=== PATIENT | female | born 1960 | race Caucasian/White ===

== ENCOUNTER 2024-04-01 12:45 | Inpatient (IN) | payer MEDICARE, SELFPAY ==
[2024-04-01] VITALS (13 sets, daily range): BP systolic 91–149; BP diastolic 42–76; PULSE 87–120; RESP 15–23; TEMP 36.6–37.1; O2SAT 92–98; BMI 36.6
--- NOTE | ~2024-04-01 | XR_ITS ---
EXAMINATION: XR chest 1V portable DATE: 04/01/2024 17:14 INDICATION: Pneumonia TECHNIQUE: frontal view of the chest was obtained. COMPARISON: CT dated 04/01/2024 FINDINGS: Oblique band of discoid atelectasis at the left lower lung zone. Additional mild streaky atelectasis at the bilateral lung bases. No pleural effusion or pneumothorax. The cardiomediastinal silhouette is normal. Adjustable gastric banding procedure the epigastric region. IMPRESSION: 1. Atelectasis in bilateral lower lung zones, left greater than right. Reviewed, dictated and finalized at location A. SURGEON
--- NOTE | ~2024-04-01 | CT_ITS ---
EXAMINATION: CT abdomen pelvis w con DATE: 04/01/2024 14:52 INDICATION: Localized abdominal pain TECHNIQUE: Computed tomography (CT) of the abdomen and pelvis was performed with 100 mL Omnipaque-350 intravenous contrast. Automated exposure control and iterative reconstruction technique were employe d. The dose-length product was 1577.54 mGy-cm. COMPARISON: None FINDINGS: Dependent atelectasis in the lingula and bilateral lower lobes most prominent in the left lower lobe where there is asymmetric volume loss compared to the right lower lobe. Heart size is normal. No kyle cardial or pleural effusion. Small sliding-type hiatal hernia. Adjustable gastric banding procedure w hich is in expected position. Calcified gallstone within the normal-appearing gallbladder. The common bile duct is mildly dilated to 8 mm. No intrahepatic biliary ductal dilation or evident distal obstr ucting stone or mass. Liver, spleen, pancreas, bilateral adrenal glands and right kidney are normal. Nonobstructing left nephrolithiasis with 4 stones, the 3 largest staghorn calculi measuring 8-11 mm i n maximal diameter. No stones in the right kidney or bilateral ureters. There are however several lar ge bladder stones along with a Esparza catheter within the decompressed bladder. Large amount of coloni c stool consistent with constipation. Small bowel and appendix are normal. Small fat-containing umbil ical hernia. Uterus and bilateral adnexa are unremarkable. No free intraperitoneal gas or fluid. No p athologically enlarged abdominal or pelvic lymphadenopathy. 2.3 cm diameter rim calcified lesion with central fat attenuation in the deep pelvis consistent with chronic fat necrosis. Mild lumbar dextros coliosis with moderate spondylosis. Chronic L2 compression fracture with mild central vertebral body height loss. 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 IMPRESSION: 1. Nonobstructing left nephrolithiasis and multiple bladder stones. 2. Cholelithiasis with mild dilation the common bile duct without evident obstructing stone or mass. Correlate with liver function tests and if clinically concerned consider MRCP for further evaluation. 3. Large amount of colonic stool which can be seen with constipation. 4. Small sliding-type hiatal hernia with adjustable gastric band of adjustable gastric banding proced ure in expected position. 4. Small fat-containing umbilical hernia. 5. 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 Reviewed, dictated and finalized at location A. ER CALENDER HELPER IMPRESSION: 1. Nonobstructing left nephrolithiasis and multiple bladder stones. 2. Cholelithiasis with mild dilation the common bile duct without evident obstr ucting stone or mass. Correlate with liver function tests and if clinically con cerned consider MRCP for further evaluation. 3. Large amount of colonic stool which can be seen with constipation. 4. Small sliding-type hiatal hernia with adjustable gastric band of adjustable gastric banding procedure in expected position. 4. Small fat-containing umbilical hernia. 5. 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
--- NOTE | ~2024-04-01 | US_ITS ---
EXAMINATION: US abdomen limited DATE: 04/01/2024 17:14 INDICATION: Cholelithiasis TECHNIQUE: Multiple grayscale and Doppler ultrasound images of the abdomen were obtained. COMPARISON: None FINDINGS: There is suboptimal visualization of the organs secondary to patient body habitus. The region of the pancreas is obscured. Liver has normal echogenicity and contour, with a smooth surface. No liver lesi on identified. No intrahepatic biliary duct dilation suspected. Portal venous flow was seen in the he patopetal, normal direction and has normal Doppler waveform. Shadowing gallstones in the otherwise no rmal gallbladder. Common bile duct measures 5 mm diameter which is normal. Sonographic Arthur sign wa s reported as negative by the certified master locksmith. Visualized portion of the right kidney demonstrate normal contour and echogenicity with no hydronephrosis. Inferior vena cava is not clearly visualized. IMPRESSION: 1. Cholelithiasis without evident biliary ductal dilation or findings of acute cholecystitis. 2. Limited study due to patient body habitus. Reviewed, dictated and finalized at location A. IARD TABLE REPAIRER
--- NOTE | ~2024-04-01 | MR_ITS ---
EXAMINATION: MR MRCP wo/w con/w 3D wo ind DATE: 04/02/2024 13:04 INDICATION: Generalized abdominal pain. TECHNIQUE: Magnetic resonance imaging (MRI) of the abdomen was performed without and with 20 mL Multi Stef intravenous contrast. Sequences included coronal T2-weighted FS FSE, coronal T2-weighted FSE, a xial T1-weighted LAVA, coronal FS FIESTA, axial dual-echo T1-weighted SPGR, coronal lava-FLEX, sagitt al T2-weighted FSE, axial T2-weighted FSE, and axial DWI. Thick-slab T2-weighted FSE images were obta ined for magnetic resonance cholangiopancreatography (MRCP). Maximum intensity projection 3-D reconst ructions of the volumetric data were created by the technologist. Postcontrast sequences included cor onal LAVA-flex and time course of axial T1-weighted LAVA. COMPARISON: CT abdomen and pelvis 04/01/2024, abdomen ultrasound 04/01/2024 FINDINGS: ABDOMEN MRI: There is diffuse hepatic steatosis. There are gallstones in the gallbladder and cystic d uct. The gallbladder is distended. The spleen, pancreas, adrenal glands, and right kidney are normal. There is cortical thinning of left kidney. There are no dilated loops of bowel. A lap band is noted in expected position. ABDOMEN MRCP: The common duct is dilated to 10 mm. No choledocholithiasis. IMPRESSION: 1. Gallstones in the gallbladder and cystic duct with gallbladder distention, but no gallbladder wall thickening to suggest acute cholecystitis. Consider hepatobiliary scintigraphy. 2. Mildly dilated common duct. No choledocholithiasis. 3. Diffuse hepatic steatosis. Reviewed, dictated and finalized at location A. BOLIC SPECIALIST IMPRESSION: 1. Gallstones in the gallbladder and cystic duct with gallbladder distention, b ut no gallbladder wall thickening to suggest acute cholecystitis. Consider hepa tobiliary scintigraphy. 2. Mildly dilated common duct. No choledocholithiasis. 3. Diffuse hepatic steatosis.
--- NOTE | ~2024-04-01 | CT_ITS ---
EXAMINATION: CT brain wo con DATE: 04/01/2024 19:39 INDICATION: Seizure like episode TECHNIQUE: Computed tomography (CT) of the head was performed without intravenous contrast. Sagittal and coronal reconstructions were performed. The mA was adjusted according to patient size. Iterative reconstruction technique was employed. The dose-length product was 681.00 mGy-cm. COMPARISON: None FINDINGS: No acute intracranial hemorrhage, acute infarction or abnormal extra axial fluid collection. Small ol d lacunar infarct in the periventricular white matter of the left frontal lobe centrum semiovale. The re is mild scattered white matter hypoattenuation consistent with chronic small vessel ischemic disea se. Ventricles are normal and symmetric with normal anatomic variant cavum septum vergae. No mass/ma ss effect. The orbits, paranasal sinuses and mastoid air cells are normal. IMPRESSION: 1. 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 No acute intracranial proces s. 2. Mild scattered white matter hypoattenuation consistent with chronic small vessel ischemic disease. Reviewed, dictated and finalized at location A. ERTY CUSTODIAN IMPRESSION: 1. 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 No acu te intracranial process. 2. Mild scattered white matter hypoattenuation consistent with chronic small ve ssel ischemic disease.
--- OUTSIDE RECORDS SUMMARY | 2024-04-01 13:28 | XMS_ITS | Clinical Summary ---
Author Organization [facility] B Address [address] [place] [address] Care Team Providers Care Buyers' Agent Name Role Phone Tharebeca Nitamarco Marco Primary Care Provider [phone] Allergies No known active allergies Medications levothyroxine (SYNTHROID) 150 mcg tabletIndicatio ns:hypothyroidi sm Take 1 tablet (150 mcg total) by mouth daily before breakfast 7 Active buPROPion XL (WELLBUTRIN XL) 150 mg 24 hr tabletIndicatio ns:Anxiety with Depression Take 1 tablet (150 mg total) by mouth local city driver before breakfast 3 Active dalfampridine 10 mg tablet extended release 12 hrIndications:w alking impairment due to multiple sclerosis Take 1 tablet (10 mg total) by mouth every 12 (twelve) hours Active baclofen (LIORESAL) 10 mg tabletIndicatio ns:Muscle Spasticity of Spinal Origin Take 3 tablets (30 mg total) by mouth 3 (three) times a day 9 Active gabapentin (NEURONTIN) 100 mg capsuleIndicati ons:Neuropathic Pain Take 2 capsules (200 mg total) by mouth 3 (three) times a day 2 Active ascorbic acid (ascorbic acid with batsheva hips) 500 mg tablet,chewable Indications:Vit burton C Deficiency Take 1 tablet/chew tab (500 mg total) by mouth 2 (two) times a day 3 Active cholecalciferol , vitamin D3, (VITAMIN D3 ORAL) Take by mouth Active modafiniL (PROVIGIL) 200 mg tabletIndicatio ns:Sleepiness Due To Obstructive Sleep Apnea Take 1 tablet (200 mg total) by mouth local city driver before breakfast 90 tablet 3 4 Active atorvastatin (LIPITOR) 20 mg tabletIndicatio ns:hyperlipidem ia Take 1 tablet by mouth daily 5 Active clotrimazole 1 % cream Apply topically 2 (two) times a day 4 Active Hizentra 10 gram/50 mL (20 %) syringeIndicati ons:primary immune deficiency disorder 40 mg every 7 days 4 03/20/19 25 Discontinu ed(Therapy completed) mupirocin (BACTROBAN) 2 % ointmentIndicat ions:Minor Bacterial Skin Infections Apply topically as needed 3 03/20/19 25 Discontinu ed(Therapy completed) immune globulin (Gammagard Liquid) infusionIndicat ions:primary immune deficiency disorder 0 03/20/19 Discontinu ed(Therapy completed) Active Problems Problem Noted Date Diagnosed Date Multiple sclerosis 12/15/2023 Assessment & Plan (03/20/2024 3:07 PM FRONT END DRUPAL DEVELOPER): The patient is presenting for follow up of her multiple sclerosis. Since our last visit she has been doing well. She was noticed some intermittent tingling in her left upper extremity. She also reports a lesion in her left foot concerning for a possible pressure ulcer. She initially had a skin fungal infection which has improved with nystatin and fungal powder. She continues to get symptomatic benefit from baclofen, gabapentin, Ampyra, and modafinil. Her most recent brain MRI showed multiple T2 hyperintense lesions without evidence of ongoing inflammation. I will reach out to the [facility] to request a copy of her prior brain MRI for comparison. She will follow up with Urology for further management of her suprapubic catheter. We will continue her on home health for ongoing treatment of her pressure ulcers and for further treatment and evaluation of her suprapubic catheter. I will see her back in follow up in six months instructed her to reach out if any questions or concerns arise in the meantime. We will check routine labs, immunoglobulins, and immune cells ensure that she continues to have a strong immune system. Assessment & Plan (12/28/2023 11:07 AM FRONT END DRUPAL DEVELOPER): Patient is presenting to establish care for her multiple sclerosis. She first experienced symptom onset in the . Over time her symptoms have primarily consisted of progressive weakness in her bilateral lower extremities. She began using a walker in 2008 and after a prolonged hospitalization in 2011 due to pneumonia she has been using a wheelchair. She has a suprapubic catheter in place in his ongoing issues with sacral decubitus ulcers. She has been receiving subacute cutaneous IVIG weekly since 2019. She was previously on Ocrevus but this was discontinued she she developed urosepsis. We discussed ongoing treatment for her multiple sclerosis. Weekly IVIG is less effective for the treatment of multiple sclerosis particularly with ongoing progressive symptoms. It may be preventing infections if she has an underlying immunoglobulin deficiency. I recommend we check immunoglobulins at today's visit in one month trial her off the IVIG to see how she does. If she begins to experience recurrent infections or worsening of her underlying multiple sclerosis we can put her back on the medication. We will continue her symptomatic therapy for her multiple sclerosis including Ampyra 10 mg b.i.d., gabapentin 200 mg q.a.m., 200 mg q.p.m., and 300 mg at night, baclofen 30 mg q.a.m., 30 mg q.p.m., and 40 mg at night. We will also continue the patient on Wellbutrin 150 mg daily. Also recommended she continue the vitamin-D supplement. We will also continue her on modafinil 200 mg daily for ongoing treatment of her fatigue. We will obtain an updated brain MRI. We will look into home health agency to provide home PT, OT, and wound care. There may be some complication with the patient's insurance while she is still on the IVIG. We will find out more information. We will see the patient back in follow up in three months. The patient is wheelchair has significant wear and tear. We will work on getting the patient a new power wheelchair. Recurrent major depressive d isorder, in full remission (CMS/[facility]) 12/15/2023 Assessment & Plan (12/15/2023 2:22 PM CDT): The patient is currently treated for depression with Wellbutrin 150 mg daily. She reports good benefit from the medication. We will continue it for ongoing treatment Encounters Date Type Department Care Team Description 03/30/2024 1:00 PM FRONT END DRUPAL DEVELOPER Home Care Visit [address] [place] [address] Opal Vincent COTA OT HOME VISIT 03/29/2024 10:00 AM FRONT END DRUPAL DEVELOPER Home Care Visit [address] [place] [address] Jennifer Aquino, SLUG PRESS OPERATOR AIDE HOME VISIT 03/29/2024 9:00 AM FRONT END DRUPAL DEVELOPER Home Care Visit [address] [place] [address] Elizabeth Gotti, ALXEI SN HOME VISIT 03/28/2024 2:45 PM FRONT END DRUPAL DEVELOPER Home Care Visit [address] [place] [address] Opal Vincent COTA OT HOME VISIT 03/26/2024 10:00 AM FRONT END DRUPAL DEVELOPER Home Care Visit [address] [place] [address] Jennifer Aquino, SLUG PRESS OPERATOR AIDE HOME VISIT 03/22/2024 1:30 PM FRONT END DRUPAL DEVELOPER Home Care Visit [address] [place] [address] Opal Vincent COTA OT HOME VISIT 03/22/2024 10:00 AM FRONT END DRUPAL DEVELOPER Home Care Visit [address] [place] [address] Jennifer Aquino, SLUG PRESS OPERATOR AIDE HOME VISIT 03/22/2024 9:00 AM FRONT END DRUPAL DEVELOPER Home Care Visit [address] [place] [address] Elizabeth Gotti, ALEXI SN HOME VISIT 03/21/2024 12:30 PM FRONT END DRUPAL DEVELOPER Home Care Visit [address] [place] [address] Opal Vincent COTA OT HOME VISIT 03/21/2024 Telephone [facility] [address] [place] [address] Holly Sprague RN 03/20/2024 3:15 PM FRONT END DRUPAL DEVELOPER Lab [facility] [address] [place] [address] Multiple sclerosis (HCC) 03/20/2024 2:00 PM FRONT END DRUPAL DEVELOPER Office Visit [facility] [address] [place] [address] Rhys Stevens MD Multiple sclerosis (HCC) (Primary Dx) 03/19/2024 9:30 AM FRONT END DRUPAL DEVELOPER Home Care Visit [address] [place] [address] Jennifer Aquino SLUG PRESS OPERATOR AIDE HOME VISIT 03/16/2024 11:30 AM FRONT END DRUPAL DEVELOPER Home Care Visit [address] [place] [address] Keil Larios, OT OT REASSESSMENT 03/16/2024 Home Care Visit [address] [place] [address] Keli Larios, OT CASE COMMUNICATION 03/15/2024 8:00 AM FRONT END DRUPAL DEVELOPER Home Care Visit [address] [place] [address] Jennifer Aquino SLUG PRESS OPERATOR AIDE HOME VISIT 03/15/2024 Home Care Visit [address] [place] [address] Alexandra Durand, ALEXI SN TRIAGE ENCOUNTER 03/14/2024 9:00 AM FRONT END DRUPAL DEVELOPER Home Care Visit [address] [place] [address] Aundrea Scanlon SN HOME VISIT 03/12/2024 9:00 AM FRONT END DRUPAL DEVELOPER Home Care Visit [address] [place] [address] Jennifer Aquino, SLUG PRESS OPERATOR AIDE HOME VISIT 03/11/2024 2:28 PM FRONT END DRUPAL DEVELOPER - 03/11/2024 11:59 PM FRONT END DRUPAL DEVELOPER Hospital Encounter [facility] [address] [place] [address] Multiple sclerosis (HCC) Discharge Disposition: Discharge to home or self care 03/10/2024 4:05 PM FRONT END DRUPAL DEVELOPER Home Care Visit [address] [place] [address] Cecile Allen SN HOME VISIT 03/10/2024 Home Care Visit [address] [place] [address] Nay Reyna RN SN TRIAGE ENCOUNTER 03/09/2024 3:00 PM FRONT END DRUPAL DEVELOPER Home Care Visit [address] [place] [address] Opal Vincent COTA OT HOME VISIT 03/09/2024 12:00 PM FRONT END DRUPAL DEVELOPER Home Care Visit [address] [place] [address] Jennifer Aquino, SLUG PRESS OPERATOR AIDE HOME VISIT 03/08/2024 11:30 AM FRONT END DRUPAL DEVELOPER Home Care Visit [address] [place] [address] Aundrea Scanlon SN HOME VISIT 03/06/2024 2:00 PM FRONT END DRUPAL DEVELOPER Home Care Visit [address] [place] [address] Jennifer Aquino, SLUG PRESS OPERATOR AIDE HOME VISIT 03/05/2024 Home Care Visit [address] [place] [address] Nannette Cazares RN SN TRIAGE ENCOUNTER 03/03/2024 4:00 PM FRONT END DRUPAL DEVELOPER Home Care Visit [address] [place] [address] Arabella Martin, ALEXI SN HOME VISIT 03/03/2024 Home Care Visit [address] [place] [address] Arabella Martin, RN CASE COMMUNICATION 03/03/2024 Home Care Visit [address] [place] [address] Nannette Cazares RN SN TRIAGE ENCOUNTER 03/03/2024 Home Care Visit [address] [place] [address] Patrizia Loaiza RN SN TRIAGE ENCOUNTER 03/02/2024 Home Care Visit [address] [place] [address] Mauricio Owens RN SN TRIAGE ENCOUNTER 02/24/2024 1:45 PM FRONT END DRUPAL DEVELOPER Home Care Visit [address] [place] [address] Opal Vincent COTA OT HOME VISIT 02/21/2024 11:00 AM FRONT END DRUPAL DEVELOPER Home Care Visit [address] [place] [address] Aundrea Scanlon SN HOME VISIT 02/21/2024 Home Care Visit [address] [place] [address] Renetta Marmolejo RN SN TRIAGE ENCOUNTER 02/20/2024 Home Care Visit [address] [place] [address] Jenny Oseguera, RN SN TRIAGE ENCOUNTER 02/18/2024 Plan of Care Documentation [address] [place] [address] 02/17/2024 11:00 AM FRONT END DRUPAL DEVELOPER Home Care Visit [address] [place] [address] Aundrea Scanlon SN OASIS RECERTIFICATION 02/13/2024 3:00 PM FRONT END DRUPAL DEVELOPER Home Care Visit [address] [place] [address] Matilda Baeza, RN SN HOME VISIT 02/13/2024 11:30 AM FRONT END DRUPAL DEVELOPER Home Care Visit [address] [place] [address] Mellisa Castellon, PT PT INITIAL EVALUATION 02/13/2024 Home Care Visit [address] [place] [address] Jenny Oseguera RN SN TRIAGE ENCOUNTER 02/12/2024 Home Care Visit [address] [place] [address] Alexandra Durand RN SN TRIAGE ENCOUNTER 02/10/2024 11:00 AM FRONT END DRUPAL DEVELOPER Home Care Visit [address] [place] [address] Aundrea Scanlon SN HOME VISIT 02/07/2024 11:30 AM FRONT END DRUPAL DEVELOPER Home Care Visit [address] [place] [address] Keli Larios, OT OT REASSESSMENT 02/07/2024 Home Care Visit [address] [place] [address] Keli Larios, OT CASE COMMUNICATION 02/06/2024 Home Care Visit [address] [place] [address] Mellisa Castellon, PT TELEPHONE ENCOUNTER 02/03/2024 11:00 AM FRONT END DRUPAL DEVELOPER Home Care Visit [address] [place] [address] Aundrea Scanlon SN HOME VISIT 02/03/2024 Home Care Visit [address] [place] [address] Mellisa Castellon, PT TELEPHONE ENCOUNTER 02/02/2024 Home Care Visit [address] [place] [address] Mellisa Castellon, PT TELEPHONE ENCOUNTER 02/02/2024 Documentation [facility] [address] [place] [address] Rhys Stevens MD 01/31/2024 2:45 PM FRONT END DRUPAL DEVELOPER Home Care Visit [address] [place] [address] Opal Vincent COTA OT HOME VISIT 01/31/2024 Home Care Visit [address] [place] [address] Mellisa Castellon, PT TELEPHONE ENCOUNTER 01/27/2024 11:00 AM FRONT END DRUPAL DEVELOPER Home Care Visit [address] [place] [address] Aundrea Scanlon SN HOME VISIT 01/25/2024 Home Care Visit [address] [place] [address] Patrizia Loaiza, ALEXI SN TRIAGE ENCOUNTER 01/25/2024 Telephone [facility] Scheduling [address] [place] [address] Resource, Homecare Scheduling 01/24/2024 2:30 PM FRONT END DRUPAL DEVELOPER Home Care Visit [address] [place] [address] Keli Larios, OT OT HOME VISIT 01/24/2024 Home Care Visit [address] [place] [address] Keli Larios, OT CASE COMMUNICATION 01/19/2024 2:00 PM FRONT END DRUPAL DEVELOPER Home Care Visit [address] [place] [address] Opal Vincent COTA OT HOME VISIT 01/19/2024 12:00 PM FRONT END DRUPAL DEVELOPER Home Care Visit [address] [place] [address] Aundrea Scanlon SN HOME VISIT 01/19/2024 Home Care Visit [address] [place] [address] Patrizia Loaiza RN SN TRIAGE ENCOUNTER 01/17/2024 1:30 PM FRONT END DRUPAL DEVELOPER Home Care Visit [address] [place] [address] Opal Vincent COTA OT HOME VISIT 01/17/2024 11:00 AM FRONT END DRUPAL DEVELOPER Home Care Visit [address] [place] [address] Last [employer] REGION[employer] ACCOUNT EXECUTIVE CLE[employer]ER [employer] UPHOLSTERY INITIAL EVAL 01/17/2024 Home Care Visit [address] [place] [address] Last [employer] LCSW CLEANER [employer]PET AND UPHOLSTERY DISCIPLINE DISCHARGE 01/16/2024 Home Care Visit [address] [place] [address] Last [employer] LCSW CASE COMMUNICATION 01/11/2024 11:30 AM FRONT END DRUPAL DEVELOPER Home Care Visit [address] [place] [address] Cecile Allen SN HOME VISIT 01/11/2024 Home Care Visit [address] [place] [address] Patrizia Loaiza RN SN TRIAGE ENCOUNTER 01/10/2024 12:30 PM FRONT END DRUPAL DEVELOPER Home Care Visit [address] [place] [address] Keli Larios, OT OT INITIAL EVALUATION 01/10/2024 11:00 AM FRONT END DRUPAL DEVELOPER Home Care Visit [address] [place] [address] Aundrea Scanlon SN HOME VISIT 01/10/2024 Home Care Visit [address] [place] [address] Keli Larios, OT CASE COMMUNICATION 01/06/2024 12:30 PM FRONT END DRUPAL DEVELOPER Home Care Visit [address] [place] [address] Aundrea Scanlon SN HOME VISIT 01/05/2024 1:00 PM FRONT END DRUPAL DEVELOPER Home Care Visit [address] [place] [address] Efe Buckner, PT PT DISCIPLINE DISCHARGE 01/02/2024 Documentation [facility] [address] [place] [address] Rhys Stevens MD from Last 3 Months Immunizations Immunization Administration Dates Next Due Influenza LAIV (Nasal) 03/02/2013 Influenza, Quadrivalent, Spl it, Preservative Free, Intramuscular 02/21/2014,04/27/2011 Influenza, Unspecified 03/03/2012 Tdap 04/23/2016 Medical History Medical History Date Comments Recurrent major depressive d isorder, in full remission (CMS/HCC) (HCC) 12/15/2023 Multiple sclerosis ([facility]) 12/15/2023 Social History Tobacco Use Types Packs/Day Years Used Date Smoking Tobacco: Former Cigarettes Tobacco Cessation:Counseling Given: Not Answered OASIS D0700: Social Isolation Answer Da te Recorded Frequency of experiencing loneliness or isolatio n Never 02/17/2024 OASIS A1250: Transportation Answer Date Recorded Lack of Transportation (Medical) No 12/21/2023 Lack of Transportation (Non-Medical) No 12/21/2023 Patient Unable or Declines to Respond No 12/21/2023 OASIS B1300: Health Literacy Answer Enmanuel e Recorded Frequency of needing help to read materials from doctor or pharmacy Never 12/21/2023 AUDIT-C Answer Date Recorded Q1: How often do you have a drink containing alc ohol? Monthly or less 03/20/2024 Q2: How many drinks containi ng alcohol do you have on a typical day when you are drinking? 1 or 2 03/20/2024 Q3: How often do you have si x or more drinks on one occasion? Less than monthly 03/20/2024 Comments No Sex and Gender Information Value Date Recorded Sex Assigned at Not on file Legal Sex Female 1:01 PM CDT Gender Identity Not on file Sexual Orientation Not on file Obstetrics History Last Filed Vital Signs Vital Sign Reading Time Taken Comments Blood Pressure 112/68 03/29/2024 2:32 PM FRONT END DRUPAL DEVELOPER Pulse 68 03/29/2024 2:32 PM FRONT END DRUPAL DEVELOPER Temperature 36.7 C (98.1 F) 03/29/2024 2:32 PM FRONT END DRUPAL DEVELOPER Respiratory Rate 18 03/29/2024 2:32 PM FRONT END DRUPAL DEVELOPER Oxygen Saturation 92% 03/29/2024 2:32 PM FRONT END DRUPAL DEVELOPER Inhaled Oxygen Concentration - - Weight 108.9 kg (240 lb) 03/20/2024 2:04 PM FRONT END DRUPAL DEVELOPER Height 172.7 cm (5' 8 ) 03/20/2024 2:04 PM FRONT END DRUPAL DEVELOPER Body Mass Index 36.49 03/20/2024 2:04 PM FRONT END DRUPAL DEVELOPER Plan of Treatment Health Maintenance Due Date Last Done Comments Breast Cancer Screening-Mammogram 1961 Cervical Cancer Screening 1961 Colon Cancer Screening-Colonoscopy 1961 Depression Screening 1961 Hepatitis C Screening 1961 Hepatitis B Screening 1979 Regular Well Visit/Exam 18-64 1979 Zoster Vaccine (1 of 2) 2011 Covid-19 Vaccine ( season) 2023 06/09/2020, 05/12/2020 Influenza Vaccine (#1) 2023 5, 03/02/2013, 03/03/2012, Additional history exists DTaP/Tdap/Td Vaccine (2 - Td or Tdap) 04/23/2026 04/23/2016 Pneumococcal vaccine <65 Aged Out No longer eligible based on patient's age to complete this topic Procedures Procedure Name Priority Date/Time Associated Diagnosis Comments IMMUNE COMPETENCE Routine 03/20/2024 7:5 6 PM FRONT END DRUPAL DEVELOPER Multiple sclerosis (HCC) EGFR Routine 03/20/2024 6:53 PM FRONT END DRUPAL DEVELOPER Multiple sclerosis (HCC) DIFFERENTIAL AUTO Routine 03/20/2024 6:5 3 PM FRONT END DRUPAL DEVELOPER Multiple sclerosis (HCC) CBC WITH AUTO DIFFERENTIAL Routine 03/20/2024 6:53 PM FRONT END DRUPAL DEVELOPER Multiple sclerosis (HCC) COMPREHENSIVE METABOLIC PANEL Routine 03/20/2024 6:53 PM FRONT END DRUPAL DEVELOPER Multiple sclerosis (HCC) IMMUNOGLOBULIN PROFILE Routine 6:53 PM FRONT END DRUPAL DEVELOPER Multiple sclerosis (HCC) MRI BRAIN W WO CONTRAST Routine 03/11/19 3:53 PM FRONT END DRUPAL DEVELOPER Multiple sclerosis (HCC) from Last 3 Months Results * Immune competence (03/20/2024 7:56 PM FRONT END DRUPAL DEVELOPER) CD3 pct 71 60 - 88 % Comment:Testing performed by : [facility], [address] [place] [address]., [address] CD3 Absolute 1,036 661 - 1,963 cells/mcL [facility] Comment:Testing performed by : [facility], [address] [place]., [address] CD4 pct 52 31 - 64 % [facility] Comment:Testing performed by : [facility], [address] [place]., [address] CD4 Absolute 788 365 - 1,294 cells/mcL [facility] Comment:Testing performed by : [facility], [address] [facility], [address] CD8 pct 17 12 - 40 % [facility] Comment:Testing performed by : [facility], [address] [place]., [address] CD8 Absolute 257 187 - 781 cells/mcL [facility] Comment:Testing performed by : [facility], [address] [place]., [address] CD19 pct 23 6 - 25 % [facility] Comment:Testing performed by : [facility], [address] [place]., [address] CD19 Absolute 323 86 - 488 cells/mcL [facility] Comment:Testing performed by : [facility], [address] [place]., [address] [id number] pct 6 5 - 25 % [facility] Comment:Testing performed by : [facility], [address] [facility], [address] [id number] Absolute 87 76 - 467 cells/mcL [facility] Comment:Testing performed by : [facility], [address] [place]., [address] CD4/CD8 ratio 3.1 0.9 - 4.4 [facility] Comment:Testing performed by : [facility], [address] [place]., [address] Blood 03/20/2024 7:56 PM FRONT END DRUPAL DEVELOPER 03/20/2024 9:45 PM FRONT END DRUPAL DEVELOPER Rhys Stevens MD LAB BLOOD ORDERABLES Final Result [facility] [address] [place] [address] * (ABNORMAL) Immunoglobulin profile (03/20/2024 6:53 PM FRONT END DRUPAL DEVELOPER) Immunoglobulin G 1,307 700 - 1,600 mg/dL Immunoglobulin A 468(H) 70 - 400 mg/dL [facility] Immunoglobulin M 63 40 - 230 mg/dL [facility] Blood 03/20/2024 6:53 PM FRONT END DRUPAL DEVELOPER 03/20/2024 6:53 PM FRONT END DRUPAL DEVELOPER Rhys Stevens MD LAB BLOOD ORDERABLES Final Result Performing Organization Address [facility] Co de Phone Number [facility] [address] [place] [address] * eGFR (03/20/2024 6:53 PM FRONT END DRUPAL DEVELOPER) eGFR >90 >=60 mL/min/1. 73 m2 Comment: Interpretive Data Reference Interval Normal >/= 90 mL/min/1.73m2 Mildly decreased* 60 - 89 mL/min/1.73m2 Mildly to moderately decreased 45 - 59 mL/min/1.73m2 Moderately to severely decreased 30 - 44 mL/min/1.73m2 Severely decreased 15 - 29 mL/min/1.73m2 Kidney Failure < 15 mL/min/1.73m2 *Relative to young adult level Estimated glomerular filtration rate is determined by the 2020 CKD-EPI equation recommended by the National Kidney Foundation (A Unifying Approach to GFR Estimation: Recommendations of the NKF-ASK Task Force on Reassessing the Inclusion of Race in Diagnosing Kidney Disease, JASN 2020). The CKD-EPI equation should not be used for patients with unstable renal function and has not been validated in children and those over 70. Current interpretive data was last reviewed 2020. Blood 03/20/2024 6:53 PM FRONT END DRUPAL DEVELOPER 03/20/2024 6:53 PM FRONT END DRUPAL DEVELOPER Rhys Stevens MD LAB BLOOD ORDERABLES Final Result Performing Organization Address [facility] Co de Phone Number [facility] [address] [place] [address] * Differential, auto (03/20/2024 6:53 PM FRONT END DRUPAL DEVELOPER) Neutrophil abs 6.3 1.5 - 6.5 K/cumm Imm gran abs 0.0 0.0 - 0.1 K/cumm [facility] Lymphocyte abs 1.5 0.8 - 3.3 K/cumm [facility] Monocyte abs 0.7 0.2 - 0.8 K/cumm [facility] Eosinophil abs 0.2 0.0 - 0.5 K/cumm [facility] Basophil abs 0.1 0.0 - 0.1 K/cumm [facility] Neutrophil pct 71.8 % [facility] Comment: Interpretive Data Percent cell count reference ranges are not reported, since discordance with absolute values may lead to misinterpretation of CBC data. Current Interpretive Data was last revised on 2017. Imm gran pct 0.5 % [facility] Comment: Interpretive Data Percent cell count reference ranges are not reported, since discordance with absolute values may lead to misinterpretation of CBC data. Current Interpretive Data was last revised on 2017. Lymphocyte pct 17.6 % [facility] Comment: Interpretive Data Percent cell count reference ranges are not reported, since discordance with absolute values may lead to misinterpretation of CBC data. Current Interpretive Data was last revised on 2017. Monocyte pct 7.8 % [facility] Comment: Interpretive Data Percent cell count reference ranges are not reported, since discordance with absolute values may lead to misinterpretation of CBC data. Current Interpretive Data was last revised on 2017. Eosinophil pct 1.7 % [facility] Comment: Interpretive Data Percent cell count reference ranges are not reported, since discordance with absolute values may lead to misinterpretation of CBC data. Current Interpretive Data was last revised on 2017. Basophil pct 0.6 % [facility] Comment: Interpretive Data Percent cell count reference ranges are not reported, since discordance with absolute values may lead to misinterpretation of CBC data. Current Interpretive Data was last revised on 2017. Blood 03/20/2024 6:53 PM [employer] 03/20/2024 6:53 PM FRONT END [employer] DEVELOPER us Rhys Stevens MD LAB BLOOD ORDERABLES Final Result [facility] [address] [place] [address] * CBC with auto differential (03/20/2024 6:53 PM FRONT END [employer]UPAL DEVELOPER) WBC 8.8 3.8 - 9.9 K/cumm Hgb 13.4 11.9 - 15.5 g/dL [facility] Hct 41.4 35.6 - 45.5 % [facility] Plt 350 150 - 400 K/cumm [facility] MPV 10.1 9.1 - 12.3 fL [facility] RBC 4.36 3.90 - 5.20 M/cumm [facility] MCV 95.0 81.3 - 96.4 fL [facility] MCH 30.7 27.1 - 33.3 pg [facility] MCHC 32.4 32.3 - 35.7 g/dL [facility] RDW CV 13.0 11.1 - 14.9 % [facility] RDW SD 44.8 35.7 - 48.1 fL [facility] NRBC abs 0.00 0.00 - 0.01 K/cumm [facility] Blood 03/20/2024 6:53 PM [employer] END [employer]UP[employer] DEVELOPER 03/20/2024 6:53 PM FR[employer] END [employer]UPAL DEVELOPER us Rhys Stevens MD LAB BLOOD ORDERABLES Final Result [facility] [address] [place] [address] * (ABNORMAL) Comprehensive metabolic panel (03/20/2024 6:53 PM FRONT END DRUPAL DEVELOPER) [facility] Sodium 139 135 - 145 mmol/L Potassium, pl 4.3 3.3 - 4.9 mmol/L [facility] Chloride 99 97 - 110 mmol/L [facility] CO2 27 22 - 32 mmol/L [facility] Anion gap 13 2 - 15 mmol/L [facility] BUN 4(L) 6 - 25 mg/dL [facility] Creatinine 0.39(L) 0.60 - 1.10 mg/dL [facility] Glucose 84 70 - 199 mg/dL [facility] Comment: Interpretive Data Fasting glucose >/= 126 mg/dl is diagnostic for diabetes. Fasting is defined as no caloric intake for at least 8 hours. Fasting glucose between 100 mg/dl to 125 mg/dl is diagnostic of prediabetes. In a patient with classic symptoms of hyperglycemia or hyperglycemic crisis, a random glucose >/= 200 mg/dl is diagnostic for diabetes. In the absence of unequivocal hyperglycemia, results should be confirmed by repeat testing. The classification and Diagnosis of Diabetes Diabetes Care 202; 46: S19-S40. Current interpretive data was last revised 2022. Calcium 9.2 8.5 - 10.3 mg/dL [facility] Bilirubin, total 0.3 0.1 - 1.2 mg/dL [facility] Protein, pl 7.5 6.5 - 8.5 g/dL [facility] Albumin 3.9 3.5 - 5.0 g/dL [facility] Alk phos 114 40 - 130 Units/L [facility] ALT 32 7 - 45 Units/L [facility] AST 18 10 - 45 Units/L [facility] Blood 03/20/2024 6:53 PM FR[employer] END [employer] DEVELOPER 03/20/2024 6:53 PM FR[employer] END [employer]UP[employer] DEVELOPER Rhys Stevens MD LAB BLOOD ORDERABLES Final Result [facility] [address] [place] [address] * MRI Brain W WO Contrast (03/11/2024 3:53 PM FRONT END [employer]UPAL DEVELOPER) Anatomical Region Laterality Modality Head and Neck N/A Magnetic Resonan ce 03/12/2024 10:1 2 AM FRONT END [employer]UPAL DEVELOPER Impressions 03/12/2024 10:12 AM [employer] END [employer]UPAL DEVELOPER 1. Multiple white matter lesions. No priors available for comparison. 2. No abnormal enhancement or diffusion restriction to suggest active demyelination. 3. Greater than 50% of the lesions demonstrate a Central Vein Sign. Electronically signed by: Edgardo Shaw M.D. Narrative 03/12/2024 10:12 AM FRONT END [employer]UPAL DEVELOPER MRI BRAIN W WO CONTRAST 03/11/2024 2:30 PM CLINICAL INDICATION: Multiple sclerosis. COMPARISON: No priors available for comparison. TECHNIQUE: Multiplanar multisequence MRI of the brain was performed without and with contrast. 20 mL of gadoterate meglumine was administered intravenously. A 3 Blanche magnet was used. Portions of the study are degraded by motion. FINDINGS: There is a cavum vergae. The ventricles and cortical sulci are mildly dilated. There is no acute infarct, mass/mass effect or midline shift. There are multiple subcortical, juxtacortical and periventricular FLAIR/T2 signal intensities. None of the lesions demonstrate enhancement or diffusion restriction. Greater than 50% of the lesions demonstrate a Central Vein Sign. There is mild increased signal along the periaqueductal arvizu matter. There is mild increased fluid in the sella. Otherwise, the sellar and suprasellar structures are normal. There are no acute findings in the posterior fossa. 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 There is preservation of normal flow voids in the major intracranial vessels. There is scattered paranasal sinus mucosal thickening. There is trace fluid in the left mastoid air cells. There are no acute findings in the orbits. Procedure Note Edgardo Shaw MD - 03/12/2024 MRI BRAIN W WO CONTRAST 03/11/2024 2:30 PM CLINICAL INDICATION: Multiple sclerosis. COMPARISON: No priors available for comparison. TECHNIQUE: Multiplanar multisequence MRI of the brain was performed without and with contrast. 20 mL of gadoterate meglumine was administered intravenously. A 3 Blanche magnet was used. Portions of the study are degraded by motion. FINDINGS: There is a cavum vergae. The ventricles and cortical sulci are mildly dilated. There is no acute infarct, mass/mass effect or midline shift. There are multiple subcortical, juxtacortical and periventricular FLAIR/T2 signal intensities. None of the lesions demonstrate enhancement or diffusion restriction. Greater than 50% of the lesions demonstrate a Central Vein Sign. There is mild increased signal along the periaqueductal arvizu matter. There is mild increased fluid in the sella. Otherwise, the sellar and suprasellar structures are normal. There are no acute findings in the posterior fossa. 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 There is preservation of normal flow voids in the major intracranial vessels. There is scattered paranasal sinus mucosal thickening. There is trace fluid in the left mastoid air cells. There are no acute findings in the orbits. IMPRESSION: 1. Multiple white matter lesions. No priors available for comparison. 2. No abnormal enhancement or diffusion restriction to suggest active demyelination. 3. Greater than 50% of the lesions demonstrate a Central Vein Sign. Electronically signed by: Edgardo Shaw M.D. Rhys Stevens MD IM MRI PROCEDURES Fi nal Result from Last 3 Months Insurance MEDICARE [facility] Care Teams Buyers' Agent Relationship Specialty Start Date End Date Rachel Carmichael [address] [place] [address] [phone] PCP - General Family Medicine 12/13/23
--- OUTSIDE RECORDS SUMMARY | 2024-04-01 13:29 | XMS_ITS | Clinical Summary ---
Author Organization [facility] [place] [address] [place] [address] Care Team Providers Care Medical Service Representative Name Role Phone Unavailable Primary Care Provider Unavailabl e Medications No known medications Active Problems No known active problems Social History Tobacco Use Types Packs/Day Years Used Date Smoking Tobacco: Never Smokeless Tobacco: Never Tobacco Cessation:Counseling Given: Not Answered Alcohol Use Standard Drinks/Week Comments Never 0 (1 standard drink = 0.6 oz pur e alcohol) Comments Unknown Sex and Gender Information Value Date Recorded Sex Assigned at Not on file Legal Sex Female 1:12 AM PST Gender Identity Not on file Sexual Orientation Not on file Last Filed Vital Signs Vital Sign Reading Time Taken Comments Blood Pressure 141/89 05/03/2022 10:01 AM PDT Pulse - - Temperature - - Respiratory Rate - - Oxygen Saturation - - Inhaled Oxygen Concentration - - Weight - - Height - - Body Mass Index - - Plan of Treatment Health Maintenance Due Date Last Done Comments Dental X-Ray: Full Mouth 1961 Periodontal Maintenance 10/05/2018 07/05/19 19, 02/23/2018, 10/18/2017 Dental Oral Exam 01/05/2019 07/04/2018, 10/18/2017 Dental X-Ray: Bitewings 01/05/2019 07/04/2018 Scaling and Root Planing 07/02/2019 018, 06/17/2017, 06/17/2017, Additional history exists Dental X-Ray: Panoramic 05/05/2025 05/04/2022 Colonoscopy Discontinued 05/21/2022 Meningococcal B Vaccine Aged Out No l onger eligible based on patient's age to complete this topic Procedures Procedure Name Priority Date/Time Associated Diagnosis Comments PERIODIC ORAL EVALUATION - ESTABLISHED PATIENT Routine 07/04/2018 12:00 AM PDT PERIO MAINTENANCE Routine 07/04/2018 12: 00 AM PDT LL PERIODONTAL SCALING AND ROOT PLANING - FOUR OR MORE TEETH PER QUADRANT Routine 06/17/2017 12:00 AM PDT from Last 3 Months or Most Recently Relevant to Health Maintenance Insurance [address] [place], [place] [id number]
--- OUTSIDE RECORDS SUMMARY | 2024-04-01 13:29 | XMS_ITS | Clinical Summary ---
Author Organization [facility] Address [address] [place] [address] Care Team Providers Care Wallpaper Hanger Name Role Phone Feliberto Carmichael MD Primary Care Provider [phone] Dulce Cortez MD Unavailable [phone] Source Comments [facility],non-owned Affiliates and Associated Physician Practices is amultiple site organization consisting of ambulatory clinics and hospital sitesin [place], [place], [place] and [place]. This disclosure is being madepursuant to the Care Everywhere program and may not contain all information available regarding this patient. Last updated 17.[email or web address] Allergies No known active allergies Medications * Be aware that medications may not be up to date on this document. Alwaysverify current medications with the patient. Medication Sig Dispensed Refills Start Date End Date Status levothyroxine (Synthroid) 150 MCG tablet Take 1 (one) tablet by mouth daily before breakfast Active baclofen (Lioresal) 10 MG tablet Take by mouth 3 times daily 30 mg every morning, 30 mg every evening, 40 at bedtime. Active gabapentin (Neurontin) 100 MG capsule Take by mouth 3 times daily 200 mg every morning, 200 mg every evening, 300 at bedtime Active dalfampridine ER (Ampyra) 10 MG tablet Take 1 (one) tablet by mouth every 12 hours Active modafinil (Provigil) 200 MG tablet Take 1 (one) tablet by mouth every morning Active Cholecalciferol (VITAMIN D3 PO) Take by mouth. Activ e buPROPion XL 24hr (Wellbutrin-XL) 150 MG tablet Take 1 (one) tablet by mouth every morning 08/12/2022 Active nystatin (Mycostatin) 558022 UNIT/GM ointmentIndication s:Candidal intertrigo Apply to affected area 2 times daily Apply to back and buttocks area 30 g 12/29/2023 Active nystatin (Mycostatin) 376909 UNIT/GM powderIndications: Candidal intertrigo Apply to affected area 2 times daily Apply under panus 60 g 12/29/2023 Active ascorbic acid (Vitamin C) 500 MG tablet Take 1 (one) tablet by mouth once daily Active clotrimazole (Lotrimin AF) 1 % creamIndications:F ungal infection of skin Apply to affected area 2 times daily 60 g 6 02/11/2024 Active NIFEdipine CR 24hr (Adalat CC) 30 MG tabletIndications: Chilblains, initial encounter Take 1 (one) tablet by mouth once daily Take on an empty stomach. 90 tablet 1 03/07/2024 Active semaglutide (Wegovy) 0.25 MG/0.5ML penIndications:Obe sity Inject 0.25 (one-quarter) mg subcutaneously every 7 days for 28 days, THEN 0.5 (one-half) mg every 7 days for 28 days. Reasons: OBESITY. 6 mL 03/15/2024 Active polyethylene glycol 3350 (Miralax) 17 GM/SCOOP powderIndications: Constipation, unspecified constipation type Take 17 (seventeen) g by mouth once daily as needed for Constipation 510 g 3 03/15/2024 Active atorvastatin (Lipitor) 20 MG tabletIndications: Atherosclerosis of aorta (HCC) Take 1 (one) tablet by mouth once daily 100 tablet 4 03/15/2024 Active Active Problems Problem Noted Date Diagnosed Date Recurrent major depressive disorder, in full rem ission 03/15/2024 Class 2 severe obesity due t o excess calories with serious comorbidity and body mass index (BMI) of 38.0 to 38.9 in adult 03/15/2024 Gestational diabetes 03/15/2024 SUSANA (obstructive sleep apnea) 11/17/2023 Neurogenic bladder 11/17/2023 Multiple sclerosis 11/17/2023 Other specified hypothyroidism 11/17/2023 Atherosclerosis of aorta 01/05/2022 Overview (11/17/2023): 05/07/21 CTA Lt Lower Ext: Mild atherosclerosis of the abdominal aorta and branch vessels. Last Assessment & Plan: Check lipid panel and consider statin as needed. Callus of foot 05/22/2015 Mobility impaired 03/03/2015 Vitamin D deficiency 05/24/2014 Fatigue 03/29/2011 Decubitus ulcer of buttock 09/30/2010 Recurrent urinary tract infection 02/20/2010 Encounters Date Type Department Care Team Description 03/28/2024 Telephone [facility] - Centralized Scheduling [address] [place] [address] Ariel Carty MD Medication Issue 03/19/2024 Telephone [facility] - Internal Med [address] [place] [phone] Feliberto Carmichael MD Medication Prior Auth Request 03/15/2024 3:30 PM BELT BUILDER Office Visit [facility] - Internal Med [address] [place] [phone] Feliberto Carmichael MD Recurrent major depressive disorder, in full remission (HCC) (Primary Dx); Class 2 severe obesity due to excess calories with serious comorbidity and body mass index (BMI) of 38.0 to 38.9 in adult (HCC); Atherosclerosis of aorta (HCC); Screening for cervical cancer; Encounter for screening mammogram for malignant neoplasm of breast; Constipation, unspecified constipation type; SUSANA (obstructive sleep apnea); Atherosclerosis of abdominal aorta (HCC) 03/15/2024 Travel 03/13/2024 Refill [facility] - Dermatology [address] [place] [phone] Ariel Carty MD MEDICATION REFILL 03/07/2024 2:00 PM BELT BUILDER Office Visit [facility] - Dermatology [address] [place] [phone] Ariel Carty MD Chilblains, initial encounter (Primary Dx); Skin ulcer, unspecified ulcer stage (HCC) 03/07/2024 Travel 02/14/2024 3:00 PM BELT BUILDER Office Visit [facility] - Rheumatology [address] [facility] [place] [address] Raquel Marley MD Positive AUBREE (antinuclear antibody) (Primary Dx) 02/14/2024 Travel 01/16/2024 11:11 AM BELT BUILDER - 01/16/2024 11:59 PM BELT BUILDER Hospital Encounter [facility] [address] [place] [address] Discharge Disposition: Home or Self Care 01/16/2024 10:00 AM BELT BUILDER Office Visit [facility] - Rheumatology [address] [facility], [place] [phone] Dulce Cortez MD Zaheer, Muhammad, MD Skin ulcer, unspecified ulcer stage (HCC) (Primary Dx); Arthralgia, unspecified joint; Positive AUBREE (antinuclear antibody); Need for hepatitis B screening test; Need for hepatitis C screening test 01/16/2024 Travel 01/09/2024 Travel from Last 3 Months Immunizations Name Administration Dates Next Due INFLUENZA VACCINE 03/03/2012 INFLUENZA VACCINE, QUADR. (F LUZONE; FLULAVAL; FLUARIX; AFLURIA QUADRIVALENT; 6MO+), 0.5 ML (IIV4) 02/21/2014,04/27/2011 SHY VACCINE QUAD LAIV4 PF NASAL 03/02/2013 TDAP (7yrs+) 04/23/2016 Family History Medical History Relation Name Comments None Known Brother Parkinson's Disease Father None Known Mother CAD (Coronary Artery Disease) Paternal Grandfather Relation Name Status Comments Brother Daughter Other Father Mother Paternal Grandfather Social History Tobacco Use Types Packs/Day Years Used Date Smoking Tobacco: Never Smokeless Tobacco: Never Tobacco Cessation:Counseling Given: Not Answered Alcohol Use Standard Drinks/Week Comments Yes 0 (1 standard drink = 0.6 oz pur e alcohol) once a month PHQ-2 Answer Date Recorded Patient Health Questionnaire-2 Score 0 03/15/2024 Sex and Gender Information Value Date Recorded Sex Assigned at Female 11/16/2023 4:46 PM CDT Gender Identity Female 11/16/2023 4:46 PM CDT Sexual Orientation Straight 11/16/2023 4: 46 PM CDT Last Filed Vital Signs Vital Sign Reading Time Taken Comments Blood Pressure 110/69 03/15/2024 3:47 PM BELT BUILDER Pulse 76 03/15/2024 3:47 PM BELT BUILDER Temperature 36.6 C (97.8 F) 02/14/2024 3:14 PM BELT BUILDER Respiratory Rate 20 11/17/2023 2:03 PM CDT Oxygen Saturation 91% 03/15/2024 3:47 PM BELT BUILDER Inhaled Oxygen Concentration - - Weight 108.4 kg (239 lb) 02/14/2024 3:14 PM BELT BUILDER Height 172.7 cm (5' 8 ) 02/14/2024 3:14 PM BELT BUILDER Body Mass Index 36.34 02/14/2024 3:14 PM BELT BUILDER Plan of Treatment Upcoming Encounters Date Type Department Care Team (Late st Contact Info) Description 05/14/2024 11:40 AM CDT Office Visit [facility] - Rheumatology [address] [place] [phone] Raquel Marley MD [address] [place] [address] [place] [phone] 05/14/2024 2:30 PM CDT Office Visit [facility] - GI [address] [place] [phone] Guillermo Betts PA [address] [place] [phone] 06/07/2024 1:00 PM CDT Office Visit [facility] - Internal Med [address] [place] [phone] Feliberto Carmichael MD [address] [place] [address] DIV OF INT MED [address] [place] [phone] Health Maintenance Due Date Last Done Comments COLOGUARD (AGES 45-75) - COLON CA SCREENING 1961 COLON MONITORING 1961 COLONOSCOPY - COLON CA SCREENING 1961 CT COLONOGRAPHY - COLON CA SCREENING 1961 Colorectal Cancer Screening 1961 FIT - COLON CA SCREENING 1961 FLEX SIG - COLON CA SCREENING 1961 MAMMOGRAM 1961 DIABETES-SERUM CREATININE 1979 PNEUMOCOCCAL VACCINE 50+ (1 of 2 - PCV) 1980 ZOSTER VACCINE (1 of 2) 2011 Respiratory Syncytial Virus (RSV) Vaccine Pt: or over 60 yrs (1 - Risk 60-74 years 1-dose series) 2021 PAP SMEAR 10/04/2022 10/05/2019 COVID-19 VACCINE (3 - season) 2023 06/09/2020, 05/12/2020 INFLUENZA VACCINE (#1) 2023 5, 03/02/2013, 03/03/2012, Additional history exists DIABETES - URINE PROTEIN SCREENING 02/15/2024 DIABETES RETINOPATHY SCREENING 03/15/2024 DIABETES-FOOT EXAM WITH MONOFILAMENT 03/15/2024 DIABETES-HGB A1C 03/15/2024 MEDICARE AWV 12 MONTHS 11/16/2024 11/17/2023 DTAP/TDAP/TD VACCINES (2 - Td or Tdap) 04/23/2026 04/23/2016 HIV SCREENING Completed 04/22/2021 (Done Outside Per Report) HEPATITIS C SCREENING Completed 01/16/2024 DEPRESSION SCREENING Completed 03/15/2024, 11/17/2023, 11/17/2023 HEPATITIS B VACCINE Aged Out No longe r eligible based on patient's age to complete this topic HIB VACCINE Aged Out No longer eligi ble based on patient's age to complete this topic HPV VACCINE Aged Out No longer eligi ble based on patient's age to complete this topic MENINGOCOCCAL (Group B) VACCINE Aged Out No longer eligible based on patient's age to complete this topic MENINGOCOCCAL VACCINE Aged Out No nidhi luke eligible based on patient's age to complete this topic Procedures Procedure Name Priority Date/Time Associated Diagnosis Comments VISCOSITY Routine 01/16/2024 11:35 AM BELT BUILDER Skin ulcer, unspecified ulcer stage (HCC) MPO/UT 3 AUTOANTIBODIES PANEL Routine 01/16/2024 11:35 AM BELT BUILDER Skin ulcer, unspecified ulcer stage (HCC) Positive AUBREE (antinuclear antibody) CRYOGLOBULIN QUAL W/RFLX ARGELIA+AGM Routine 01/16/2024 11:35 AM BELT BUILDER Skin ulcer, unspecified ulcer stage (HCC) DNA ANTIBODY DS CRITHIDIA TITER Routine 01/16/2024 11:35 AM BELT BUILDER Skin ulcer, unspecified ulcer stage (HCC) Positive AUBREE (antinuclear antibody) BETA-2 GLYCOPROTEIN 1 ANTIBODY IGG/IGM PANEL Routine 01/16/2024 11:35 AM BELT BUILDER Skin ulcer, unspecified ulcer stage (HCC) Positive AUBREE (antinuclear antibody) RHEUMATOID FACTOR BLOOD QUANTITATIVE Routine 01/16/2024 11:35 AM BELT BUILDER Skin ulcer, unspecified ulcer stage (HCC) Positive AUBREE (antinuclear antibody) SCLERODERMA COMPREHENSIVE AB PANEL Routine 01/16/2024 11:35 AM BELT BUILDER Skin ulcer, unspecified ulcer stage (HCC) Positive AUBREE (antinuclear antibody) STEVENSON/PRESS CLEANER (JUSTIN) ANTIBODY IGG Routine 01/16/2024 11:35 AM BELT BUILDER Skin ulcer, unspecified ulcer stage (HCC) Positive AUBREE (antinuclear antibody) LUPUS ANTICOAGULANT PANEL Routine 01/16/2024 11:35 AM BELT BUILDER Skin ulcer, unspecified ulcer stage (HCC) Positive AUBREE (antinuclear antibody) DNA ANTIBODY DOUBLE STRANDED Routine 01/16/2024 11:35 AM BELT BUILDER Skin ulcer, unspecified ulcer stage (HCC) Positive AUBREE (antinuclear antibody) STEVENSON (SM) ANTIBODY JUSTIN Routine 01/16/2024 11:35 AM BELT BUILDER Skin ulcer, unspecified ulcer stage (HCC) Positive AUBREE (antinuclear antibody) SS-A (SJOGREN'S) 52+60 ANTIBODIES Routine 01/16/2024 11:35 AM BELT BUILDER Skin ulcer, unspecified ulcer stage (HCC) Positive AUBREE (antinuclear antibody) SS-B (SJOGREN'S) ANTIBODY Routine 01/16/2024 11:35 AM BELT BUILDER Skin ulcer, unspecified ulcer stage (HCC) Positive AUBREE (antinuclear antibody) COMPLEMENT C4 Routine 01/16/2024 11:35 AM BELT BUILDER Skin ulcer, unspecified ulcer stage (HCC) Positive AUBREE (antinuclear antibody) COMPLEMENT C3 Routine 01/16/2024 11:35 AM BELT BUILDER Skin ulcer, unspecified ulcer stage (HCC) Positive AUBREE (antinuclear antibody) CARDIOLIPIN ANTIBODY IGM Routine 01/16/2024 11:35 AM BELT BUILDER Skin ulcer, unspecified ulcer stage (HCC) Positive AUBREE (antinuclear antibody) CARDIOLIPIN ANTIBODY IGG Routine 01/16/2024 11:35 AM BELT BUILDER Skin ulcer, unspecified ulcer stage (HCC) Positive AUBREE (antinuclear antibody) CENTROMERE ANTIBODY Routine 01/16/2024 1 1:35 AM BELT BUILDER Skin ulcer, unspecified ulcer stage (HCC) Positive AUBREE (antinuclear antibody) CENTROMERE B ANTIBODIES Routine 01/16/2024 11:35 AM BELT BUILDER Skin ulcer, unspecified ulcer stage (HCC) Positive AUBREE (antinuclear antibody) COLD AGGLUTININS TITER Routine 11:35 AM BELT BUILDER Skin ulcer, unspecified ulcer stage (HCC) Positive AUBREE (antinuclear antibody) CRYOFIBRINOGEN Routine 01/16/2024 11:35 AM BELT BUILDER Skin ulcer, unspecified ulcer stage (HCC) HEPATITIS C AB SCREEN RFLX NAAT QUANT Routine 01/16/2024 11:35 AM BELT BUILDER Need for hepatitis C screening test KAPPA/LAMBDA LITE CHAIN FREE PANEL Routine 01/16/2024 11:35 AM BELT BUILDER Skin ulcer, unspecified ulcer stage (HCC) HEPATITIS B SURFACE ANTIGEN W RFLX CONFIRMATION Routine 01/16/2024 11:35 AM BELT BUILDER Need for hepatitis B screening test HEPATITIS B CORE ANTIBODY TOTAL Routine 01/16/2024 11:35 AM BELT BUILDER Need for hepatitis B screening test CYCLIC CITRULLINATED PEPTIDE(CCP) AB IGG Routine 01/16/2024 11:35 AM BELT BUILDER Skin ulcer, unspecified ulcer stage (HCC) Positive AUBREE (antinuclear antibody) from Last 3 Months Results * HEPATITIS C AB SCREEN RFLX NAAT QUANT (01/16/2024 11:35 AM BELT BUILDER) Hepatitis C Antibody Non-react angelica Non-reac tive 01/16/2024 1:07 PM BELT BUILDER [facility] Comment:Hepatitis C Antibody screen indicates no serologic evidence of past or current infection with Hepatitis C Virus. Patients with unexplained liver disease who are immunocompromised or suspected of having acute Hepatitis C infection may benefit from Nucleic Acid Test (ROSA) for Hepatitis C Viral RNA to confirm Hepatitis C status. Blood BLOOD SPECIMEN / Unknown Lab Venipuncture / Unknown 01/16/2024 11:35 AM BELT BUILDER 01/16/2024 12:10 PM BELT BUILDER Raquel Marley MD LAB - CHEMISTRY MARILEE HADDAD [facility] Organization Address [facility]/State/ZIP Co de Phone Number [facility] [address] [address], [facility] [phone] * CRYOGLOBULIN QUAL W/RFLX ARGELIA+AGM (01/16/2024 11:35 AM BELT BUILDER) Pathologist [facility] Cryoglobulin Qualitative NEG 72Hour NEG 72Hour 01/21/2024 11:45 PM BELT BUILDER [facility] ([facility]) Comment: This test was developed and its performance characteristics determined by [facility]. It has not been cleared or approved by the US Food and Drug Administration. This test was performed in a CLIA certified laboratory and is intended for clinical purposes. Performed By: [facility] [address] [place] [id number] Casing Inspector: Jag Pro MD, PhD CLIA Number: [id number] Blood BLOOD SPECIMEN / Unknown Lab Venipuncture / Unknown 01/16/2024 11:35 AM BELT BUILDER 01/16/2024 11:42 AM BELT BUILDER Raquel Marley MD LAB - CHEMISTRY MARILEE HADDAD [facility]) [address] [place] [address], [facility] * (ABNORMAL) SCLERODERMA COMPREHENSIVE AB PANEL (01/16/2024 11:35 AM BELT BUILDER) AUBREE HEp-2 IgG <1:80 <1:80 01/18/2024 11:14 PM BELT BUILDER [facility] [employer] ([facility]) Comment: Performed By: [facility] [address] [place] [address] Casing Inspector: Jag Pro MD, PhD CLIA Number: [id number] AUBREE Interpretive Comment See Note 01/18/2024 11:14 PM BELT BUILDER [facility] [employer] ([facility]) Comment: Antinuclear antibodies by IFA negative for homogeneous, speckled, nucleolar, centromere, and nuclear dots patterns. Cytoplasmic antibodies by IFA negative for reticular/AMA, discrete/GW body-like, polar/golgi-like, rods and rings, and cytoplasmic speckled patterns. INTERPRETIVE INFORMATION: AUBREE Interpretive Comment Presence of antinuclear antibodies (AUBREE) is a hallmark feature of systemic autoimmune rheumatic diseases (SARD). However, AUBREE lacks diagnostic specificity and is associated with a variety of diseases (cancers, autoimmune, infectious, and inflammatory conditions) and may also occur in healthy individuals in varying prevalence. The lack of diagnostic specificity requires confirmation of positive AUBREE by more specific serologic tests. AUBREE (nuclear reactivity) positive patterns reported include centromere, homogeneous, nuclear dots, nucleolar, or speckled. AUBREE (cytoplasmic reactivity) positive patterns reported include reticular/AMA, discrete/GW body-like, polar/golgi-like, cytoplasmic speckled or rods and rings. All positive patterns are reported to endpoint titers (1:2560). Reported patterns may help guide differential diagnosis, although they may not be specific for individual antibodies or diseases. Mitotic staining patterns not reported. Negative results do not necessarily rule out SARD. Performed By: [facility] [address] [place] [address] Casing Inspector: Jag Pro MD, PhD CLIA Number: [id number] SCL-70 Antibody 4 0 - 40 AU/mL 01/18/2024 11:14 PM BELT BUILDER [facility] ([facility]) Comment: INTERPRETIVE INFORMATION: Scleroderma (Scl-70) (JUSTIN) Ab, IgG 29 AU/mL or Less ............. Negative 30 - 40 AU/mL ................ Equivocal 41 AU/mL or Greater .......... Positive The presence of Scl-70 antibodies (also referred to as topoisomerase I, mamadou-I or DUSTY) is considered diagnostic for systemic sclerosis (SSc). Scl-70 antibodies alone are detected in about 20 percent of SSc patients and are associated with the diffuse form of the disease, which may include specific organ involvement and poor prognosis. Scl-70 antibodies have also been reported in a varying percentage of patients with systemic lupus erythematosus (SLE). Scl-70 (mamadou-1) is a DNA binding protein and anti-DNA/DNA complexes in the sera of SLE patients may bind to mamadou-I, leading to a false-positive result. The presence of Scl-70 antibody in sera may also be due to contamination of recombinant Scl-70 with DNA derived from cellular material used in immunoassays. Strong clinical correlation is recommended if both Scl-70 and dsDNA antibodies are detected. Negative results do not necessarily rule out the presence of SSc. If clinical suspicion remains, consider further testing for centromere, RNA polymerase III and U3-PRESS CLEANER, PM/Scl, or Th/To antibodies. Performed By: [facility] [address] [place] [id number] Casing Inspector: Jag Pro MD, PhD CLIA Number: [id number] RNA Polymerase 3 Antibody IgG 13 0 - 19 Units 01/18/2024 11:14 PM BELT BUILDER [facility] ([facility]) Comment: INTERPRETIVE INFORMATION: RNA Polymerase III Antibody, IgG 19 Units or less ......Negative 20 - 39 Units .........Weak Positive 40 - 80 Units .........Moderate Positive 81 Units or greater ...Strong Positive The presence of RNA polymerase III IgG antibody, when considered in conjunction with other laboratory and clinical findings, is an aid in the diagnosis of systemic sclerosis (SSc) with increased incidence of skin involvement and renal crisis with the diffuse cutaneous form of SSc. RNA polymerase III IgG antibody occur in about 11-23 percent of SSc patients, and typically in the absence of anti-centromere and anti-Scl-70 antibodies. A negative result indicates no detectable IgG antibodies to the dominant antigen of RNA polymerase III and does not rule out the possibility of SSc. False-positive results may also occur due to non-specific binding of immune complexes. Strong clinical correlation is recommended. If clinical suspicion remains, consider additional testing for other antibodies associated with SSc, including centromere, Scl-70, U3-PRESS CLEANER, PM/Scl, or Th/To. Performed by [facility], [address] [place] [id number] [email or web address], Agustín Roche MD, Lab. Director CLIA Number: [id number] Stevenson/PRESS CLEANER (JUSTIN) Antibody IgG 29(H) 0 - 19 Units 01/18/2024 11:14 PM BELT BUILDER [facility] ([facility]) Comment: INTERPRETIVE INFORMATION: Stevenson/PRESS CLEANER (JUSTIN) Antibody, IgG 19 Units or Less ............. Negative 20 to 39 Units ............... Weak Positive 40 to 80 Units ............... Moderate Positive 81 Units or greater .......... Strong Positive Stevenson/PRESS CLEANER antibodies are frequently seen in patients with mixed connective tissue disease (MCTD) and are also associated with other systemic autoimmune rheumatic diseases (SARDs) such as systemic lupus erythematosus (SLE), systemic sclerosis, and myositis. Antibodies targeting the Stevenson/PRESS CLEANER antigenic complex also recognize Stevenson antigens, therefore, the Stevenson antibody response must be considered when interpreting these results. Performed By: [facility] [address] [place] [address] Casing Inspector: Jag Pro MD, PhD CLIA Number: [id number] PM/Scl 100 Antibody IgG Negative Negative 01/18/2024 11:14 PM BELT BUILDER [facility] ([facility]) Comment: INTERPRETIVE INFORMATION: PM/Scl-100 Antibody, IgG by Immunoblot The presence of PM/Scl-100 IgG antibody along with a positive AUBREE IFA nucleolar pattern is associated with connective tissue diseases such as polymyositis (PM), dermatomyositis (DM), systemic sclerosis (SSc), and polymyositis/systemic sclerosis overlap syndrome. The clinical relevance of PM/Scl-100 IgG antibody with a negative AUBREE IFA nucleolar pattern is unknown. PM/Scl-100 is the main target epitope of the PM/Scl complex, although antibodies to other targets not detected by this assay may occur. This test was developed and its performance characteristics determined by [facility]. It has not been cleared or approved by the [place] Food and Drug Administration. This test was performed in a CLIA certified laboratory and is intended for clinical purposes. Performed By: [facility] [address] [place] [id number] Casing Inspector: Jag Pro MD, PhD CLIA Number: [id number] Fibrillarin (U3 PRESS CLEANER) Antibody IgG Negative Negative 01/18/2024 11:14 PM BELT BUILDER [facility] ([facility]) Comment: Interpretive Information: Fibrillarin (U3 PRESS CLEANER) Antibody, IgG The presence of fibrillarin (U3-PRESS CLEANER) IgG antibodies in association with an AUBREE IFA nucleolar pattern is suggestive of systemic sclerosis (SSc). In SSc, these antibodies are associated with distinct clinical features, such as younger age at disease onset, frequent internal organ involvement (pulmonary hypertension, myositis and renal disease). Fibrillarin antibodies are detected more frequently in patients with SSc compared to other ethnic groups. Strong correlation with AUBREE IFA results is recommended. In a multi-ethnic cohort of SSc patients (n=98), U3-PRESS CLEANER antibodies detected by immunoblot had an agreement of 98.9 percent with the gold standard immunoprecipitation (IP) assay. Approximately 71 percent (5/7) of the borderline U3-PRESS CLEANER results with AUBREE nucleolar pattern in this cohort were IP negative. This test was developed and its performance characteristics determined by [facility]. It has not been cleared or approved by the [place] Food and Drug Administration. This test was performed in a CLIA certified laboratory and is intended for clinical purposes. Performed By: [facility] [address] [place] [id number] Casing Inspector: Jag Pro MD, PhD CLIA Number: [id number] Blood BLOOD SPECIMEN / Unknown Lab Venipuncture / Unknown 01/16/2024 11:35 AM BELT BUILDER 01/16/2024 12:09 PM BELT BUILDER Raquel Marley MD LAB - SEROLOGY ORDER [facility] [employer] [facility]) [address] [place] [address], [facility] * SS-A (SJOGREN'S) 52+60 ANTIBODIES (01/16/2024 11:35 AM BELT BUILDER) SS-A 52 Antibody 18 0 - 40 AU/mL 01/18/2024 9:30 AM BELT BUILDER [employer] ([facility]) Comment: INTERPRETIVE INFORMATION: SSA-52 (Ro52) (JUSTIN) Antibody, IgG 29 AU/mL or Less ............. Negative 30 - 40 AU/mL ................ Equivocal 41 AU/mL or Greater .......... Positive SSA-52 (Ro52) and/or SSA-60 (Ro60) antibodies are associated with a diagnosis of Sjogren syndrome, systemic lupus erythematosus (SLE), and systemic sclerosis. SSA-52 antibody overlaps significantly with the major SSc-related antibodies. SSA-52 (Ro52) antibody occurs frequently in patients with inflammatory myopathies, often in the presence of interstitial lung disease. SS-A 60 Antibody 16 0 - 40 AU/mL 01/18/2024 9:30 AM BELT BUILDER [employer] ([facility]) Comment: REFERENCE INTERVAL: SSA-60 (Ro60) (JUSTIN) Antibody, IgG 29 AU/mL or Less ............. Negative 30 - 40 AU/mL ................ Equivocal 41 AU/mL or Greater .......... Positive Performed By: [facility] [address] [place] [address] Casing Inspector: Jag Pro MD, PhD CLIA Number: [id number] Blood BLOOD SPECIMEN / Unknown Lab Venipuncture / Unknown 01/16/2024 11:35 AM BELT BUILDER 01/16/2024 12:10 PM BELT BUILDER Raquel Marley MD LAB - CHEMISTRY MARILEE HADDAD Performing Organization Address [facility] Co de Phone Number [facility] [employer] [facility]) [address] * (ABNORMAL) STEVENSON/PRESS CLEANER (JUSTIN) ANTIBODY IGG (01/16/2024 11:35 AM BELT BUILDER) Stevenson/PRESS CLEANER (JUSTIN) Antibody IgG 28(H) 0 - 19 Units 01/18/2024 9:28 AM BELT BUILDER [facility] [employer] ([facility]) Comment: INTERPRETIVE INFORMATION: Stevenson/PRESS CLEANER (JUSTIN) Antibody, IgG 19 Units or Less ............. Negative 20 to 39 Units ............... Weak Positive 40 to 80 Units ............... Moderate Positive 81 Units or greater .......... Strong Positive Stevenson/PRESS CLEANER antibodies are frequently seen in patients with mixed connective tissue disease (MCTD) and are also associated with other systemic autoimmune rheumatic diseases (SARDs) such as systemic lupus erythematosus (SLE), systemic sclerosis, and myositis. Antibodies targeting the Stevenson/PRESS CLEANER antigenic complex also recognize Stevenson antigens, therefore, the Stevenson antibody response must be considered when interpreting these results. Performed By: [facility] [address] [place] [address] Casing Inspector: Jag Pro MD, PhD CLIA Number: [id number] Blood BLOOD SPECIMEN / Unknown Lab Venipuncture / Unknown 01/16/2024 11:35 AM BELT BUILDER 01/16/2024 12:10 PM BELT BUILDER Raquel Marley MD LAB - CHEMISTRY MARILEE HADDAD Performing Organization Address City/[facility]/ZIP Co de Phone Number [facility] [employer] [facility]) [address] * CENTROMERE B ANTIBODIES (01/16/2024 11:35 AM BELT BUILDER) Centromere B Antibody <0.2 0.0 - 0.9 AI 01/17/2024 11:11 AM BELT BUILDER [facility] ([facility]) Blood BLOOD SPECIMEN / Unknown Lab Venipuncture / Unknown 01/16/2024 11:35 AM BELT BUILDER 01/16/2024 12:10 PM BELT BUILDER Narrative [facility] ([facility]) - 01/17/2024 11:11 AM BELT BUILDER Performed at: - [facility] [address] [place], [place] [id number] Tubing Drier: Berry Roblero PhD, Phone: [phone] Raquel Marley MD LAB - SEROLOGY ORDER [facility] ([facility]) [address] [place] [address], [facility] * DNA ANTIBODY DS CRITHIDIA TITER (01/16/2024 11:35 AM BELT BUILDER) [facility] dsDNA Antibody IgG <1:10 <1:10 2023 7:50 PM BELT BUILDER [employer] [facility] ([facility]) Comment: INTERPRETIVE INFORMATION: Double-Stranded DNA (dsDNA) Antibody, IgG by IFA (using Crithidia luciliae) Positivity for anti-double stranded DNA (anti-dsDNA) IgG antibody is a diagnostic criterion of systemic lupus erythematosus (SLE). The presence of the anti-dsDNA IgG antibody is identified by IFA titer (Crithidia luciliae indirect fluorescent test [RORY'). RORY is highly specific for SLE with a sensitivity of 50-60 percent. Some patients with early or inactive SLE may be positive for anti-dsDNA IgG by JUAN but negative by RORY. If the RORY result is negative but the patient has a positive JUAN and clinical suspicion remains, consider antinuclear antibody (AUBREE) testing by IFA. Additional information and recommendations for testing may be found at [email or web address]. Performed By: [facility] [address] [place] [id number] Casing Inspector: Jag Pro MD, PhD CLIA Number: [id number] Blood BLOOD SPECIMEN / Unknown Lab Venipuncture / Unknown 01/16/2024 11:35 AM BELT BUILDER 01/16/2024 12:10 PM BELT BUILDER Raquel Marley MD LAB - SEROLOGY ORDER [facility] ([facility]) [address] [place] [address], [facility] * (ABNORMAL) LUPUS ANTICOAGULANT PANEL (01/16/2024 11:35 AM BELT BUILDER) APTT 33.9 23.0 - 38.4 Seconds 01/17/2024 12:22 PM [facility] PT 13.2 12.1 - 14.8 Seconds 01/17/2024 12:22 PM [facility] INR 1.0 See Comment 01/17/2024 12:22 PM [facility] STACLOT-LA Buffer 61.9 Seconds 024 12:22 PM [facility] STACLOT-[place] Phospholipid 50.0 Seconds 01/17/2024 12:22 PM [facility] STACLOT-LA Delta 11.9(H) <8.0 Seconds 01/17/2024 12:22 PM [facility] Interpretation STACLOT-LA Positive 01/17/2024 12:22 PM [facility] Comment: Lupus Anticoagulants (LA), which are generally not associated with abnormal bleeding, may occur in combination with, as well as mask, a Factor VIII Inhibitor. This may increase the risk of abnormal bleeding. In such cases the Factor VIII is usually markedly decreased and does not normalize with test plasma dilution. LA are frequently associated with mild prolongation of PT. With moderate to marked PT prolongation (INR >1.5), a Factor II deficiency should be ruled out since this may predispose to abnormal bleeding. LA/Increased Anticardiolipin Antibodies are often transient and periodic retesting at 6-12 month intervals is recommended. Blood BLOOD SPECIMEN / Unknown Lab Venipuncture / Unknown 01/16/2024 11:35 AM BELT BUILDER 01/16/2024 12:09 PM BELT BUILDER Raquel Marley MD LAB - HEMATOLOGY ORD ERABLES [facility] [address] [place] [address], [facility] [phone] * CARDIOLIPIN ANTIBODY IGM (01/16/2024 11:35 AM BELT BUILDER) Cardiolipin Antibody IgM <10 <=12 MPL 01/17/2024 10:32 PM BELT BUILDER [employer] ([facility]) Comment: INTERPRETIVE INFORMATION: Anti-Cardiolipin IgM <=12 MPL: Negative 13-19 MPL: Indeterminate 20-80 MPL: Low to Moderately Positive 81 MPL or above: High Positive The persistent presence of IgG and/or IgM cardiolipin (CL) antibodies in moderate or high levels (greater than 40 GPL and/or greater than 40 MPL units) is a laboratory criterion for the diagnosis of antiphospholipid syndrome (APS). Persistence is defined as moderate or high levels of IgG and/or IgM CL antibodies detected in two or more specimens drawn at least 12 weeks apart (J Throm Haemost. 2006;4:295-306). Lower positive levels of IgG and/or IgM CL antibodies (above cutoff but less than 40 GPL and/or less than 40 MPL units) may occur in patients with the clinical symptoms of APS; therefore, the actual significance of these levels is undefined. Results should not be used alone for diagnosis and must be interpreted in light of APS-specific clinical manifestations and/or other criteria phospholipid antibody tests. Performed by [facility], [address] [place] [address] [email or web address], Agustín Roche MD, Lab. Director [facility] Number: [id number] Blood BLOOD SPECIMEN / Unknown Lab Venipuncture / Unknown 01/16/2024 11:35 AM BELT BUILDER 01/16/2024 12:10 PM BELT BUILDER Raquel Marley MD LAB - SEROLOGY ORDER [facility] [employer] [facility]) [address] [place] [address], [facility] * CARDIOLIPIN ANTIBODY IGG (01/16/2024 11:35 AM BELT BUILDER) Cardiolipin Antibody IgG <10 <=14 GPL 01/17/2024 10:32 PM BELT BUILDER [employer] ([facility]) Comment: INTERPRETIVE INFORMATION: Anti-Cardiolipin IgG Ab <=14 GPL: Negative 15-19 GPL: Indeterminate 20-80 GPL: Low to Moderately Positive 81 GPL or above: High Positive The persistent presence of IgG and/or IgM cardiolipin (CL) antibodies in moderate or high levels (greater than 40 GPL and/or greater than 40 MPL units) is a laboratory criterion for the diagnosis of antiphospholipid syndrome (APS). Persistence is defined as moderate or high levels of IgG and/or IgM CL antibodies detected in two or more specimens drawn at least 12 weeks apart (J Throm Haemost. 2006;4:295-306). Lower positive levels of IgG and/or IgM CL antibodies (above cutoff but less than 40 GPL and/or less than 40 MPL units) may occur in patients with the clinical symptoms of APS; therefore, the actual significance of these levels is undefined. Results should not be used alone for diagnosis and must be interpreted in light of APS-specific clinical manifestations and/or other criteria phospholipid antibody tests. Performed by [facility], [address] [place] [address] [email or web address], Agustín Roche MD, Lab. Director [facility] Number: [id number] Blood BLOOD SPECIMEN / Unknown Lab Venipuncture / Unknown 01/16/2024 11:35 AM BELT BUILDER 01/16/2024 12:10 PM BELT BUILDER Raquel Marley MD LAB - SEROLOGY ORDER [facility] [employer] [facility]) [address] [place] [address], [facility] * STEVENSON (SM) ANTIBODY JUSTIN (01/16/2024 11:35 AM BELT BUILDER) [facility] Stevenson (JUSTIN) Antibody 9 0 - 40 AU/mL 01/18/2024 9:35 AM BELT BUILDER [facility] [employer] ([facility]) Comment: INTERPRETIVE INFORMATION: Stevenson (JUSTIN) Antibody, IgG 29 AU/mL or Less ............. Negative 30 - 40 AU/mL ................ Equivocal 41 AU/mL or Greater .......... Positive Stevenson antibody is highly specific (greater than 90 percent) for systemic lupus erythematosus (SLE) but only occurs in 30-35 percent of SLE cases. The presence of antibodies to Stevenson has variable associations with SLE clinical manifestations. Performed By: [facility] [address] [place] [address] Casing Inspector: Jag Pro MD, PhD CLIA Number: [id number] Blood BLOOD SPECIMEN / Unknown Lab Venipuncture / Unknown 01/16/2024 11:35 AM BELT BUILDER 01/16/2024 12:10 PM BELT BUILDER Raquel Marley MD LAB - CHEMISTRY MARILEE HADDAD Performing Organization Address City/[facility]/ZIP Co de Phone Number [facility]) [address] [place], [place] [address] * RHEUMATOID FACTOR BLOOD QUANTITATIVE (01/16/2024 11:35 AM BELT BUILDER) Pathologist [facility] Rheumatoid Factor <15 <30 IU/mL 01/16/2024 12:41 PM BELT BUILDER [facility] Rheumatoid Factor Screen Negative Negative 01/16/2024 12:41 PM BELT BUILDER [facility] Blood BLOOD SPECIMEN / Unknown Lab Venipuncture / Unknown 01/16/2024 11:35 AM BELT BUILDER 01/16/2024 12:10 PM BELT BUILDER Raquel Marley MD LAB - CHEMISTRY MARILEE HADDAD Performing Organization Address City/[facility]/ZIP Co de Phone Number [address] [address], [facility] [phone] * COLD AGGLUTININS TITER (01/16/2024 11:35 AM BELT BUILDER) Pathologist [facility] Cold Agglutinin Titer <1:32 <1:32 01/19/2024 5:51 PM BELT BUILDER [facility] ([facility]) Comment: INTERPRETIVE INFORMATION: Cold Agglutinins Titers of 1:32 or higher are considered elevated by this technique. Elevated titers are rarely seen except in primary atypical pneumonia and in certain hemolytic anemias. If the agglutination is not reversible after incubation at 37 degrees Celsius, then the reaction is not due to cold agglutinins. Primary atypical pneumonia can be caused by Mycoplasma pneumoniae, influenza A, influenza B, parainfluenza, and adenoviruses. However, a fourfold rise in the cold agglutinins usually begins to appear late in the first week or during the second week of the disease and begins to decrease between the fourth and sixth week. Low titers of cold agglutinins have been demonstrated in malaria, peripheral vascular disease, and common respiratory disease. Performed By: [facility] [address] [place] [address] Casing Inspector: Jag Pro MD, PhD CLIA Number: [id number] Blood BLOOD SPECIMEN / Unknown Lab Venipuncture / Unknown 01/16/2024 11:35 AM BELT BUILDER 01/16/2024 12:10 PM BELT BUILDER Raquel Marley MD LAB - CHEMISTRY ORDE RABLES Performing Organization Address [facility] Co de Phone Number [facility] ([facility]) [address] [place] [address] * VISCOSITY (01/16/2024 11:35 AM BELT BUILDER) Pathologist [facility] Viscosity 1.24 <=1.50 cP 01/18/2024 6:26 AM BELT BUILDER [facility] ([facility]) Comment: INTERPRETIVE INFORMATION: Viscosity, Serum Increased viscosity is associated with disorders such as monoclonal gammopathy, macroglobulinemia, and multiple myeloma. Significantly elevated viscosity (>3.0 cP) is associated with clinical symptoms of hyperviscosity syndrome. This test was developed and its performance characteristics determined by [facility]. It has not been cleared or approved by the [place] Food and Drug Administration. This test was performed in a CLIA certified laboratory and is intended for clinical purposes. Performed By: [facility] [address] [place] [address] Casing Inspector: Jag Pro MD, PhD CLIA Number: [id number] Blood BLOOD SPECIMEN / Unknown Lab Venipuncture / Unknown 01/16/2024 11:35 AM BELT BUILDER 01/16/2024 12:10 PM BELT BUILDER Raquel Marley MD LAB - HEMATOLOGY ORD ERABLES Performing Organization Address City/[facility]/ZIP Co de Phone Number [facility] ([facility]) [address] [place] [address] * BETA-2 GLYCOPROTEIN 1 ANTIBODY IGG/IGM PANEL (01/16/2024 11:35 AM BELT BUILDER) Beta-2 Glycoprotein Antibody IgG <10 <=20 SGU 01/18/2024 4:00 PM BELT BUILDER [facility] ([facility]) Beta-2 Glycoprotein Antibody IgM <10 <=20 SMU 01/18/2024 4:00 PM BELT BUILDER [facility] ([facility]) Comment: INTERPRETIVE INFORMATION: F0Lefrboyigwne I, IgG and IgM Antibody The persistent presence of IgG and/or IgM beta 2 glycoprotein I (B2GPI) antibodies is a laboratory criterion for the diagnosis of antiphospholipid syndrome (APS). Persistence is defined as moderate or high levels of IgG and/or IgM B2GPI antibodies detected in two or more specimens drawn at least 12 weeks apart (J Throm Haemost. 2006;4:295-306). B2GPI results greater than 20 SGU (IgG) and/or SMU (IgM) are considered positive based on the cutoff values established for this test. International reference materials and consensus units for anti-B2GPI antibodies have not been established (Clin Ronan Acta. 2012;413(1-2):358-60; Arthritis Rheum. 2012;64(1):1-10.); results can be variable between different commercial immunoassays and cannot be compared. Strong clinical correlation is recommended for a diagnosis of APS. Low positive IgG and IgM B2GPI antibody levels should be interpreted in light of APS-specific clinical manifestations and/or other criteria phospholipid antibody tests. Performed By: [facility] [address] [place] [address] Casing Inspector: Jag Pro MD, PhD CLIA Number: [id number] Blood BLOOD SPECIMEN / Unknown Lab Venipuncture / Unknown 01/16/2024 11:35 AM BELT BUILDER 01/16/2024 12:10 PM BELT BUILDER Raquel Marley MD LAB - CHEMISTRY MARILEE HADDAD [facility] [employer] [facility]) [address] [place] [address], [facility] * CENTROMERE ANTIBODY (01/16/2024 11:35 AM BELT BUILDER) Pathologist [facility] Centromere Antibody 4 0 - 40 AU/mL 01/18/2024 9:35 AM BELT BUILDER [employer] ([facility]) Comment: INTERPRETIVE INFORMATION: Centromere Ab, IgG 29 AU/mL or Less ............. Negative 30 - 40 AU/mL ................ Equivocal 41 AU/mL or Greater .......... Positive When detected by this multiplex bead assay, the presence of centromere antibodies is mainly associated with CREST syndrome, a variant of systemic sclerosis (SSc). These antibodies target the centromere B, a dominant antigen of the centromeric complex associated with the centromere pattern observed in antinuclear antibody (AUBREE) testing by IFA. Centromere antibodies may also be seen in a varying percentage of patients with other autoimmune diseases, including diffuse cutaneous SSc, Raynaud syndrome, interstitial pulmonary fibrosis, autoimmune liver disease, systemic lupus erythematosus (SLE) and rheumatoid arthritis (RA). A negative result indicates no detectable IgG antibodies to centromere B. If the result is negative but clinical suspicion for SSc is strong, consider testing for AUBREE by IFA along with other antibodies associated with SSc, including Scl-70, U3-PRESS CLEANER, PM/Scl, or Th/To. Performed By: [facility] [address] [place] [address] Casing Inspector: Jag Pro MD, PhD CLIA Number: [id number] Blood BLOOD SPECIMEN / Unknown Lab Venipuncture / Unknown 01/16/2024 11:35 AM BELT BUILDER 01/16/2024 12:10 PM BELT BUILDER Raquel Marley MD LAB - CHEMISTRY MARILEE HADDAD [facility] Organization Address City/State/ZIP Co de Phone Number [facility]) [address] [place] [address], [facility] * SS-B (SJOGREN'S) ANTIBODY (01/16/2024 11:35 AM BELT BUILDER) [facility] SS-B Antibody 3 0 - 40 AU/mL 01/18/2024 9:35 AM BELT BUILDER [employer] ([facility]) Comment: INTERPRETIVE INFORMATION: SSB (La) (JUSTIN) Ab, IgG 29 AU/mL or Less ............. Negative 30 - 40 AU/mL ................ Equivocal 41 AU/mL or Greater .......... Positive SSB (La) antibody is seen in 50-60% of Sjogren syndrome cases and is specific if it is the only JUSTIN antibody present. 15-25% of patients with systemic lupus erythematosus (SLE) and 5-10% of patients with progressive systemic sclerosis (PSS) also have this antibody. Performed By: [facility] [address] [place] [address] Casing Inspector: Jag Pro MD, PhD CLIA Number: [id number] Blood BLOOD SPECIMEN / Unknown Lab Venipuncture / Unknown 01/16/2024 11:35 AM BELT BUILDER 01/16/2024 12:10 PM BELT BUILDER Raquel Marley MD LAB - CHEMISTRY ORDE BOO [facility]) [address] [place] [address], [facility] * DNA ANTIBODY DOUBLE STRANDED (01/16/2024 11:35 AM BELT BUILDER) Pathologist [facility] dsDNA Antibody 10 0 - 24 IU 01/18/2024 12:09 AM BELT BUILDER [facility] [employer] ([facility]) Comment: INTERPRETIVE INFORMATION: Double-Stranded DNA (dsDNA) Ab IgG JUAN 24 IU or less........Negative 25-30 IU.............Borderline Positive 30-60 IU.............Low Positive 60-200 IU............Positive 201 IU or greater....Strong Positive Positivity for anti-double stranded DNA (anti-dsDNA) IgG antibody is a diagnostic criterion of systemic lupus erythematosus (SLE). Specimens are initially screened by enzyme-linked immunosorbent assay (JUAN). If ordered as reflex ([id number]), positive JUAN results (>24 IU) will be reflexed to a highly specific IFA titer (Crithidia luciliae indirect fluorescent test [RORY') for confirmation. Some patients with early or inactive SLE may be positive for anti-dsDNA IgG by JUAN but negative by RORY. If the patient is negative by RORY but positive by JUAN and clinical suspicion remains, consider antinuclear antibody (AUBREE) testing by IFA. Additional information and recommendations for testing may be found at [email or web address]. Performed By: [facility] [address] [place] [address] Casing Inspector: Jag Pro MD, PhD CLIA Number: [id number] Blood BLOOD SPECIMEN / Unknown Lab Venipuncture / Unknown 01/16/2024 11:35 AM BELT BUILDER 01/16/2024 12:10 PM BELT BUILDER Raquel Marley MD LAB - HEMATOLOGY ORD ERABLES [facility] [employer] [facility]) [address] [place] [address] * MPO/UT 3 AUTOANTIBODIES PANEL (01/16/2024 11:35 AM BELT BUILDER) Serine Proteinase 3 IgG 8 0 - 19 AU/mL 01/17/2024 10:15 PM BELT BUILDER [facility] [employer] ([facility]) Comment: INTERPRETIVE INFORMATION: Serine Proteinase 3, IgG 19 AU/mL or Less ........ Negative 20-25 AU/mL ............. Equivocal 26 AU/mL or Greater ..... Positive Approximately 85% of patients with a C-ANCA pattern by IFA have antibodies specific for PR3. Performed By: [facility] [address] [place] [address] Casing Inspector: Jag Pro MD, PhD CLIA Number: [id number] Myeloperoxidase Antibody 0 0 - 19 AU/mL 01/17/2024 10:15 PM BELT BUILDER [facility] ([facility]) Comment: INTERPRETIVE INFORMATION: Myeloperoxidase Abs, IgG 19 AU/mL or Less ......... Negative 20-25 AU/mL .............. Equivocal 26 AU/mL or Greater ...... Positive Approximately 90% of patients with a P-ANCA pattern by IFA have antibodies specific for MPO. Blood BLOOD SPECIMEN / Unknown Lab Venipuncture / Unknown 01/16/2024 11:35 AM BELT BUILDER 01/16/2024 12:10 PM BELT BUILDER Raquel Marley MD LAB - CHEMISTRY MARILEE HADDAD [facility]) [address] * CYCLIC CITRULLINATED PEPTIDE(CCP) AB IGG (01/16/2024 11:35 AM BELT BUILDER) Pathologist [facility] CCP Antibody IgG 2.0 <5.0 U/mL 01/16/2024 1:07 PM BELT BUILDER [facility] Blood BLOOD SPECIMEN / Unknown Lab Venipuncture / Unknown 01/16/2024 11:35 AM BELT BUILDER 01/16/2024 12:10 PM BELT BUILDER Raquel Marley MD LAB - CHEMISTRY MARILEE HADDAD Performing Organization Address City/[facility]/ZIP Co de Phone Number [address] [address], [facility] [phone] * (ABNORMAL) KAPPA/LAMBDA LITE CHAIN FREE PANEL (01/16/2024 11:35 AM BELT BUILDER) [facility] [place] Quant Free Light Chain 29.80(H) 3.30 - 19.40 mg/L 01/17/2024 10:15 PM BELT BUILDER [facility] ([facility]) Comment: INTERPRETIVE INFORMATION: [place] Qnt Free Light Chains Undetected antigen excess is a rare event but cannot be excluded. Free light chain results should always be interpreted in conjunction with other clinical and laboratory findings. Lambda Free Light Chain Quantitative 27.38(H) 5.71 - 26.30 mg/L 01/17/2024 10:15 PM BELT BUILDER [facility] ([facility]) Comment: INTERPRETIVE INFORMATION: Lambda Qnt Free Light Chains Undetected antigen excess is a rare event but cannot be excluded. Free light chain results should always be interpreted in conjunction with other clinical and laboratory findings. [place]/Lambda Free Light Chain ratio 1.09 0.26 - 1.65 01/17/2024 10:15 PM BELT BUILDER [facility] ([facility]) Comment: Performed By: [facility] [address] [place] [address] Casing Inspector: Jag Pro MD, PhD CLIA Number: [id number] Blood BLOOD SPECIMEN / Unknown Lab Venipuncture / Unknown 01/16/2024 11:35 AM BELT BUILDER 01/16/2024 12:10 PM BELT BUILDER Raquel Marley MD LAB - CHEMISTRY MARILEE HADDAD Performing Organization Address [facility] Co de Phone Number [facility] ([facility]) [address], [place] [address] * CRYOFIBRINOGEN (01/16/2024 11:35 AM BELT BUILDER) [facility] Cryofibrinogen Qualitative Comment 01/20/2024 3:10 PM BELT BUILDER [facility] ([facility]) Comment: None Detected at 72 hours Normal: None Detected This test was developed and its performance characteristics determined by [facility]. It has not been cleared or approved by the Food and Drug Administration. Blood BLOOD SPECIMEN / Unknown Lab Venipuncture / Unknown 01/16/2024 11:35 AM BELT BUILDER 01/16/2024 12:09 PM BELT BUILDER Narrative [facility] ([facility]) - 01/20/2024 3:10 PM BELT BUILDER Performed at: - [facility] [address] [place], [place] [id number] Tubing Drier: Berry Roblero PhD, Phone: [phone] Raquel Marley MD LAB - CHEMISTRY MARILEE HADDAD Performing Organization Address City/[facility] Co de Phone Number [facility] ([facility]) [address] [phone] * COMPLEMENT C4 (01/16/2024 11:35 AM BELT BUILDER) [facility] Complement C4 16 15 - 57 mg/dL 01/16/2024 12:50 PM BELT BUILDER [facility] Blood BLOOD SPECIMEN / Unknown Lab Venipuncture / Unknown 01/16/2024 11:35 AM BELT BUILDER 01/16/2024 12:14 PM BELT BUILDER Raquel Marley MD LAB - SEROLOGY ORDER [place] Performing Organization Address City/[facility]/ZIP Co de Phone Number [address] [address], [place] [phone] * (ABNORMAL) HEPATITIS B CORE ANTIBODY TOTAL (01/16/2024 11:35 AM BELT BUILDER) [facility] Antibody Total Reactive(A ) Non-reacti ve 01/16/2024 2:06 PM BELT BUILDER [facility] Blood BLOOD SPECIMEN / Unknown Lab Venipuncture / Unknown 01/16/2024 11:35 AM BELT BUILDER 01/16/2024 12:10 PM BELT BUILDER Raquel Marley MD LAB - CHEMISTRY ORDLeesa HADDAD Performing Organization Address City/[facility]/ZIP Co de Phone Number [address] [address], [place] [phone] * HEPATITIS B SURFACE ANTIGEN W RFLX CONFIRMATION (01/16/2024 11:35 AM BELT BUILDER) Hepatitis B Virus Surface Antigen Non-reacti ve Non-reacti ve 01/16/2024 1:07 PM BELT BUILDER [facility] Blood BLOOD SPECIMEN / Unknown Lab Venipuncture / Unknown 01/16/2024 11:35 AM BELT BUILDER 01/16/2024 12:10 PM BELT BUILDER Raquel Marley MD LAB - CHEMISTRY MARILEE HADDAD Performing Organization Address City/[facility]/ZIP Co de Phone Number [address] [address], [place] [phone] * COMPLEMENT C3 (01/16/2024 11:35 AM BELT BUILDER) Complement C3 142 82 - 193 mg/dL 01/16/2024 12:50 PM BELT BUILDER [facility] Blood BLOOD SPECIMEN / Unknown Lab Venipuncture / Unknown 01/16/2024 11:35 AM BELT BUILDER 01/16/2024 12:14 PM BELT BUILDER Raquel Marley MD LAB - CHEMISTRY MARILEE HADDAD [facility] [address] [place] [address], [facility] [phone] from Last 3 Months Care Teams Wallpaper Hanger Relationship Specialty Start Date End Date Feliberto Carmichael MD [address] [place] [address] DIV OF INT MED [address] [place] [phone] PCP - General Internal Medicine 11/16/23 Dulce Cortez MD [address] [place] [address] [place] [phone] Physician Internal Medicine 11/16/23
--- OUTSIDE RECORDS SUMMARY | 2024-04-01 13:29 | XMS_ITS | Encounter Summary ---
Author Organization [facility] Address [address] [facility] [place] [address] Care Team Providers Care Inspector Exhaust Emissions Name Role Phone Feliberto Carmichael MD Primary Care Provider [phone] Dulce Cortez MD Unavailable [phone] Reason for Visit * Reason Onset Date Comments Medication Issue 03/28/2024 Encounter Details Date Type Department Care Team (Late st Contact Info) Description 03/28/2024 Telephone [facility] - Centralized Scheduling [address] [place] [phone] Ariel Carty MD [address] [place] [address] Medication Issue Social History Tobacco Use Types Packs/Day Years Used Date Smoking Tobacco: Never Smokeless Tobacco: Never Alcohol Use Standard Drinks/Week Comments Yes 0 (1 standard drink = 0.6 oz pur e alcohol) once a month PHQ-2 Answer Date Recorded Patient Health Questionnaire-2 Score 0 03/15/2024 Sex and Gender Information Value Date Recorded Sex Assigned at Female 11/16/2023 4:46 PM CDT Gender Identity Female 11/16/2023 4:46 PM CDT Sexual Orientation Straight 11/16/2023 4: 46 PM CDT documented as of this encounter Miscellaneous Notes * Telephone Encounter - Patrizia Sy - 03/28/2024 11:28 AM CST Pt missed a call from office. She is wondering if it was an update about a medication that she has not received yet. Please assist, thank you! Pt's phone: [phone] ING RELOCATION documented in this encounter Plan of Treatment Upcoming Encounters Date Type Department Care Team (Late st Contact Info) Description 05/14/2024 11:40 AM CDT Office Visit [facility] - Rheumatology [address] [place] [address], [place] [phone] Raquel Marley MD [address] [place] [address] [address] [place] [phone] 05/14/2024 2:30 PM CDT Office Visit [facility] - GI [address] [place] [address], [place] [phone] Guillermo Betts PA [address] [place] [phone] 06/07/2024 1:00 PM CDT [facility] Med [address] [place] [address], [place] [phone] Feliberto Carmichael MD [address] [place] [address] DIV OF INT MED [address] [place] [phone] documented as of this encounter Visit Diagnoses Not on filedocumented in this encounter Care Teams Inspector Exhaust Emissions Relationship Specialty Start Date End Date Feliberto Carmichael MD [address] [place] [address] DIV OF INT MED [address] [place] [phone] PCP - General Internal Medicine 11/16/23 Dulce Cortez MD [address] [place] [address] [address] [place] [phone] Physician Internal Medicine 11/16/23 documented as of this encounter
--- OUTSIDE RECORDS SUMMARY | 2024-04-01 13:29 | XMS_ITS | Clinical Summary ---
Author Organization [facility] Address [address] [place] [address] Care Team Providers Care Training Personnel Supervisor Name Role Phone Unavailable Primary Care Provider Unavailabl e Social History Tobacco Use Types Packs/Day Years Used Date Smoking Tobacco: Never Assessed Comments Unknown Sex and Gender Information Value Date Recorded Sex Assigned at Not on file Legal Sex Female 1:59 PM CDT Gender Identity Not on file Sexual Orientation Not on file Plan of Treatment Upcoming Encounters Date Type Department Care Team (Late st Contact Info) Description 05/14/2024 1:00 PM CDT Office Visit [facility] Multispecialty Care - [address], [address] [place] [address] Colin Simons MD [address] [place] [address] Health Maintenance Due Date Last Done Comments Cervical Cancer Screening Pa p Smear (Age 30 to 64) Every 3 Years 1961 Colorectal Cancer Screening Colonoscopy (10 Years) 1961 Annual Physical 1964 PHQ-2 (Physician [place]) 1973 Hepatitis C 1979 DTaP, Tdap and Td Vaccines ( 1 - Tdap) 1980 Cervical Cancer Screening Pa p with HPV Testing (Age 30 to 64) Every 5 Years 1991 Cervical Cancer Screening with HPV 1991 Mammogram Screening 2001 Zoster Vaccines (1 of 2) 2011 COVID-19 Vaccine (2023-2 5 season) 2023 Influenza Adult (#1) 2023 PHQ-2 (Physician [place]) 02/15/2024 RSV Immunization or 60+ Years (1 - 1-dose 75+ series) 2036 Meningococcal B Vaccine Aged Out No l onger eligible based on patient's age to complete this topic Meningococcal Vaccine Aged Out No nidhi luke eligible based on patient's age to complete this topic Pneumococcal Vaccine: Pediat rics (0 to 5 Years) and At-Risk Patients (6 to 64 Years) Aged Out No longer eligible b ased on patient's age to complete this topic RSV Immunizations Under 20 Months Aged Out No longer eligible based on patient's age to complete this topic Insurance MEDICARE
--- OUTSIDE RECORDS SUMMARY | 2024-04-01 13:29 | XMS_ITS | CCD ---
Author Organization [facility] Address [address] [place] [address] Care Team Providers Care Alloy Weigher Name Role Phone Unavailable Primary Care Provider Unavailabl e Medications No known medications Active Problems No known active problems Social History Tobacco Use Types Packs/Day Years Used Date Smoking Tobacco: Never Smokeless Tobacco: Never Tobacco Cessation:Counseling Given: Not Answered Alcohol Use Standard Drinks/Week Never 0 (1 standard drink = 0.6 oz pure alcohol) Comments Unknown Sex and Gender Information [...] Mass Index - - Plan of Treatment Not on file Procedures Procedure Name Priority Date/Time Associated Diagnosis Comments PERIODIC ORAL EVALUATION - ESTABLISHED PATIENT Routine 07/04/2018 12:00 AM PDT PERIO MAINTENANCE Routine 07/04/2018 12: 00 AM PDT LL PERIODONTAL SCALING AND ROOT PLANING - FOUR OR MORE TEETH PER QUADRANT Routine 06/17/2017 12:00 AM PDT from Last 3 Months or Most Recently Relevant to Health Maintenance
--- OUTSIDE RECORDS SUMMARY | 2024-04-01 13:29 | XMS_ITS | Referral Summary ---
Author Organization [facility] Address [address] [place] [address] Care Team Providers Care Insurance Loss Assessor Name Role Phone Unavailable Primary Care Provider [...] Most Recently Relevant to Health Maintenance [facility]
--- OUTSIDE RECORDS SUMMARY | 2024-04-01 13:29 | XMS_ITS | Referral Summary ---
Author Organization [facility] Address [address] [address] Care Team Providers Care Engagement Mgr Name Role Phone Tharebeca Nitamarco Marco Primary Care Provider [phone] Encounters Date Type Department Care Team Description 03/30/2024 1:00 PM FREELANCE DATA ENTRY Home Care Visit [address] [place] [address] Opal iVncent COTA OT HOME VISIT 03/29/2024 10:00 AM FREELANCE DATA ENTRY Home Care Visit [address] [place] [address] Jennifer Aquino VACUUM CLEANER MECHANIC AIDE HOME VISIT 03/29/2024 9:00 AM FREELANCE DATA ENTRY Home Care Visit [address] [place] [address] Elizabeth Gotti RN SN HOME VISIT 03/28/2024 2:45 PM FREELANCE DATA ENTRY Home Care Visit [address] [place] [address] Opal Vincent COTA OT HOME VISIT 03/26/2024 10:00 AM FREELANCE DATA ENTRY Home Care Visit [address] [place] [address] Jennifer Aquino VACUUM CLEANER MECHANIC AIDE HOME VISIT 03/22/2024 1:30 PM FREELANCE DATA ENTRY Home Care Visit [address] [place] [address] Opal Vincent COTA OT HOME VISIT 03/22/2024 10:00 AM FREELANCE DATA ENTRY Home Care Visit [address] [place] [address] Jennifer Aquino, VACUUM CLEANER MECHANIC AIDE HOME VISIT 03/22/2024 9:00 AM FREELANCE DATA ENTRY Home Care Visit [address] [place] [address] Elizabeth Gotti, RN SN HOME VISIT 03/21/2024 Telephone [facility] [address] [place] [address] [address], [place] [address] Holly Sprague RN 03/21/2024 12:30 PM FREELANCE DATA ENTRY Home Care Visit [address] [place] [address] Opal Vincent COTA OT HOME VISIT 03/20/2024 3:15 PM FREELANCE DATA ENTRY Lab [facility] [address] [place] [address] Multiple sclerosis (HCC) 03/20/2024 2:00 PM FREELANCE DATA ENTRY Office Visit [facility] [address] [place] [address] [place] [id number] Rhys Stevens MD Multiple sclerosis (HCC) (Primary Dx) 03/19/2024 9:30 AM FREELANCE DATA ENTRY Home Care Visit [address] [place] [address] Jennifer Aquino, VACUUM CLEANER MECHANIC AIDE HOME VISIT 03/16/2024 Home Care Visit [address] [place] [address] Keli Larios, OT CASE COMMUNICATION 03/16/2024 11:30 AM FREELANCE DATA ENTRY Home Care Visit [address] [place] [address] Keli Larios, OT OT REASSESSMENT 03/15/2024 Home Care Visit [address] [place] [address] Alexandra Durand RN SN TRIAGE ENCOUNTER 03/15/2024 8:00 AM FREELANCE DATA ENTRY Home Care Visit [address] [place] [address] Jennifer Aquino, VACUUM CLEANER MECHANIC AIDE HOME VISIT 03/14/2024 9:00 AM FREELANCE DATA ENTRY Home Care Visit [address] [place] [address] Aundrea Scanlon SN HOME VISIT 03/12/2024 9:00 AM FREELANCE DATA ENTRY Home Care Visit [address] [place] [address] Jennifer Aquino, VACUUM CLEANER MECHANIC AIDE HOME VISIT 03/11/2024 2:28 PM FREELANCE DATA ENTRY - 03/11/2024 11:59 PM FREELANCE DATA ENTRY Hospital Encounter [facility] [address] [place] [address] Multiple sclerosis (HCC) Discharge Disposition: Discharge to home or self care 03/10/2024 Home Care Visit [address] [place] [address] Nay Reyna RN SN TRIAGE ENCOUNTER 03/10/2024 4:05 PM FREELANCE DATA ENTRY Home Care Visit [address] [place] [address] Cecile Allen SN HOME VISIT 03/09/2024 12:00 PM FREELANCE DATA ENTRY Home Care Visit [address] [place] [address] Jennifer Aquino, VACUUM CLEANER MECHANIC AIDE HOME VISIT 03/09/2024 3:00 PM FREELANCE DATA ENTRY Home Care Visit [address] [place] [address] Opal Vincent COTA OT HOME VISIT 03/08/2024 11:30 AM FREELANCE DATA ENTRY Home Care Visit [address] [place] [address] Aundrea Scanlon SN HOME VISIT 03/06/2024 2:00 PM FREELANCE DATA ENTRY Home Care Visit [address] [place] [address] Jennifer Aquino CNA AIDE HOME VISIT 03/05/2024 Home Care Visit [address] [place] [address] Nannette Cazares RN SN TRIAGE ENCOUNTER 03/03/2024 Home Care Visit [address] [place] [address] Arabella Martin, ALEXI CASE COMMUNICATION 03/03/2024 Home Care Visit [address] [place] [address] Nannette Cazares RN SN TRIAGE ENCOUNTER 03/03/2024 4:00 PM FREELANCE DATA ENTRY Home Care Visit [address] [place] [address] Arabella Martin RN SN HOME VISIT 03/03/2024 Home Care Visit [address] [place] [address] Patrizia Loaiza, RN SN TRIAGE ENCOUNTER 03/02/2024 Home Care Visit [address] [place] [address] Mauricio Owens, ALEXI SN TRIAGE ENCOUNTER 02/24/2024 1:45 PM FREELANCE DATA ENTRY Home Care Visit [address] [place] [address] Opal Vincent COTA OT HOME VISIT 02/21/2024 11:00 AM FREELANCE DATA ENTRY Home Care Visit [address] [place] [address] Aundrea Scanlon SN HOME VISIT 02/21/2024 Home Care Visit [address] [place] [address] Renetta Marmolejo RN SN TRIAGE ENCOUNTER 02/20/2024 Home Care Visit [address] [place] [address] Jenny Oseguera RN SN TRIAGE ENCOUNTER 02/18/2024 Plan of Care Documentation [address] [place] [address] 02/17/2024 11:00 AM FREELANCE DATA ENTRY Home Care Visit [address] [place] [address] Aundrea Scanlon SN OASIS RECERTIFICATION 02/13/2024 Home Care Visit [address] [place] [address] Jenny Oseguera RN SN TRIAGE ENCOUNTER 02/13/2024 3:00 PM FREELANCE DATA ENTRY Home Care Visit [address] [place] [address] Matilda Baeza RN SN HOME VISIT 02/13/2024 11:30 AM FREELANCE DATA ENTRY Home Care Visit [address] [place] [address] Mellisa Castellon, PT PT INITIAL EVALUATION 02/12/2024 Home Care Visit [address] [place] [address] Alexandra Durand, RN SN TRIAGE ENCOUNTER 02/10/2024 11:00 AM FREELANCE DATA ENTRY Home Care Visit [address] [place] [address] Aundrea Scanlon SN HOME VISIT 02/07/2024 Home Care Visit [address] [place] [address] Keli Larios, OT CASE COMMUNICATION 02/07/2024 11:30 AM FREELANCE DATA ENTRY Home Care Visit [address] [place] [address] Keli Larios, OT OT REASSESSMENT 02/06/2024 Home Care Visit [address] [place] [address] Mellisa Castellon, PT TELEPHONE ENCOUNTER 02/03/2024 Home Care Visit [address] [place] [address] Mellisa Castellon, PT TELEPHONE ENCOUNTER 02/03/2024 11:00 AM FREELANCE DATA ENTRY Home Care Visit [address] [place] [address] Aundrea Scanlon SN HOME VISIT 02/02/2024 Home Care Visit [address] [place] [address] Mellisa Castellon, PT TELEPHONE ENCOUNTER 02/02/2024 Documentation [facility] [place] [id number] [address] Rhys Stevens MD 01/31/2024 Home Care Visit [address] [place] [address] Mellisa Castellon, PT TELEPHONE ENCOUNTER 01/31/2024 2:45 PM FREELANCE DATA ENTRY Home Care Visit [address] [place] [address] Opal Vicnent COTA OT HOME VISIT 01/27/2024 11:00 AM FREELANCE DATA ENTRY Home Care Visit [address] [place] [address] Aundrea Scanlon SN HOME VISIT 01/25/2024 Home Care Visit [address] [place] [address] Patrizia Loaiza RN SN TRIAGE ENCOUNTER 01/25/[address] [facility] Scheduling [address] [place] [address] Resource, Homecare Scheduling 01/24/2024 Home Care Visit [address] [place] [address] Keli Larios, OT CASE COMMUNICATION 01/24/2024 2:30 PM FREELANCE DATA ENTRY Home Care Visit [address] [place] [address] Keli Larios, OT OT HOME VISIT 01/19/2024 Home Care Visit [address] [place] [address] Patrizia Loaiza RN SN TRIAGE ENCOUNTER 01/19/2024 12:00 PM FREELANCE DATA ENTRY Home Care Visit [address] [place] [address] Aundrea Scanlon SN HOME VISIT 01/19/2024 2:00 PM FREELANCE DATA ENTRY Home Care Visit [address] [place] [address] Opal Vincent COTA OT HOME VISIT 01/17/2024 Home Care Visit [address] [place] [address] Last Watters LCSW FUSING LINE INSPECTOR DISCIPLINE DISCHARGE 01/17/2024 11:00 AM FREELANCE DATA ENTRY Home Care Visit [address] [place] [address] Last Watters LCSW FUSING LINE INSPECTOR INITIAL EVAL 01/17/2024 1:30 PM FREELANCE DATA ENTRY Home Care Visit [address] [place] [address] Opal Vincent COTA OT HOME VISIT 01/16/2024 Home Care Visit [address] [place] [address] Last Watters [facility] CASE COMMUNICATION 01/11/2024 Home Care Visit [address] [place] [address] Patrizia Loaiza, ALEXI SN TRIAGE ENCOUNTER 01/11/2024 11:30 AM FREELANCE DATA ENTRY Home Care Visit [address] [place] [address] Cecile Allen SN HOME VISIT 01/10/2024 Home Care Visit [address] [place] [address] Keli Larios, OT CASE COMMUNICATION 01/10/2024 12:30 PM FREELANCE DATA ENTRY Home Care Visit [address] [place] [address] Keli Larios, OT OT INITIAL EVALUATION 01/10/2024 11:00 AM FREELANCE DATA ENTRY Home Care Visit [address] [place] [address] Aundrea Scanlon SN HOME VISIT 01/06/2024 12:30 PM FREELANCE DATA ENTRY Home Care Visit [address] [place] [address] Ghislaine Aundrea SN HOME VISIT 01/05/2024 1:00 PM FREELANCE DATA ENTRY Home Care Visit [address] [place] [address] Efe Buckner, PT PT DISCIPLINE DISCHARGE 01/02/2024 Documentation [facility] [place] [id number] [facility] [address] [place] [id number] Rhys Stevens MD from Last 3 Months Allergies No known active allergies Medications levothyroxine (SYNTHROID) 150 mcg tabletIndicatio ns:hypothyroidi sm Take 1 tablet (150 mcg total) by mouth daily before breakfast 7 Active buPROPion XL (WELLBUTRIN XL) 150 mg 24 hr tabletIndicatio ns:Anxiety with Depression Take 1 tablet (150 mg total) by mouth website project manager before breakfast 3 Active dalfampridine 10 mg [...] 1 tablet (200 mg total) by mouth website project manager before breakfast 90 tablet 3 4 Active [...] infusionIndicat ions:primary immune deficiency disorder 0 03/20/19 25 Discontinu ed(Therapy completed) Active Problems Problem Noted Date Diagnosed Date Multiple sclerosis 12/15/2023 Assessment & Plan (03/20/2024 3:07 PM FREELANCE DATA ENTRY): The patient is presenting for follow up [...] inflammation. I will reach out to the [facility] to request a copy of [...] system. Assessment & Plan (12/28/2023 11:07 AM FREELANCE DATA ENTRY): Patient is presenting to establish care for [...] major depressive d isorder, in full remission ([facility]) 12/15/2023 Assessment & Plan (12/15/2023 2:22 PM CDT): The patient is currently treated for depression with Wellbutrin 150 mg daily. She reports good benefit from the medication. We will continue it for ongoing treatment Immunizations Immunization Administration Dates Next Due Influenza LAIV (Nasal) 03/02/2013 Influenza, Quadrivalent, Spl it, Preservative Free, Intramuscular 02/21/2014,04/27/2011 Influenza, Unspecified 03/03/2012 Tdap 04/23/2016 Social History Tobacco Use Types Packs/Day Years [...] Comments Blood Pressure 112/68 03/29/2024 2:32 PM FREELANCE DATA ENTRY Pulse 68 03/29/2024 2:32 PM FREELANCE DATA ENTRY Temperature 36.7 C (98.1 F) 03/29/2024 2:32 PM FREELANCE DATA ENTRY Respiratory Rate 18 03/29/2024 2:32 PM FREELANCE DATA ENTRY Oxygen Saturation 92% 03/29/2024 2:32 PM FREELANCE DATA ENTRY Inhaled Oxygen Concentration - - Weight 108.9 kg (240 lb) 03/20/2024 2:04 PM FREELANCE DATA ENTRY Height 172.7 cm (5' 8 ) 03/20/2024 2:04 PM FREELANCE DATA ENTRY Body Mass Index 36.49 03/20/2024 2:04 PM FREELANCE DATA ENTRY Plan of Treatment Not on file Procedures Procedure Name Priority Date/Time Associated Diagnosis Comments IMMUNE COMPETENCE Routine 03/20/2024 7:5 6 PM FREELANCE DATA ENTRY Multiple sclerosis (HCC) EGFR Routine 03/20/2024 6:53 PM FREELANCE DATA ENTRY Multiple sclerosis (HCC) DIFFERENTIAL AUTO Routine 03/20/2024 6:5 3 PM FREELANCE DATA ENTRY Multiple sclerosis (HCC) CBC WITH AUTO DIFFERENTIAL Routine 03/20/2024 6:53 PM FREELANCE DATA ENTRY Multiple sclerosis (HCC) COMPREHENSIVE METABOLIC PANEL Routine 03/20/2024 6:53 PM FREELANCE DATA ENTRY Multiple sclerosis (HCC) IMMUNOGLOBULIN PROFILE Routine 6:53 PM FREELANCE DATA ENTRY Multiple sclerosis (HCC) MRI BRAIN W WO CONTRAST Routine 01/26/20 25 3:53 PM FREELANCE DATA ENTRY Multiple sclerosis (HCC) from Last 3 Months Results * Immune competence (03/20/2024 7:56 PM FREELANCE DATA ENTRY) CD3 pct 71 60 - 88 % Comment:Testing performed by : [facility], [address] [place]., [address] CD3 Absolute 1,036 661 - 1,963 cells/mcL [facility] Comment:Testing performed by : [facility], [address] [facility], [address] CD4 pct 52 31 - 64 % [facility] Comment:Testing performed by : [facility], [address] [facility], [address] CD4 Absolute 788 365 - 1,294 cells/mcL [facility] Comment:Testing performed by : [facility], [address] [facility], [address] CD8 pct 17 12 - 40 % [facility] Comment:Testing performed by : [facility], [address] [facility], [address] CD8 Absolute 257 187 - 781 cells/mcL [facility] Comment:Testing performed by : [facility], [address] [facility], [address] CD19 pct 23 6 - 25 % [facility] Comment:Testing performed by : [facility], [address] [facility], [address] CD19 Absolute 323 86 - 488 cells/mcL [facility] Comment:Testing performed by : [facility], [address] [facility], [address] [id number] pct 6 5 - 25 % [facility] Comment:Testing performed by : [facility], [address] [facility], [address] [id number] Absolute 87 76 - 467 cells/mcL [facility] Comment:Testing performed by : [facility], [address] [facility], [address] CD4/CD8 ratio 3.1 0.9 - 4.4 [facility] Comment:Testing performed by : [facility], [address] [facility], [place]., [address] Blood 03/20/2024 7:56 PM FREELANCE DATA ENTRY 03/20/2024 9:45 PM FREELANCE DATA ENTRY Rhys Stevens MD LAB BLOOD ORDERABLES Final Result Performing Organization Address City/[facility]/ZIP Co de Phone Number [facility] [address] Department [place] [address] * (ABNORMAL) Immunoglobulin profile (03/20/2024 6:53 PM FREELANCE DATA ENTRY) Pathologist [facility] Immunoglobulin G 1,307 700 - 1,600 mg/dL Immunoglobulin A 468(H) 70 - 400 mg/dL [facility] Immunoglobulin M 63 40 - 230 mg/dL [facility] Blood 03/20/2024 6:53 PM FREELANCE DATA ENTRY 03/20/2024 6:53 PM FREELANCE DATA ENTRY Rhys Stevens MD LAB BLOOD ORDERABLES Final Result Performing Organization Address [facility] Co de Phone Number [facility] [address] [place] [place] [address] * eGFR (03/20/2024 6:53 PM FREELANCE DATA ENTRY) Pathologist [facility] eGFR >90 >=60 mL/min/1. 73 m2 Comment: [...] last reviewed 2020. Blood 03/20/2024 6:53 PM FREELANCE DATA ENTRY 03/20/2024 6:53 PM FREELANCE DATA ENTRY us Rhys Stevens MD LAB BLOOD ORDERABLES Final Result [facility] [address] Department [place] [address] * Differential, auto (03/20/2024 6:53 PM FREELANCE DATA ENTRY) Neutrophil abs 6.3 1.5 - 6.5 K/cumm Imm gran abs 0.0 0.0 - 0.1 K/cumm [facility] Lymphocyte abs 1.5 0.8 - 3.3 K/cumm [facility] Monocyte abs 0.7 0.2 - 0.8 K/cumm [facility] Eosinophil abs 0.2 0.0 - 0.5 K/cumm [facility] Basophil abs 0.1 0.0 - 0.1 K/cumm [facility] Neutrophil pct 71.8 % [facility] Comment: Interpretive Data Percent cell count reference ranges are not reported, since discordance with absolute values may lead to misinterpretation of CBC data. Current Interpretive Data was last revised on 2017. Imm gran pct 0.5 % [facility] Comment: Interpretive Data Percent cell count reference ranges are not reported, since discordance with absolute values may lead to misinterpretation of CBC data. Current Interpretive Data was last revised on 2017. Lymphocyte pct 17.6 % [facility] Comment: Interpretive Data Percent cell count reference ranges are not reported, since discordance with absolute values may lead to misinterpretation of CBC data. Current Interpretive Data was last revised on 2017. Monocyte pct 7.8 % [facility] Comment: Interpretive Data Percent cell count reference ranges are not reported, since discordance with absolute values may lead to misinterpretation of CBC data. Current Interpretive Data was last revised on 2017. Eosinophil pct 1.7 % [facility] Comment: Interpretive Data Percent cell count reference ranges are not reported, since discordance with absolute values may lead to misinterpretation of CBC data. Current Interpretive Data was last revised on 2017. Basophil pct 0.6 % [facility] Comment: Interpretive Data Percent cell count reference ranges are not reported, since discordance with absolute values may lead to misinterpretation of CBC data. Current Interpretive Data was last revised on 2017. Blood 03/20/2024 6:53 PM FREELANCE DATA ENTRY 03/20/2024 6:53 PM FREELANCE DATA ENTRY us Rhys Stevens MD LAB BLOOD ORDERABLES Final Result [facility] [address] Department [place] [address] * CBC with auto differential (03/20/2024 6:53 PM FREELANCE DATA ENTRY) WBC 8.8 3.8 - 9.9 K/cumm Hgb 13.4 11.9 - 15.5 g/dL [facility] Hct 41.4 35.6 - 45.5 % [facility] Plt 350 150 - 400 K/cumm [facility] MPV 10.1 9.1 - 12.3 fL [facility] RBC 4.36 3.90 - 5.20 M/cumm [facility] MCV 95.0 81.3 - 96.4 fL [facility] MCH 30.7 27.1 - 33.3 pg [facility] MCHC 32.4 32.3 - 35.7 g/dL [facility] RDW CV 13.0 11.1 - 14.9 % [facility] RDW SD 44.8 35.7 - 48.1 fL [facility] NRBC abs 0.00 0.00 - 0.01 K/cumm [facility] Blood 03/20/2024 6:53 PM FREELANCE DATA ENTRY 03/20/2024 6:53 PM FREELANCE DATA ENTRY Rhys Stevens MD LAB BLOOD ORDERABLES Final Result [facility] [address] [place] Department [place] [address] * (ABNORMAL) Comprehensive metabolic panel (03/20/2024 6:53 PM FREELANCE DATA ENTRY) Sodium 139 135 - 145 mmol/L Potassium, pl 4.3 3.3 - 4.9 mmol/L [facility] Chloride 99 97 - 110 mmol/L [facility] CO2 27 22 - 32 mmol/L [facility] Anion gap 13 2 - 15 mmol/L [facility] BUN 4(L) 6 - 25 mg/dL [facility] Creatinine 0.39(L) 0.60 - 1.10 mg/dL [facility] Glucose 84 70 - 199 mg/dL [facility] Comment: Interpretive Data Fasting glucose >/= 126 [...] classification and Diagnosis of Diabetes Diabetes Care 2021; 46: S19-S40. Current interpretive data was last revised 2022. Calcium 9.2 8.5 - 10.3 mg/dL [facility] Bilirubin, total 0.3 0.1 - 1.2 mg/dL [facility] Protein, pl 7.5 6.5 - 8.5 g/dL [facility] Albumin 3.9 3.5 - 5.0 g/dL [facility] Alk phos 114 40 - 130 Units/L [facility] ALT 32 7 - 45 Units/L [facility] AST 18 10 - 45 Units/L [facility] Blood 03/20/2024 6:53 PM FREELANCE DATA ENTRY 03/20/2024 6:53 PM FREELANCE DATA ENTRY Rhys Stevens MD LAB BLOOD ORDERABLES Final Result [facility] [address] Department [place] [address] * MRI Brain W WO Contrast (03/11/2024 3:53 PM FREELANCE DATA ENTRY) Anatomical Region Laterality Modality Head and Neck N/A Magnetic Resonan ce 03/12/2024 10:1 2 AM FREELANCE DATA ENTRY Impressions 03/12/2024 10:12 AM FREELANCE DATA ENTRY 1. Multiple white matter lesions. No priors available for comparison. 2. No abnormal enhancement or diffusion restriction to suggest active demyelination. 3. Greater than 50% of the lesions demonstrate a Central Vein Sign. Electronically signed by: Edgardo Shaw M.D. Narrative 03/12/2024 10:12 AM FREELANCE DATA ENTRY MRI BRAIN W WO CONTRAST 03/11/2024 2:30 [...] Result from Last 3 Months Insurance MEDICARE [facility] Care Teams Engagement Mgr Relationship Specialty Start Date End Date Rachel Carmichael [address] [place] [phone] PCP - General Family Medicine 12/13/23
--- OUTSIDE RECORDS SUMMARY | 2024-04-01 13:29 | XMS_ITS | Referral Summary ---
Author Organization [facility] Address [address] [place] [address] Care Team Providers Care Control Inspector Name Role Phone Feliberto Carmichael MD Primary Care Provider [phone] Dulce Cortez MD Unavailable [phone] Source Comments [facility],non-owned Affiliates and Associated Physician Practices is amultiple site organization consisting of ambulatory clinics and hospital sitesin [place], [place], [place] and [place]. This disclosure is being madepursuant to the Care Everywhere program and may not contain all information available regarding this patient. Last updated 17.[facility] Encounters Date Type Department Care Team Description 03/28/2024 Telephone [facility] - Centralized Scheduling [address] [place] [address] Ariel Carty MD Medication Issue 03/19/2024 Telephone [facility] - Internal Med [address] [place] [phone] Feliberto Carmichael MD Medication Prior Auth Request 03/15/2024 Travel 03/15/2024 3:30 PM MED SURG NURSE Office Visit [facility] - Internal Med [address] [place] [phone] Feliberto Carmichael MD Recurrent major depressive disorder, [...] sleep apnea); Atherosclerosis of abdominal aorta (HCC) 03/13/2024 Refill [facility] - Dermatology [address] [place] [phone] Ariel Carty MD MEDICATION REFILL 03/07/2024 Travel 03/07/2024 2:00 PM MED SURG NURSE Office Visit [facility] - Dermatology [address] [place] [phone] Ariel Carty MD Chilblains, initial encounter (Primary Dx); Skin ulcer, unspecified ulcer stage (HCC) 02/14/2024 Travel 02/14/2024 3:00 PM MED SURG NURSE Office Visit [facility] - Rheumatology [address] [place] [phone] Raquel Marley MD Positive AUBREE (antinuclear antibody) (Primary Dx) 01/16/2024 11:11 AM MED SURG NURSE - 01/16/2024 11:59 PM MED SURG NURSE Hospital Encounter [facility] OP DRAW STATION [address] [place] [address] Discharge Disposition: Home or Self Care 01/16/2024 Travel 01/16/2024 10:00 AM MED SURG NURSE Office Visit [facility] - Rheumatology [address] [place] [phone] Dulce Cortez MD Zaheer, Muhammad, MD Skin ulcer, unspecified ulcer stage (HCC) (Primary Dx); Arthralgia, unspecified joint; Positive AUBREE (antinuclear antibody); Need for hepatitis B screening test; Need for hepatitis C screening test 01/09/2024 Travel from Last 3 Months Allergies No known active allergies Medications * [...] mouth every morning 08/12/2022 Active nystatin (Mycostatin) 416400 UNIT/GM ointmentIndication s:Candidal intertrigo Apply to affected area 2 times daily Apply to back and buttocks area 30 g 12/29/2023 Active nystatin (Mycostatin) 536077 UNIT/GM powderIndications: Candidal intertrigo Apply to affected [...] buttock 09/30/2010 Recurrent urinary tract infection 02/20/2010 Immunizations Name Administration Dates Next Due INFLUENZA VACCINE 03/03/2012 INFLUENZA VACCINE, QUADR. (F LUZONE; FLULAVAL; FLUARIX; AFLURIA QUADRIVALENT; 6MO+), 0.5 ML (IIV4) 02/21/2014,04/27/2011 SHY VACCINE QUAD LAIV4 PF NASAL 03/02/2013 TDAP (7yrs+) 04/23/2016 Social History Tobacco Use Types Packs/Day [...] Comments Blood Pressure 110/69 03/15/2024 3:47 PM MED SURG NURSE Pulse 76 03/15/2024 3:47 PM MED SURG NURSE Temperature 36.6 C (97.8 F) 02/14/2024 3:14 PM MED SURG NURSE Respiratory Rate 20 11/17/2023 2:03 PM CDT Oxygen Saturation 91% 03/15/2024 3:47 PM MED SURG NURSE Inhaled Oxygen Concentration - - Weight 108.4 kg (239 lb) 02/14/2024 3:14 PM MED SURG NURSE Height 172.7 cm (5' 8 ) 02/14/2024 3:14 PM MED SURG NURSE Body Mass Index 36.34 02/14/2024 3:14 PM MED SURG NURSE Plan of Treatment Upcoming Encounters Date Type Department Care Team (Late st Contact Info) Description 05/14/2024 11:40 AM CDT [facility] [address] [place] [phone] Raquel Marley MD [address] [place] [address] [place] [phone] 05/14/2024 2:30 PM CDT Office Visit [facility] - GI [address] [place] [address], [place] [phone] Guillermo Betts PA [address] [place] [phone] 06/07/2024 1:00 PM CDT Office Visit [facility] - Internal Med [address] [place] [phone] Feliberto Carmichael MD [address] [place] [address] DIV OF INT MED [address] [place] [phone] Procedures Procedure Name Priority Date/Time Associated Diagnosis Comments VISCOSITY Routine 01/16/2024 11:35 AM MED SURG NURSE Skin ulcer, unspecified ulcer stage (HCC) MPO/WV 3 AUTOANTIBODIES PANEL Routine 01/16/2024 11:35 AM MED SURG NURSE Skin ulcer, unspecified ulcer stage (HCC) Positive AUBREE (antinuclear antibody) CRYOGLOBULIN QUAL W/RFLX ARGELIA+AGM Routine 01/16/2024 11:35 AM MED SURG NURSE Skin ulcer, unspecified ulcer stage (HCC) DNA ANTIBODY DS CRITHIDIA TITER Routine 01/16/2024 11:35 AM MED SURG NURSE Skin ulcer, unspecified ulcer stage (HCC) Positive AUBREE (antinuclear antibody) BETA-2 GLYCOPROTEIN 1 ANTIBODY IGG/IGM PANEL Routine 01/16/2024 11:35 AM MED SURG NURSE Skin ulcer, unspecified ulcer stage (HCC) Positive AUBREE (antinuclear antibody) RHEUMATOID FACTOR BLOOD QUANTITATIVE Routine 01/16/2024 11:35 AM MED SURG NURSE Skin ulcer, unspecified ulcer stage (HCC) Positive AUBREE (antinuclear antibody) SCLERODERMA COMPREHENSIVE AB PANEL Routine 01/16/2024 11:35 AM MED SURG NURSE Skin ulcer, unspecified ulcer stage (HCC) Positive AUBREE (antinuclear antibody) STEVENSON/PRICE CHECKER (JUSTIN) ANTIBODY IGG Routine 01/16/2024 11:35 AM MED SURG NURSE Skin ulcer, unspecified ulcer stage (HCC) Positive AUBREE (antinuclear antibody) LUPUS ANTICOAGULANT PANEL Routine 01/16/2024 11:35 AM MED SURG NURSE Skin ulcer, unspecified ulcer stage (HCC) Positive AUBREE (antinuclear antibody) DNA ANTIBODY DOUBLE STRANDED Routine 01/16/2024 11:35 AM MED SURG NURSE Skin ulcer, unspecified ulcer stage (HCC) Positive AUBREE (antinuclear antibody) STEVENSON (SM) ANTIBODY JUSTIN Routine 01/16/2024 11:35 AM MED SURG NURSE Skin ulcer, unspecified ulcer stage (HCC) Positive AUBREE (antinuclear antibody) SS-A (SJOGREN'S) 52+60 ANTIBODIES Routine 01/16/2024 11:35 AM MED SURG NURSE Skin ulcer, unspecified ulcer stage (HCC) Positive AUBREE (antinuclear antibody) SS-B (SJOGREN'S) ANTIBODY Routine 01/16/2024 11:35 AM MED SURG NURSE Skin ulcer, unspecified ulcer stage (HCC) Positive AUBREE (antinuclear antibody) COMPLEMENT C4 Routine 01/16/2024 11:35 AM MED SURG NURSE Skin ulcer, unspecified ulcer stage (HCC) Positive AUBREE (antinuclear antibody) COMPLEMENT C3 Routine 01/16/2024 11:35 AM MED SURG NURSE Skin ulcer, unspecified ulcer stage (HCC) Positive AUBREE (antinuclear antibody) CARDIOLIPIN ANTIBODY IGM Routine 01/16/2024 11:35 AM MED SURG NURSE Skin ulcer, unspecified ulcer stage (HCC) Positive AUBREE (antinuclear antibody) CARDIOLIPIN ANTIBODY IGG Routine 01/16/2024 11:35 AM MED SURG NURSE Skin ulcer, unspecified ulcer stage (HCC) Positive AUBREE (antinuclear antibody) CENTROMERE ANTIBODY Routine 01/16/2024 1 1:35 AM MED SURG NURSE Skin ulcer, unspecified ulcer stage (HCC) Positive AUBREE (antinuclear antibody) CENTROMERE B ANTIBODIES Routine 01/16/2024 11:35 AM MED SURG NURSE Skin ulcer, unspecified ulcer stage (HCC) Positive AUBREE (antinuclear antibody) COLD AGGLUTININS TITER Routine 11:35 AM MED SURG NURSE Skin ulcer, unspecified ulcer stage (HCC) Positive AUBREE (antinuclear antibody) CRYOFIBRINOGEN Routine 01/16/2024 11:35 AM MED SURG NURSE Skin ulcer, unspecified ulcer stage (HCC) HEPATITIS C AB SCREEN RFLX NAAT QUANT Routine 01/16/2024 11:35 AM MED SURG NURSE Need for hepatitis C screening test KAPPA/LAMBDA LITE CHAIN FREE PANEL Routine 01/16/2024 11:35 AM MED SURG NURSE Skin ulcer, unspecified ulcer stage (HCC) HEPATITIS B SURFACE ANTIGEN W RFLX CONFIRMATION Routine 01/16/2024 11:35 AM MED SURG NURSE Need for hepatitis B screening test HEPATITIS B CORE ANTIBODY TOTAL Routine 01/16/2024 11:35 AM MED SURG NURSE Need for hepatitis B screening test CYCLIC CITRULLINATED PEPTIDE(CCP) AB IGG Routine 01/16/2024 11:35 AM MED SURG NURSE Skin ulcer, unspecified ulcer stage (HCC) Positive AUBREE (antinuclear antibody) from Last 3 Months Results * HEPATITIS C AB SCREEN RFLX NAAT QUANT (01/16/2024 11:35 AM MED SURG NURSE) Hepatitis C Antibody Non-react angelica Non-reac tive 01/16/2024 1:07 PM MED SURG NURSE [facility] Comment:Hepatitis C Antibody screen indicates [...] Lab Venipuncture / Unknown 01/16/2024 11:35 AM MED SURG NURSE 01/16/2024 12:10 PM MED SURG NURSE Raquel Marley MD LAB - CHEMISTRY MARILEE HADDAD [facility] Organization Address City/State/ZIP Co de Phone Number [facility] [address] [address], [facility] [phone] * CRYOGLOBULIN QUAL W/RFLX ARGELIA+AGM (01/16/2024 11:35 AM MED SURG NURSE) Pathologist [facility] Cryoglobulin Qualitative NEG 72Hour NEG 72Hour 01/21/2024 11:45 PM MED SURG NURSE [facility] ([facility]) Comment: This test was developed and its performance characteristics determined by [facility]. It has not been cleared or approved by the US Food and Drug Administration. This test was performed in a CLIA certified laboratory and is intended for clinical purposes. Performed By: [facility] [address] [place] [address] Professional Fee Coder: Jag Pro MD, PhD CLIA Number: [id number] Blood BLOOD SPECIMEN / Unknown Lab Venipuncture / Unknown 01/16/2024 11:35 AM MED SURG NURSE 01/16/2024 11:42 AM MED SURG NURSE Raquel Marley MD LAB - CHEMISTRY MARILEE Guillen Organization Address City/State/ZIP Co de Phone Number [facility]) [address] [place] [address], [facility] * (ABNORMAL) SCLERODERMA COMPREHENSIVE AB PANEL (01/16/2024 11:35 AM MED SURG NURSE) AUBREE HEp-2 IgG <1:80 <1:80 01/18/2024 11:14 PM MED SURG NURSE [facility] ([facility]) Comment: Performed By: [facility] [address] [place] [address] Professional Fee Coder: Jag Pro MD, PhD CLIA Number: [id number] AUBREE Interpretive Comment See Note 01/18/2024 11:14 PM MED SURG NURSE [facility] ([facility]) Comment: Antinuclear antibodies by IFA negative for [...] not necessarily rule out SARD. Performed By: [facility] [address] [place] [address] Professional Fee Coder: Jag Pro MD, PhD CLIA Number: [id number] SCL-70 Antibody 4 0 - 40 AU/mL 01/18/2024 11:14 PM [facility] ([facility]) Comment: INTERPRETIVE INFORMATION: Scleroderma (Scl-70) (JUSTIN) Ab, [...] testing for centromere, RNA polymerase III and U3-PRICE CHECKER, PM/Scl, or Th/To antibodies. Performed By: [facility] [address] [place] [address] Professional Fee Coder: Jag Pro MD, PhD CLIA Number: [id number] RNA Polymerase 3 Antibody IgG 13 0 - 19 Units 01/18/2024 11:14 PM [facility] ([facility]) Comment: INTERPRETIVE INFORMATION: RNA Polymerase III Antibody, [...] antibodies associated with SSc, including centromere, Scl-70, U3-PRICE CHECKER, PM/Scl, or Th/To. Performed by [facility], [address] [place] [address] [email or web address], Agustín Roche MD, Lab. Director CLIA Number: [id number] Stevenson/PRICE CHECKER (JUSTIN) Antibody IgG 29(H) 0 - 19 Units 01/18/2024 11:14 PM MED SURG NURSE [facility] ([facility]) Comment: INTERPRETIVE INFORMATION: Stevenson/PRICE CHECKER (JUSTIN) Antibody, IgG 19 Units or Less ............. Negative 20 to 39 Units ............... Weak Positive 40 to 80 Units ............... Moderate Positive 81 Units or greater .......... Strong Positive Stevenson/PRICE CHECKER antibodies are frequently seen in patients with mixed connective tissue disease (MCTD) and are also associated with other systemic autoimmune rheumatic diseases (SARDs) such as systemic lupus erythematosus (SLE), systemic sclerosis, and myositis. Antibodies targeting the Stevenson/PRICE CHECKER antigenic complex also recognize Stevenson antigens, therefore, the Stevenson antibody response must be considered when interpreting these results. Performed By: [facility] [address] [place] [address] Professional Fee Coder: Jag Pro MD, PhD CLIA Number: [id number] PM/Scl 100 Antibody IgG Negative Negative 01/18/2024 11:14 PM MED SURG NURSE [facility] ([facility]) Comment: INTERPRETIVE INFORMATION: PM/Scl-100 Antibody, IgG by [...] developed and its performance characteristics determined by [facility]. It has not been cleared or approved by the [place] Food and Drug Administration. This test was performed in a CLIA certified laboratory and is intended for clinical purposes. Performed By: [facility] [address] [place] [address] Professional Fee Coder: Jag Pro MD, PhD CLIA Number: [id number] Fibrillarin (U3 PRICE CHECKER) Antibody IgG Negative Negative 01/18/2024 11:14 PM MED SURG NURSE [facility] ([facility]) Comment: Interpretive Information: Fibrillarin (U3 PRICE CHECKER) Antibody, IgG The presence of fibrillarin (U3-PRICE CHECKER) IgG antibodies in association with an AUBREE [...] a multi-ethnic cohort of SSc patients (n=98), U3-PRICE CHECKER antibodies detected by immunoblot had an agreement of 98.9 percent with the gold standard immunoprecipitation (IP) assay. Approximately 71 percent (5/7) of the borderline U3-PRICE CHECKER results with AUBREE nucleolar pattern in this cohort were IP negative. This test was developed and its performance characteristics determined by [facility]. It has not been cleared or approved by the US Food and Drug Administration. This test was performed in a CLIA certified laboratory and is intended for clinical purposes. Performed By: [facility] [address] [place] [address] Professional Fee Coder: Jag Pro MD, PhD CLIA Number: [id number] Blood BLOOD SPECIMEN / Unknown Lab Venipuncture / Unknown 01/16/2024 11:35 AM MED SURG NURSE 01/16/2024 12:09 PM MED SURG NURSE Raquel Marley MD LAB - SEROLOGY ORDER ELMA Performing Organization Address [facility] de Phone Number [facility] ([facility]) [address] [place] [address], [facility] * SS-A (SJOGREN'S) 52+60 ANTIBODIES (01/16/2024 11:35 AM MED SURG NURSE) SS-A 52 Antibody 18 0 - 40 AU/mL 01/18/2024 9:30 AM MED SURG NURSE [facility] ([facility]) Comment: INTERPRETIVE INFORMATION: SSA-52 (Ro52) (JUSTIN) Antibody, [...] 0 - 40 AU/mL 01/18/2024 9:30 AM MED SURG NURSE [facility] ([facility]) Comment: REFERENCE INTERVAL: SSA-60 (Ro60) (JUSTIN) Antibody, IgG 29 AU/mL or Less ............. Negative 30 - 40 AU/mL ................ Equivocal 41 AU/mL or Greater .......... Positive Performed By: [facility] [address] [place] [address] Professional Fee Coder: Jag Pro MD, PhD CLIA Number: [id number] Blood BLOOD SPECIMEN / Unknown Lab Venipuncture / Unknown 01/16/2024 11:35 AM MED SURG NURSE 01/16/2024 12:10 PM MED SURG NURSE Raquel Marley MD LAB - CHEMISTRY MARILEE HADDAD [facility] ([facility]) [address] * (ABNORMAL) STEVENSON/PRICE CHECKER (JUSTIN) ANTIBODY IGG (01/16/2024 11:35 AM MED SURG NURSE) Stevenson/PRICE CHECKER (JUSTIN) Antibody IgG 28(H) 0 - 19 Units 01/18/2024 9:28 AM MED SURG NURSE [facility] ([facility]) Comment: INTERPRETIVE INFORMATION: Stevenson/PRICE CHECKER (JUSTIN) Antibody, IgG 19 Units or Less ............. Negative 20 to 39 Units ............... Weak Positive 40 to 80 Units ............... Moderate Positive 81 Units or greater .......... Strong Positive Stevenson/PRICE CHECKER antibodies are frequently seen in patients with mixed connective tissue disease (MCTD) and are also associated with other systemic autoimmune rheumatic diseases (SARDs) such as systemic lupus erythematosus (SLE), systemic sclerosis, and myositis. Antibodies targeting the Stevenson/PRICE CHECKER antigenic complex also recognize Stevenson antigens, therefore, the Stevenson antibody response must be considered when interpreting these results. Performed By: [facility] [address] [place] [address] Professional Fee Coder: Jag Pro MD, PhD CLIA Number: [id number] Blood BLOOD SPECIMEN / Unknown Lab Venipuncture / Unknown 01/16/2024 11:35 AM MED SURG NURSE 01/16/2024 12:10 PM MED SURG NURSE Raquel Marley MD LAB - CHEMISTRY MARILEE HADDAD [facility]) [address] * CENTROMERE B ANTIBODIES (01/16/2024 11:35 AM MED SURG NURSE) Centromere B Antibody <0.2 0.0 - 0.9 AI 01/17/2024 11:11 AM MED SURG NURSE [facility] ([facility]) Blood BLOOD SPECIMEN / Unknown Lab Venipuncture / Unknown 01/16/2024 11:35 AM MED SURG NURSE 01/16/2024 12:10 PM MED SURG NURSE Narrative [facility] ([facility]) - 01/17/2024 11:11 AM MED SURG NURSE Performed at: [address] [place] [address] [address] [place], [place] [id number] [employer] Machine Operator: Berry Roblero PhD, Phone: [phone] Raquel Marley MD LAB - SEROLOGY ORDER ELMA Performing Organization Address City/[facility]/ZIP Co de Phone Number [facility] ([facility]) [address] [place] [address] * DNA ANTIBODY DS CRITHIDIA TITER (01/16/2024 11:35 AM MED SURG NURSE) [facility] dsDNA Antibody IgG <1:10 <1:10 2023 7:50 PM MED SURG NURSE [facility] ([facility]) Comment: INTERPRETIVE INFORMATION: Double-Stranded DNA (dsDNA) Antibody, [...] recommendations for testing may be found at [email or web address]. Performed By: [facility] [address] [place] [address] Professional Fee Coder: Jag Pro MD, PhD CLIA Number: [id number] Blood BLOOD SPECIMEN / Unknown Lab Venipuncture / Unknown 01/16/2024 11:35 AM MED SURG NURSE 01/16/2024 12:10 PM MED SURG NURSE Raquel Marley MD LAB - SEROLOGY ORDER ELMA Performing Organization Address City/[facility]/ZIP Co de Phone Number [facility] ([facility]) [address] [place] [address] * (ABNORMAL) LUPUS ANTICOAGULANT PANEL (01/16/2024 11:35 AM MED SURG NURSE) Pathologist [facility] APTT 33.9 23.0 - 38.4 Seconds 01/17/2024 12:22 PM [facility] PT 13.2 12.1 - 14.8 Seconds 01/17/2024 12:22 PM [facility] INR 1.0 See Comment 01/17/2024 12:22 PM [facility] [place] Buffer 61.9 Seconds 024 12:22 PM [facility] [place] Phospholipid 50.0 Seconds 01/17/2024 12:22 PM [facility] [place] Delta 11.9(H) <8.0 Seconds 01/17/2024 12:22 PM [facility] Interpretation [place] Positive 01/17/2024 12:22 PM [facility] Comment: Lupus Anticoagulants (LA), which are [...] Lab Venipuncture / Unknown 01/16/2024 11:35 AM MED SURG NURSE 01/16/2024 12:09 PM MED SURG NURSE Raquel Marley MD LAB - HEMATOLOGY ORD ERABLES [address] [address], [facility] [phone] * CARDIOLIPIN ANTIBODY IGM (01/16/2024 11:35 AM MED SURG NURSE) [facility] Cardiolipin Antibody IgM <10 <=12 MPL 01/17/2024 10:32 PM MED SURG NURSE [facility] ([facility]) Comment: INTERPRETIVE INFORMATION: Anti-Cardiolipin IgM <=12 MPL: [...] other criteria phospholipid antibody tests. Performed by [facility], [address] [place] [address] [email or web address], Agustín Roche MD, Lab. Director [place] Number: [id number] Blood BLOOD SPECIMEN / Unknown Lab Venipuncture / Unknown 01/16/2024 11:35 AM MED SURG NURSE 01/16/2024 12:10 PM MED SURG NURSE Raquel Marley MD LAB - SEROLOGY ORDER ELMA [facility]) [address] * CARDIOLIPIN ANTIBODY IGG (01/16/2024 11:35 AM MED SURG NURSE) Pathologist [facility] Cardiolipin Antibody IgG <10 <=14 GPL 01/17/2024 10:32 PM MED SURG NURSE [facility] ([facility]) Comment: INTERPRETIVE INFORMATION: Anti-Cardiolipin IgG Ab <=14 [...] other criteria phospholipid antibody tests. Performed by [facility], [address] [place] [address] [email or web address], Agustín Roche MD, Lab. Director [place] Number: [id number] Blood BLOOD SPECIMEN / Unknown Lab Venipuncture / Unknown 01/16/2024 11:35 AM MED SURG NURSE 01/16/2024 12:10 PM MED SURG NURSE Raquel Marley MD LAB - SEROLOGY ORDER ELMA [facility]) [address] [place] [address] * STEVENSON (SM) ANTIBODY JUSTIN (01/16/2024 11:35 AM MED SURG NURSE) Pathologist [facility] Stevenson (JUSTIN) Antibody 9 0 - 40 AU/mL 01/18/2024 9:35 AM MED SURG NURSE [facility] ([facility]) Comment: INTERPRETIVE INFORMATION: Stevenson (JUSTIN) Antibody, IgG 29 AU/mL or Less ............. Negative 30 - 40 AU/mL ................ Equivocal 41 AU/mL or Greater .......... Positive Stevenson antibody is highly specific (greater than 90 percent) for systemic lupus erythematosus (SLE) but only occurs in 30-35 percent of SLE cases. The presence of antibodies to Stevenson has variable associations with SLE clinical manifestations. Performed By: [facility] [address] [place] [address] Professional Fee Coder: Jag Pro MD, PhD CLIA Number: [id number] Blood BLOOD SPECIMEN / Unknown Lab Venipuncture / Unknown 01/16/2024 11:35 AM MED SURG NURSE 01/16/2024 12:10 PM MED SURG NURSE Raquel Marley MD LAB - CHEMISTRY MARILEE HADDAD Performing Organization Address City/[facility]/ZIP Co de Phone Number [facility]) [address] [place], [place] [address] [place] [address] * RHEUMATOID FACTOR BLOOD QUANTITATIVE (01/16/2024 11:35 AM MED SURG NURSE) Pathologist [facility] Rheumatoid Factor <15 <30 IU/mL 01/16/2024 12:41 PM MED SURG NURSE [facility] Rheumatoid Factor Screen Negative Negative 01/16/2024 12:41 PM MED SURG NURSE [facility] Blood BLOOD SPECIMEN / Unknown Lab Venipuncture / Unknown 01/16/2024 11:35 AM MED SURG NURSE 01/16/2024 12:10 PM MED SURG NURSE Raquel Marley MD LAB - CHEMISTRY MARILEE HADDAD Performing Organization Address City/[facility] Co de Phone Number [place] [phone] [place] [address] * COLD AGGLUTININS TITER (01/16/2024 11:35 AM MED SURG NURSE) Pathologist [facility] Cold Agglutinin Titer <1:32 <1:32 01/19/2024 5:51 PM MED SURG NURSE [facility] ([facility]) Comment: INTERPRETIVE INFORMATION: Cold Agglutinins Titers of [...] disease, and common respiratory disease. Performed By: [facility] [address] [place] [address] Professional Fee Coder: Jag Pro MD, PhD CLIA Number: [id number] Blood BLOOD SPECIMEN / Unknown Lab Venipuncture / Unknown 01/16/2024 11:35 AM MED SURG NURSE 01/16/2024 12:10 PM MED SURG NURSE Raquel Marley MD LAB - CHEMISTRY ORDE RABLES Performing Organization Address [facility] Co de Phone Number [facility]) [address] [place] [address] * VISCOSITY (01/16/2024 11:35 AM MED SURG NURSE) Pathologist [facility] Viscosity 1.24 <=1.50 cP 01/18/2024 6:26 AM MED SURG NURSE [facility] ([facility]) Comment: INTERPRETIVE INFORMATION: Viscosity, Serum Increased viscosity is associated with disorders such as monoclonal gammopathy, macroglobulinemia, and multiple myeloma. Significantly elevated viscosity (>3.0 cP) is associated with clinical symptoms of hyperviscosity syndrome. This test was developed and its performance characteristics determined by [facility]. It has not been cleared or approved by the [place] Food and Drug Administration. This test was performed in a CLIA certified laboratory and is intended for clinical purposes. Performed By: [facility] [address] [place] [address] Professional Fee Coder: Jag Pro MD, PhD CLIA Number: [id number] Blood BLOOD SPECIMEN / Unknown Lab Venipuncture / Unknown 01/16/2024 11:35 AM MED SURG NURSE 01/16/2024 12:10 PM MED SURG NURSE Raquel Marley MD LAB - HEMATOLOGY ORD ERABLES Performing Organization Address City/[facility]/ZIP Co de Phone Number [facility] ([facility]) [address] [place] [address] * BETA-2 GLYCOPROTEIN 1 ANTIBODY IGG/IGM PANEL (01/16/2024 11:35 AM MED SURG NURSE) Beta-2 Glycoprotein Antibody IgG <10 <=20 [facility]U 01/18/2024 4:00 PM MED SURG NURSE [facility] ([facility]) Beta-2 Glycoprotein Antibody IgM <10 <=20 [facility] 01/18/2024 4:00 PM MED SURG NURSE [facility] ([facility]) Comment: INTERPRETIVE INFORMATION: [id number] I, IgG and IgM Antibody The persistent [...] other criteria phospholipid antibody tests. Performed By: [facility] [address] [place] [address] Professional Fee Coder: Jag Pro MD, PhD CLIA Number: [id number] Blood BLOOD SPECIMEN / Unknown Lab Venipuncture / Unknown 01/16/2024 11:35 AM MED SURG NURSE 01/16/2024 12:10 PM MED SURG NURSE Raquel Marley MD LAB - CHEMISTRY ORDE BOO [facility] Organization Address City/State/ZIP Co de Phone Number [facility]) [address] * CENTROMERE ANTIBODY (01/16/2024 11:35 AM MED SURG NURSE) Centromere Antibody 4 0 - 40 AU/mL 01/18/2024 9:35 AM MED SURG NURSE [facility] ([facility]) Comment: INTERPRETIVE INFORMATION: Centromere Ab, IgG 29 [...] other antibodies associated with SSc, including Scl-70, U3-PRICE CHECKER, PM/Scl, or Th/To. Performed By: [facility] [address] [place] [address] Professional Fee Coder: Jag Pro MD, PhD CLIA Number: [id number] Blood BLOOD SPECIMEN / Unknown Lab Venipuncture / Unknown 01/16/2024 11:35 AM MED SURG NURSE 01/16/2024 12:10 PM MED SURG NURSE Raquel Marley MD LAB - CHEMISTRY MARILEE HADDAD [facility] Organization Address City/State/ZIP Co de Phone Number [facility]) [address] [place] [address] * SS-B (SJOGREN'S) ANTIBODY (01/16/2024 11:35 AM MED SURG NURSE) [facility] SS-B Antibody 3 0 - 40 AU/mL 01/18/2024 9:35 AM MED SURG NURSE [facility] ([facility]) Comment: INTERPRETIVE INFORMATION: SSB (La) (JUSTIN) Ab, [...] (PSS) also have this antibody. Performed By: [facility] [address] [place] [address] Professional Fee Coder: Jag Pro MD, PhD CLIA Number: [id number] Blood BLOOD SPECIMEN / Unknown Lab Venipuncture / Unknown 01/16/2024 11:35 AM MED SURG NURSE 01/16/2024 12:10 PM MED SURG NURSE Raquel Marley MD LAB - CHEMISTRY ORDE BOO [facility]) [address] [place] [address], [facility] * DNA ANTIBODY DOUBLE STRANDED (01/16/2024 11:35 AM MED SURG NURSE) dsDNA Antibody 10 0 - 24 IU 01/18/2024 12:09 AM MED SURG NURSE [facility] ([facility]) Comment: INTERPRETIVE INFORMATION: Double-Stranded DNA (dsDNA) Ab IgG JUAN 24 IU or less........Negative 25-30 IU.............Borderline Positive 30-60 IU.............Low Positive 60-200 IU............Positive 201 IU or greater....Strong Positive Positivity for anti-double stranded DNA (anti-dsDNA) IgG antibody is a diagnostic criterion of systemic lupus erythematosus (SLE). Specimens are initially screened by enzyme-linked immunosorbent assay (JUAN). If ordered as reflex ([id number]), positive JUAN results (>24 IU) will be [...] recommendations for testing may be found at [email or web address]. Performed By: [facility] [address] [place] [address] Professional Fee Coder: Jag Pro MD, PhD CLIA Number: [id number] Blood BLOOD SPECIMEN / Unknown Lab Venipuncture / Unknown 01/16/2024 11:35 AM MED SURG NURSE 01/16/2024 12:10 PM MED SURG NURSE Raquel Marley MD LAB - HEMATOLOGY ORD ERABLES [facility]) [address] [place] [address] * MPO/WV 3 AUTOANTIBODIES PANEL (01/16/2024 11:35 AM MED SURG NURSE) Serine Proteinase 3 IgG 8 0 - 19 AU/mL 01/17/2024 10:15 PM MED SURG NURSE [facility] ([facility]) Comment: INTERPRETIVE INFORMATION: Serine Proteinase 3, IgG 19 AU/mL or Less ........ Negative 20-25 AU/mL ............. Equivocal 26 AU/mL or Greater ..... Positive Approximately 85% of patients with a C-ANCA pattern by IFA have antibodies specific for PR3. Performed By: [facility] [address] [place] [address] Professional Fee Coder: Jag Pro MD, PhD CLIA Number: [id number] Myeloperoxidase Antibody 0 0 - 19 AU/mL 01/17/2024 10:15 PM MED SURG NURSE [facility] ([facility]) Comment: INTERPRETIVE INFORMATION: Myeloperoxidase Abs, IgG 19 AU/mL or Less ......... Negative 20-25 AU/mL .............. Equivocal 26 AU/mL or Greater ...... Positive Approximately 90% of patients with a P-ANCA pattern by IFA have antibodies specific for MPO. Blood BLOOD SPECIMEN / Unknown Lab Venipuncture / Unknown 01/16/2024 11:35 AM MED SURG NURSE 01/16/2024 12:10 PM MED SURG NURSE Raquel Marley MD LAB - CHEMISTRY MARILEE HADDAD [facility]) [address] [place] [address] * CYCLIC CITRULLINATED PEPTIDE(CCP) AB IGG (01/16/2024 11:35 AM MED SURG NURSE) CCP Antibody IgG 2.0 <5.0 U/mL 01/16/2024 1:07 PM MED SURG NURSE [facility] Blood BLOOD SPECIMEN / Unknown Lab Venipuncture / Unknown 01/16/2024 11:35 AM MED SURG NURSE 01/16/2024 12:10 PM MED SURG NURSE Raquel Marley MD LAB - CHEMISTRY MARILEE HADDAD Performing Organization Address City/[facility]/ZIP Co de Phone Number [place] [phone] [phone] * (ABNORMAL) KAPPA/LAMBDA LITE CHAIN FREE PANEL (01/16/2024 11:35 AM MED SURG NURSE) Sunrise Quant Free Light Chain 29.80(H) 3.30 - 19.40 mg/L 01/17/2024 10:15 PM MED SURG NURSE [facility] ([facility]) Comment: INTERPRETIVE INFORMATION: Sunrise Qnt Free Light Chains Undetected antigen excess is a rare event but cannot be excluded. Free light chain results should always be interpreted in conjunction with other clinical and laboratory findings. Lambda Free Light Chain Quantitative 27.38(H) 5.71 - 26.30 mg/L 01/17/2024 10:15 PM MED SURG NURSE [facility] ([facility]) Comment: INTERPRETIVE INFORMATION: Lambda Qnt Free Light Chains Undetected antigen excess is a rare event but cannot be excluded. Free light chain results should always be interpreted in conjunction with other clinical and laboratory findings. Sunrise/Lambda Free Light Chain ratio 1.09 0.26 - 1.65 01/17/2024 10:15 PM MED SURG NURSE [facility] ([facility]) Comment: Performed By: [facility] [address] [place] [address] Professional Fee Coder: Jag Pro MD, PhD CLIA Number: [id number] Blood BLOOD SPECIMEN / Unknown Lab Venipuncture / Unknown 01/16/2024 11:35 AM MED SURG NURSE 01/16/2024 12:10 PM MED SURG NURSE Raquel Marley MD LAB - CHEMISTRY MARILEE HADDAD [facility]) [address] * CRYOFIBRINOGEN (01/16/2024 11:35 AM MED SURG NURSE) Pathologist [facility] Cryofibrinogen Qualitative Comment 01/20/2024 3:10 PM MED SURG NURSE [facility] ([facility]) Comment: None Detected at 72 hours Normal: None Detected This test was developed and its performance characteristics determined by [facility]. It has not been cleared or approved by the Food and Drug Administration. Blood BLOOD SPECIMEN / Unknown Lab Venipuncture / Unknown 01/16/2024 11:35 AM MED SURG NURSE 01/16/2024 12:09 PM MED SURG NURSE Narrative [facility] ([facility]) - 01/20/2024 3:10 PM MED SURG NURSE Performed at: - [facility] [address] [place], [place] [id number] [employer] Machine Operator: Berry Roblero PhD, Phone: [phone] Raquel Marley MD LAB - CHEMISTRY MARILEE HADDAD Performing Organization Address [facility]/ZIP Co de Phone Number [facility]) [address] [place] [address] * COMPLEMENT C4 (01/16/2024 11:35 AM MED SURG NURSE) [facility] Complement C4 16 15 - 57 mg/dL 01/16/2024 12:50 PM MED SURG NURSE [facility] Blood BLOOD SPECIMEN / Unknown Lab Venipuncture / Unknown 01/16/2024 11:35 AM MED SURG NURSE 01/16/2024 12:14 PM MED SURG NURSE Raquel Marley MD LAB - SEROLOGY ORDER [place] [address] [address], [place] [phone] * (ABNORMAL) HEPATITIS B CORE ANTIBODY TOTAL (01/16/2024 11:35 AM MED SURG NURSE) HBc Antibody Total Reactive(A ) Non-reacti ve 01/16/2024 2:06 PM MED SURG NURSE [facility] Blood BLOOD SPECIMEN / Unknown Lab Venipuncture / Unknown 01/16/2024 11:35 AM MED SURG NURSE 01/16/2024 12:10 PM MED SURG NURSE Raquel Marley MD LAB - CHEMISTRY ORDLeesa HADDAD Performing Organization Address [facility] Co de Phone Number [address] [address], [place] [phone] * HEPATITIS B SURFACE ANTIGEN W RFLX CONFIRMATION (01/16/2024 11:35 AM MED SURG NURSE) Hepatitis B Virus Surface Antigen Non-reacti ve Non-reacti ve 01/16/2024 1:07 PM MED SURG NURSE [facility] Blood BLOOD SPECIMEN / Unknown Lab Venipuncture / Unknown 01/16/2024 11:35 AM MED SURG NURSE 01/16/2024 12:10 PM MED SURG NURSE Raquel Marley MD LAB - CHEMISTRY MARILEE HADDAD Performing Organization Address [facility]/ZIP Co de Phone Number [address] [address], [place] [phone] * COMPLEMENT C3 (01/16/2024 11:35 AM MED SURG NURSE) Complement C3 142 82 - 193 mg/dL 01/16/2024 12:50 PM MED SURG NURSE [facility] Blood BLOOD SPECIMEN / Unknown Lab Venipuncture / Unknown 01/16/2024 11:35 AM MED SURG NURSE 01/16/2024 12:14 PM MED SURG NURSE Raquel Marley MD LAB - CHEMISTRY MARILEE HADDAD [facility] [address] [place] [address], [facility] [phone] from Last 3 Months Care Teams Control Inspector Relationship Specialty Start Date End Date Feliberto Carmichael MD [address] [facility] DIV OF INT MED [address] [place] [phone] PCP - General Internal Medicine 11/16/23 Dulce Cortez MD [address] [place] [address] Physician Internal Medicine 11/16/23
--- OUTSIDE RECORDS SUMMARY | 2024-04-01 13:29 | XMS_ITS ---
Author Organization [facility] Address [address] [place] [address] Care Team Providers Care Reinsurance Claims Analyst Name Role Phone Unavailable Unavailable Unavailable Surgery Details Not on file Complications Check Surgery Details section. Procedure Estimated Blood Loss Check Surgery Details section. Procedure Findings Check Surgery Details section. Procedure Specimens Taken Check Surgery Details section.
--- OUTSIDE RECORDS SUMMARY | 2024-04-01 13:29 | XMS_ITS | Patient Health Summary ---
Author Organization [facility] Address [address] [place] [address] Care Team Providers Care Glass Beveller Name Role Phone Feliberot Carmichael MD Primary Care Provider [phone] Dulce Cortez MD Unavailable [phone] Note from [facility],non-owned Affiliates and Associated Physician Practices is amultiple site organization consisting of ambulatory clinics and hospital sitesin [place], [place], [place]. This disclosure is being madepursuant to the Care Everywhere program and may not contain all information available regarding this patient. Last updated 17.[facility] Allergies No known active allergies Medications * Be aware that medications may not be up to date on this document. Alwaysverify current medications with the patient. * levothyroxine (Synthroid) 150 MCG tablet Take 1 (one) tablet by mouth daily before breakfast * baclofen (Lioresal) 10 MG tablet Take by mouth 3 times daily 30 mg every morning, 30 mg every evening, 40 at bedtime. * gabapentin (Neurontin) 100 MG capsule Take by mouth 3 times daily 200 mg every morning, 200 mg every evening, 300 at bedtime * dalfampridine ER (Ampyra) 10 MG tablet Take 1 (one) tablet by mouth every 12 hours * modafinil (Provigil) 200 MG tablet Take 1 (one) tablet by mouth every morning * Cholecalciferol (VITAMIN D3 PO) Take by mouth. * buPROPion XL 24hr (Wellbutrin-XL) 150 MG tablet(Started 08/12/2022) Take 1 (one) tablet by mouth every morning * nystatin (Mycostatin) 802690 UNIT/GM ointment(Started 12/29/2023) Apply to affected area 2 times daily Apply to back and buttocks area * nystatin (Mycostatin) 736916 UNIT/GM powder(Started 12/29/2023) Apply to affected area 2 times daily Apply under panus * ascorbic acid (Vitamin C) 500 MG tablet Take 1 (one) tablet by mouth once daily * clotrimazole (Lotrimin AF) 1 % cream(Started 02/11/2024) Apply to affected area 2 times daily 6 refills by 02/10/2025 * NIFEdipine CR 24hr (Adalat CC) 30 MG tablet(Started 03/07/2024) Take 1 (one) tablet by mouth once daily Take on an empty stomach. 1 refill by 03/07/2025 * semaglutide (Wegovy) 0.25 MG/0.5ML pen(Started 03/15/2024) Inject 0.25 (one-quarter) mg subcutaneously every 7 days for 28 days, THEN 0.5 (one-half) mg every 7 days for 28 days. Reasons: OBESITY. * polyethylene glycol 3350 (Miralax) 17 GM/SCOOP powder(Started 03/15/2024) Take 17 (seventeen) g by mouth once daily as needed for Constipation 3 refills by 03/15/2025 * atorvastatin (Lipitor) 20 MG tablet(Started 03/15/2024) Take 1 (one) tablet by mouth once daily 4 refills by 03/15/2025 Active Problems Problem Noted Date Diagnosed Date Recurrent major depressive disorder, in full rem ission 03/15/2024 Class 2 severe obesity due t o excess calories with serious comorbidity and body mass index (BMI) of 38.0 to 38.9 in adult 03/15/2024 Gestational diabetes 03/15/2024 SUSANA (obstructive sleep apnea) 11/17/2023 Neurogenic bladder 11/17/2023 Multiple sclerosis 11/17/2023 Other specified hypothyroidism 11/17/2023 Atherosclerosis of aorta 01/05/2022 Callus of foot 05/22/2015 Mobility impaired 03/03/2015 Vitamin D deficiency 05/24/2014 Fatigue 03/29/2011 Decubitus ulcer of buttock 09/30/2010 Recurrent urinary tract infection 02/20/2010 Immunizations * INFLUENZA VACCINE(Given 03/03/2012) * INFLUENZA VACCINE, QUADR. (FLUZONE; FLULAVAL; FLUARIX; AFLURIA QUADRIVALENT; 6MO+), 0.5 ML (IIV4)(Given 02/21/2014, 04/27/2011) * SHY VACCINE QUAD LAIV4 PF NASAL(Given 03/02/2013) * TDAP (7yrs+)(Given 04/23/2016) Social History Tobacco Use Types Packs/Day Years [...] Comments Blood Pressure 110/69 03/15/2024 3:47 PM VAULT PERSON Pulse 76 03/15/2024 3:47 PM VAULT PERSON Temperature 36.6 C (97.8 F) 02/14/2024 3:14 PM VAULT PERSON Respiratory Rate 20 11/17/2023 2:03 PM CDT Oxygen Saturation 91% 03/15/2024 3:47 PM VAULT PERSON Inhaled Oxygen Concentration - - Weight 108.4 kg (239 lb) 02/14/2024 3:14 PM VAULT PERSON Height 172.7 cm (5' 8 ) 02/14/2024 3:14 PM VAULT PERSON Body Mass Index 36.34 02/14/2024 3:14 PM VAULT PERSON Procedures * VISCOSITY(Performed 01/16/2024) Performed for Skin ulcer, unspecified ulcer stage (HCC) * MPO/KS 3 AUTOANTIBODIES PANEL(Performed 01/16/2024) Performed for Skin ulcer, unspecified ulcer stage (HCC), Positive AUBREE (antinuclear antibody) * CRYOGLOBULIN QUAL W/RFLX ARGELIA+AGM(Performed 01/16/2024) Performed for Skin ulcer, unspecified ulcer stage (HCC) * DNA ANTIBODY DS CRITHIDIA TITER(Performed 01/16/2024) Performed for Skin ulcer, unspecified ulcer stage (HCC), Positive AUBREE (antinuclear antibody) * BETA-2 GLYCOPROTEIN 1 ANTIBODY IGG/IGM PANEL(Performed 01/16/2024) Performed for Skin ulcer, unspecified ulcer stage (HCC), Positive AUBREE (antinuclear antibody) * RHEUMATOID FACTOR BLOOD QUANTITATIVE(Performed 01/16/2024) Performed for Skin ulcer, unspecified ulcer stage (HCC), Positive AUBREE (antinuclear antibody) * SCLERODERMA COMPREHENSIVE AB PANEL(Performed 01/16/2024) Performed for Skin ulcer, unspecified ulcer stage (HCC), Positive AUBREE (antinuclear antibody) * STEVENSON/VIBRATOR OPERATOR (JUSTIN) ANTIBODY IGG(Performed 01/16/2024) Performed for Skin ulcer, unspecified ulcer stage (HCC), Positive AUBREE (antinuclear antibody) * LUPUS ANTICOAGULANT PANEL(Performed 01/16/2024) Performed for Skin ulcer, unspecified ulcer stage (HCC), Positive AUBREE (antinuclear antibody) * DNA ANTIBODY DOUBLE STRANDED(Performed 01/16/2024) Performed for Skin ulcer, unspecified ulcer stage (HCC), Positive AUBREE (antinuclear antibody) * STEVENSON (SM) ANTIBODY JUSTIN(Performed 01/16/2024) Performed for Skin ulcer, unspecified ulcer stage (HCC), Positive AUBREE (antinuclear antibody) * SS-A (SJOGREN'S) 52+60 ANTIBODIES(Performed 01/16/2024) Performed for Skin ulcer, unspecified ulcer stage (HCC), Positive AUBREE (antinuclear antibody) * SS-B (SJOGREN'S) ANTIBODY(Performed 01/16/2024) Performed for Skin ulcer, unspecified ulcer stage (HCC), Positive AUBREE (antinuclear antibody) * COMPLEMENT C4(Performed 01/16/2024) Performed for Skin ulcer, unspecified ulcer stage (HCC), Positive AUBREE (antinuclear antibody) * COMPLEMENT C3(Performed 01/16/2024) Performed for Skin ulcer, unspecified ulcer stage (HCC), Positive AUBREE (antinuclear antibody) * CARDIOLIPIN ANTIBODY IGM(Performed 01/16/2024) Performed for Skin ulcer, unspecified ulcer stage (HCC), Positive AUBREE (antinuclear antibody) * CARDIOLIPIN ANTIBODY IGG(Performed 01/16/2024) Performed for Skin ulcer, unspecified ulcer stage (HCC), Positive AUBREE (antinuclear antibody) * CENTROMERE ANTIBODY(Performed 01/16/2024) Performed for Skin ulcer, unspecified ulcer stage (HCC), Positive AUBREE (antinuclear antibody) * CENTROMERE B ANTIBODIES(Performed 01/16/2024) Performed for Skin ulcer, unspecified ulcer stage (HCC), Positive AUBREE (antinuclear antibody) * COLD AGGLUTININS TITER(Performed 01/16/2024) Performed for Skin ulcer, unspecified ulcer stage (HCC), Positive AUBREE (antinuclear antibody) * CRYOFIBRINOGEN(Performed 01/16/2024) Performed for Skin ulcer, unspecified ulcer stage (HCC) * HEPATITIS C AB SCREEN RFLX NAAT QUANT(Performed 01/16/2024) Performed for Need for hepatitis C screening test * KAPPA/LAMBDA LITE CHAIN FREE PANEL(Performed 01/16/2024) Performed for Skin ulcer, unspecified ulcer stage (HCC) * HEPATITIS B SURFACE ANTIGEN W RFLX CONFIRMATION(Performed 01/16/2024) Performed for Need for hepatitis B screening test * HEPATITIS B CORE ANTIBODY TOTAL(Performed 01/16/2024) Performed for Need for hepatitis B screening test * CYCLIC CITRULLINATED PEPTIDE(CCP) AB IGG(Performed 01/16/2024) Performed for Skin ulcer, unspecified ulcer stage (HCC), Positive AUBREE (antinuclear antibody) * CHARISSE DIRECT(Performed 12/29/2023) Performed for Discoloration of skin of foot * DIFFERENTIAL MANUAL(Performed 12/29/2023) Performed for Routine health maintenance * AUBREE HEP-2 IGG BY IFA(Performed 12/29/2023) Performed for Arthralgia, unspecified joint * RETIC COUNT(Performed 12/29/2023) Performed for Discoloration of skin of foot * ERYTHROCYTE SEDIMENTATION RATE(Performed 12/29/2023) Performed for Abnormal laboratory test, Arthralgia, unspecified joint * C-REACTIVE PROTEIN(Performed 12/29/2023) Performed for Abnormal laboratory test, Arthralgia, unspecified joint * AUBREE BLOOD SCREEN W/REFLEX TITER(Performed 12/29/2023) Performed for Arthralgia, unspecified joint * CRYOGLOBULIN QUAL W/RFLX ARGELIA+AGM(Performed 12/29/2023) Performed for Chronic fatigue, Weakness, Purpura (HCC), Pallor of extremity, Dyspnea, unspecified type, Raynaud's phenomenon without gangrene * PROTEIN ELECTROPHORESIS BLOOD(Performed 12/29/2023) Performed for Chronic fatigue, Weakness, Purpura (HCC), Pallor of extremity, Dyspnea, unspecified type, Raynaud's phenomenon without gangrene * CBC W AUTO DIFFERENTIAL(Performed 12/29/2023) Performed for Routine health maintenance * PROC CATHETER CHANGE/INSERTION(Performed 11/28/2023) Performed for Neurogenic bladder Results * HEPATITIS C AB SCREEN RFLX NAAT QUANT (01/16/2024 11:35 AM VAULT PERSON) Hepatitis C Antibody Non-react angelica Non-reac tive 01/16/2024 1:07 PM VAULT PERSON [facility] Comment:Hepatitis C Antibody screen indicates [...] Lab Venipuncture / Unknown 01/16/2024 11:35 AM VAULT PERSON 01/16/2024 12:10 PM VAULT PERSON Raquel Marley MD LAB - CHEMISTRY ORDLeesa HADDAD [facility] Organization Address City/State/ZIP Co de Phone Number [facility] [address] [address], [facility] [phone] * CRYOGLOBULIN QUAL W/RFLX ARGELIA+AGM (01/16/2024 11:35 AM VAULT PERSON) Only the most recent of2 resultswithin the time period is included. Cryoglobulin Qualitative NEG 72Hour NEG 72Hour 01/21/2024 11:45 PM VAULT PERSON [employer] ([facility]) Comment: This test was developed and its performance characteristics determined by [employer]. It has not been cleared or approved by the US Food and Drug Administration. This test was performed in a CLIA certified laboratory and is intended for clinical purposes. Performed By: [employer] [address] [place] [id number] Information Technology Specialist: Jag Pro MD, PhD CLIA Number: [id number] Blood BLOOD SPECIMEN / Unknown Lab Venipuncture / Unknown 01/16/2024 11:35 AM VAULT PERSON 01/16/2024 11:42 AM VAULT PERSON Raquel Marley MD LAB - CHEMISTRY MARILEE HADDAD [facility]) [address] [place] [address], [facility] * (ABNORMAL) SCLERODERMA COMPREHENSIVE AB PANEL (01/16/2024 11:35 AM VAULT PERSON) AUBREE HEp-2 IgG <1:80 <1:80 01/18/2024 11:14 PM VAULT PERSON [facility] [employer] ([facility]) Comment: Performed By: [employer] [address] [place] [address] Information Technology Specialist: Jag Pro MD, PhD CLIA Number: [id number] AUBREE Interpretive Comment See Note 01/18/2024 11:14 PM VAULT PERSON [facility] [employer] [facility]) Comment: Antinuclear antibodies by IFA negative for [...] not necessarily rule out SARD. Performed By: [employer] [address] [place] [address] Information Technology Specialist: Jag Pro MD, PhD CLIA Number: [id number] SCL-70 Antibody 4 0 - 40 AU/mL 01/18/2024 11:14 PM VAULT PERSON [employer] ([facility]) Comment: INTERPRETIVE INFORMATION: Scleroderma (Scl-70) (JUSTIN) Ab, [...] testing for centromere, RNA polymerase III and U3-VIBRATOR OPERATOR, PM/Scl, or Th/To antibodies. Performed By: [employer] [address] [place] [id number] Information Technology Specialist: Jag Pro MD, PhD CLIA Number: [id number] RNA Polymerase 3 Antibody IgG 13 0 - 19 Units 01/18/2024 11:14 PM [facility] [employer] ([facility]) Comment: INTERPRETIVE INFORMATION: RNA Polymerase III Antibody, [...] antibodies associated with SSc, including centromere, Scl-70, U3-VIBRATOR OPERATOR, PM/Scl, or Th/To. Performed by [employer], [address] [place] [id number] [email or web address], Agustín Roche MD, Lab. Director CLIA Number: [id number] Stevenson/VIBRATOR OPERATOR (JUSTIN) Antibody IgG 29(H) 0 - 19 Units 01/18/2024 11:14 PM VAULT PERSON [employer] ([facility]) Comment: INTERPRETIVE INFORMATION: Stevenson/VIBRATOR OPERATOR (JUSTIN) Antibody, IgG 19 Units or Less ............. Negative 20 to 39 Units ............... Weak Positive 40 to 80 Units ............... Moderate Positive 81 Units or greater .......... Strong Positive Stevenson/VIBRATOR OPERATOR antibodies are frequently seen in patients with mixed connective tissue disease (MCTD) and are also associated with other systemic autoimmune rheumatic diseases (SARDs) such as systemic lupus erythematosus (SLE), systemic sclerosis, and myositis. Antibodies targeting the Stevenson/VIBRATOR OPERATOR antigenic complex also recognize Stevenson antigens, therefore, the Stevenson antibody response must be considered when interpreting these results. Performed By: [employer] [address] [place] [id number] Information Technology Specialist: Jag Pro MD, PhD CLIA Number: [id number] PM/Scl 100 Antibody IgG Negative Negative 01/18/2024 11:14 PM VAULT PERSON [employer] ([facility]) Comment: INTERPRETIVE INFORMATION: PM/Scl-100 Antibody, IgG by [...] developed and its performance characteristics determined by [employer]. It has not been cleared or approved by the [place] Food and Drug Administration. This test was performed in a CLIA certified laboratory and is intended for clinical purposes. Performed By: [employer] [address] [place] [id number] Information Technology Specialist: Jag Pro MD, PhD CLIA Number: [id number] Fibrillarin (U3 VIBRATOR OPERATOR) Antibody IgG Negative Negative 01/18/2024 11:14 PM VAULT PERSON [facility] ([facility]) Comment: Interpretive Information: Fibrillarin (U3 VIBRATOR OPERATOR) Antibody, IgG The presence of fibrillarin (U3-VIBRATOR OPERATOR) IgG antibodies in association with an AUBREE [...] a multi-ethnic cohort of SSc patients (n=98), U3-VIBRATOR OPERATOR antibodies detected by immunoblot had an agreement of 98.9 percent with the gold standard immunoprecipitation (IP) assay. Approximately 71 percent (5/7) of the borderline U3-VIBRATOR OPERATOR results with AUBREE nucleolar pattern in this cohort were IP negative. This test was developed and its performance characteristics determined by [employer]. It has not been cleared or approved by the US Food and Drug Administration. This test was performed in a CLIA certified laboratory and is intended for clinical purposes. Performed By: [employer] [address] [place] [id number] Information Technology Specialist: Jag Pro MD, PhD CLIA Number: [id number] Blood BLOOD SPECIMEN / Unknown Lab Venipuncture / Unknown 01/16/2024 11:35 AM VAULT PERSON 01/16/2024 12:09 PM VAULT PERSON Raquel Marley MD LAB - SEROLOGY ORDER ELMA Performing Organization Address City/State/[facility] de Phone Number [employer] ([facility]) [address] [place] [address], [facility] * SS-A (SJOGREN'S) 52+60 ANTIBODIES (01/16/2024 11:35 AM VAULT PERSON) SS-A 52 Antibody 18 0 - 40 AU/mL 01/18/2024 9:30 AM VAULT PERSON [employer] ([facility]) Comment: INTERPRETIVE INFORMATION: SSA-52 (Ro52) (JUSTIN) Antibody, [...] 0 - 40 AU/mL 01/18/2024 9:30 AM VAULT PERSON [employer] ([facility]) Comment: REFERENCE INTERVAL: SSA-60 (Ro60) (JUSTIN) Antibody, IgG 29 AU/mL or Less ............. Negative 30 - 40 AU/mL ................ Equivocal 41 AU/mL or Greater .......... Positive Performed By: [employer] [address] [place] [address] Information Technology Specialist: Jag Pro MD, PhD CLIA Number: [id number] Blood BLOOD SPECIMEN / Unknown Lab Venipuncture / Unknown 01/16/2024 11:35 AM VAULT PERSON 01/16/2024 12:10 PM VAULT PERSON Raquel Marley MD LAB - CHEMISTRY MARILEE HADDAD [employer] ([facility]) [address] * (ABNORMAL) STEVENSON/VIBRATOR OPERATOR (JUSTIN) ANTIBODY IGG (01/16/2024 11:35 AM VAULT PERSON) Stevenson/VIBRATOR OPERATOR (JUSTIN) Antibody IgG 28(H) 0 - 19 Units 01/18/2024 9:28 AM VAULT PERSON [facility] ([facility]) Comment: INTERPRETIVE INFORMATION: Stevenson/VIBRATOR OPERATOR (JUSTIN) Antibody, IgG 19 Units or Less ............. Negative 20 to 39 Units ............... Weak Positive 40 to 80 Units ............... Moderate Positive 81 Units or greater .......... Strong Positive Stevenson/VIBRATOR OPERATOR antibodies are frequently seen in patients with mixed connective tissue disease (MCTD) and are also associated with other systemic autoimmune rheumatic diseases (SARDs) such as systemic lupus erythematosus (SLE), systemic sclerosis, and myositis. Antibodies targeting the Stevenson/VIBRATOR OPERATOR antigenic complex also recognize Stevenson antigens, therefore, the Stevenson antibody response must be considered when interpreting these results. Performed By: [employer] [address] [place] [address] Information Technology Specialist: Jag Pro MD, PhD CLIA Number: [id number] Blood BLOOD SPECIMEN / Unknown Lab Venipuncture / Unknown 01/16/2024 11:35 AM VAULT PERSON 01/16/2024 12:10 PM VAULT PERSON Raquel Marley MD LAB - CHEMISTRY MARILEE HADDAD [facility] Organization Address City/State/ZIP Co de Phone Number [facility] [employer] [facility]) [address] * CENTROMERE B ANTIBODIES (01/16/2024 11:35 AM VAULT PERSON) Centromere B Antibody <0.2 0.0 - 0.9 AI 01/17/2024 11:11 AM VAULT PERSON [facility] ([facility]) Blood BLOOD SPECIMEN / Unknown Lab Venipuncture / Unknown 01/16/2024 11:35 AM VAULT PERSON 01/16/2024 12:10 PM VAULT PERSON N[facility]ative [facility]) - 01/17/2024 11:11 AM VAULT PERSON Performed at: [address] [place] [address] [address] [place], [place] [id number] Squaring Machine Operator: Berry Roblero PhD, Phone: [phone] Raquel Marley MD LAB - SEROLOGY ORDER ELMA Performing Organization Address City/[facility]/ZIP Co de Phone Number [facility]) [address] [place] [address] * DNA ANTIBODY DS CRITHIDIA TITER (01/16/2024 11:35 AM VAULT PERSON) [facility] dsDNA Antibody IgG <1:10 <1:10 2023 7:50 PM VAULT PERSON [facility] ([facility]) Comment: INTERPRETIVE INFORMATION: Double-Stranded DNA (dsDNA) Antibody, [...] recommendations for testing may be found at [email or web address]. Performed By: [employer] [address] [place] [address] Information Technology Specialist: Jag Pro MD, PhD CLIA Number: [id number] Blood BLOOD SPECIMEN / Unknown Lab Venipuncture / Unknown 01/16/2024 11:35 AM VAULT PERSON 01/16/2024 12:10 PM VAULT PERSON Raquel Marley MD LAB - SEROLOGY ORDER ELMA Performing Organization Address City/[facility]/ZIP Co de Phone Number [employer] ([facility]) [address] * (ABNORMAL) LUPUS ANTICOAGULANT PANEL (01/16/2024 11:35 AM VAULT PERSON) Pathologist [facility] APTT 33.9 23.0 - 38.4 Seconds 01/17/2024 12:22 PM [facility] PT 13.2 12.1 - 14.8 Seconds 01/17/2024 12:22 PM [facility] INR 1.0 See Comment 01/17/2024 12:22 PM [facility] [employer] Buffer 61.9 Seconds 024 12:22 PM [facility] [employer] Phospholipid 50.0 Seconds 01/17/2024 12:22 PM [facility] [employer] Delta 11.9(H) <8.0 Seconds 01/17/2024 12:22 PM [facility] Interpretation [place] Positive 01/17/2024 12:22 PM [facility] Comment: Lupus Anticoagulants (LA), which are [...] Lab Venipuncture / Unknown 01/16/2024 11:35 AM VAULT PERSON 01/16/2024 12:09 PM VAULT PERSON Raquel Marley MD LAB - HEMATOLOGY ORD ERABLES [facility] [address] [address], [facility] [phone] * CARDIOLIPIN ANTIBODY IGM (01/16/2024 11:35 AM VAULT PERSON) Pathologist [facility] Cardiolipin Antibody IgM <10 <=12 MPL 01/17/2024 10:32 PM VAULT PERSON [employer] ([facility]) Comment: INTERPRETIVE INFORMATION: Anti-Cardiolipin IgM <=12 MPL: [...] other criteria phospholipid antibody tests. Performed by [employer], [address] [place] [address] [email or web address], Agustín Roche MD, Lab. Director CLIA Number: [id number] Blood BLOOD SPECIMEN / Unknown Lab Venipuncture / Unknown 01/16/2024 11:35 AM VAULT PERSON 01/16/2024 12:10 PM VAULT PERSON Raquel Marley MD LAB - SEROLOGY ORDER ELMA [employer] [facility]) [address] * CARDIOLIPIN ANTIBODY IGG (01/16/2024 11:35 AM VAULT PERSON) Pathologist [facility] Cardiolipin Antibody IgG <10 <=14 GPL 01/17/2024 10:32 PM VAULT PERSON [employer] ([facility]) Comment: INTERPRETIVE INFORMATION: Anti-Cardiolipin IgG Ab <=14 [...] other criteria phospholipid antibody tests. Performed by [employer], [address] [place] [address] [email or web address], Agustín Roche MD, Lab. Director [place] Number: [id number] Blood BLOOD SPECIMEN / Unknown Lab Venipuncture / Unknown 01/16/2024 11:35 AM VAULT PERSON 01/16/2024 12:10 PM VAULT PERSON Raquel Marley MD LAB - SEROLOGY ORDER ELMA [employer] [facility]) [address] [place] [address] * STEVENSON (SM) ANTIBODY JUSTIN (01/16/2024 11:35 AM VAULT PERSON) [facility] Stevenson (JUSTIN) Antibody 9 0 - 40 AU/mL 01/18/2024 9:35 AM VAULT PERSON [employer] ([facility]) Comment: INTERPRETIVE INFORMATION: Stevenson (JUSTIN) Antibody, IgG 29 AU/mL or Less ............. Negative 30 - 40 AU/mL ................ Equivocal 41 AU/mL or Greater .......... Positive Stevenson antibody is highly specific (greater than 90 percent) for systemic lupus erythematosus (SLE) but only occurs in 30-35 percent of SLE cases. The presence of antibodies to Stevenson has variable associations with SLE clinical manifestations. Performed By: [employer] [address] [place] [address] Information Technology Specialist: Jag Pro MD, PhD CLIA Number: [id number] Blood BLOOD SPECIMEN / Unknown Lab Venipuncture / Unknown 01/16/2024 11:35 AM VAULT PERSON 01/16/2024 12:10 PM VAULT PERSON Raquel Marley MD LAB - CHEMISTRY MARILEE HADDAD Performing Organization Address City/[facility]/ZIP Co de Phone Number [facility] [address] * RHEUMATOID FACTOR BLOOD QUANTITATIVE (01/16/2024 11:35 AM VAULT PERSON) Pathologist [facility] Rheumatoid Factor <15 <30 IU/mL 01/16/2024 12:41 PM VAULT PERSON [facility] Rheumatoid Factor Screen Negative Negative 01/16/2024 12:41 PM VAULT PERSON [facility] Blood BLOOD SPECIMEN / Unknown Lab Venipuncture / Unknown 01/16/2024 11:35 AM VAULT PERSON 01/16/2024 12:10 PM VAULT PERSON Raquel Marley MD LAB - CHEMISTRY MARILEE HADDAD Performing Organization Address City/[facility] Co de Phone Number [place] [phone] [place] [address] * COLD AGGLUTININS TITER (01/16/2024 11:35 AM VAULT PERSON) Pathologist [facility] Cold Agglutinin Titer <1:32 <1:32 01/19/2024 5:51 PM VAULT PERSON [facility] ([facility]) Comment: INTERPRETIVE INFORMATION: Cold Agglutinins Titers of [...] disease, and common respiratory disease. Performed By: [employer] [address] [place] [address] Information Technology Specialist: Jag Pro MD, PhD CLIA Number: [id number] Blood BLOOD SPECIMEN / Unknown Lab Venipuncture / Unknown 01/16/2024 11:35 AM VAULT PERSON 01/16/2024 12:10 PM VAULT PERSON Raquel Marley MD LAB - CHEMISTRY ORDE RABLES Performing Organization Address [facility] Co de Phone Number [facility]) [address] [place] [address] * VISCOSITY (01/16/2024 11:35 AM VAULT PERSON) [facility] Viscosity 1.24 <=1.50 cP 01/18/2024 6:26 AM VAULT PERSON [facility] ([facility]) Comment: INTERPRETIVE INFORMATION: Viscosity, Serum Increased viscosity is associated with disorders such as monoclonal gammopathy, macroglobulinemia, and multiple myeloma. Significantly elevated viscosity (>3.0 cP) is associated with clinical symptoms of hyperviscosity syndrome. This test was developed and its performance characteristics determined by [employer]. It has not been cleared or approved by the [place] Food and Drug Administration. This test was performed in a CLIA certified laboratory and is intended for clinical purposes. Performed By: [employer] [address] [place] [address] Information Technology Specialist: Jag Pro MD, PhD CLIA Number: [id number] Blood BLOOD SPECIMEN / Unknown Lab Venipuncture / Unknown 01/16/2024 11:35 AM VAULT PERSON 01/16/2024 12:10 PM VAULT PERSON Raquel Marley MD LAB - HEMATOLOGY ORD ERABLES Performing Organization Address City/[facility]/ZIP Co de Phone Number [facility] ([facility]) [address] [place] [address] * BETA-2 GLYCOPROTEIN 1 ANTIBODY IGG/IGM PANEL (01/16/2024 11:35 AM VAULT PERSON) Beta-2 Glycoprotein Antibody IgG <10 <=20 SGU 01/18/2024 4:00 PM VAULT PERSON [facility] ([facility]) Beta-2 Glycoprotein Antibody IgM <10 <=20 SMU 01/18/2024 4:00 PM VAULT PERSON [facility] ([facility]) Comment: INTERPRETIVE INFORMATION: [id number] I, IgG and IgM Antibody The persistent [...] other criteria phospholipid antibody tests. Performed By: [facility] [address] [place] [address] Information Technology Specialist: Jag Pro MD, PhD CLIA Number: [id number] Blood BLOOD SPECIMEN / Unknown Lab Venipuncture / Unknown 01/16/2024 11:35 AM VAULT PERSON 01/16/2024 12:10 PM VAULT PERSON Raquel Marley MD LAB - CHEMISTRY MARILEE HADDAD [facility] Organization Address City/State/ZIP Co de Phone Number [facility] [employer] [facility]) [address] [place] [address] * CENTROMERE ANTIBODY (01/16/2024 11:35 AM VAULT PERSON) Centromere Antibody 4 0 - 40 AU/mL 01/18/2024 9:35 AM VAULT PERSON [facility] [employer] ([facility]) Comment: INTERPRETIVE INFORMATION: Centromere Ab, IgG 29 [...] other antibodies associated with SSc, including Scl-70, U3-VIBRATOR OPERATOR, PM/Scl, or Th/To. Performed By: [facility] [address] [place] [address] Information Technology Specialist: Jag Pro MD, PhD CLIA Number: [id number] Blood BLOOD SPECIMEN / Unknown Lab Venipuncture / Unknown 01/16/2024 11:35 AM VAULT PERSON 01/16/2024 12:10 PM VAULT PERSON Raquel Marley MD LAB - CHEMISTRY MARILEE HADDAD [facility] Organization Address City/State/ZIP Co de Phone Number [employer] [facility]) [address] [place] [address] * SS-B (SJOGREN'S) ANTIBODY (01/16/2024 11:35 AM VAULT PERSON) Pathologist [facility] SS-B Antibody 3 0 - 40 AU/mL 01/18/2024 9:35 AM VAULT PERSON [employer] ([facility]) Comment: INTERPRETIVE INFORMATION: SSB (La) (JUSTIN) Ab, [...] (PSS) also have this antibody. Performed By: [facility] [address] [place] [address] Information Technology Specialist: Jag Pro MD, PhD CLIA Number: [id number] Blood BLOOD SPECIMEN / Unknown Lab Venipuncture / Unknown 01/16/2024 11:35 AM VAULT PERSON 01/16/2024 12:10 PM VAULT PERSON Raquel Marley MD LAB - CHEMISTRY MARILEE HADDAD [facility] ([facility]) [address] [place] [address], [facility] * DNA ANTIBODY DOUBLE STRANDED (01/16/2024 11:35 AM VAULT PERSON) Pathologist [facility] dsDNA Antibody 10 0 - 24 IU 01/18/2024 12:09 AM VAULT PERSON [facility] [employer] ([facility]) Comment: INTERPRETIVE INFORMATION: Double-Stranded DNA (dsDNA) Ab IgG JUAN 24 IU or less........Negative 25-30 IU.............Borderline Positive 30-60 IU.............Low Positive 60-200 IU............Positive 201 IU or greater....Strong Positive Positivity for anti-double stranded DNA (anti-dsDNA) IgG antibody is a diagnostic criterion of systemic lupus erythematosus (SLE). Specimens are initially screened by enzyme-linked immunosorbent assay (JUAN). If ordered as reflex ([id number]), positive JUAN results (>24 IU) will be [...] recommendations for testing may be found at [email or web address]. Performed By: [employer] [address] [place] [address] Information Technology Specialist: Jag Pro MD, PhD CLIA Number: [id number] Blood BLOOD SPECIMEN / Unknown Lab Venipuncture / Unknown 01/16/2024 11:35 AM VAULT PERSON 01/16/2024 12:10 PM VAULT PERSON Raquel Marley MD LAB - HEMATOLOGY ORD ERABLES [facility] [employer] [facility]) [address] [place] [address] * MPO/KS 3 AUTOANTIBODIES PANEL (01/16/2024 11:35 AM VAULT PERSON) Serine Proteinase 3 IgG 8 0 - 19 AU/mL 01/17/2024 10:15 PM VAULT PERSON [facility] [employer] ([facility]) Comment: INTERPRETIVE INFORMATION: Serine Proteinase 3, IgG 19 AU/mL or Less ........ Negative 20-25 AU/mL ............. Equivocal 26 AU/mL or Greater ..... Positive Approximately 85% of patients with a C-ANCA pattern by IFA have antibodies specific for PR3. Performed By: [employer] [address] [place] [address] Information Technology Specialist: Jag Pro MD, PhD CLIA Number: [id number] Myeloperoxidase Antibody 0 0 - 19 AU/mL 01/17/2024 10:15 PM VAULT PERSON [facility] [employer] ([facility]) Comment: INTERPRETIVE INFORMATION: Myeloperoxidase Abs, IgG 19 AU/mL or Less ......... Negative 20-25 AU/mL .............. Equivocal 26 AU/mL or Greater ...... Positive Approximately 90% of patients with a P-ANCA pattern by IFA have antibodies specific for MPO. Blood BLOOD SPECIMEN / Unknown Lab Venipuncture / Unknown 01/16/2024 11:35 AM VAULT PERSON 01/16/2024 12:10 PM VAULT PERSON Raquel Marley MD LAB - CHEMISTRY ORDLeesa HADDAD Performing Organization Address City/[facility]/ZIP Co de Phone Number [facility]) [address] * CYCLIC CITRULLINATED PEPTIDE(CCP) AB IGG (01/16/2024 11:35 AM VAULT PERSON) CCP Antibody IgG 2.0 <5.0 U/mL 01/16/2024 1:07 PM VAULT PERSON [facility] Blood BLOOD SPECIMEN / Unknown Lab Venipuncture / Unknown 01/16/2024 11:35 AM VAULT PERSON 01/16/2024 12:10 PM VAULT PERSON Raquel Marley MD LAB - CHEMISTRY ORDLeesa HADDAD Performing Organization Address City/[facility]/ZIP Co de Phone Number [place] [phone] [place] [address] * (ABNORMAL) KAPPA/LAMBDA LITE CHAIN FREE PANEL (01/16/2024 11:35 AM VAULT PERSON) [place] Quant Free Light Chain 29.80(H) 3.30 - 19.40 mg/L 01/17/2024 10:15 PM VAULT PERSON [facility] ([facility]) Comment: INTERPRETIVE INFORMATION: [place] Qnt Free Light Chains Undetected antigen excess is a rare event but cannot be excluded. Free light chain results should always be interpreted in conjunction with other clinical and laboratory findings. Lambda Free Light Chain Quantitative 27.38(H) 5.71 - 26.30 mg/L 01/17/2024 10:15 PM VAULT PERSON [employer] ([facility]) Comment: INTERPRETIVE INFORMATION: Lambda Qnt Free Light Chains Undetected antigen excess is a rare event but cannot be excluded. Free light chain results should always be interpreted in conjunction with other clinical and laboratory findings. [place]/Lambda Free Light Chain ratio 1.09 0.26 - 1.65 01/17/2024 10:15 PM VAULT PERSON [employer] ([facility]) Comment: Performed By: [employer] [address] [place] [address] Information Technology Specialist: Jag Pro MD, PhD CLIA Number: [id number] Blood BLOOD SPECIMEN / Unknown Lab Venipuncture / Unknown 01/16/2024 11:35 AM VAULT PERSON 01/16/2024 12:10 PM VAULT PERSON Raquel Marley MD LAB - CHEMISTRY ORDLeesa HADDAD Performing Organization Address City/[facility]/ZIP Co de Phone Number [facility]) [address] * CRYOFIBRINOGEN (01/16/2024 11:35 AM VAULT PERSON) Pathologist [facility] Cryofibrinogen Qualitative Comment 01/20/2024 3:10 PM VAULT PERSON [facility] ([facility]) Comment: None Detected at 72 hours Normal: None Detected This test was developed and its performance characteristics determined by [facility]. It has not been cleared or approved by the Food and Drug Administration. Blood BLOOD SPECIMEN / Unknown Lab Venipuncture / Unknown 01/16/2024 11:35 AM VAULT PERSON 01/16/2024 12:09 PM VAULT PERSON Narrative [facility] ([facility]) - 01/20/2024 3:10 PM VAULT PERSON Performed at: - [place] [place] [id number] [place], [place] [id number] Squaring Machine Operator: Berry Roblero PhD, Phone: [phone] Raquel Marley MD LAB - CHEMISTRY MARILEE HADDAD Performing Organization Address [facility]/ZIP Co de Phone Number [facility] ([facility]) [address] [phone] * COMPLEMENT C4 (01/16/2024 11:35 AM VAULT PERSON) [facility] Complement C4 16 15 - 57 mg/dL 01/16/2024 12:50 PM VAULT PERSON [facility] Blood BLOOD SPECIMEN / Unknown Lab Venipuncture / Unknown 01/16/2024 11:35 AM VAULT PERSON 01/16/2024 12:14 PM VAULT PERSON Raquel Marley MD LAB - SEROLOGY ORDER [place] [address] [address], [place] [phone] * (ABNORMAL) HEPATITIS B CORE ANTIBODY TOTAL (01/16/2024 11:35 AM VAULT PERSON) HBc Antibody Total Reactive(A ) Non-reacti ve 01/16/2024 2:06 PM VAULT PERSON [facility] Blood BLOOD SPECIMEN / Unknown Lab Venipuncture / Unknown 01/16/2024 11:35 AM VAULT PERSON 01/16/2024 12:10 PM VAULT PERSON Raquel Marley MD LAB - CHEMISTRY MARILEE HADDAD Performing Organization Address City/[facility]/ZIP Co de Phone Number [address] [address], [place] [phone] * HEPATITIS B SURFACE ANTIGEN W RFLX CONFIRMATION (01/16/2024 11:35 AM VAULT PERSON) Hepatitis B Virus Surface Antigen Non-reacti ve Non-reacti ve 01/16/2024 1:07 PM VAULT PERSON [facility] Blood BLOOD SPECIMEN / Unknown Lab Venipuncture / Unknown 01/16/2024 11:35 AM VAULT PERSON 01/16/2024 12:10 PM VAULT PERSON Raquel Marley MD LAB - CHEMISTRY MARILEE HADDAD [address] [address], [place] [phone] * COMPLEMENT C3 (01/16/2024 11:35 AM VAULT PERSON) Complement C3 142 82 - 193 mg/dL 01/16/2024 12:50 PM VAULT PERSON [facility] Blood BLOOD SPECIMEN / Unknown Lab Venipuncture / Unknown 01/16/2024 11:35 AM VAULT PERSON 01/16/2024 12:14 PM VAULT PERSON Raquel Marley MD LAB - CHEMISTRY MARILEE HADDAD [facility] [address] [place] [address], [facility] [phone] * AUBREE HEP-2 IGG BY IFA (12/29/2023 4:57 PM VAULT PERSON) AUBREE HEp-2 IgG <1:80 <1:80 01/01/2024 9:57 PM VAULT PERSON [facility] ([facility]) AUBREE Interpretive Comment See Note 01/01/2024 9:57 PM VAULT PERSON [facility] ([facility]) Comment: Antinuclear antibodies by IFA negative for [...] positive AUBREE by more specific serologic tests. AUBERE (nuclear reactivity) positive patterns reported include centromere, [...] not necessarily rule out SARD. Performed By: [employer] [address] [place] [address] Information Technology Specialist: Jag Pro MD, PhD CLIA Number: [id number] Blood BLOOD SPECIMEN / Unknown Lab Venipuncture / Unknown 12/29/2023 4:57 PM VAULT PERSON 12/29/2023 5:01 PM VAULT PERSON Dulce Cortez MD LAB - SEROLOGY MARILEE HADDAD [employer] ([facility]) [address] * (ABNORMAL) C-REACTIVE PROTEIN (12/29/2023 4:57 PM VAULT PERSON) Pathologist [facility] C-Reactive Protein 0.6(H) <=0.5 mg/dL 12/29/2023 5:35 PM VAULT PERSON [facility] Blood BLOOD SPECIMEN / Unknown Lab Venipuncture / Unknown 12/29/2023 4:57 PM VAULT PERSON 12/29/2023 5:06 PM VAULT PERSON Dulce Cortez MD LAB - CHEMISTRY ORD ERABLES Performing Organization Address City/[facility]/ZIP Co de Phone Number [facility] [address] [place] [address], [facility] [phone] * (ABNORMAL) AUBREE BLOOD SCREEN W/REFLEX TITER (12/29/2023 4:57 PM VAULT PERSON) Pathologist [facility] AUBREE IgG Detected (A) None Detected 01/01/2024 6:34 AM VAULT PERSON [employer] ([facility]) Comment: Antibodies to Anti-Nuclear Antibodies (AUBREE) detected. Additional testing to follow. INTERPRETIVE INFORMATION: Anti-Nuclear Antibodies (AUBREE), IgG by JUAN Antinuclear Antibodies (AUBREE), IgG by JUAN: AUBREE specimens are screened using enzyme-linked immunosorbent assay (JUAN) methodology. All JUAN results reported as Detected are further tested by indirect fluorescent assay (IFA) using HEp-2 substrate with an IgG-specific conjugate. The AUBREE JUAN screen is designed to detect antibodies against dsDNA, histones, SS-A (Ro), SS-B (La), Stevenson, Stevenson/VIBRATOR OPERATOR, Scl-70, Brittney-1, centromeric proteins, other antigens extracted from the HEp-2 cell nucleus. AUBREE JUAN assays have been reported to have lower sensitivities than AUBREE IFA for systemic autoimmune rheumatic diseases (SARD). Negative results do not necessarily rule out SARD. Performed by [employer], [address] [place] [address] [email or web address], Agustín Roche MD, Lab. Director CLIA Number: [id number] Blood BLOOD SPECIMEN / Unknown Lab Venipuncture / Unknown 12/29/2023 4:57 PM VAULT PERSON 12/29/2023 5:01 PM VAULT PERSON Dulce Cortez MD LAB - CHEMISTRY ORD ERABLES Performing Organization Address City/[facility]/ZIP Co de Phone Number [facility]) [address] [place] [address], [facility] * CHARISSE DIRECT (12/29/2023 4:57 PM VAULT PERSON) Direct Charisse (JONAS) NEG 12/29/2023 5:28 PM VAULT PERSON [facility] BLOOD BANK LAB Blood BLOOD SPECIMEN / Unknown Lab Venipuncture / Unknown 12/29/2023 4:57 PM VAULT PERSON 12/29/2023 5:03 PM VAULT PERSON Dulce Cortez MD LAB - BLOOD BANK OR DERABLES Performing Organization Address City/[facility]/ZIP Co de Phone Number [facility] BLOOD BANK LAB [address] [place] [address], [facility] [phone] * (ABNORMAL) ERYTHROCYTE SEDIMENTATION RATE (12/29/2023 4:57 PM VAULT PERSON) Erythrocyte Sedimentation Rate Westergren 68(H) 0 - 30 MM/HR 12/29/2023 5:24 PM VAULT PERSON [facility] Blood BLOOD SPECIMEN / Unknown Lab Venipuncture / Unknown 12/29/2023 4:57 PM VAULT PERSON 12/29/2023 5:06 PM VAULT PERSON Dulce Cortez MD LAB - HEMATOLOGY OR DERABLES Performing Organization Address [facility]/ZIP Co de Phone Number [facility] [address] [address], [facility] [phone] * RETIC COUNT (12/29/2023 4:57 PM VAULT PERSON) Reticulocyte Percent 1.77 0.50 - 2.40 % 01/03/2024 4:33 PM VAULT PERSON [facility] Reticulocyte Absolute 0.0812 0.0200 - 0.1100 x10E6/uL 01/03/2024 4:33 PM VAULT PERSON [facility] Ret-HE 34.1 29.0 - 37.9 pg 01/03/2024 4:33 PM [facility] Immature Reticulocyte Fraction 6.6 1.8 - 15.2 % 01/03/2024 4:33 PM [facility] Blood BLOOD SPECIMEN / Unknown Lab Venipuncture / Unknown 12/29/2023 4:57 PM VAULT PERSON 12/29/2023 5:06 PM VAULT PERSON Dulce Cortez MD LAB - HEMATOLOGY OR DERABLES Performing Organization Address City/State/[facility] Co de Phone Number [facility] [address] [place] [address], [facility] [phone] * (ABNORMAL) DIFFERENTIAL MANUAL (12/29/2023 4:57 PM VAULT PERSON) Neutrophil % 81(H) 41 - 74 % 01/03/2024 4:33 PM [facility] Lymphocyte % 11(L) 17 - 47 % 01/03/2024 4:33 PM [facility] Monocyte % 6 3 - 11 % 01/03/2024 4:33 PM [facility] Eosinophil % 2 0 - 7 % 01/03/2024 4:33 PM [facility] Neutrophil Absolute 7.29 1.60 - 7.50 x10E9/L 01/03/2024 4:33 PM [facility] Lymphocyte Absolute 0.99(L) 1.00 - 4.40 x10E9/L 01/03/2024 4:33 PM [facility] Monocyte Absolute 0.54 0.15 - 1.00 x10E9/L 01/03/2024 4:33 PM [facility] Eosinophil Absolute 0.18 0.00 - 0.60 x10E9/L 01/03/2024 4:33 PM [facility] RBC Morphology REVIEWED 01/03/2024 4:33 PM [facility] Gricel Cells MODERATE(A) (none) 01/03/2024 4:33 PM [facility] Blood BLOOD SPECIMEN / Unknown Lab Venipuncture / Unknown 12/29/2023 4:57 PM VAULT PERSON 12/29/2023 5:06 PM VAULT PERSON Dulce Cortez MD LAB - HEMATOLOGY OR DERABLES [facility] [address] [place] [address], [facility] [phone] * (ABNORMAL) CBC W/ DIFFERENTIAL (12/29/2023 4:57 PM VAULT PERSON) WBC 9.0 4.0 - 10.7 x10E9/L 01/03/2024 4:33 PM [facility] RBC Count 4.59 3.90 - 5.20 x10E12/L 01/03/2024 4:33 PM [facility] Hemoglobin 14.2 11.9 - 15.8 g/dL 01/03/2024 4:33 PM [facility] Hematocrit 42.2 34.8 - 46.1 % 01/03/2024 4:33 PM [facility] MCV 91.9 80.0 - 98.0 fL 01/03/2024 4:33 PM [facility] MCH 30.9 26.7 - 33.6 pg 01/03/2024 4:33 PM [facility] MCHC 33.6 31.7 - 36.3 g/dL 01/03/2024 4:33 PM [facility] RDW-CV 13.0 11.3 - 14.8 % 01/03/2024 4:33 PM [facility] Platelet Count 356 150 - 420 x10E9/L 01/03/2024 4:33 PM [facility] MPV 9.4 7.8 - 11.4 fL 01/03/2024 4:33 PM [facility] Neutrophil % 80.7(H) 41.0 - 74.0 % 01/03/2024 4:33 PM [facility] Lymphocyte % 11.9(L) 17.0 - 47.0 % 01/03/2024 4:33 PM [facility] Monocyte % 5.2 3.0 - 11.0 % 01/03/2024 4:33 PM [facility] Eosinophil % 1.7 0.0 - 7.0 % 01/03/2024 4:33 PM [facility] Basophil % 0.3 0.0 - 1.6 % 01/03/2024 4:33 PM [facility] Immature Granulocytes % 0.2 0.0 - 1.0 % 01/03/2024 4:33 PM [facility] Neutrophil Absolute 7.27 1.60 - 7.50 x10E9/L 01/03/2024 4:33 PM [facility] Lymphocyte Absolute 1.07 1.00 - 4.40 x10E9/L 01/03/2024 4:33 PM [facility] Monocyte Absolute 0.47 0.15 - 1.00 x10E9/L 01/03/2024 4:33 PM [facility] Eosinophil Absolute 0.15 0.00 - 0.60 x10E9/L 01/03/2024 4:33 PM [facility] Basophil Absolute 0.03 0.00 - 0.13 x10E9/L 01/03/2024 4:33 PM [facility] Blood BLOOD SPECIMEN / Unknown Lab Venipuncture / Unknown 12/29/2023 4:57 PM VAULT PERSON 12/29/2023 5:06 PM VAULT PERSON Dulce Cortez MD LAB - HEMATOLOGY OR DERABLES Performing Organization Address [facility]/State/[facility] Co de Phone Number [address] [address], [facility] [phone] * (ABNORMAL) PROTEIN ELECTROPHORESIS BLOOD (12/29/2023 4:57 PM VAULT PERSON) Interpretation Serum PE See Comment Normal Pattern 12/30/2023 3:47 PM [facility] Comment: Serum capillary electrophoresis shows characteristic bands corresponding to albumin, alpha and beta globulins and polyclonal immunoglobulins. No monoclonal immunoglobulins detected. An increase in polyclonal immunoglobulins is observed. Non-secretory myeloma (NSM) and light chain only myeloma cannot be excluded based on this result. Recommend serum free light chain measurements for complete evaluation of plasma cell disorders. Lyndsey Whitehead PhD, [facility] Clinical Geophysicist programmer analyst Protein Total 8.4(H) 6.0 - 8.3 g/dL 12/30/2023 3:47 PM [facility] Albumin 3.8 3.3 - 5.6 g/dL 12/30/2023 3:47 PM VAULT PERSON [facility] Alpha-1 Globulins 0.4 0.2 - 0.4 g/dL 12/30/2023 3:47 PM VAULT PERSON [facility] Alpha-2 Globulins 0.9 0.5 - 1.0 g/dL 12/30/2023 3:47 PM [facility] Beta Globulins 1.0 0.6 - 1.1 g/dL 12/30/2023 3:47 PM [facility] Gamma Globulins 2.3(H) 0.6 - 1.6 g/dL 12/30/2023 3:47 PM [facility] Blood BLOOD SPECIMEN / Unknown Lab Venipuncture / Unknown 12/29/2023 4:57 PM VAULT PERSON 12/29/2023 5:01 PM VAULT PERSON Dulce Cortez MD LAB - CHEMISTRY ORD ERABLES Performing Organization Address City/State/[facility] Co de Phone Number [address] [address], [facility] [phone] * PROC CATHETER CHANGE/INSERTION (11/28/2023 12:33 PM CDT) Narrative Milla Haney APRN-CNP - 11/28/2023 12:33 PM CDT Milla Haney APRN-CNP 11/28/2023 12:35 PM Patients suprapubic catheter changed, urine bag detached and discarded, balloon deflated 10cc, an 20FR catheter was removed and discarded, under sterile technique, stoma swabbed with betadine, a new 18FR catheter was lubricated and inserted into stoma until urine presents, balloon inflated with 10 cc of sterile water, bladder flushed with 60 cc of sterile water, urine was yellow in color, urine bag was attached and secured with stat lock, patient tolerated procedure well. MA had difficulty placing 20fr, 18fr was placed this visit, if issues with leaking or clogging can upsize to 20fr next visit. SAGE Lopez Milla CAZARES PROCEDURE/MINOR SURGICAL ORDERABLES Care Teams Glass Beveller Relationship Specialty Start Date End Date Feliberto Carmichael MD [address] OF [address] [address] PCP - General Internal Medicine 11/16/23 Dulce Cortez MD [address] DIV [place] [address] Physician Internal Medicine 11/16/23
--- OUTSIDE RECORDS SUMMARY | 2024-04-01 13:29 | XMS_ITS | Encounter Summary ---
Author Organization [facility] Address [address] [place] [address] Care Team Providers Care Logistics Account Manager Name Role Phone Unavailable Primary Care Provider Unavailabl e Prior Encounters Date Type Department Care Team Description 07/02/2022 Travel 07/02/2022 3:00 PM PDT [place] [facility] [place] [address], [place] [phone] Lisbet Davis, DDS 05/03/2022 Travel 05/03/2022 9:00 AM PDT Office [place] [facility] [place] [address], [place] [phone] Beatriz Rutherford, DDS 04/29/[address] [facility] [place] [address], [place] [phone] Lisbet Davis, DDS 04/21/2022 Travel 04/21/2022 10:00 AM PST Office [facility] [place] [address], [place] [phone] Lisbet Davis, DDS 03/05/2019 Converted CPS Chart Documents [facility] [place] [address], [place] [phone] <No scans attached> 03/05/2019 Converted 13x Documents [facility] [place] [address], [place] [phone] <No scans attached> Last Filed Vital Signs Vital Sign Reading Time Taken Comments Blood Pressure 141/89 05/03/2022 10:01 AM PDT Pulse - - Temperature - - Respiratory Rate - - Oxygen Saturation - - Inhaled Oxygen Concentration - - Weight - - Height - - Body Mass Index - - Plan of Treatment Not on file Procedures Procedure Name Priority Date/Time Associated Diagnosis Comments RE-EVALUATION POST-OPERATIVE OFFICE VISIT Routine 07/02/2022 3:00 PM PDT LIMITED ORAL EVALUATION - PROBLEM FOCUSED Routine 05/03/2022 9:00 AM PDT 13 EXTRACTION, ERUPTED TOOTH REQUIRING REMOVAL OF BONE AND/OR SECTIONING OF TOOTH Routine 05/03/2022 9:00 AM PDT 30 EXTRACTION, ERUPTED TOOTH REQUIRING REMOVAL OF BONE AND/OR SECTIONING OF TOOTH Routine 05/03/2022 9:00 AM PDT LIMITED ORAL EVALUATION - PROBLEM FOCUSED Routine 04/21/2022 10:00 AM PST ADDITIONAL X-RAY Routine 04/21/2022 10:0 0 AM PST BITEWING - SINGLE RADIOGRAPHIC IMAGE Routine 04/21/2022 10:00 AM PST SINGLE X-RAY Routine 04/21/2022 10:00 AM PST 12 RECEMENT CROWN Routine 08/29/2020 12: 00 AM PDT SINGLE X-RAY Routine 08/29/2020 12:00 AM PDT OFFICE VISIT FOR OBSERVATION (DURING REGULARLY SCHEDULED HOURS) - NO OTHER SERVICES PERFORMED Routine 01/02/2020 12:00 AM PST 9 MAXILLARY PARTIAL DENTURE RESIN BASE Routine 10/11/2019 12:00 AM PDT 9 MAXILLARY PARTIAL DENTURE RESIN BASE Routine 10/11/2019 12:00 AM PDT CANCELLED APPOINTMENT Routine 10/11/2019 12:00 AM PDT OFFICE VISIT FOR OBSERVATION (DURING REGULARLY SCHEDULED HOURS) - NO OTHER SERVICES PERFORMED Routine 09/14/2019 12:00 AM PDT OFFICE VISIT FOR OBSERVATION (DURING REGULARLY SCHEDULED HOURS) - NO OTHER SERVICES PERFORMED Routine 09/07/2019 12:00 AM PDT INTERIM PARTIAL DENTURE (MAXILLARY) Routine 08/30/2019 12:00 AM PDT 9 BONE REPLACEMENT GRAFT FOR RIDGE PRESERVATION - PER SITE Routine 08/30/2019 12:00 AM PDT 9 GUIDED TISSUE REGENERATION, NATURAL TEETH - RESORBABLE BARRIER, PER SITE Routine 08/30/2019 12:00 AM PDT PERIO CONSULT Routine 08/30/2019 12:00 AM PDT 9 EXTRACTION, ERUPTED TOOTH REQUIRING REMOVAL OF BONE AND/OR SECTIONING OF TOOTH Routine 08/30/2019 12:00 AM PDT CANCELLED APPOINTMENT Routine 01/22/2019 12:00 AM PST CANCELLED APPOINTMENT Routine 01/22/2019 12:00 AM PST 19 CEMENT CROWN Routine 09/05/2018 12:00 AM PDT SINGLE X-RAY Routine 09/05/2018 12:00 AM PDT LIMITED ORAL EVALUATION - PROBLEM FOCUSED Routine 07/20/2018 12:00 AM PDT 19 CLINICAL CROWN LENGTHENING HARD TISSUE Routine 07/19/2018 12:00 AM PDT OFFICE VISIT FOR OBSERVATION (DURING REGULARLY SCHEDULED HOURS) - NO OTHER SERVICES PERFORMED Routine 07/17/2018 12:00 AM PDT 19 ENDODONTIC THERAPY, MOLAR TOOTH (EXCLUDING FINAL SHINTO) Routine 07/13/2018 12:00 AM PDT 19 SEED SERVICE ADVISOR CONSULT Routine 9 12:00 AM PDT 19 CORE BUILDUP, INCLUDING ANY PINS WHEN REQUIRED Routine 07/12/2018 12:00 AM PDT 19 CERECFIRED CROWNPOST Routine 07/13/19 19 12:00 AM PDT PERIODIC ORAL EVALUATION - ESTABLISHED PATIENT Routine 07/04/2018 12:00 AM PDT PERIO MAINTENANCE Routine 07/04/2018 12: 00 AM PDT ORAL HYGIENE INSTRUCTIONS Routine 2018 12:00 AM PDT BITEWINGS - FOUR RADIOGRAPHIC IMAGES Routine 07/04/2018 12:00 AM PDT ADDITIONAL X-RAY Routine 07/04/2018 12:0 0 AM PDT ADDITIONAL X-RAY Routine 07/04/2018 12:0 0 AM PDT ADDITIONAL X-RAY Routine 07/04/2018 12:0 0 AM PDT ADDITIONAL X-RAY Routine 07/04/2018 12:0 0 AM PDT ADDITIONAL X-RAY Routine 07/04/2018 12:0 0 AM PDT SINGLE X-RAY Routine 07/04/2018 12:00 AM PDT PERIO MAINTENANCE Routine 02/23/2018 12: 00 AM PST ORAL HYGIENE INSTRUCTIONS Routine 2018 12:00 AM PST UR ANTIBACT IRR/QUAD Routine 02/23/2018 12:00 AM PST UL ANTIBACT IRR/QUAD Routine 02/23/2018 12:00 AM PST LR ANTIBACT IRR/QUAD Routine 02/23/2018 12:00 AM PST LL ANTIBACT IRR/QUAD Routine 02/23/2018 12:00 AM PST PERIODIC ORAL EVALUATION - ESTABLISHED PATIENT Routine 10/18/2017 12:00 AM PDT PERIO MAINTENANCE Routine 10/18/2017 12: 00 AM PDT ORAL HYGIENE INSTRUCTIONS Routine 2017 12:00 AM PDT UR ANTIBACT IRR/QUAD Routine 10/18/2017 12:00 AM PDT UL ANTIBACT IRR/QUAD Routine 10/18/2017 12:00 AM PDT LR ANTIBACT IRR/QUAD Routine 10/18/2017 12:00 AM PDT LL ANTIBACT IRR/QUAD Routine 10/18/2017 12:00 AM PDT BITEWINGS - FOUR RADIOGRAPHIC IMAGES Routine 10/18/2017 12:00 AM PDT ADDITIONAL X-RAY Routine 10/18/2017 12:0 0 AM PDT ADDITIONAL X-RAY Routine 10/18/2017 12:0 0 AM PDT ADDITIONAL X-RAY Routine 10/18/2017 12:0 0 AM PDT ADDITIONAL X-RAY Routine 10/18/2017 12:0 0 AM PDT ADDITIONAL X-RAY Routine 10/18/2017 12:0 0 AM PDT SINGLE X-RAY Routine 10/18/2017 12:00 AM PDT CANCELLED APPOINTMENT Routine 09/29/2017 12:00 AM PDT SINGLE X-RAY Routine 08/12/2017 12:00 AM PDT 21 DO COMPOSITE FILLING Routine 08/13/19 18 12:00 AM PDT 20 MO COMPOSITE FILLING Routine 08/13/19 18 12:00 AM PDT 5 UNSPECIFIED FIXED PROSTHODONTIC PROCEDURE, BY REPORT Routine 08/03/2017 12:00 AM PDT 3 UNSPECIFIED FIXED PROSTHODONTIC PROCEDURE, BY REPORT Routine 07/26/2017 12:00 AM PDT 13 CEMENT CROWN Routine 07/18/2017 12:00 AM PDT 12 CEMENT CROWN Routine 07/18/2017 12:00 AM PDT 30 CEREC ONLAY 3 SURF Routine 2017 12:00 AM PDT 30 SEAT ONLAY Routine 06/30/2017 12:00 AM PDT 4 BONE REPLACEMENT GRAFT FOR RIDGE PRESERVATION - PER SITE Routine 06/20/2017 12:00 AM PDT 4 EXTRACTION, ERUPTED TOOTH REQUIRING REMOVAL OF BONE AND/OR SECTIONING OF TOOTH Routine 06/20/2017 12:00 AM PDT 13 TREATMENT OF ROOT CANAL OBSTRUCTION; NON-SURGICAL ACCESS Routine 06/18/2017 12:00 AM PDT 13 ENDODONTIC THERAPY, PREMOLAR TOOTH (EXCLUDING FINAL SHINTO) Routine 06/18/2017 12:00 AM PDT 13 SEED SERVICE ADVISOR CONSULT Routine 8 12:00 AM PDT 12 SEED SERVICE ADVISOR CONSULT Routine 8 12:00 AM PDT UR PERIODONTAL SCALING AND ROOT PLANING - FOUR OR MORE TEETH PER QUADRANT Routine 06/17/2017 12:00 AM PDT UL PERIODONTAL SCALING AND ROOT PLANING - FOUR OR MORE TEETH PER QUADRANT Routine 06/17/2017 12:00 AM PDT LR PERIODONTAL SCALING AND ROOT PLANING - FOUR OR MORE TEETH PER QUADRANT Routine 06/17/2017 12:00 AM PDT LL PERIODONTAL SCALING AND ROOT PLANING - FOUR OR MORE TEETH PER QUADRANT Routine 06/17/2017 12:00 AM PDT ORAL HYGIENE INSTRUCTIONS Routine 2017 12:00 AM PDT LR TWYLA DECON/QD Routine 06/17/2017 12:00 AM PDT LL TWYLA DECON/QD Routine 06/17/2017 12:00 AM PDT UL TWYLA DECON/QD Routine 06/17/2017 12:00 AM PDT UR TWYLA DECON/QD Routine 06/17/2017 12:00 AM PDT UR ANTIBACT IRR/QUAD Routine 06/17/2017 12:00 AM PDT UL ANTIBACT IRR/QUAD Routine 06/17/2017 12:00 AM PDT LR ANTIBACT IRR/QUAD Routine 06/17/2017 12:00 AM PDT LL ANTIBACT IRR/QUAD Routine 06/17/2017 12:00 AM PDT 13 CEMENT CROWN Routine 06/06/2017 12:00 AM PDT 5 RETAINER CROWN - ZIRCONIA IN OFFICE - POST Routine 06/06/2017 12:00 AM PDT 3 RETAINER CROWN - ZIRCONIA IN OFFICE - POST Routine 06/06/2017 12:00 AM PDT 4 PONTIC - ZIRCONIA IN OFFICE - POST Routine 06/06/2017 12:00 AM PDT 13 CERECFIRED CROWNPOST Routine 06/07/19 18 12:00 AM PDT 12 CERECFIRED CROWNPOST Routine 06/07/19 18 12:00 AM PDT BITEWINGS - TWO RADIOGRAPHIC IMAGES Routine 06/06/2017 12:00 AM PDT SINGLE X-RAY Routine 06/06/2017 12:00 AM PDT 12 MOD AMALGAM 3 SURFACE Routine 018 12:00 AM PST 5 DO AMALGAM 2 SURFACE Routine 8 12:00 AM PST 2 O AMALGAM 1 SURFACE Routine 02/17/2017 12:00 AM PST 3 ENDODONTIC THERAPY, MOLAR TOOTH (EXCLUDING FINAL SHINTO) Routine 02/17/2017 12:00 AM PST 9 ENDODONTIC THERAPY, ANTERIOR TOOTH (EXCLUDING FINAL SHINTO) Routine 02/17/2017 12:00 AM PST 3 CROWN PFM POST Routine 02/17/2017 12:0 0 AM PST 9 CROWN PFM ANT Routine 02/17/2017 12:00 AM PST 13 MOD COMPOSITE FILLING Routine 018 12:00 AM PST 30 DO COMPOSITE FILLING Routine 02/17/19 18 12:00 AM PST 19 DO COMPOSITE FILLING Routine 02/17/19 18 12:00 AM PST Visit Diagnoses Not on file Insurance [address] [place], [place] [id number]
--- NOTE | 2024-04-01 14:00 | ED_ITS ---
HPI - Abdominal Pain General Chief Complaint: Abdominal Pain Stated Complaint: Abd pain Time Seen by Provider: 04/01/24 12:51 History of Present Illness HPI narrative: Patient is a 64-year-old female who presents ER with abdominal pain as well as vomiting. Pain and vomiting started 1 hour prior to arrival. Reports cough for last 2 days. No fevers or chills or sweats. No alleviating factors. Patient has chronic left-sided weakness related to MS. Related Data Allergies Allergy/AdvReac Type Severity Reaction Status Date / Time No Known Allergies Allergy Verified 04/01/24 12:58 Review of Systems 2 Review of Systems: All systems reviewed & are unremarkable except as noted in HPI and below Constitutional: Constitutional: Reports no additional constitutional complaints ENT: Reports system reviewed and no additional complaints, except as documented Cardiovascular: Cardiovascular: Reports no additional cardiovascular complaints Respiratory: Respiratory: Reports no additional respiratory complaints Gastrointestinal: Gastrointestinal: Reports no additional gastrointestinal complaints PMFSH Past Medical History Medical History (Updated 04/01/24 @ 17:17 by Melvin Chou MD) Multiple sclerosis Exam 2 Narrative: GENERAL: Well-appearing, well-nourished, and in no acute distress. HEAD: Normocephalic, atraumatic. EYES: PERRL and EOMI. ENT: Dry mucous membranes. CHEST: Tachycardic and regular. No respiratory distress. HEART: Regular rate and rhythm. Normal peripheral pulses. ABDOMEN: Soft, nontender, nondistended. EXTREMITIES: Normal range of motion. No edema. SKIN: Warm, dry, no rash. NEURO: Alert and oriented x3. PSYCH: Normal mood and affect. Course Course Emergency Course: Heart rate improving with fluids. Significant elevation white blood cell count, urine contaminated but has a lot of white blood cells as well as bacteria. Suspect UTI. CT of the abdomen pelvis shows bladder stones as well as a gallstone. The gall bladder neck is dilated but LFTs are normal. Patient is nontender at the time and does not look ill. She has been started on antibiotics. Blood has been cultured. Patient accepted to the hospitalist service. Vital Signs Vital signs: Vital Signs Temperature 98.7 F 04/01/24 12:45 Pulse Rate 115 H 04/01/24 12:45 Respiratory Rate 23 H 04/01/24 12:45 Blood Pressure 149/76 H 04/01/24 12:45 Pulse Oximetry 96 04/01/24 12:45 Oxygen Delivery Room Air 04/01/24 12:45 Temperature 98.7 F 04/01/24 12:45 Pulse Rate 115 H 04/01/24 15:56 Respiratory Rate 16 04/01/24 15:56 Blood Pressure 102/59 L 04/01/24 15:56 Pulse Oximetry 92 04/01/24 15:56 Oxygen Delivery Room Air 04/01/24 12:45 MDM - Abdominal Pain Lab Data 04/01/24 14:03 04/01/24 14:03 Labs: Lab Results 04/01/24 04/01/24 Range/Units 14:03 15:29 WBC 26.5 H (4.5-10.0) K/mm3 RBC 4.58 (4.2-5.4) M/mm3 Hgb 14.3 (12.0-15.0) g/dL Hct 43.1 (37.0-47.0) % MCV 94.1 (80-100) fl MCH 31.2 (26-34) pg MCHC 33.2 (32-36) g/dl RDW 12.9 (11.5-14.5) % Plt Count 351 (150-375) k/mm3 MPV 9.2 (7.4-10.4) fl Immature Gran % (Auto) 0.6 H (0-0.5) % Neut % (Auto) 91.9 H (45.5-73.1) % Lymph % (Auto) 2.6 L (18.3-44.2) % Gillespie % (Auto) 4.4 (2.6-8.5) % Eos % (Auto) 0.2 (0-4.4) % Baso % (Auto) 0.3 (0.2-1.2) % Lymph # (Auto) 0.68 L (0.9-3.2) K/mm3 Gillespie # (Auto) 1.2 H (0.1-0.6) K/mm3 Eos # (Auto) 0.0 (0-0.3) K/mm3 Baso # (Auto) 0.1 (0.0-0.1) K/mm3 Abs Immat Gran (auto) 0.17 H (0.00-0.031) K/mm3 Absolute Neuts (auto) 24.4 H (1.3-6.7) K/mm3 Absolute Nucleated RBC 0.000 (0.0-0.012) K/mm3 Nucleated RBC % 0.0 (0.0-0.2) % Sodium 135 L (137-145) mmol/L Potassium 4.4 (3.4-5.0) mmol/L Chloride 98 (98-107) mmol/L Carbon Dioxide 26 (22-30) mmol/L Anion Gap 11 (4-12) mmol/L BUN 7 (7-17) mg/dL Creatinine 0.49 L (0.7-1.0) mg/dL Estim Creat Clear Calc 125 ml/min Estimated GFR > 60 (59 - ) Glucose 92 (65-110) mg/dL Lactic Acid 2.2 H (0.7-2.0) mmol/L Calcium 9.4 (8.4-10.2) mg/dL Total Bilirubin 0.7 (0.2-1.3) mg/dL AST 28 (14-36) U/L ALT 66 H (6-35) U/L Alkaline Phosphatase 131 H (38-126) U/L Total Protein 8.0 (6.3-8.2) g/dL Albumin 4.2 (3.5-5.1) g/dL Lipase 23 (23-300) U/L Urine Color Yellow (Yellow) Urine Appearance Turbid H (Clear) Urine pH 8.0 (5.0-9.0) Ur Specific [place] 1.014 (1.001-1.035) Urine Protein 2+ H (Negative) mg/dL Urine Glucose (UA) Negative (Negative) mg/dL Urine Ketones Negative (Negative) mg/dL Ur Blood (Man) Trace (Negative) Urine Nitrate Positive H (Negative) Urine Bilirubin Negative (Negative) Urine Urobilinogen 1.0 (<2.0) mg/dL Add Ur Microanalysis Reviewed Leukocyte Esterase Rfl 3+ H (Negative) GIL/UL Urine RBC 3-5 H (0-2) /hpf Urine WBC >100 H (0-3) /hpf Ur Squamous Epith Cells Many H (Few) /hpf Urine Bacteria 4+ H /hpf Urine Casts >20 Influenza A (RT-PCR) Negative (Negative) Influenza B (RT-PCR) Negative (Negative) RSV (RT-PCR) Negative (Negative) SARS-CoV-2 RNA (RT-PCR) Negative (Negative) Imaging Data Radiologist's impression: ITS Impressions Abdomen/Pelvis CT 04/01/24 14:57 IMPRESSION: 1. Nonobstructing left nephrolithiasis and multiple bladder stones. 2. Cholelithiasis with mild dilation the common bile duct without evident obstructing stone or mass. Correlate with liver function tests and if clinically concerned consider MRCP for further evaluation. 3. Large amount of colonic stool which can be seen with constipation. 4. Small sliding-type hiatal hernia with adjustable gastric band of adjustable gastric banding procedure in expected position. 4. Small fat-containing umbilical hernia. 5. 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 Discharge Plan Discharge Clinical Impression: UTI (urinary tract infection), Nausea & vomiting, Sepsis Patient Disposition: Still a Patient Condition: Stable
[2024-04-01] MEDS: SODIUM CHLORIDE 0.9% IV 1,000 ML 999 ML IV CONT ×3 (14:08→15:56)
[2024-04-01] MEDS: ONDANSETRON INJ 4 MG/2 ML VIAL IV PUSH (14:09)
[2024-04-01 14:12] LABS: Basophils Absolute Auto 0.1 K/mm3 (0.0-0.1); Basophils Percent Auto 0.3 % (0.2-1.2); Eosinophils Percent Auto 0.2 % (0-4.4); Hematocrit 43.1 % (37.0-47.0); Hemoglobin 14.3 g/dL (12.0-15.0); Immature Granulocyte Absolute 0.17 K/mm3 (0.00-0.031); Immature Granulocyte Percent A 0.6 % (0-0.5); Lymphocytes Absolute Auto 0.68 K/mm3 (0.9-3.2); Lymphocytes Percent Auto 2.6 % (18.3-44.2); Mean Corpuscular HGB Conc 33.2 g/dl (32-36); Mean Corpuscular Hemoglobin 31.2 pg (26-34); Mean Corpuscular Volume 94.1 fl (80-100); Mean Platelet Volume 9.2 fl (7.4-10.4); Monocytes Absolute Auto 1.2 K/mm3 (0.1-0.6); Monocytes Percent Auto 4.4 % (2.6-8.5); Neutrophils Absolute Auto 24.4 K/mm3 (1.3-6.7); Neutrophils Percent Auto 91.9 % (45.5-73.1); Platelet Count Result 351 k/mm3 (150-375); Red Blood Count 4.58 M/mm3 (4.2-5.4); Red Cell Distribution Width 12.9 % (11.5-14.5); White Blood Count 26.5 K/mm3 (4.5-10.0)
[2024-04-01 14:23] LABS: Alanine Aminotransferase 66 U/L (6-35); Albumin Level 4.2 g/dL (3.5-5.1); Alkaline Phosphatase 131 U/L (38-126); Anion Gap 11 mmol/L (4-12); Aspartate Amino Transferase 28 U/L (14-36); Bilirubin,Total 0.7 mg/dL (0.2-1.3); Blood Urea Nitrogen 7 mg/dL (7-17); Calcium 9.4 mg/dL (8.4-10.2); Carbon Dioxide 26 mmol/L (22-30); Chloride 98 mmol/L (98-107); Estimated CRCL calculation 125 ml/min; Estimated Glomerular Filt Rate > 60; Glucose 92 mg/dL (65-110); Lipase 23 U/L (23-300); Potassium 4.4 mmol/L (3.4-5.0); Sodium 135 mmol/L (137-145)
[2024-04-01 14:27] LABS: Add Urine Microscopic? YES; Appearance Urine Turbid (Clear); Bacteria Urine 4+ /hpf; Bilirubin Urine Negative (Negative); Blood Urine Trace (Negative); Color Urine Yellow (Yellow); Glucose Urine UA Negative (Negative); Ketones Urine Negative (Negative); Leukocyte Esterase Ur 3+ LEU/UL (Negative); Need Manual Microscopic Reviewed; Nitrate Urine Positive (Negative); Non Pathogenic Casts >20; Protein Urine 2+ mg/dL (Negative); Specific Grav Ur 1.014 (1.001-1.035); Squamous Epithelial Cell Urine Many /hpf (Few); WBC Urine >100 /hpf (0-3)
[2024-04-01 14:51] LABS: Influenza A QL RT-PCR Negative (Negative); Influenza B QL RT-PCR Negative (Negative); RSV RNA, RT-PCR Negative (Negative); SARS-CoV-2 RNA PCR Negative (Negative)
[2024-04-01 15:48] LABS: Lactic Acid Reflex 2.2 mmol/L (0.7-2.0)
--- NOTE | 2024-04-01 16:43 | PM.IMHP ---
H&P: HPI History of Present Illness Date/Time: 04/01/24 16:43 Chief Complaint: Abdominal pain, shakiness Narrative: 64-year-old female who presents ER with abdominal pain as well as vomiting. Began this morning. Reports cough for last 2 days. No fevers or chills or sweats. No alleviating factors. Patient has chronic left-sided weakness related to MS. Pertinent ED labs: WBC 26.5, hemoglobin 14.3, platelet 351, sodium 35, potassium 4.4, chloride 98, creatinine 0.4, BUN 7, AST 28 ALT 66, alkaline phosphate 131, bilirubin 0.7 UA: Abdomen/Pelvis CT : 1. Nonobstructing left nephrolithiasis and multiple bladder stones. 2. Cholelithiasis with mild dilation the common bile duct without evident obstructing stone or mass. Correlate with liver function tests and if clinically concerned consider MRCP for further evaluation. 3. Large amount of colonic stool which can be seen with constipation. 4. Small sliding-type hiatal hernia with adjustable gastric band of adjustable gastric banding procedure in expected position. 4. Small fat-containing umbilical hernia. 5. 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 Flu ,RSV,COVID negative The patient has a complex medical history. The patient was recently moved from [place] to [place] in September 2023. The patient had Multiple Sclerosis for an extended period with multiple episodes of exacerbation. Her last exacerbation happened in 2011 when she underwent suprapubic catheter placement and had to stay in the hospital for 8 weeks. She doesn't remember her recent exacerbation. The patient is bed-bound and uses a wheelchair for ambulation. Her son helps with ADL. Currently, she lives with her daughter. Whenever exacerbation happens, the patient has numbness, tingling, and weakness. Today, she felt she was shaking for more than an hour but denies any tongue-biting, urine, or fecal incontinence. She reports these kind of incidents happens when she gets cold IV medications. Denies any past CVA.The patient follows up with a neurologist () at [facility] and all other physicians at [facility], including PCP(), Urology,Vascular surgeon, Alining Inspector, and a mellowing machine operator. She was having discoloration of toes/feet and was seen by the vascular surgeon but was identified as having no stenosis of the artery. She was later referred to a natural resources technician, who referred her to a mellowing machine operator.She had a replacement of suprapubic cath last Tuesday. The patient was initially admitted to the medical floor but was advised to transfer the patient to IMU due to soft blood pressure. The patient was advised to be transferred to the ICU if MAP falls below 65. The patient received 3L NSS as sepsis protocol and has now started NSS @ 125ml/hr. I ordered ECHO and CT brain. The patient is started on Zosyn due to possible cholecystitis. I ordered US RUQ and MRCP. I will consider GI intervention if needed. Evidence of non-obstructing left nephrolithiasis and multiple bladder stones. Consulted Urology. The patient also has evidence of UTI. Ordered CXR, lipid, HbA1c, TSH, and EKG.Of note, the patient reports a left heel ulcer and will order wound care. Medication reconciliation pending. Review of Systems Review of Systems: All systems reviewed & are unremarkable except as noted in HPI and below Constitutional: Constitutional: Reports no additional constitutional complaints ENT: Reports system reviewed and no additional complaints, except as documented Cardiovascular: Cardiovascular: Reports no additional cardiovascular complaints Respiratory: Respiratory: Reports no additional respiratory complaints Gastrointestinal: Gastrointestinal: Reports no additional gastrointestinal complaints [facility] Past Medical History Medical History (Updated 04/01/24 @ 17:17 by Melvin Chou MD) Multiple sclerosis Meds Home Medications and Allergies Allergies Allergy/AdvReac Type Severity Reaction Status Date / Time No Known Allergies Allergy Verified 04/01/24 12:58 Vital Signs Vital Signs - 24 hr 04/01/24 12:45 04/01/24 14:02 04/01/24 15:56 Temperature 98.7 F Pulse Rate 115 H 120 H 115 H Respiratory Rate 23 H 17 16 Blood Pressure 149/76 H 120/62 102/59 L Pulse Oximetry 96 94 92 Oxygen Delivery Room Air Exam Narrative: GENERAL: Well-appearing, well-nourished, and in no acute distress. HEAD: Normocephalic, atraumatic. EYES: PERRL and EOMI. ENT: Dry mucous membranes. CHEST: Tachycardic and regular. No respiratory distress. HEART: Regular rate and rhythm. Normal peripheral pulses. ABDOMEN: Soft, nontender, nondistended. EXTREMITIES: Normal range of motion. No edema. SKIN: Warm, dry, no rash. NEURO: Alert and oriented x3. PSYCH: Normal mood and affect. H&P: Results Labs Labs: Short CBC 04/01/24 Range/Units 14:03 WBC 26.5 H (4.5-10.0) K/mm3 Hgb 14.3 (12.0-15.0) g/dL Hct 43.1 (37.0-47.0) % Plt Count 351 (150-375) k/mm3 BMP 04/01/24 14:03 Sodium 135 L Potassium 4.4 Chloride 98 Carbon Dioxide 26 BUN 7 Creatinine 0.49 L Glucose 92 Calcium 9.4 Liver Function 04/01/24 Range/Units 14:03 Total Bilirubin 0.7 (0.2-1.3) mg/dL AST 28 (14-36) U/L ALT 66 H (6-35) U/L Alkaline Phosphatase 131 H (38-126) U/L Albumin 4.2 (3.5-5.1) g/dL Urine 04/01/24 Range/Units 14:03 Urine Color Yellow (Yellow) Urine Appearance Turbid H (Clear) Urine pH 8.0 (5.0-9.0) Ur Specific [place] 1.014 (1.001-1.035) Urine Protein 2+ H (Negative) mg/dL Urine Glucose (UA) Negative (Negative) mg/dL Assessment and Plan Assessment and plan (1) Cholelithiasis: Code(s): K80.20 - Calculus of gallbladder without cholecystitis without obstruction Status: Acute (2) UTI (urinary tract infection): Code(s): N39.0 - Urinary tract infection, site not specified Status: Acute (3) Nephrolithiasis: Code(s): N20.0 - Calculus of kidney Status: Acute Plan Cholelithiasis -Reviewed CT Abd/Pelvis -Ordered MRCP -Ordered US RUQ -Started Zosyn -Elevated ALT -Lipase ,Bilirubin and AST normal -Ordered lipid panel and HbA1c. -Clear liquid diet and advance as tolerated -Patient reports she doesn't do well with pain meds -Will consult GI if needed Sepsis -Possible GI/ source -Elevated lactic acid -received 3L bolus at ED -started NSS@ 125ml/hr -Advised to monitor MAP and if falls below 65 admit to ICU for vasopressors -Admit to IMU -Order nasal MRSA -Ordered ECHO Nephrolithiasis -Multiple stones in bladder and left nephrolithiasis -Replaced suprapubic catheter last Tuesday -Urology consulted UTI -Ordered UC -On Zosyn Wants to stay FC DVT prophylaxis : Lovenox 40mg sq Hospitalist MIPS Advance Care Plan I have confirmed that the patient's Advanced Care Plan is present, code status is documented, or surrogate decision maker is listed in patient medical record.: Yes Medication Reconciliation I have utilized all available resources to obtain, update and review the patients current medications (includes all prescriptions, OTC, herbals, cannabis, and nutritional supplements).: Yes
--- NOTE | 2024-04-01 17:13 | ECG_ITS ---
Test Date: 2024-04-01 21:09:57 Measurements Intervals [place] Rate: 90 P: -15 PA: 177 QRS: -26 QRSD: 90 T: 63 QT: 371 QTc: 455 Interpretive Statements SINUS RHYTHM BORDERLINE R WAVE PROGRESSION, ANTERIOR LEADS BASELINE ARTIFACT- I, II, III, AVR, AVL, AVF BORDERLINE ECG No previous ECG available for comparison Electronically Signed On 04-02-2024 07:07:20 BLEACH BOILER FILLER by Chip Fisher D.O.
[2024-04-01 17:30] LABS: Cholesterol 177 mg/dL (0-200); HDL Direct 48 mg/dL; Triglycerides 81 mg/dL (<150)
[2024-04-01 17:31] LABS: Hemoglobin A1C 5.6 % (<5.7)
[2024-04-01] MEDS: SODIUM CHLORIDE 0.9% IV 300 ML 999 ML IV CONT (17:37)
[2024-04-01] MEDS: PIPERACILLN/TAZ 3.375GM/NS50ML 3.375 GM/50 ML BAG IVPB (17:38)
[2024-04-01 17:41] LABS: LDL Cholesterol Direct 105 mg/dL
--- NOTE | 2024-04-01 17:55 | PC.NURSE ---
Per RJ from due to pt condition change pt admission will change from 2nd medical to be admitted to IMU on tele
[2024-04-01 18:01] LABS: Thyroid Stimulating Hormone Reflex 0.422 uIU/mL (0.465-4.68)
[2024-04-01 18:31] LABS: Free T4 Free Thyroxine Reflex 1.58 ng/dL (0.78-2.19)
[2024-04-01 18:37] LABS: Reflex Lactic Acid Yes or No Add Lactic
--- NOTE | 2024-04-01 18:43 | PC.NURSE ---
Pt maintenance fluids started at 1842, unable to chart due to physician being in chart
[2024-04-01] MEDS: SODIUM CHLORIDE 0.9% IV 1,000 ML 125 ML IV CONT (19:06)
[2024-04-01 20:08] LABS: Total Triiodothyronine (T3) 1.27 NG/ML (0.97-1.69)
[2024-04-01 20:34] LABS: MRSA (PCR) NOT DETECTED (NOT DETECTE)
--- NOTE | 2024-04-01 20:51 | PC.NURSE ---
This nurse now aware that patient has a room in the IMU.
--- NOTE | 2024-04-01 21:30 | PC.NURSE ---
This patient, Day Sawyer, was admitted to IMU Room 205-02 04/01/24 at 2125. Patient/family oriented to hospital policies and general routines including ID bracelet, bed and alarms, visiting hours, pain management, procedures, bathroom and other care routines, personal items, smoking policy, room service/diet, and visiting hours. Information on how to activate the Rapid Response Team has been discussed. Patient/Family are encouraged to report perceived risks to care and to ask questions if they do not understand what they are told or what they should do.
[2024-04-01] MEDS: WATER FOR IRRIGATION, STERILE 500 ML BOTTLE (23:41)
[2024-04-02] VITALS (17 sets, daily range): BP systolic 90–126; BP diastolic 49–60; PULSE 69–92; RESP 18–24; TEMP 36.6–36.8; O2SAT 92–99; BMI 38.2
--- NOTE | 2024-04-02 | ECHO_ITS ---
Patient Info Name: Day Sawyer Age: 64 years : 1960 Gender: Female Ht: 67 in Wt: 241 lbs BSA: 2.32 m2 HR: 89 bpm BP: 90 / 49 mmHg Heart Rhythm: Sinus Rhythm Technical Quality: Fair Exam Date: 04/02/2024 8:47 AM Exam Location: Echo Lab Patient Status: Inpatient Admit Date: 04/02/2024 Staff Ordering Physician: Cedric Harris MD Department Clerk: Lalitha Salazar RDCS Attending Provider: Phi Plascencia MD Exam Type: CA echo dop color flow w con Study Info Indications - low bp Complete two-dimensional, color flow and Doppler transthoracic echocardiogram is performed with contrast to opacify the left ventricle and to improve the deliniation of the left ventricle endocardial borders. Contrast/Agitated Saline Contrast/Ag. Saline: Definity Amount: 2.00 ml Administered By: Lalitha Salazar RDCS Existing IV Access: Yes IV Access Condition: patent with no signs of infiltration Summary 1. The left ventricle is normal in size and systolic function. The left ventricular ejection fraction is visually estimated to be 65-70%. There is no regional wall motion abnormalities. There is grade 2 diastolic dysfunction. Left Ventricle The left ventricle is normal in size and systolic function. The left ventricular ejection fraction is visually estimated to be 65-70%. There is no regional wall motion abnormalities. There is grade 2 diastolic dysfunction. Right Ventricle The right ventricle is normal in size and systolic function. Left Atria The left atrium is normal in size. Right Atria The right atrium is normal in size. Atrial Septum The atrial septum visually appears intact. Aortic Valve The aortic valve is trileaflet and opens well. There is no aortic regurgitation. Pulmonic Valve The pulmonic valve is not well visualized. There is trace pulmonic valve regurgitation. Mitral Valve The mitral valve leaflets are sclerotic but opens well. There is no significant mitral regurgitation in this study. Tricuspid Valve The tricuspid valve is grossly normal. There is trace tricuspid regurgitation. Pericardium/Pleural Pericardium is normal in appearance with no evidence for significant pericardial effusion. Inferior Vena Cava Inferior vena cava is not well visualized. Aorta The aortic root at the level of the sinus of Valsalva measures 2.8 cm in diameter. Left Ventricular Outflow Tract Name Value Normal LVOT 2D LVOT Diameter 2.01 cm LVOT Doppler LVOT Peak Gradient 6 mmHg LVOT Mean Gradient 3 mmHg LVOT VTI 23.30 cm LVOT VTI/AV VTI Ratio 0.71 LVOT Stroke Volume 74.18 ml LVOT CO 5.39 l/min LVOT CI 2.32 L/min/m2 Pulmonic Valve Name Value Normal RVOT Doppler RVOT Peak Gradient 2 mmHg PV Doppler PV Peak Gradient 5 mmHg Mitral Valve Name Value Normal MV Doppler MV Decel [place] 480.47 cm/s2 MV PHT 0 s MV Area (PHT) 3.35 cm2 4.00-5.00 MV Diastolic Function MV E Peak Velocity 108.86 cm/s MV A Peak Velocity 96.78 cm/s MV E/A 1.12 MV Decel Time 0 s MV Annular TDI MV E/e' (Septal) 15.54 <=8.00 MV E/e' (Lateral) 12.33 <=8.00 MV E/e' (Average) 13.94 Tricuspid Valve Name Value Normal TV Regurgitation Doppler TR Peak Velocity 233.47 cm/s TR Peak Gradient 22 mmHg Estimated PAP/RSVP RA Pressure 10 mmHg <=5 PA Systolic Pressure 32 mmHg <36 RV Systolic Pressure 32 mmHg <36 Aorta Name Value Normal Ascending Aorta Ao Root Diameter (MM) 3.49 cm Ao Root Diam Index (MM) 1.50 cm/m2 Aortic Valve Name Value Normal AV Doppler AV Peak Velocity 182.30 cm/s AV Peak Gradient 13 mmHg AV Mean Gradient 7 mmHg AV VTI 32.83 cm AV Area (Cont Eq VTI) 2.26 cm2 >=3.00 AV Area (Cont Eq Duy) 2.19 cm2 AV Regurgitation 2D LVOT Area 3.18 cm2 Ventricles Name Value Normal LV Dimensions 2D/MM IVS Diastolic Thickness (2D) 0.80 cm 0.60-1.00 LVID Diastole (2D) 3.78 cm 3.80-5.20 LVIW Diastolic Thickness (2D) 0.83 cm 0.60-0.90 LVID Systole (2D) 2.50 cm 2.20-3.50 LVOT Diameter 2.01 cm LV Mass (2D Cubed) 87.26 g 67.00-162.00 LV Mass Index (2D Cubed) 0.00 g/cm2 0.00-0.01 Relative Wall Thickness (2D) 0.44 LV Fractional Shortening/Ejection Fraction 2D/MM LV Fractional Shortening (2D) 34 % 27-45 LV EF (2D Teicholz) 64 % 54-74 LV Diastolic Volume (4C MOD) 43.44 ml LV EF (4C MOD) 67 % LV Diastolic Volume (2C MOD) 44.85 ml LV EF (2C MOD) 68 % LV Diastolic Volume (BP MOD) 43.92 ml 46.00-106.00 LV Diastolic Volume Index (BP MOD) 0.02 l/m2 0.03-0.06 LV Systolic Volume (BP MOD) 14.46 ml 14.00-42.00 LV Systolic Volume Index (BP MOD) 0.01 l/m2 0.01-0.02 LV EF (BP MOD) 67 % 54-74 LV Diastolic Length (4C) 7.03 cm LV Systolic Length (4C) 5.81 cm LV Stroke Volume (4C MOD) 29.04 ml Atria Name Value Normal LA Dimensions LA Dimension (MM) 5.55 cm 2.70-3.80 LA Volume (4C A-L) 42.19 ml LA Volume (BP A-L) 47.42 ml RA Dimensions RA Area (4C) 11.64 cm2 <=18.00 Report Signatures
[2024-04-02] MEDS: PHARMACIST COMMUNICATION ORDER 1 EACH XX (00:14)
[2024-04-02] MEDS: PIPERACILLN/TAZ 3.375GM/NS50ML 3.375 GM/50 ML BAG IVPB ×5 (00:14→23:22)
[2024-04-02] MEDS: GABAPENTIN 300 MG CAPSULE PO ×2 (00:14→23:21)
[2024-04-02] MEDS: BACLOFEN 10 MG TABLET 40 MG PO ×2 (00:14→23:21)
[2024-04-02] MEDS: SODIUM CHLORIDE 0.9% IV 1,000 ML 125 ML IV CONT ×2 (03:53→18:14)
[2024-04-02] MEDS: LEVOTHYROXINE SODIUM 150 MCG TABLET PO (06:27)
--- NOTE | 2024-04-02 07:26 | P.PNIM_ITS ---
Progress Note: A&P Assessment and Plan (1) Cholelithiasis: Code(s): K80.20 - Calculus of gallbladder without cholecystitis without obstruction Status: Acute (2) UTI (urinary tract infection): Code(s): N39.0 - Urinary tract infection, site not specified Status: Acute (3) Nephrolithiasis: Code(s): N20.0 - Calculus of kidney Status: Acute Plan Cholelithiasis -Reviewed CT Abd/Pelvis -Ordered MRCP -Ordered US RUQ -Started Zosyn -Elevated ALT -Lipase ,Bilirubin and AST normal -Ordered lipid panel and HbA1c. -Clear liquid diet and advance as tolerated -Patient reports she doesn't do well with pain meds -Will consult GI if needed Sepsis -Possible GI/ source -Elevated lactic acid -received 3L bolus at ED -started NSS@ 125ml/hr -Advised to monitor MAP and if falls below 65 admit to ICU for vasopressors -Admit to IMU -Order nasal MRSA -Ordered ECHO Nephrolithiasis -Multiple stones in bladder and left nephrolithiasis -Replaced suprapubic catheter last Tuesday -Urology consulted UTI -Ordered UC -On Zosyn Wants to stay FC DVT prophylaxis : Lovenox 40mg sq Subjective Date/time seen: 04/02/24 07:26 Interval history: Ultrasound shows cholelithiasis but no evidence of acute cholecystitis. MRCP has been performed and no significant finding so will advance the diet. Possible sepsis due to UTI. Pending urology evaluation for MS. Echocardiogram shows ejection fraction 65-70% and grade 2 diastolic dysfunction. Review of Systems Review of Systems: All systems reviewed & are unremarkable except as noted in HPI and below Constitutional: Constitutional: Reports no additional constitutional complaints ENT: Reports system reviewed and no additional complaints, except as documented Cardiovascular: Cardiovascular: Reports no additional cardiovascular complaints Respiratory: Respiratory: Reports no additional respiratory complaints Gastrointestinal: Gastrointestinal: Reports no additional gastrointestinal complaints Exam Narrative: GENERAL: Well-appearing, well-nourished, and in no acute distress. HEAD: Normocephalic, atraumatic. EYES: PERRL and EOMI. ENT: Dry mucous membranes. CHEST: Tachycardic and regular. No respiratory distress. HEART: Regular rate and rhythm. Normal peripheral pulses. ABDOMEN: Soft, nontender, nondistended. EXTREMITIES: Normal range of motion. No edema. SKIN: Warm, dry, no rash. NEURO: Alert and oriented x3. PSYCH: Normal mood and affect. Objective Data Vital Signs Vital Signs: Vital Signs - 24 hr 04/01/24 12:45 04/01/24 14:02 04/01/24 15:56 Temperature 98.7 F Pulse Rate 115 H 120 H 115 H Respiratory Rate 23 H 17 16 Blood Pressure 149/76 H 120/62 102/59 L Pulse Oximetry 96 94 92 Oxygen Delivery Room Air Oxygen Flow Rate 04/01/24 17:41 04/01/24 17:45 04/01/24 18:44 Temperature 98.2 F Pulse Rate 105 H 96 Respiratory Rate 18 15 Blood Pressure 96/49 L 93/49 L Pulse Oximetry 94 94 94 Oxygen Delivery Nasal Cannula Oxygen Flow Rate 2 04/01/24 19:12 04/01/24 19:13 04/01/24 20:56 Temperature 97.8 F 98.1 F Pulse Rate 95 91 Respiratory Rate 19 20 Blood Pressure 105/60 93/63 L Pulse Oximetry 94 94 96 Oxygen Delivery Nasal Cannula Oxygen Flow Rate 2 04/01/24 21:34 04/01/24 22:11 04/01/24 23:00 Temperature 98.0 F Pulse Rate 92 87 Respiratory Rate 20 Blood Pressure 91/42 L Pulse Oximetry 98 96 Oxygen Delivery Nasal Cannula Oxygen Flow Rate 2 04/01/24 23:30 04/02/24 00:00 04/02/24 00:22 Temperature 98.0 F Pulse Rate 89 92 76 Respiratory Rate 20 Blood Pressure 111/60 Pulse Oximetry 98 96 Oxygen Delivery Autopap Oxygen Flow Rate 04/02/24 02:00 04/02/24 03:03 04/02/24 04:00 Temperature Pulse Rate 89 76 89 Respiratory Rate Blood Pressure Pulse Oximetry 96 Oxygen Delivery Autopap Oxygen Flow Rate 04/02/24 04:29 04/02/24 05:30 04/02/24 05:46 Temperature 98.1 F Pulse Rate 89 Respiratory Rate 20 Blood Pressure 90/49 L Pulse Oximetry 92 94 Oxygen Delivery Nasal Cannula Autopap Oxygen Flow Rate 1 04/02/24 06:00 04/02/24 06:38 Temperature Pulse Rate 84 Respiratory Rate Blood Pressure 107/55 L Pulse Oximetry Oxygen Delivery Oxygen Flow Rate Intake/Output Intake/Output: Intake & Output 02/03/31/24 04/01/24 04/02/24 23:59 23:59 23:59 23:59 Intake Total 3400 1400 Output Total 1600 Balance 3400 -200 Meds/Results Medications: Active Medications Generic Name Dose Route Start Last Admin Trade Name Freq PRN Reason Stop Dose Admin Acetaminophen 650 mg 04/01/24 16:00 Acetaminophen 325 Mg Tablet PO Q4H PRN Mild Pain (1-3) or Fever Hydrocodone Bitart/Acetaminophen 1 tab 04/01/24 16:00 Hydrocodone/Acetaminophen (*Crx) 5-325 Mg Tablet PO Q4H PRN Pain Rated 4-6 Ascorbic Acid 1,000 mg 04/02/24 09:00 Ascorbic Acid 500 Mg Tablet PO TID [facility] Atorvastatin Calcium 20 mg 04/02/24 09:00 Atorvastatin 20 Mg Tablet PO DAILY [facility] Baclofen 30 mg 04/02/24 07:00 Baclofen 10 Mg Tablet PO 0700,1500 [facility] Baclofen 40 mg 04/01/24 23:00 04/02/24 00:14 Baclofen 10 Mg Tablet PO 40 mg 2300 [facility] Administration Bupropion HCl 150 mg 04/02/24 09:00 Bupropion Hcl Xl (24 Hr) 150 Mg Tabcr PO DAILY [facility] Enoxaparin Sodium 40 mg 04/02/24 09:00 Enoxaparin 40 Mg/0.4 Ml Syringe SUB-Q DAILY [facility] Gabapentin 200 mg 04/02/24 07:00 Gabapentin 100 Mg Capsule PO 0700,1500 [facility] Gabapentin 300 mg 04/01/24 23:00 04/02/24 00:14 Gabapentin 300 Mg Capsule PO 300 mg 2300 [facility] Administration Home Med 10 each 04/01/24 23:55 04/02/24 00:15 Home Medication-Dalfampridine 10 Mg Tablet Extended Release 12 Hr PO 05/01/24 23:54 Not Given Q12HR [facility] Sodium Chloride 1,000 mls @ 125 mls/hr 04/01/24 18:10 04/02/24 03:53 Normal Saline Iv IV CONT 125 mls/hr .Q8H SILAS Administration Piperacillin/Tazobactam/Dextrose 3.375 gm in 50 mls @ 100 mls/hr 04/02/24 00:00 04/02/24 06:27 Zosyn 3.375 Gm/Ns 50 Ml IVPB 100 mls/hr Q6H SILAS Administration Levothyroxine Sodium 150 mcg 04/02/24 06:30 04/02/24 06:27 Levothyroxine Sodium 150 Mcg Tablet PO 150 mcg DAILY@0630 [facility] Administration Loratadine 5 mg 04/02/24 09:00 Loratadine 5 Mg Tablet PO DAILY [facility] Modafinil 200 mg 04/02/24 09:00 Modafinil (*Crx) 100 Mg Tablet PO DAILY [facility] Morphine Sulfate 4 mg 04/01/24 16:00 Morphine Sulfate (*Crx) 4 Mg/Ml Inj IV PUSH Q2H PRN Pain Rated 7-10 Non-Formulary Medication 1 each 04/01/24 23:26 Nonformulary Nutritional Supplement XX 04/02/24 23:25 PRN PRN PROTOCOL Ondansetron HCl 4 mg 04/01/24 16:00 Ondansetron Inj 4 Mg/2 Ml Vial IV PUSH Q4H PRN Nausea Ondansetron HCl 4 mg 04/01/24 17:52 Ondansetron Inj 4 Mg/2 Ml Vial IV PUSH Q4H PRN Nausea And Vomiting Pantoprazole Sodium 40 mg 04/02/24 09:00 Pantoprazole Sodium Iv 40 Mg Vial IV PUSH QAM [facility] Perflutren Lipid Microsphere 0 ml 04/01/24 18:07 Perflutren Lipid Microspheres 1.5 Ml Vial Diluted To 10 Ml Total Volume IV PUSH 04/04/24 18:08 ONCE PRN adequate visualization Protocol Vitamin D 1,000 units 04/02/24 09:00 Cholecalciferol 1,000 Units Tablet PO BID [facility] Radiology Results: ITS Impressions Abdomen/Pelvis CT 04/01/24 14:57 IMPRESSION: 1. Nonobstructing left nephrolithiasis and multiple bladder stones. 2. Cholelithiasis with mild dilation the common bile duct without evident obstructing stone or mass. Correlate with liver function tests and if clinically concerned consider MRCP for further evaluation. 3. Large amount of colonic stool which can be seen with constipation. 4. Small sliding-type hiatal hernia with adjustable gastric band of adjustable gastric banding procedure in expected position. 4. Small fat-containing umbilical hernia. 5. 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 Abdomen Ultrasound 04/01/24 17:16 IMPRESSION: 1. Cholelithiasis without evident biliary ductal dilation or findings of acute cholecystitis. 2. Limited study due to patient body habitus. Chest X-Ray 04/01/24 17:20 IMPRESSION: 1. Atelectasis in bilateral lower lung zones, left greater than right. Head CT 04/01/24 19:55 IMPRESSION: 1. 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 No acute intracranial process. 2. Mild scattered white matter hypoattenuation consistent with chronic small vessel ischemic disease. Labs Labs: Laboratory Results - last 24 hr 04/01/24 04/01/24 04/01/24 14:03 15:29 19:16 WBC 26.5 H RBC 4.58 Hgb 14.3 Hct 43.1 MCV 94.1 MCH 31.2 MCHC 33.2 RDW 12.9 Plt Count 351 MPV 9.2 Immature Gran % (Auto) 0.6 H Neut % (Auto) 91.9 H Lymph % (Auto) 2.6 L Rich % (Auto) 4.4 Eos % (Auto) 0.2 Baso % (Auto) 0.3 Lymph # (Auto) 0.68 L Rich # (Auto) 1.2 H Eos # (Auto) 0.0 Baso # (Auto) 0.1 Abs Immat Gran (auto) 0.17 H Absolute Neuts (auto) 24.4 H Absolute Nucleated RBC 0.000 Nucleated RBC % 0.0 Sodium 135 L Potassium 4.4 Chloride 98 Carbon Dioxide 26 Anion Gap 11 BUN 7 Creatinine 0.49 L Estim Creat Clear Calc 125 Estimated GFR > 60 Glucose 92 Hemoglobin A1c 5.6 Lactic Acid 2.2 H Calcium 9.4 Total Bilirubin 0.7 AST 28 ALT 66 H Alkaline Phosphatase 131 H Total Protein 8.0 Albumin 4.2 Triglycerides 81 Cholesterol 177 LDL Cholesterol Direct 105 HDL Direct 48 Lipase 23 TSH (Reflex) 0.422 L Free T4 1.58 Total T3 1.27 Urine Color Yellow Urine Appearance Turbid H Urine pH 8.0 Ur Specific [place] 1.014 Urine Protein 2+ H Urine Glucose (UA) Negative Urine Ketones Negative Ur Blood (Man) Trace Urine Nitrate Positive H Urine Bilirubin Negative Urine Urobilinogen 1.0 Add Ur Microanalysis Reviewed Leukocyte Esterase Rfl 3+ H Urine RBC 3-5 H Urine WBC >100 H Ur Squamous Epith Cells Many H Urine Bacteria 4+ H Urine Casts >20 Nasal MRSA (PCR) Not detected Influenza A (RT-PCR) Negative Influenza B (RT-PCR) Negative RSV (RT-PCR) Negative SARS-CoV-2 RNA (RT-PCR) Negative 04/01/24 19:29 WBC RBC Hgb Hct MCV MCH MCHC RDW Plt Count MPV Immature Gran % (Auto) Neut % (Auto) Lymph % (Auto) Rich % (Auto) Eos % (Auto) Baso % (Auto) Lymph # (Auto) Rich # (Auto) Eos # (Auto) Baso # (Auto) Abs Immat Gran (auto) Absolute Neuts (auto) Absolute Nucleated RBC Nucleated RBC % Sodium Potassium Chloride Carbon Dioxide Anion Gap BUN Creatinine Estim Creat Clear Calc Estimated GFR Glucose Hemoglobin A1c Lactic Acid 2.0 Calcium Total Bilirubin AST ALT Alkaline Phosphatase Total Protein Albumin Triglycerides Cholesterol LDL Cholesterol Direct HDL Direct Lipase TSH (Reflex) Free T4 Total T3 Urine Color Urine Appearance Urine pH Ur Specific [place] Urine Protein Urine Glucose (UA) Urine Ketones Ur Blood (Man) Urine Nitrate Urine Bilirubin Urine Urobilinogen Add Ur Microanalysis Leukocyte Esterase Rfl Urine RBC Urine WBC Ur Squamous Epith Cells Urine Bacteria Urine Casts Nasal MRSA (PCR) Influenza A (RT-PCR) Influenza B (RT-PCR) RSV (RT-PCR) SARS-CoV-2 RNA (RT-PCR) Hospitalist MIPS Advance Care Plan I have confirmed that the patient's Advanced Care Plan is present, code status is documented, or surrogate decision maker is listed in patient medical record.: Yes Medication Reconciliation I have utilized all available resources to obtain, update and review the patients current medications (includes all prescriptions, OTC, herbals, cannabis, and nutritional supplements).: Yes
[2024-04-02 08:28] LABS: Hematocrit 33.6 % (37.0-47.0); Hemoglobin 10.8 g/dL (12.0-15.0); Mean Corpuscular HGB Conc 32.1 g/dl (32-36); Mean Corpuscular Hemoglobin 31.3 pg (26-34); Mean Corpuscular Volume 97.4 fl (80-100); Mean Platelet Volume 9.4 fl (7.4-10.4); Platelet Count Result 257 k/mm3 (150-375); Red Blood Count 3.45 M/mm3 (4.2-5.4); Red Cell Distribution Width 13.2 % (11.5-14.5); White Blood Count 12.1 K/mm3 (4.5-10.0)
[2024-04-02 08:47] LABS: Alanine Aminotransferase 40 U/L (6-35); Albumin Level 3.1 g/dL (3.5-5.1); Alkaline Phosphatase 84 U/L (38-126); Anion Gap 5 mmol/L (4-12); Aspartate Amino Transferase 21 U/L (14-36); Bilirubin,Total 0.8 mg/dL (0.2-1.3); Blood Urea Nitrogen 6 mg/dL (7-17); Calcium 8.1 mg/dL (8.4-10.2); Carbon Dioxide 26 mmol/L (22-30); Chloride 104 mmol/L (98-107); Estimated CRCL calculation 130 ml/min; Estimated Glomerular Filt Rate > 60; Glucose 91 mg/dL (65-110); Lipase 14 U/L (23-300); Magnesium 1.8 mg/dL (1.6-2.3); Phosphorus 3.5 mg/dL (2.5-4.5); Sodium 135 mmol/L (137-145)
[2024-04-02 08:48] LABS: Lactic Acid Reflex 0.6 mmol/L (0.7-2.0)
[2024-04-02] MEDS: PERFLUTREN LIPID MICROSPHERES 1.5 ML VIAL DILUTED TO 10 ML TOTAL VOLUME IV PUSH (09:18)
[2024-04-02] MEDS: PANTOPRAZOLE SODIUM IV 40 MG VIAL IV PUSH (09:46)
[2024-04-02] MEDS: ASCORBIC ACID 500 MG TABLET 1000 MG PO ×3 (09:46→16:55)
[2024-04-02] MEDS: GABAPENTIN 100 MG CAPSULE 200 MG PO ×2 (09:47→16:55)
[2024-04-02] MEDS: CHOLECALCIFEROL 1,000 UNITS TABLET 1000 UNITS PO ×2 (09:47→16:55)
[2024-04-02] MEDS: buPROPion HCL XL (24 HR) 150 MG TABCR PO (09:47)
[2024-04-02] MEDS: BACLOFEN 10 MG TABLET 30 MG PO ×2 (09:47→16:54)
[2024-04-02] MEDS: ENOXAPARIN 40 MG/0.4 ML SYRINGE SUB-Q (09:47)
[2024-04-02] MEDS: ATORVASTATIN 20 MG TABLET PO (09:47)
[2024-04-02] MEDS: modafiniL (*CRX) 100 MG TABLET 200 MG PO (09:48)
[2024-04-02] MEDS: LORATADINE 5 MG TABLET PO (09:48)
[2024-04-02] MEDS: DALFAMPRIDINE 10 MG 10 EACH PO (09:49)
--- NOTE | 2024-04-02 10:59 | IVDEFINITY ---
Prior to administration of IV Definity the patient was educated on the risks and benefits of the imaging enhancing agent including potential adverse side effects. The patient verbalized understanding. Allergies were verified. No exclusion criteria were identified and at least one of the following inclusion criteria were met: 1) physician request, 2) patient technically difficult to image (per the [place] [employer] guidelines of two or more segments not discernable within the apical view), or 3) questionable left ventricular function. ?
--- NOTE | 2024-04-02 14:10 | P.CONUR_ITS ---
Assessment and Plan Assessment and plan (1) Nephrolithiasis: Code(s): N20.0 - Calculus of kidney Status: Acute Assessment and Plan: - Left, nonobstructing - Multiple bladder stones (2) UTI (urinary tract infection): Code(s): N39.0 - Urinary tract infection, site not specified Status: Acute Assessment and Plan: - UA suspicious for UTI, however, urine sample was collected from an SPT that has been in place for 1 week (contaminated) - Renal function stable, Cr 0.49; Afebrile - Low suspicion for active UTI --> asymptomatic bacteruria (3) Neurogenic bladder: Code(s): N31.9 - Neuromuscular dysfunction of bladder, unspecified Status: Acute Assessment and Plan: - 2/2 multiple sclerosis - Managed with chronic SPT tube since 2011 Plan - Blood cultures pending on broad-spectrum antibiotics - Asymptomatic for UTI, No urine culture available for review - Non-obstructing left kidney stone and bladder stones unlikely source of presenting symptoms - Hospitalist team working up other possible sources of infection, including GI and pulmonary etiology - Continue SPT exchanges every 3-4 weeks per home health - Patient to follow-up with established urology team at [facility] for management of bladder stone/left renal stone - No plan for inpatient urologic surgical intervention Urology Consult Note HPI Date Seen: 04/02/24 Requesting Physician: Phi Plascencia MD Primary Care Provider: PHYSICIAN NOT ON STAFF Consult Narrative Reason for consult: UTI, bladder stones, nonobstructing renal stone Narrative: Day Sawyer is a 64 year old female with a medical history significant for multiple sclerosis, neurogenic bladder managed with chronic suprapubic tube (2011), wheelchair bound admitted 04/01/24 for evaluation of weakness, abdominal pain, nausea, vomiting, constipation. CT imaging significant for possible cholecystitis, multiple bladder stones, nonobstructing left renal stone. There are no urology records available for review in [facility] or [facility]. On chart review, it appears patient relocated to [place] from [place] in September 2023. Her adult children are active in her care. The majority of her healthcare is managed at [facility], including urology. She last had her SPT changed 1 week go by home health. Patient is comfortable on exam. She is an excellent healthcare historian. Denies UTI symptoms to include bladder spasms, hematuria, suprapubic pain, fever. SPT is draining freely, clear yellow urine. She will occasionally flush her tube if there is sediment. Patient confirms she is established with [facility]. Review of Systems 2 Constitutional: Constitutional: Reports weakness Respiratory: Respiratory: Denies dyspnea Gastrointestinal: Gastrointestinal: Reports constipation (chronic, severe) Genitourinary: Genitourinary: Reports as per HPI Musculoskeletal: Comments: BLE paraplegia, chronic Psychiatric: Psychiatric: Denies confusion PMFSH Past Medical History Medical History (Updated 04/02/24 @ 14:20 by Guillermina Nguyen APRN) Multiple sclerosis Family History Family History (Updated 04/01/24 @ 22:46 by Mya Lopez RN) Father Parkinson's disease Mother Cerebrovascular accident Alcoholism Other Leukemia maternal aunt Grandparent Acute myocardial infarction paternal grandfather Sibling Heart valve replaced 2 valves Social History Social History Smoking status: Never smoker Alcohol intake: current Drinks per week: 0 Substance use: former Substance use type: marijuana Other substance usage details: former edible use for pain Do You Feel Safe in your Home?: Yes Lack of Transportation: No Lack of Food: Never True Current Housing: I Have Housing Concerned About Future Housing: No Difficulty Paying Gas/Electric Bills: No Difficulty Paying for Meds: No Currently Unemployed: No Education: Decline to Answer Difficulty w/ Childcare or Family Care: No Spiritual care concerns: No Meds Home Medications and Allergies Home Medications ?Medication ?Instructions ?Recorded ?Confirmed ?Type ascorbic acid (vitamin C) 500 mg 1,000 mg PO TID 04/01/24 04/01/24 History tablet (Vitamin C) atorvastatin 20 mg tablet 20 mg PO DAILY 04/01/24 04/01/24 History baclofen 10 mg tablet See Rx Instructions .Route .COMPLEX 04/01/24 04/01/24 History bupropion HCl 150 mg 24 hr tablet, 150 mg PO DAILY 04/01/24 04/01/24 History extended release cetirizine 10 mg tablet (Zyrtec) 5 mg PO DAILY 04/01/24 04/01/24 History cholecalciferol (vitamin D3) 25 25 mcg PO BID 04/01/24 04/01/24 History mcg (1,000 unit) capsule (Vitamin D3) cranberry extract 500 [id number] 2 tablet PO DAILY 04/01/24 04/01/24 History 50 mg chewable tablet (Actifruit Cranberry) dalfampridine 10 mg 10 mg PO Q12H 04/01/24 04/01/24 History tablet,extended release,12 hr gabapentin 100 mg capsule See Rx Instructions .Route .COMPLEX 04/01/24 04/01/24 History levothyroxine 150 mcg tablet 150 mcg PO DAILY 04/01/24 04/01/24 History modafinil 200 mg tablet 200 mg PO DAILY 04/01/24 04/01/24 History Allergies Allergy/AdvReac Type Severity Reaction Status Date / Time No Known Allergies Allergy Verified 04/01/24 12:58 Vital Signs Vital Signs - 24 hr 04/01/24 15:56 04/01/24 17:41 04/01/24 17:45 Temperature 98.2 F Pulse Rate 115 H 105 H Respiratory Rate 16 18 Blood Pressure 102/59 L 96/49 L Pulse Oximetry 92 94 94 Oxygen Delivery Nasal Cannula Oxygen Flow Rate 2 04/01/24 18:44 04/01/24 19:12 04/01/24 19:13 Temperature 97.8 F Pulse Rate 96 95 Respiratory Rate 15 19 Blood Pressure 93/49 L 105/60 Pulse Oximetry 94 94 94 Oxygen Delivery Nasal Cannula Oxygen Flow Rate 2 04/01/24 20:56 04/01/24 21:34 04/01/24 22:11 Temperature 98.1 F 98.0 F Pulse Rate 91 92 87 Respiratory Rate 20 20 Blood Pressure 93/63 L 91/42 L Pulse Oximetry 96 98 Oxygen Delivery Oxygen Flow Rate 04/01/24 23:00 04/01/24 23:30 04/02/24 00:00 Temperature 98.0 F Pulse Rate 89 92 Respiratory Rate 20 Blood Pressure 111/60 Pulse Oximetry 96 98 Oxygen Delivery Nasal Cannula Oxygen Flow Rate 2 04/02/24 00:22 04/02/24 02:00 04/02/24 03:03 Temperature Pulse Rate 76 89 76 Respiratory Rate Blood Pressure Pulse Oximetry 96 96 Oxygen Delivery Autopap Autopap Oxygen Flow Rate 04/02/24 04:00 04/02/24 04:29 04/02/24 05:30 Temperature 98.1 F Pulse Rate 89 89 Respiratory Rate 20 Blood Pressure 90/49 L Pulse Oximetry 92 94 Oxygen Delivery Nasal Cannula Oxygen Flow Rate 1 04/02/24 05:46 04/02/24 06:00 04/02/24 06:38 Temperature Pulse Rate 84 Respiratory Rate Blood Pressure 107/55 L Pulse Oximetry Oxygen Delivery Autopap Oxygen Flow Rate 04/02/24 08:00 04/02/24 12:00 Temperature 98 F 98.3 F Pulse Rate 69 81 Respiratory Rate 18 20 Blood Pressure 100/53 L 126/60 Pulse Oximetry 92 93 Oxygen Delivery Oxygen Flow Rate Exam 2 Const: General: comfortable and no acute distress HENMT: Face/Nose/Sinus: Normal nares present Eyes: General: appearance normal, both eyes and all related structures Resp: Effort & Inspection: normal respiratory effort Urinary Catheter: Urinary Catheter: other (SPT patent and draining, clear yellow urine) Skin: General skin exam: normal color Psych: Affect: normal affect Results Labs 04/02/24 08:12 04/02/24 08:12 Labs: Short CBC 04/01/24 04/02/24 Range/Units 14:03 08:12 WBC 26.5 H 12.1 H (4.5-10.0) K/mm3 Hgb 14.3 10.8 L D (12.0-15.0) g/dL Hct 43.1 33.6 L (37.0-47.0) % Plt Count 351 257 (150-375) k/mm3 BMP 04/01/24 04/02/24 14:03 08:12 Sodium 135 L 135 L Potassium 4.4 4.0 Chloride 98 104 Carbon Dioxide 26 26 BUN 7 6 L Creatinine 0.49 L 0.49 L Glucose 92 91 Calcium 9.4 8.1 L Liver Function 04/01/24 04/02/24 Range/Units 14:03 08:12 Total Bilirubin 0.7 0.8 (0.2-1.3) mg/dL AST 28 21 (14-36) U/L ALT 66 H 40 H (6-35) U/L Alkaline Phosphatase 131 H 84 (38-126) U/L Albumin 4.2 3.1 L (3.5-5.1) g/dL Urine 04/01/24 Range/Units 14:03 Urine Color Yellow (Yellow) Urine Appearance Turbid H (Clear) Urine pH 8.0 (5.0-9.0) Ur Specific [place] 1.014 (1.001-1.035) Urine Protein 2+ H (Negative) mg/dL Urine Glucose (UA) Negative (Negative) mg/dL
[2024-04-02] MEDS: DALFAMPRIDINE 10 MG 1 EACH PO (23:18)
[2024-04-03] VITALS (17 sets, daily range): BP systolic 101–134; BP diastolic 59–69; PULSE 74–87; RESP 20–24; TEMP 36.5–36.7; O2SAT 92–99
[2024-04-03] MEDS: SODIUM CHLORIDE 0.9% IV 1,000 ML 125 ML IV CONT ×2 (03:21→22:05)
[2024-04-03 05:19] LABS: Hematocrit 33.8 % (37.0-47.0); Hemoglobin 10.9 g/dL (12.0-15.0); Mean Corpuscular HGB Conc 32.2 g/dl (32-36); Mean Corpuscular Hemoglobin 31.1 pg (26-34); Mean Corpuscular Volume 96.3 fl (80-100); Mean Platelet Volume 9.4 fl (7.4-10.4); Platelet Count Result 230 k/mm3 (150-375); Red Blood Count 3.51 M/mm3 (4.2-5.4); Red Cell Distribution Width 13.1 % (11.5-14.5); White Blood Count 9.2 K/mm3 (4.5-10.0)
[2024-04-03 05:41] LABS: Alanine Aminotransferase 39 U/L (6-35); Albumin Level 3.2 g/dL (3.5-5.1); Alkaline Phosphatase 79 U/L (38-126); Anion Gap 8 mmol/L (4-12); Aspartate Amino Transferase 21 U/L (14-36); Bilirubin,Total 0.5 mg/dL (0.2-1.3); Blood Urea Nitrogen 5 mg/dL (7-17); Calcium 8.4 mg/dL (8.4-10.2); Carbon Dioxide 24 mmol/L (22-30); Chloride 106 mmol/L (98-107); Estimated CRCL calculation 154 ml/min; Estimated Glomerular Filt Rate > 60; Glucose 106 mg/dL (65-110); Potassium 3.9 mmol/L (3.4-5.0); Sodium 138 mmol/L (137-145)
[2024-04-03] MEDS: PIPERACILLN/TAZ 3.375GM/NS50ML 3.375 GM/50 ML BAG IVPB ×3 (05:50→17:03)
[2024-04-03] MEDS: LEVOTHYROXINE SODIUM 150 MCG TABLET PO (05:56)
--- NOTE | 2024-04-03 09:16 | P.CDI_ITS ---
CDI Query Clarification Request Clarification request - UTI has been documented, chronic hernandez catheter documented. Please clarify if UTI is: * due to/associated with chronic hernandez catheter * not due to/associated with chronic hernandez catheter * unable to determine Risk Factors: chronic hernandez Clinical Indicators: Assessment and Plan Assessment and plan (1) Nephrolithiasis: Code(s): N20.0 - Calculus of kidney Status: Acute Assessment and Plan: - Left, nonobstructing - Multiple bladder stones (2) UTI (urinary tract infection): Code(s): N39.0 - Urinary tract infection, site not specified Status: Acute Assessment and Plan: - UA suspicious for UTI, however, urine sample was collected from an SPT that has been in place for 1 week (contaminated) - Renal function stable, Cr 0.49; Afebrile - Low suspicion for active UTI --> asymptomatic bacteruria (3) Neurogenic bladder: Code(s): N31.9 - Neuromuscular dysfunction of bladder, unspecified Status: Acute Assessment and Plan: - 2/2 multiple sclerosis - Managed with chronic SPT tube since 2011 Plan - Blood cultures pending on broad-spectrum antibiotics - Asymptomatic for UTI, No urine culture available for review - Non-obstructing left kidney stone and bladder stones unlikely source of presenting symptoms - Hospitalist team working up other possible sources of infection, including GI and pulmonary etiology - Continue SPT exchanges every 3-4 weeks per home health - Patient to follow-up with established urology team at [facility] for management of bladder stone/left renal stone - No plan for inpatient urologic surgical intervention Treatment: IV abx <Guillermina Lr RN - Last Filed: 04/03/24 09:18> Clarified Diagnosis Clarified Diagnosis: unable to determine <Bernadette Rothman MD - Last Filed: 04/04/24 09:07>
[2024-04-03] MEDS: ASCORBIC ACID 500 MG TABLET 1000 MG PO ×3 (09:26→17:03)
[2024-04-03] MEDS: LORATADINE 5 MG TABLET PO (09:26)
[2024-04-03] MEDS: buPROPion HCL XL (24 HR) 150 MG TABCR PO (09:26)
[2024-04-03] MEDS: CHOLECALCIFEROL 1,000 UNITS TABLET 1000 UNITS PO ×2 (09:26→17:03)
[2024-04-03] MEDS: modafiniL (*CRX) 100 MG TABLET 200 MG PO (09:27)
[2024-04-03] MEDS: ATORVASTATIN 20 MG TABLET PO (09:27)
[2024-04-03] MEDS: PANTOPRAZOLE SODIUM IV 40 MG VIAL IV PUSH (09:28)
[2024-04-03] MEDS: GABAPENTIN 100 MG CAPSULE 200 MG PO ×2 (09:28→14:33)
[2024-04-03] MEDS: ENOXAPARIN 40 MG/0.4 ML SYRINGE SUB-Q (09:28)
[2024-04-03] MEDS: DALFAMPRIDINE 10 MG 1 EACH PO ×2 (09:29→20:41)
[2024-04-03] MEDS: BACLOFEN 10 MG TABLET 30 MG PO ×2 (09:47→14:33)
--- NOTE | 2024-04-03 17:03 | PM.IMPN ---
Progress Note: A&P Assessment and Plan (1) Cholelithiasis: Code(s): K80.20 - Calculus of gallbladder without cholecystitis without obstruction Status: Acute (2) UTI (urinary tract infection): Code(s): N39.0 - Urinary tract infection, site not specified Status: Acute (3) Nephrolithiasis: Code(s): N20.0 - Calculus of kidney Status: Acute Plan Cholelithiasis -Reviewed CT Abd/Pelvis US abd and MRCP ruled out cholecystitis -Started Zosyn -Elevated ALT -Lipase ,Bilirubin and AST normal Sepsis, resolved -Possible GI/ source -Elevated lactic acid -received 3L bolus at ED -started NSS@ 125ml/hr -Advised to monitor MAP and if falls below 65 admit to ICU for vasopressors -Admit to IMU -Order nasal MRSA -Ordered ECHO Nephrolithiasis -Multiple stones in bladder and left nephrolithiasis -Replaced suprapubic catheter last Tuesday -Urology no intervention needed UTI -blood culture -On Zosyn Wants to stay FC DVT prophylaxis : Lovenox 40mg sq Subjective Date/time seen: 04/03/24 17:03 Interval history: Ultrasound shows cholelithiasis but no evidence of acute cholecystitis. MRCP has been performed and no significant finding so will advance the diet.Echocardiogram shows ejection fraction 65-70% and grade 2 diastolic dysfunction. Possible sepsis due to UTI. urology evaluated and noted low suspicion for UTi and no intervention needed non obstructing bladder stones Review of Systems Review of Systems: All systems reviewed & are unremarkable except as noted in HPI and below Constitutional: Constitutional: Reports no additional constitutional complaints ENT: Reports system reviewed and no additional complaints, except as documented Cardiovascular: Cardiovascular: Reports no additional cardiovascular complaints Respiratory: Respiratory: Reports no additional respiratory complaints Gastrointestinal: Gastrointestinal: Reports no additional gastrointestinal complaints Exam Narrative: GENERAL: Well-appearing, well-nourished, and in no acute distress. HEAD: Normocephalic, atraumatic. EYES: PERRL and EOMI. ENT: Dry mucous membranes. CHEST: Tachycardic and regular. No respiratory distress. HEART: Regular rate and rhythm. Normal peripheral pulses. ABDOMEN: Soft, nontender, nondistended. EXTREMITIES: Normal range of motion. No edema. SKIN: Warm, dry, no rash. NEURO: Alert and oriented x3. PSYCH: Normal mood and affect. Objective Data Vital Signs Vital Signs: Vital Signs - 24 hr 04/02/24 18:00 04/02/24 20:00 04/02/24 20:00 Temperature 97.8 F Pulse Rate 89 80 Respiratory Rate 24 H Blood Pressure 100/58 L Pulse Oximetry 99 Oxygen Delivery Nasal Cannula Oxygen Flow Rate 1 04/02/24 20:00 04/02/24 22:00 04/03/24 00:00 Temperature Pulse Rate 80 81 Respiratory Rate Blood Pressure Pulse Oximetry 99 Oxygen Delivery Nasal Cannula Oxygen Flow Rate 1 04/03/24 00:00 04/03/24 00:00 04/03/24 02:32 Temperature 97.7 F Pulse Rate 75 77 74 Respiratory Rate 24 H Blood Pressure 115/60 Pulse Oximetry 97 Oxygen Delivery Oxygen Flow Rate 04/03/24 04:00 04/03/24 04:00 04/03/24 04:02 Temperature 97.8 F Pulse Rate 80 87 Respiratory Rate 24 H Blood Pressure 134/62 Pulse Oximetry 99 95 Oxygen Delivery Nasal Cannula Oxygen Flow Rate 1 04/03/24 06:00 04/03/24 08:00 04/03/24 08:00 Temperature 98.0 F Pulse Rate 75 81 Respiratory Rate 20 Blood Pressure 101/69 Pulse Oximetry 94 Oxygen Delivery Room Air Oxygen Flow Rate 04/03/24 08:00 04/03/24 10:00 04/03/24 11:47 Temperature 97.7 F Pulse Rate 78 78 77 Respiratory Rate 20 Blood Pressure 117/59 L Pulse Oximetry 93 Oxygen Delivery Oxygen Flow Rate 04/03/24 12:00 04/03/24 12:00 04/03/24 13:40 Temperature Pulse Rate 75 78 Respiratory Rate Blood Pressure Pulse Oximetry Oxygen Delivery Room Air Oxygen Flow Rate 04/03/24 16:00 04/03/24 16:00 Temperature 98.1 F Pulse Rate 76 Respiratory Rate 20 Blood Pressure 111/59 L Pulse Oximetry 96 Oxygen Delivery Room Air Oxygen Flow Rate Intake/Output Intake/Output: Intake & Output 03/31/24 04/01/24 04/02/24 04/03/24 23:59 23:59 23:59 23:59 Intake Total 3400 2900 1800 Output Total 3700 4200 Balance 3400 -800 -2400 Meds/Results Medications: Active Medications Generic Name Dose Route Start Last Admin Trade Name Freq PRN Reason Stop Dose Admin Acetaminophen 650 mg 04/01/24 16:00 Acetaminophen 325 Mg Tablet PO Q4H PRN Mild Pain (1-3) or Fever Hydrocodone Bitart/Acetaminophen 1 tab 04/01/24 16:00 Hydrocodone/Acetaminophen (*Crx) 5-325 Mg Tablet PO Q4H PRN Pain Rated 4-6 Ascorbic Acid 1,000 mg 04/02/24 09:00 04/03/24 17:03 Ascorbic Acid 500 Mg Tablet PO 1,000 mg TID SILAS Administration Atorvastatin Calcium 20 mg 04/02/24 09:00 04/03/24 09:27 Atorvastatin 20 Mg Tablet PO 20 mg DAILY SILAS Administration Baclofen 40 mg 04/01/24 23:00 04/02/24 23:21 Baclofen 10 Mg Tablet PO 40 mg 2300 SILAS Administration Baclofen 30 mg 04/03/24 09:00 04/03/24 14:33 Baclofen 10 Mg Tablet PO 30 mg 0900,1500 SILAS Administration Bupropion HCl 150 mg 04/02/24 09:00 04/03/24 09:26 Bupropion Hcl Xl (24 Hr) 150 Mg Tabcr PO 150 mg DAILY SILAS Administration Enoxaparin Sodium 40 mg 04/02/24 09:00 04/03/24 09:28 Enoxaparin 40 Mg/0.4 Ml Syringe SUB-Q 40 mg DAILY SILAS Administration Gabapentin 300 mg 04/01/24 23:00 04/02/24 23:21 Gabapentin 300 Mg Capsule PO 300 mg 2300 SILAS Administration Gabapentin 200 mg 04/03/24 09:00 04/03/24 14:33 Gabapentin 100 Mg Capsule PO 200 mg 0900,1500 SILAS Administration Home Med 1 each 04/02/24 21:00 04/03/24 09:29 Home Medication-Dalfampridine 10 Mg Tablet Extended Release 12 Hr PO 05/02/24 20:59 1 each Q12HR SILAS Administration Sodium Chloride 1,000 mls @ 125 mls/hr 04/01/24 18:10 04/03/24 03:21 Normal Saline Iv IV CONT 125 mls/hr .Q8H SILAS Administration Piperacillin/Tazobactam/Dextrose 3.375 gm in 50 mls @ 100 mls/hr 04/02/24 00:00 04/03/24 17:03 Zosyn 3.375 Gm/Ns 50 Ml IVPB 100 mls/hr Q6H SILAS Administration Levothyroxine Sodium 150 mcg 04/02/24 06:30 04/03/24 05:56 Levothyroxine Sodium 150 Mcg Tablet PO 150 mcg DAILY@0630 SILAS Administration Loratadine 5 mg 04/02/24 09:00 04/03/24 09:26 Loratadine 5 Mg Tablet PO 5 mg DAILY SILAS Administration Modafinil 200 mg 04/02/24 09:00 04/03/24 09:27 Modafinil (*Crx) 100 Mg Tablet PO 200 mg DAILY SILAS Administration Morphine Sulfate 4 mg 04/01/24 16:00 Morphine Sulfate (*Crx) 4 Mg/Ml Inj IV PUSH Q2H PRN Pain Rated 7-10 Ondansetron HCl 4 mg 04/01/24 16:00 Ondansetron Inj 4 Mg/2 Ml Vial IV PUSH Q4H PRN Nausea Ondansetron HCl 4 mg 04/01/24 17:52 Ondansetron Inj 4 Mg/2 Ml Vial IV PUSH Q4H PRN Nausea And Vomiting Pantoprazole Sodium 40 mg 04/02/24 09:00 04/03/24 09:28 Pantoprazole Sodium Iv 40 Mg Vial IV PUSH 40 mg QAM SILAS Administration Vitamin D 1,000 units 04/02/24 09:00 04/03/24 17:03 Cholecalciferol 1,000 Units Tablet PO 1,000 units BID SILAS Administration Radiology Results: ITS Impressions Abdomen/Pelvis CT 04/01/24 14:57 IMPRESSION: 1. Nonobstructing left nephrolithiasis and multiple bladder stones. 2. Cholelithiasis with mild dilation the common bile duct without evident obstructing stone or mass. Correlate with liver function tests and if clinically concerned consider MRCP for further evaluation. 3. Large amount of colonic stool which can be seen with constipation. 4. Small sliding-type hiatal hernia with adjustable gastric band of adjustable gastric banding procedure in expected position. 4. Small fat-containing umbilical hernia. 5. 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 Abdomen Ultrasound 04/01/24 17:16 IMPRESSION: 1. Cholelithiasis without evident biliary ductal dilation or findings of acute cholecystitis. 2. Limited study due to patient body habitus. Chest X-Ray 04/01/24 17:20 IMPRESSION: 1. Atelectasis in bilateral lower lung zones, left greater than right. Head CT 04/01/24 19:55 IMPRESSION: 1. 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 No acute intracranial process. 2. Mild scattered white matter hypoattenuation consistent with chronic small vessel ischemic disease. MRCP 04/02/24 13:16 IMPRESSION: 1. Gallstones in the gallbladder and cystic duct with gallbladder distention, but no gallbladder wall thickening to suggest acute cholecystitis. Consider hepatobiliary scintigraphy. 2. Mildly dilated common duct. No choledocholithiasis. 3. Diffuse hepatic steatosis. Labs Labs: Laboratory Results - last 24 hr 04/03/24 04/03/24 05:05 05:06 WBC 9.2 RBC 3.51 L Hgb 10.9 L Hct 33.8 L MCV 96.3 MCH 31.1 MCHC 32.2 RDW 13.1 Plt Count 230 MPV 9.4 Sodium 138 Potassium 3.9 Chloride 106 Carbon Dioxide 24 Anion Gap 8 BUN 5 L Creatinine 0.40 L Estim Creat Clear Calc 154 Estimated GFR > 60 Glucose 106 Calcium 8.4 Total Bilirubin 0.5 AST 21 ALT 39 H Alkaline Phosphatase 79 Total Protein 6.0 L Albumin 3.2 L
[2024-04-03] MEDS: GABAPENTIN 300 MG CAPSULE PO (22:03)
[2024-04-03] MEDS: BACLOFEN 10 MG TABLET 40 MG PO (22:03)
[2024-04-04] VITALS (10 sets, daily range): BP systolic 125–144; BP diastolic 66–75; PULSE 69–95; RESP 20; TEMP 36.5–36.7; O2SAT 91–94
[2024-04-04] MEDS: PIPERACILLN/TAZ 3.375GM/NS50ML 3.375 GM/50 ML BAG IVPB ×2 (00:22→05:49)
[2024-04-04 05:45] LABS: Basophils Percent Auto 0.5 % (0.2-1.2); Eosinophils Absolute Auto 0.2 K/mm3 (0-0.3); Eosinophils Percent Auto 2.8 % (0-4.4); Hematocrit 33.4 % (37.0-47.0); Hemoglobin 10.8 g/dL (12.0-15.0); Immature Granulocyte Absolute 0.03 K/mm3 (0.00-0.031); Immature Granulocyte Percent A 0.4 % (0-0.5); Lymphocytes Absolute Auto 1.33 K/mm3 (0.9-3.2); Lymphocytes Percent Auto 15.6 % (18.3-44.2); Mean Corpuscular HGB Conc 32.3 g/dl (32-36); Mean Corpuscular Hemoglobin 30.9 pg (26-34); Mean Corpuscular Volume 95.7 fl (80-100); Mean Platelet Volume 9.6 fl (7.4-10.4); Monocytes Absolute Auto 0.6 K/mm3 (0.1-0.6); Monocytes Percent Auto 7.3 % (2.6-8.5); Neutrophils Absolute Auto 6.3 K/mm3 (1.3-6.7); Neutrophils Percent Auto 73.4 % (45.5-73.1); Platelet Count Result 229 k/mm3 (150-375); Red Blood Count 3.49 M/mm3 (4.2-5.4); Red Cell Distribution Width 12.8 % (11.5-14.5); White Blood Count 8.5 K/mm3 (4.5-10.0)
[2024-04-04] MEDS: WATER FOR IRRIGATION, STERILE 1,000 ML BOTTLE 1000 ML (05:50)
[2024-04-04] MEDS: SODIUM CHLORIDE 0.9% IV 1,000 ML 125 ML IV CONT (05:52)
[2024-04-04] MEDS: LEVOTHYROXINE SODIUM 150 MCG TABLET PO (05:55)
[2024-04-04 05:57] LABS: Alanine Aminotransferase 32 U/L (6-35); Albumin Level 3.3 g/dL (3.5-5.1); Alkaline Phosphatase 76 U/L (38-126); Anion Gap 7 mmol/L (4-12); Aspartate Amino Transferase 19 U/L (14-36); Bilirubin,Total 0.4 mg/dL (0.2-1.3); Blood Urea Nitrogen 4 mg/dL (7-17); Calcium 8.6 mg/dL (8.4-10.2); Carbon Dioxide 26 mmol/L (22-30); Chloride 105 mmol/L (98-107); Estimated CRCL calculation 145 ml/min; Estimated Glomerular Filt Rate > 60; Glucose 92 mg/dL (65-110); Magnesium 1.9 mg/dL (1.6-2.3); Potassium 3.8 mmol/L (3.4-5.0); Sodium 138 mmol/L (137-145)
[2024-04-04] MEDS: ENOXAPARIN 40 MG/0.4 ML SYRINGE SUB-Q (08:40)
[2024-04-04] MEDS: ASCORBIC ACID 500 MG TABLET 1000 MG PO ×2 (08:40→12:27)
[2024-04-04] MEDS: PANTOPRAZOLE SODIUM IV 40 MG VIAL IV PUSH (08:40)
[2024-04-04] MEDS: LORATADINE 5 MG TABLET PO (08:41)
[2024-04-04] MEDS: CHOLECALCIFEROL 1,000 UNITS TABLET 1000 UNITS PO (08:41)
[2024-04-04] MEDS: buPROPion HCL XL (24 HR) 150 MG TABCR PO (08:41)
[2024-04-04] MEDS: modafiniL (*CRX) 100 MG TABLET 200 MG PO (08:41)
[2024-04-04] MEDS: ATORVASTATIN 20 MG TABLET PO (08:41)
[2024-04-04] MEDS: DALFAMPRIDINE 10 MG 1 EACH PO (08:42)
[2024-04-04] MEDS: GABAPENTIN 100 MG CAPSULE 200 MG PO (08:45)
[2024-04-04] MEDS: BACLOFEN 10 MG TABLET 30 MG PO (08:45)
[2024-04-04] MEDS: AMOXICILLIN/CLAVULANATE K 875-125 MG TAB 1 TABLET PO (12:27)
--- NOTE | 2024-04-04 13:23 | P.DS_ITS ---
DS: Admitting Diagnosis Discharge Date 04/04/24 Admitting Diagnosis Abdominal pain, shakiness DS: Discharge Diagnosis Discharge Diagnosis (1) Nephrolithiasis: Code(s): N20.0 - Calculus of kidney Status: Acute (2) Sepsis: Code(s): A41.9 - Sepsis, unspecified organism Status: Acute (3) UTI (urinary tract infection): Code(s): N39.0 - Urinary tract infection, site not specified Status: Acute DS: Summary Hospital Course Hospital Course: 64-year-old female who presents ER with abdominal pain as well as vomiting. Began this morning. Reports cough for last 2 days. No fevers or chills or sweats. No alleviating factors. Patient has chronic left-sided weakness related to MS. Pertinent ED labs: WBC 26.5, hemoglobin 14.3, platelet 351, sodium 35, potassium 4.4, chloride 98, creatinine 0.4, BUN 7, AST 28 ALT 66, alkaline phosphate 131, bilirubin 0.7 The patient has a complex medical history. The patient was recently moved from [place] to [place] in September 2023. The patient had Multiple Sclerosis for an extended period with multiple episodes of exacerbation. Her last exacerbation happened in 2011 when she underwent suprapubic catheter placement and had to stay in the hospital for 8 weeks. She doesn't remember her recent exacerbation. The patient is bed-bound and uses a wheelchair for ambulation. Her son helps with ADL. Currently, she lives with her daughter. Whenever exacerbation happens, the patient has numbness, tingling, and weakness. Today, she felt she was shaking for more than an hour but denies any tongue-biting, urine, or fecal incontinence. She reports these kind of incidents happens when she gets cold IV medications. Denies any past CVA.The patient follows up with a neurologist () at [facility] and all other physicians at [facility], including PCP(), Urology,Vascular surgeon, Cleaning Crew Member, and a white lead filterer. She was having discoloration of toes/feet and was seen by the vascular surgeon but was identified as having no stenosis of the artery. She was later referred to a manager print, who referred her to a white lead filterer.She had a replacement of suprapubic cath last Tuesday. The patient was initially admitted to the medical floor but was advised to transfer the patient to IMU due to soft blood pressure. The patient was advised to be transferred to the ICU if MAP falls below 65. The patient received 3L NS as sepsis protocol and has now started NSS @ 125ml/hr. I ordered ECHO and CT brain. The patient is started on Zosyn due to possible cholecystitis. I ordered US RUQ and MRCP. I will consider GI intervention if needed. Evidence of non- obstructing left nephrolithiasis and multiple bladder stones. Consulted Urology. The patient also has evidence of UTI. Ordered CXR, lipid, HbA1c, TSH, and EKG.Of note, the patient reports a left heel ulcer and will order wound care. CT AP showed nonobstructing left nephrolithiasis and multiple bladder stones, cholelithiasis with mild dilation the common bile duct without evident obstructing stone or mass. large amount of colonic stool, chronic non united basicervical fracture of the proximal right femur. US Abd cholelithiasis without evident biliary ductal dilation or findings of acute cholecystitis MRCP showed Gallstone in the gallbladder and cystic duct with gallbladder dis tention, but no GB thickening to suggest acute cholecystitis. No acute intracranial process. UA positive for Leukocyte esterase and nitrate. Thus she was treated empirically for UTI. discharged on 3 more days of Augmentin. Patient was placed on Zosyn and leukocytosis resolved and patient is abd pain and vomiting resolved. patient tolerating diet and alert and oriented x3. Noted she has all equipment at home and has all help he needs at home. Preferred to be discharged home and she was discharged home with home health. F/u with PCP in 3-5 days. Patient referred to GI for cholelithiasis in 1-2 weeks Time Spent with Patient Time attestation: Total time spent providing and/or coordinating discharge services: DS: Data Data Completed and Pending Labs on day of discharge: Labs from last 24 hours 04/04/24 05:25 WBC 8.5 RBC 3.49 L Hgb 10.8 L Hct 33.4 L MCV 95.7 MCH 30.9 MCHC 32.3 RDW 12.8 Plt Count 229 MPV 9.6 Immature Gran % (Auto) 0.4 Neut % (Auto) 73.4 H Lymph % (Auto) 15.[address] [facility] [place] [facility] % (Auto) 7.3 Eos % (Auto) 2.8 Baso % (Auto) 0.5 Lymph # (Auto) 1.33 [facility] # (Auto) 0.6 Eos # (Auto) 0.2 Baso # (Auto) 0.0 Abs Immat Gran (auto) 0.03 Absolute Neuts (auto) 6.3 Absolute Nucleated RBC 0.000 Nucleated RBC % 0.0 Sodium 138 Potassium 3.8 Chloride 105 Carbon Dioxide 26 Anion Gap 7 BUN 4 L Creatinine 0.43 L Estim Creat Clear Calc 145 Estimated GFR > 60 Glucose 92 Calcium 8.6 Magnesium 1.9 Total Bilirubin 0.4 AST 19 ALT 32 Alkaline Phosphatase 76 Total Protein 7.0 Albumin 3.3 L Preliminary micro results at discharge 04/01/24 15:29 Blood Culture - Preliminary Blood 04/01/24 15:31 Blood Culture - Preliminary Blood Discharge Plan Discharge Attending physician on discharge: Bernadette Rothman Consulting providers: Laith Ramos Discharging Clinician: Bernadette Rothman Anticipated Discharge Date/Time: 04/04/24 13:20 Patient Disposition: Home Health Service Activity: as tolerated Diet: heart healthy Discharge Instructions: Per Care Coordination: [facility] Home Health will continue services at discharge. [facility] Home Health will resume PT/OT and RN for hernandez catheter care at home. [facility] Home Health can be contacted at [phone]. Nursing please fax discharge paperwork to [phone] Patient Instructions: Antibiotic Form, Gallstones (ED), Kidney Stones ([place]) Patient Language: Chadian Stand Alone Forms: General Discharge Information Follow-up/Referrals: Taha, Feliberto [Other] (F/u with PCP in 3-5 days ) Laith Ramos MD [Physician] - (F/u with urology as instructed) Raymundo Denney MD [Physician] - (referral to GI in 1-2 weeks for cholelithiasis ) Discharge Medications: New amoxicillin-pot clavulanate 875-125 mg tablet 1 tablet PO Q12H 3 Days Qty: 6 0RF Continued atorvastatin 20 mg tablet 20 mg PO DAILY baclofen 10 mg tablet See Rx Instructions .ROUTE .COMPLEX Rx Instructions: PO, 30 mg 0700, 30mg 1500, 40mg 2300; bupropion HCl 150 mg tablet extended release 24 hr 150 mg PO DAILY dalfampridine 10 mg tablet extended release 12 hr 10 mg PO Q12H ascorbic acid (vitamin C) [Vitamin C] 500 mg tablet 1,000 mg PO TID gabapentin 100 mg capsule See Rx Instructions .ROUTE .COMPLEX Rx Instructions: 200mg po @0700, 200mg @1500, 300mg @2300; levothyroxine 150 mcg tablet 150 mcg PO DAILY modafinil 200 mg tablet 200 mg PO DAILY cetirizine [Zyrtec] 10 mg tablet 5 mg PO DAILY cholecalciferol (vitamin D3) [Vitamin D3] 25 mcg (1,000 unit) capsule 25 mcg PO BID Actifruit Cranberry 500-50 mg tablet,chewable 2 tablet PO DAILY Date of admission: 04/02/24 10:31 Primary Care Provider: Richelle*Feliberto Melton Admitting Provider: Phi Plascencia Attending physician on admission: Phi Plascencia Condition: Stable
== END 2024-04-04 14:22 | disposition home health service (06) | DRG 872 ==
LOC: ANHED 13:27 → ANH3MEDSUR 17:00 → ANH2MED 17:47 → ANHIMU 18:42
PROVIDERS: General Practice; Admitting Provider Hospitalist; Emergency Provider Emergency Medicine; Visit Provider Internal Medicine
DX: A41.9 Sepsis, unspecified organism (principal); N39.0 Urinary tract infection, site not specified; G35 Multiple sclerosis; N21.0 Calculus in bladder; N20.0 Calculus of kidney; N31.9 Neuromuscular dysfunction of bladder, unspecified; K80.20 Calculus of gallbladder without cholecystitis without obstruction; Z28.21 Immunization not carried out because of patient refusal; Z20.822 Contact with and (suspected) exposure to COVID-19; Z74.01 Bed confinement status; Z99.3 Dependence on wheelchair; Z93.59 Other cystostomy status
CPT/HCPCS: 36415; 70450; 71045; 74177; 74183; 76376; 76705; 80053; 80061; 81001; 83036; 83605; 83690; 83735; 84100; 84439; 84443; 84480; 85025; 85027; 87040; 87637; 87641; 93005; 96361; 96365; 96366; 96367; 96372; 96375; 99212; 99285; A9270; A9577; C8929; G0378; G0463; J0696; J1650; J2405; J2470; J2543; J7030; J7040; Q9957; Q9967

== ENCOUNTER 2024-11-03 20:54 | Inpatient (IN) | payer MEDICARE, SELFPAY ==
--- NOTE | ~2024-11-03 | XR_ITS ---
Examination: XR chest 1V portable Clinical History: CHEST CRAMPING Comparison: 04/01/2024 Technique: Portable AP Findings: Heart size normal. Persistent streaky bibasilar atelectasis and/or scarring. Lungs otherwise clear. No acute bony abnormality. IMPRESSION: 1. No acute cardiopulmonary findings or change from prior exam given portable technique. Reviewed, dictated and finalized at location R.
--- NOTE | ~2024-11-03 | CT_ITS ---
EXAMINATION: CT abdomen pelvis w con DATE: 11/04/2024 01:20 INDICATION: Fever. Vomiting. Urinary tract infection. TECHNIQUE: Computed tomography (CT) of the abdomen and pelvis was performed with 100 mL Omnipaque 350 intravenous contrast. Automated exposure control and iterative reconstruction technique were employed. The dose-length product was 1658.96 mGy-cm. COMPARISON: CT abdomen and pelvis 04/01/2024 FINDINGS: The visualized portions of lung bases demonstrate mild atelectasis. There is no pleural effusion. The heart size is normal. No pericardial effusion. The liver is normal. There is a gallstone in the gallbladder, which is normal in size. The spleen, pancreas, adrenal glands, and right kidney are normal. There is cortical thinning of left kidney. There are at least 5 stones in left kidney measuring up to 14 mm. There is mild left hydronephrosis and hydroureter. There are 5 stones in the bladder measuring up to 3.3 cm. The bladder is decompressed by a suprapubic catheter. There is a large volume of stool in the colon. The appendix is normal. There is a lap band in the proximal stomach with di scontinuous tubing. There are no pathologically enlarged lymph nodes. There is no free intraperitoneal fluid. There is inflammation/scarring superficial to the coccyx. 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 There is a chronic compression fracture of L2. There is moderate lumbar spondylosis and mild thoracic spondylosis. IMPRESSION: 1. Mild left hydronephrosis and hydroureter. 2. Bladder stones. Nonobstructing left kidney stones. 3. Lap band of the proximal stomach with discontinuous tubing. Reviewed, dictated and finalized at location E.
[2024-11-03 20:53] VITALS: BP 127/65; PULSE 119; RESP 17; TEMP 38.3; O2SAT 93
[2024-11-03 21:05] VITALS: PULSE 119; RESP 19; O2SAT 92
[2024-11-03 21:08] VITALS: BP 127/65; PULSE 118; RESP 24; O2SAT 92
[2024-11-03 21:15] VITALS: PULSE 119; RESP 20; O2SAT 93
--- NOTE | 2024-11-03 21:21 | ECG_ITS ---
Test Date: 2024-11-03 21:54:29 Measurements Intervals [place] Rate: 111 P: 35 WI: 199 QRS: -37 QRSD: 93 T: 43 QT: 286 QTc: 390 Interpretive Statements SINUS TACHYCARDIA LEFT AXIS DEVIATION [QRS AXIS < -30] LOW QRS VOLTAGE IN PRECORDIAL LEADS [QRS DEFLECTION < 1.0 mV IN CHEST LEADS] INCOMPLETE RIGHT BUNDLE BRANCH BLOCK [90+ ms QRS DURATION, TERMINAL R IN V1/V2, 40+ ms S IN I/aVL/V4/V5/V6] NONSPECIFIC T-WAVE ABNORMALITY ABNORMAL ECG Compared to ECG 04/01/2024 21:09:57 HEART RATE IS INCREASED AND INCOMPLETE RIGHT BUNDLE BRANCH BLOCK IS NOTED Electronically Signed On 11-04-2024 08:23:08 CDT by Kali Rodgers M.D.
--- OUTSIDE RECORDS SUMMARY | 2024-11-03 21:31 | XMS_ITS | Clinical Summary ---
Author Organization [facility] Address [address] [address] Care Team Providers Care Commercial Marketing Specialist Name Role Phone Fausto Pruett General Internal Primary Care Provider Unavailable Allergies No known active allergies Medications levothyroxine (SYNTHROID) 150 mcg tabletIndicatio ns:hypothyroidi sm Take 1 tablet (150 mcg total) by mouth daily before breakfast 7 Active buPROPion XL (WELLBUTRIN XL) 150 mg 24 hr tabletIndicatio ns:Anxiety with Depression Take 1 tablet (150 mg total) by mouth factory expert before breakfast 3 Active dalfampridine 10 mg tablet extended release 12 hrIndications:w alking impairment due to multiple sclerosis Take 1 tablet (10 mg total) by mouth every 12 (twelve) hours Active ascorbic acid (ascorbic acid with batsheva hips) 500 mg tablet,chewable Indications:Vit burton C Deficiency Take 1 tablet/chew tab (500 mg total) by mouth 2 (two) times a day 3 Active cholecalciferol , vitamin D3, (VITAMIN D3 ORAL) Take by mouth Active atorvastatin (LIPITOR) 20 mg tabletIndicatio ns:hyperlipidem ia Take 1 tablet by mouth daily 5 Active clotrimazole 1 % creamIndication s:cutaneous candidiasis Apply topically 2 (two) times a day 4 Active modafiniL (PROVIGIL) 200 mg tabletIndicatio ns:Sleepiness Due To Obstructive Sleep Apnea TAKE 1 TABLET BY MOUTH EARLY IN THE MORNING BEFORE BREAKFAST 90 tablet 4 5 Active baclofen (LIORESAL) 10 mg tabletIndicatio ns:Muscle Spasticity of Spinal Origin Take 3 tablets (30 mg total) by mouth 3 (three) times a day 10 mg 3 tablets (30 mg) in AM and 3 tablet (30mg) in the afternoon and then 4 tablets (40 mg) at bedtime. 130 tablet 5 5 Active gabapentin (NEURONTIN) 100 mg capsuleIndicati ons:Neuropathic Pain Take 2 capsules (200 mg total) by mouth 3 (three) times a day 180 capsule 5 5 Active baclofen (LIORESAL) 10 mg tabletIndicatio ns:Muscle Spasticity of Spinal Origin Take 3 tablets (30 mg total) by mouth 3 (three) times a day 9 10/17/19 25 Discontinu ed(Reorder ) gabapentin (NEURONTIN) 100 mg capsuleIndicati ons:Neuropathic Pain Take 2 capsules (200 mg total) by mouth 3 (three) times a day 2 10/17/19 25 Discontinu ed(Reorder ) Active Problems Problem Noted Date Diagnosed Date Multiple sclerosis 12/15/2023 Assessment & Plan (03/20/2024 3:07 PM PROFILE STITCHING MACHINE OPERATOR): The patient is presenting for follow up [...] inflammation. I will reach out to the [facility] to request a copy of [...] system. Assessment & Plan (12/28/2023 11:07 AM PROFILE STITCHING MACHINE OPERATOR): Patient is presenting to establish care for [...] a new power wheelchair. Recurrent major depressive disorder, in full rem ission 12/15/2023 Assessment & Plan (12/15/2023 2:22 PM CDT): The patient is currently treated for depression with Wellbutrin 150 mg daily. She reports good benefit from the medication. We will continue it for ongoing treatment Encounters Date Type Department Care Team Description 10/23/2024 2:00 PM CDT Home Care Visit [address] [place] [address] Elizabeth Gotti, ALEXI SN HOME VISIT 10/22/2024 Home Care Visit [address] [place] [address] Last [facility] CASE COMMUNICATION 10/11/2024 12:00 PM CDT Home Care Visit [address] [place] [address] Elizabteh Gotti, ALEXI SN OASIS RECERTIFICATION 10/11/2024 Plan of Care Documentation [address] [place] [address] 10/02/2024 1:30 PM CDT Home Care Visit [address] [place] [address] Last [facility] ELECTRONICS LEAD INITIAL EVAL 10/02/2024 11:30 AM CDT Home Care Visit [address] [place] [address] Elizabeth Gotti, ALEXI SN HOME VISIT 10/01/2024 Home Care Visit [address] [place] [address] Last [facility] CASE COMMUNICATION 09/27/2024 10:00 AM CDT Home Care Visit [address] [place] [address] Elizabeth Gotti, RN SN HOME VISIT 09/20/2024 3:45 PM CDT Home Care Visit [address] [place] [address] Kendra Stephenson SN HOME VISIT 09/20/2024 Home Care Visit [address] [place] [address] Amna Moreno RN SN TRIAGE ENCOUNTER 09/18/2024 10:30 AM CDT Home Care Visit [address] [place] [address] Elizabeth Gotti, ALEXI SN HOME VISIT 09/11/2024 1:00 PM CDT Home Care Visit [address] [place] [address] Elizabeth Gotti, ALEXI SN HOME VISIT 09/06/2024 9:00 AM CDT Home Care Visit [address] [place] [address] Elizabeth Gotti, ALEXI SN HOME VISIT 09/06/2024 Home Care Visit [address] [place] [address] Vi Elaine, RN WOCN CONSULT 08/31/2024 11:15 AM CDT Home Care Visit [address] [place] [address] Ariana Santos RN SN HOME VISIT 08/21/2024 12:30 PM CDT Home Care Visit [address] [place] [address] Elizabeth Gotti, ALEXI SN HOME VISIT 08/15/2024 Orders Only [facility] [address] [facility] [address] Rhys Stevens MD Multiple sclerosis (HCC) (Primary Dx) 08/14/2024 2:30 PM CDT Home Care Visit [address] [place] [address] Elizabeth Gotti, ALEXI SN OASIS RECERTIFICATION 08/14/2024 Plan of Care Documentation [address] [place] [address] 08/06/2024 11:30 AM CDT Home Care Visit [address] [place] [address] Andrea Urias RN SN HOME VISIT 08/06/2024 Home Care Visit [address] [place] [address] Jenny Oseguera RN SN TRIAGE ENCOUNTER from Last 3 Months Immunizations Immunization Administration Dates Next Due Influenza LAIV (Nasal) 03/02/2013 Influenza, Quadrivalent, Spl it, Preservative Free, Intramuscular 02/21/2014,04/27/2011 Influenza, Unspecified 03/03/2012 Tdap 04/23/2016 Medical History Medical History Date Comments Recurrent major depressive disorder, in full rem ission 12/15/2023 Multiple sclerosis (HCC) 12/15/2023 Social History Tobacco Use Types Packs/Day Years Used Date Smoking Tobacco: Former Cigarettes Tobacco Cessation:Counseling Given: Not Answered OASIS D0700: Social Isolation Answer Da te Recorded Frequency of experiencing loneliness or isolatio n Never 10/11/2024 OASIS A1250: Transportation Answer Date Recorded Lack of Transportation (Medical) No 04/06/2024 Lack of Transportation (Non-Medical) No 04/06/2024 Patient Unable or Declines to Respond No 04/06/2024 OASIS B1300: Health Literacy Answer Enmanuel e Recorded Frequency of needing help to read materials from doctor or pharmacy Never 04/06/2024 AUDIT-C Answer Date Recorded Q1: How often [...] Sign Reading Time Taken Comments Blood Pressure 126/80 10/23/2024 2:35 PM CDT Pulse 72 10/23/2024 2:35 PM CDT Temperature 36.6 C (97.8 F) 10/23/2024 2:35 PM CDT Respiratory Rate 18 10/23/2024 2:35 PM CDT Oxygen Saturation 90% 10/23/2024 2:35 PM CDT Inhaled Oxygen Concentration - - Weight 108.9 kg (240 lb) 03/20/2024 2:04 PM PROFILE STITCHING MACHINE OPERATOR Height 172.7 cm (5' 8) 03/20/2024 2:04 PM PROFILE STITCHING MACHINE OPERATOR Body Mass Index 36.49 03/20/2024 2:04 PM PROFILE STITCHING MACHINE OPERATOR Plan of Treatment Health Maintenance Due Date Last Done Comments Breast Cancer Screening-Mammogram 1961 Cervical Cancer Screening 1961 Colon Cancer Screening-Colonoscopy 1961 Depression Screening 1961 Hepatitis C Screening 1961 Hepatitis B Screening 1979 Regular Well Visit/Exam 18-64 1979 Zoster Vaccine (1 of 2) 2011 Covid-19 Vaccine (3 - season) 2024 06/09/2020, 05/12/2020 Influenza Vaccine (#1) 2024 5, 03/02/2013, 03/03/2012, Additional history exists DTaP/Tdap/Td Vaccine (2 - Td or Tdap) 04/23/2026 04/23/2016 Pneumococcal vaccine <65 Aged Out No longer eligible based on patient's age to complete this topic Insurance MEDICARE [facility] MEDICARE [facility] Care Teams Commercial Marketing Specialist Relationship Specialty Start Date End Date Fausto Pruett General Internal PCP - General Internal Medicine 07/04/24
--- OUTSIDE RECORDS SUMMARY | 2024-11-03 21:31 | XMS_ITS | Encounter Summary ---
Author Organization [facility] Health Address [address] [place] [address] Care Team Providers Care Warehouse Selector Name Role Phone Unavailable Primary Care Provider Unavailabl e Prior Encounters Date Type Department Care Team Description 07/02/2022 Travel 07/02/2022 3:00 PM PDT Office Visit [facility] [address], [place] [phone] Lisbet Davis, DDS 05/03/2022 Travel 05/03/2022 9:00 AM PDT Office Visit [facility] [address], [place] [address] Beatriz Rutherford, DDS 04/29/2022 Orders Only [facility] [address], [place] [phone] Lisbet Davis, DDS 04/21/2022 Travel 04/21/2022 10:00 AM PST Office Visit [facility] [address], [place] [phone] Lisbet Davis, DDS 03/05/2019 Converted CPS Chart Documents [facility] [address], [place] [address] <No scans attached> 03/05/2019 Converted 13x Documents [facility] [address], [place] [phone] <No scans attached> Last Filed Vital Signs [...] 19 ENDODONTIC THERAPY, MOLAR TOOTH (EXCLUDING FINAL CONFUCIANIST) Routine 07/13/2018 12:00 AM PDT 19 ENDO CONSULT Routine 07/13/2018 12:00 AM PDT 19 CORE BUILDUP, INCLUDING [...] 13 ENDODONTIC THERAPY, PREMOLAR TOOTH (EXCLUDING FINAL CONFUCIANIST) Routine 06/18/2017 12:00 AM PDT 13 ENDO CONSULT Routine 06/18/2017 12:00 AM PDT 12 ENDO CONSULT Routine 06/18/2017 12:00 AM PDT UR PERIODONTAL SCALING AND [...] 3 ENDODONTIC THERAPY, MOLAR TOOTH (EXCLUDING FINAL CONFUCIANIST) Routine 02/17/2017 12:00 AM PST 9 ENDODONTIC THERAPY, ANTERIOR TOOTH (EXCLUDING FINAL CONFUCIANIST) Routine 02/17/2017 12:00 AM PST 3 CROWN PFM POST Routine 02/17/2017 12:0 0 AM PST 9 CROWN PFM ANT Routine 02/17/2017 12:00 AM PST 13 MOD COMPOSITE FILLING Routine 018 12:00 AM PST 30 DO COMPOSITE FILLING Routine 02/17/19 18 12:00 AM PST 19 DO COMPOSITE FILLING Routine 02/17/19 18 12:00 AM PST Visit Diagnoses Not on file Insurance [facility]
--- OUTSIDE RECORDS SUMMARY | 2024-11-03 21:31 | XMS_ITS | Clinical Summary ---
Author Organization [facility] Health Address [address] [place] [address] Care Team Providers Care Plumbing Contractor Name Role Phone Unavailable Primary Care Provider [...] X-Ray: Full Mouth 1961 Periodontal Maintenance 10/05/2018 07/04/2018, 02/23, 10/18/2017 Dental Oral Exam 01/05/2019 07/04/2018, 10/18/2017 Dental X-Ray: Bitewings 01/05/2019 07/04/2018 Scaling and Root Planing 07/02/2019 018, 06/17/2017, 06/17/2017, Additional history exists Dental X-Ray: Panoramic 05/05/2025 05/04/2022 Colonoscopy Discontinued 05/21/2022 Procedures Procedure Name Priority Date/Time Associated Diagnosis Comments PERIODIC ORAL EVALUATION - ESTABLISHED PATIENT Routine 07/04/2018 12:00 AM PDT PERIO MAINTENANCE Routine 07/04/2018 12: 00 AM PDT LL PERIODONTAL SCALING AND ROOT PLANING - FOUR OR MORE TEETH PER QUADRANT Routine 06/17/2017 12:00 AM PDT from Last 3 Months or Most Recently Relevant to Health Maintenance Insurance [facility]
--- OUTSIDE RECORDS SUMMARY | 2024-11-03 21:31 | XMS_ITS | Clinical Summary ---
Author Organization [facility] Address [address] [place] [address] Care Team Providers Care Senior Associate Name Role Phone Unavailable Primary Care Provider Unavailabl e Social History Tobacco Use Types Packs/Day Years Used Date Smoking Tobacco: Never Assessed Comments Unknown Sex and Gender Information Value Date Recorded Sex Assigned at Not on file Legal Sex Female 1:59 PM CDT Gender Identity Not on file Sexual Orientation Not on file Plan of Treatment Health Maintenance Due Date Last Done Comments Cervical Cancer Screening Pa p Smear (Age 30 to 64) Every 3 Years 1961 Colorectal Cancer Screening Colonoscopy (10 Years) 1961 Annual Physical 1964 Hepatitis C 1979 DTaP, Tdap and Td Vaccines ( 1 - Tdap) 1980 Cervical Cancer Screening Pa p with HPV Testing (Age 30 to 64) Every 5 Years 1991 Cervical Cancer Screening with HPV 1991 Mammogram Screening 2001 Pneumococcal Vaccine: 50+ Ye ars (1 of 1 - PCV) 2011 Zoster Vaccines (1 of 2) 2011 PHQ-2 (Physician Sidney) 02/15/2024 COVID-19 Vaccine ( - 2023-2 5 season) 2024 RSV Immunization or 60+ Years (1 - 1-dose 75+ series) 2036 Meningococcal B Vaccine Aged Out No l onger eligible based on patient's age to complete this topic Meningococcal Vaccine Aged Out No nidhi luke eligible based on patient's age to complete this topic RSV Immunizations Under 20 Months Aged Out No longer eligible based on patient's age to complete this topic Insurance [facility] MEDIC[facility]
--- OUTSIDE RECORDS SUMMARY | 2024-11-03 21:31 | XMS_ITS | Encounter Summary ---
Author Organization [facility] Address [address] [place] [address] Care Team Providers Care Core Man Name Role Phone Feliberto Carmichael MD Primary Care Provider [phone] Dulce Cortez MD Unavailable [phone] Reason for Visit * Reason Onset Date Comments Medication Issue 03/28/2024 Encounter Details Date Type Department Care Team (Late st Contact Info) Description 03/28/2024 Telephone [facility] - Centralized Scheduling [address] [place] [phone] Ariel Carty MD [address] [place] [address] Medication Issue Social History Tobacco Use Types Packs/Day Years Used Date Smoking Tobacco: Never Smokeless Tobacco: Never Alcohol Use Standard Drinks/Week Comments Yes 0 (1 standard drink = 0.6 oz pur e alcohol) once a month PHQ-2 Answer Date Recorded Patient Health Questionnaire-2 Score 0 03/15/2024 Comments No Sex and Gender Information Value Date Recorded Sex Assigned at Female 11/16/2023 4:46 PM CDT Legal Sex Female 2:48 PM CDT Gender Identity Female 11/16/2023 4:46 [...] yet. Please assist, thank you! Pt's phone: [phone] CARDIOGRAPHY TECH documented in this encounter Plan of Treatment Upcoming Encounters Date Type Department Care Team (Late st Contact Info) Description 11/13/2024 3:30 PM CDT Office Visit [facility] - Urology [address] [place] [phone] Raj Marie MD [address] [place] [phone] 12/11/2024 1:45 PM CDT Office Visit [facility] - Internal Med [address] [place] [address], [place] [phone] Gaby Lozano MD [address] [place] [address] DIV OF INT MED [address] [place] [phone] 12/26/2024 9:50 AM ECHOCARDIOGRAPHY TECH Office Visit [facility] - Dermatology [address] [place] [address], [place] [phone] Ariel Carty MD [address] [place] [address] 3 [place] [phone] 03/11/2025 1:30 PM ECHOCARDIOGRAPHY TECH Office Visit [facility] - GI [address] [place] [address], [place] [phone] documented as of this encounter Visit Diagnoses Not on filedocumented in this encounter Care Teams Core Man Relationship Specialty Start Date End Date Feliberto Carmichael MD [address] [place] [address] DIV OF INT MED [address] [place] [phone] PCP - General Internal Medicine 11/16/23 Dulce Cortez MD [address] OF [facility] [place] [phone] Physician Internal Medicine 11/16/23 documented as of this encounter
--- OUTSIDE RECORDS SUMMARY | 2024-11-03 21:31 | XMS_ITS | Clinical Summary ---
Author Organization [facility] Address [address] [place] [address] Care Team Providers Care Continuous Improvement Specialist Name Role Phone Feliberto Carmichael MD Primary Care Provider [phone] Dulce Cortez MD Unavailable [phone] Source Comments [facility],non-owned Affiliates and Associated Physician Practices is amultiple site organization consisting of ambulatory clinics and hospital sitesin [place], [place], [place] and [place]. This disclosure is being madepursuant to the Care Everywhere program and may not contain all information available regarding this patient. Last updated 17.[facility] Allergies No known active allergies Medications * Be aware that medications may not be up to date on this document. Alwaysverify current medications with the patient. levothyroxine (Synthroid) 150 MCG tablet Take 1 [...] morning Active Cholecalciferol (VITAMIN D3 PO) Take 2 tablets by mouth once daily Active buPROPion XL 24hr (Wellbutrin-XL) 150 MG tablet Take 1 (one) tablet by mouth every morning 3 Active ascorbic acid (Vitamin C) 500 MG tablet Take 1 (one) tablet by mouth once daily Active clotrimazole (Lotrimin AF) 1 % creamIndication s:Fungal infection of skin Apply to affected area 2 times daily 60 g 6 4 Active Additional Information Patient taking differently:TopicalDAILY, Reported on 09/03/2024 atorvastatin (Lipitor) 20 MG tabletIndicatio ns:Atherosclero sis of aorta Take 1 (one) tablet by mouth once daily 100 tablet 4 5 Active nystatin (Mycostatin) 288370 UNIT/GM ointmentIndicat ions:Candidal intertrigo Apply to affected area 2 times daily Apply to back and buttocks area 30 g 5 Active prucalopride (Motegrity) 2 MG tabletIndicatio ns:Dyssynergic defecation Take 1 (one) tablet by mouth once daily 30 tablet 3 5 Active Active Problems Problem Noted Date Diagnosed Date Recurrent major depressive disorder, in full rem ission 03/15/2024 Class 2 severe obesity due t o excess calories with serious comorbidity and body mass index (BMI) of 38.0 to 38.9 in adult 03/15/2024 SUSANA (obstructive sleep apnea) 11/17/2023 Neurogenic [...] Encounters Date Type Department Care Team Description 10/09/2024 Travel 09/21/2024 11:20 AM CDT Office Visit [facility] - Urology [address] [place] [address] Guillermo Betts PA Neurogenic bladder (Primary Dx); Multiple sclerosis (HCC); Bladder stone 09/21/2024 Travel 09/20/2024 Telephone [facility] - Internal Med [address] [place] [phone] Feliberto Carmichael MD Appointment 09/11/2024 Telephone [facility] - GI [address] [place] [phone] Radha Rain RN General 09/11/2024 Refill [facility] - GI [address] [place] [phone] Charlene Soriano MD MEDICATION REFILL 09/06/2024 Telephone [facility] - Centralized Scheduling [address] [place] [phone] Feliberto Carmichael MD Med Question 09/03/2024 2:30 PM CDT Office Visit [facility] - GI [address] [place] [phone] Carlito Shipley MD Dyssynergic defecation (Primary Dx) 09/03/2024 Travel 08/29/2024 Travel 08/24/2024 Travel from Last 3 Months Immunizations Immunization Administration Dates Next Due INFLUENZA VACCINE 03/03/2012 [...] oz pur e alcohol) once a month wine PHQ-2 Answer Date Recorded Patient Health Questionnaire-2 Score 1 06/06/2024 Comments No Sex and Gender Information Value Date Recorded Sex Assigned at Female 11/16/2023 4:46 PM CDT Legal Sex Female 2:48 PM CDT Gender Identity Female 11/16/2023 4:46 PM CDT Sexual Orientation Straight 11/16/2023 4: 46 PM CDT Last Filed Vital Signs Vital Sign Reading Time Taken Comments Blood Pressure 133/89 09/21/2024 11:27 AM CDT Pulse 74 09/21/2024 11:27 AM CDT Temperature 36.4 C (97.5 F) 09/21/2024 11:27 AM CDT Respiratory Rate 18 09/21/2024 11:27 AM CDT Oxygen Saturation 98% 09/21/2024 11:27 AM CDT Inhaled Oxygen Concentration - - Weight 117.5 kg (259 lb) 09/21/2024 11:27 AM CDT Height 172.7 cm (5' 8) 09/21/2024 11:27 AM CDT Body Mass Index 39.38 09/21/2024 11:27 AM CDT Plan of Treatment Upcoming Encounters Date Type Department Care Team (Late st Contact Info) Description 11/13/2024 3:30 PM CDT Office Visit [facility] - Urology [address] [place] [phone] Raj Marie MD [address] [facility] [address] [place] [phone] 12/11/2024 1:45 PM CDT Office Visit [facility] - Internal Med [address] [place] [address], [place] [phone] Gaby Lozano MD [address] [place] [address] OF INT MED [address] [place] [phone] 12/26/2024 9:50 AM STATE INSPECTOR Office Visit [facility] - Dermatology [address] [place] [address], [place] [phone] Ariel Carty MD [address] [facility] [address] [place] [phone] 03/11/2025 1:30 PM STATE INSPECTOR Office Visit [facility] - GI [address] [facility], [place] [phone] Health Maintenance Due Date Last Done Comments COLOGUARD (AGES 45-75) - COLON CA SCREENING 1960 CT COLONOGRAPHY - COLON CA SCREENING 1960 FIT - COLON CA SCREENING 1960 FLEX SIG - COLON CA SCREENING 1960 MAMMOGRAM 1960 PNEUMOCOCCAL VACCINE 50+ (1 of 2 - PCV) 1980 ZOSTER VACCINE (1 of 2) 2011 Respiratory Syncytial Virus (RSV) Vaccine Pt: or over 60 yrs (1 - Risk 60-74 years 1-dose series) 2021 PAP SMEAR 10/04/2022 10/05/2019 DIABETES-HGB A1C 03/15/2024 COVID-19 VACCINE ( - season) 2024 06/09/2020, 05/12/2020 INFLUENZA VACCINE (#1) 2024 5, 03/02/2013, 03/03/2012, Additional history exists MEDICARE AWV 12 MONTHS 11/16/2024 11/17/2023 DTAP/TDAP/TD VACCINES (2 - Td or Tdap) 04/23/2026 04/23/2016 COLON MONITORING 06/11/2034 06/11/2024, 06/11/2024 COLONOSCOPY - COLON CA SCREENING 06/11/2034 06/11/2024, 06/11/2024 Colorectal Cancer Screening 06/11/2034 HIV SCREENING Completed 04/22/2021, 10/2021 (Done Outside Per Report) HEPATITIS C SCREENING Completed 01/16/2024, 018 DEPRESSION SCREENING Completed 03/15/2024, 11/17/2023, 11/17/2023 DIABETES - URINE PROTEIN SCREENING Discontinued DIABETES RETINOPATHY SCREENING Discontinued DIABETES-FOOT EXAM WITH MONOFILAMENT Discontinued DIABETES-SERUM CREATININE Discontinued HEPATITIS B VACCINE Aged Out No longe r eligible based on patient's age to complete this topic HIB VACCINE Aged Out No longer eligi ble based on patient's age to complete this topic HPV VACCINE Aged Out No longer eligi ble based on patient's age to complete this topic MENINGOCOCCAL (Group B) VACCINE SHARED DECISION-MAKING Aged Out No longer eligible based on patient's age to complete this topic MENINGOCOCCAL GROUPS A/C/Y/W VACCINE Aged Out No longer eligible based on patient's age to complete this topic Goals Goal Patient Goal Type Associated Problems Recent Progress Patient-Stated? Author Medication Management General On track( 025 3:37 PM CDT) Jenny Wiley, RN Note: Expected end date: ongoing Interventions: Take all medications as prescribed Let your doctor know right away about any changes in your medications Procedures Procedure Name Priority Date/Time Associated Diagnosis Comments ENDOSCOPY, COLON, SCREENING Routine 06/11/2024 11:26 AM CDT HEPATITIS C AB SCREEN RFLX NAAT QUANT Routine 01/16/2024 11:35 AM STATE INSPECTOR Need for hepatitis C screening test from Last 3 Months or Most Recently Relevant to Health Maintenance Results * ENDOSCOPY, COLON, SCREENING (06/11/2024 11:26 AM CDT) Report Endoscopy POC Endoscopy Department Report _ Patient Name: Day Sawyer Procedure Date: 06/11/2024 11:26 AM Date of : 1960 Classification: Outpatient Gender: Female Ethnicity: Not or Race: White _ Providers: Bob Luong MD, Fletcher Patricio (Fellow) Referring MD: Feliberto Carmichael (Referring MD) Procedure: Colonoscopy Indications: Screening for colorectal malignant neoplasm constipation Medications: Monitored Anesthesia Care Comorbidities MS lower extremity paralysis Description of Procedure: Pre-Anesthesia Assessment: - Prior to the procedure, a History and Physical was performed, and patient medications and allergies were reviewed. The patient's tolerance of previous anesthesia was also reviewed. The risks and benefits of the procedure and the sedation options and risks were discussed with the patient. All questions were answered, and informed consent was obtained. Prior Anticoagulants: The patient has taken no anticoagulant or antiplatelet agents. ASA Grade Assessment: II - A patient with mild systemic disease. After reviewing the risks and benefits, the patient was deemed in satisfactory condition to undergo the procedure. After I obtained informed consent, the scope was passed under direct vision. Throughout the procedure, the patient's blood pressure, pulse, and oxygen saturations were monitored continuously. The PCF-[id number] was introduced through the anus with the intention of advancing to the cecum. The scope was advanced to the hepatic flexure before the procedure was aborted. Medications were given. The colonoscopy was extremely difficult due to a redundant colon. Successful completion of the procedure was aided by changing the patient to a supine position and applying abdominal pressure. The patient tolerated the procedure well. The quality of the bowel preparation was good. The rectum was photographed. Findings: The perianal and digital rectal examinations were normal. The colon (entire examined portion) appeared normal. The retroflexed view of the distal rectum and anal verge was normal and showed no anal or rectal abnormalities. Estimated Blood Loss: Estimated blood loss: none. Complications: No immediate complications. Impression: - The entire examined colon is normal. - The distal rectum and anal verge are normal on retroflexion view. - No specimens collected. Recommendation: - Discharge patient to home. - Patient has a contact number available for emergencies. The signs and symptoms of potential delayed complications were discussed with the patient. Return to normal activities tomorrow. Written discharge instructions were provided to the patient. - Resume previous diet. - Continue present medications. - Perform an air contrast barium enema today if possible or consider whether screening for colon cancer is reasonable given current clinical circumstances. - No repeat colonoscopy given comorbidities. Attending Participation: I was present and participated during the entire procedure, including non-rodriguez portions. Procedure Code(s): --- Professional --- G0121, 53, Colorectal cancer screening; colonoscopy on individual not meeting criteria for high risk Diagnosis Code(s): --- Professional --- Z12.11, Encounter for screening for malignant neoplasm of colon CPT copyright 2021 [employer]. All rights reserved. The codes documented in this report are preliminary and upon companion review may be revised to meet current compliance requirements. _ Bob Luong MD 06/11/2024 12:41:05 PM This report has been signed electronically. Note Initiated On: 06/11/2024 11:26 AM Number of Addenda: [id number] [place] [address] 06/11/2024 11:2 6 AM CDT Bob Luong MD GI PROCEDURE ORDERABLES Edited Result - Final Performing Organization Address City/[facility] Co de Phone Number [facility] * HEPATITIS C AB SCREEN RFLX NAAT QUANT (01/16/2024 11:35 AM STATE INSPECTOR) Hepatitis C Antibody Non-react angelica Non-reac tive 01/16/2024 1:07 PM STATE INSPECTOR [facility] Comment:Hepatitis C Antibody screen indicates no serologic evidence of past or current infection with Hepatitis C Virus. Patients with unexplained liver disease who are immunocompromised or suspected of having acute Hepatitis C infection may benefit from Nucleic Acid Test (ROSA) for Hepatitis C Viral RNA to confirm Hepatitis C status. Blood BLOOD SPECIMEN / Unknown Lab Venipuncture / Unknown 01/16/2024 11:35 AM STATE INSPECTOR 01/16/2024 12:10 PM STATE INSPECTOR Raquel Marley MD LAB - CHEMISTRY ORDERABLES Fi nal Result Performing Organization Address [facility]/ZIP Co de Phone Number [address] [place] [address], [facility] [phone] from Last 3 Months or Most Recently Relevant to Health Maintenance Insurance [facility] MEDIC[facility] Care Teams Continuous Improvement Specialist Relationship Specialty Start Date End Date Feliberto Carmichael MD [address] [facility] DIV OF INT MED [address] [place] [phone] PCP - General Internal Medicine 11/16/23 Dulce Cortez MD [address] [facility] 2L DIV [place] [phone] Physician Internal Medicine 11/16/23
[2024-11-03 21:34] LABS: Hematocrit 28.5 % (37.0-47.0); Hemoglobin 9.1 g/dL (12.0-15.0); Immature Granulocyte Percent A 0.4 % (0-0.5); Lymphocytes Absolute Auto 0.58 K/mm3 (0.9-3.2); Mean Corpuscular HGB Conc 31.9 g/dl (32-36); Mean Corpuscular Hemoglobin 31.1 pg (26-34); Mean Corpuscular Volume 97.3 fl (80-100); Nucleated Red Blood Cells Absolute Auto 0.000 K/mm3 (0.0-0.012); Nucleated Red Blood Cells Perc 0.0 % (0.0-0.2); Platelet Count Result 185 k/mm3 (150-375); Red Blood Count 2.93 M/mm3 (4.2-5.4); White Blood Count 15.6 K/mm3 (4.5-10.0)
[2024-11-03 21:46] LABS: INR 1.5; Partial Thromboplastin Time 38.8 Seconds (22.3-36.8); Prothrombin Time 17.8 Seconds (11.1-14.7)
[2024-11-03] MEDS: SODIUM CHLORIDE 0.9% IV 1,000 ML 999 ML IV CONT (21:46)
--- NOTE | 2024-11-03 21:54 | ED.FEVER ---
HPI - Fever General Chief Complaint: Fever <Claudia Oliver PA-C - Last Filed: 11/05/24 17:13> Stated Complaint: fever <Claudia Oliver PA-C - Last Filed: 11/05/24 17:13> Time Seen by Provider: 11/03/24 21:22 <Claudia Oliver PA-C - Last Filed: 11/05/24 17:13> Source: patient <KATHY Ayala Last Filed: 11/05/24 17:13> Mode of arrival: EMS <KATHY Ayala Last Filed: 11/05/24 17:13> Limitations: no limitations <KAHTY Ayala Last Filed: 11/05/24 17:13> History of Present Illness HPI Narrative: This is a 64 year old female that presents to the ER for fever. Reports chills, weakness, nausea, vomiting. History of MS, suprapubic catheter. Reports this was changed a couple of weeks ago. <Claudia Oliver PA-C - Last Filed: 11/05/24 17:13> Related Data Home Medications: Home Medications ?Medication ?Instructions ?Recorded ?Confirmed ?Last Taken ?Type ascorbic acid (vitamin C) 500 mg 1,000 mg PO TID 04/01/24 11/04/24 11/03/24 History tablet (Vitamin C) atorvastatin 20 mg tablet 20 mg PO DAILY 04/01/24 11/04/24 11/03/24 History baclofen 10 mg tablet See Rx Instructions .Route .COMPLEX 04/01/24 11/04/24 11/03/24 History bupropion HCl 150 mg 24 hr tablet, 150 mg PO DAILY 04/01/24 11/04/24 11/03/24 History extended release cetirizine 10 mg tablet (Zyrtec) 5 mg PO DAILY 04/01/24 11/04/24 11/03/24 History cholecalciferol (vitamin D3) 25 25 mcg PO BID 04/01/24 11/04/24 11/03/24 History mcg (1,000 unit) capsule (Vitamin D3) cranberry extract 500 [id number] 2 tablet PO DAILY 04/01/24 11/04/24 11/03/24 History 50 mg chewable tablet (Actifruit Cranberry) dalfampridine 10 mg 10 mg PO Q12H 04/01/24 11/04/24 11/03/24 History tablet,extended release,12 hr gabapentin 100 mg capsule See Rx Instructions .Route .COMPLEX 04/01/24 11/04/24 11/03/24 History levothyroxine 150 mcg tablet 150 mcg PO DAILY 04/01/24 11/04/24 11/03/24 History modafinil 200 mg tablet 200 mg PO DAILY 04/01/24 11/04/24 11/03/24 History <Claudia Oliver PA-C - Last Filed: 11/05/24 17:13> Allergies/Adverse Reactions: Allergies Allergy/AdvReac Type Severity Reaction Status Date / Time No Known Allergies Allergy Verified 11/05/24 15:44 <Claudia Oliver PA-C - Last Filed: 11/05/24 17:13> Review of Systems Review of Systems: All systems reviewed & are unremarkable except as noted in HPI and below <Claudia Oliver PA-C - Last Filed: 11/05/24 17:13> [facility] Past Medical History Medical History: Medical History (Updated 11/05/24 @ 14:55 by Guillermina Nguyen APRN) Suprapubic catheter Depression Hypothyroidism Hypertension Footdrop Bladder stone Hyperlipidemia Multiple sclerosis <KATHY Ayala Last Filed: 11/05/24 17:13> Surgical History Surgical History: Surgical History (Updated 11/04/24 @ 08:02 by Shruti Scott APRN) H/O section X2 <KATHY Ayala Last Filed: 11/05/24 17:13> Family History Family History: Family History Father Parkinson's disease Mother Cerebrovascular accident Alcoholism Other Leukemia maternal aunt Grandparent Acute myocardial infarction paternal grandfather Sibling Heart valve replaced 2 valves <KATHY Ayala Last Filed: 11/05/24 17:13> Social History Social History: Social History (Updated 11/04/24 @ 08:03 by Shruti Scott APRN) Social History: The patient is disabled and resides with her daughter and son-in-law. She has 2 children. She is . Code status: Full code Smoking packs per day: 0.5 Smoking cigarettes per day: 10.0 Years smoked: 1 Smoking pack-years: 0.50 Smoking status: Former smoker Tobacco type: cigarettes Second hand tobacco smoke exposure: No Alcohol intake: never Drinks per week: 0 Substance use: never Substance use type: marijuana Other substance usage details: former edible use for pain Last use: 10/21/24 Do You Feel Safe in your Home?: Yes Lack of Transportation: No Lack of Food: Never True Current Housing: I Have Housing Concerned About Future Housing: No Difficulty Paying Gas/Electric Bills: No Difficulty Paying for Meds: No Currently Unemployed: No Education: High School Diploma/GED Difficulty w/ Childcare or Family Care: No Spiritual care concerns: No <Claudia Oliver PA-C - Last Filed: 11/05/24 17:13> Exam Narrative: GENERAL: Ill-appearing, well-nourished, and in no acute distress. HEAD: Normocephalic, atraumatic. EYES: EOMI. ENT: Nares clear, no rhinorrhea or epistaxis. Mucous membranes moist. Oropharynx without tonsillar hypertrophy exudate or other lesions. CHEST: Clear to auscultation. No respiratory distress. No wheezes rales or rhonchi HEART: Regular rate and rhythm. No murmur heard. Normal peripheral pulses. ABDOMEN: Soft, nontender, nondistended, normal active bowel sounds. Suprapubic catheter in place EXTREMITIES: Normal range of motion. No edema. SKIN: Warm, dry, no rash. NEURO: No focal deficits. Alert and oriented x3. PSYCH: Normal mood and affect <Claudia Oliver PA-C - Last Filed: 11/05/24 17:13> Course Vital Signs Vital signs: Vital Signs Temperature 100.9 F H 11/03/24 20:53 Pulse Rate 119 H 11/03/24 20:53 Respiratory Rate 17 11/03/24 20:53 Blood Pressure 127/65 11/03/24 20:53 Pulse Oximetry 93 11/03/24 20:53 Oxygen Delivery Room Air 11/03/24 20:53 Temperature 98.2 F 11/05/24 16:00 Pulse Rate 77 11/05/24 16:00 Respiratory Rate 20 11/05/24 16:00 Blood Pressure 153/71 H 11/05/24 16:00 Pulse Oximetry 95 11/05/24 16:00 Oxygen Delivery Room Air 11/05/24 08:55 Oxygen Flow Rate 2 11/04/24 08:45 Fraction of Inspired Oxygen 21 11/05/24 04:11 <Claudia Oliver PA-C - Last Filed: 11/05/24 17:13> Vital Signs Temperature 100.9 F H 11/03/24 20:53 Pulse Rate 119 H 11/03/24 20:53 Respiratory Rate 17 11/03/24 20:53 Blood Pressure 127/65 11/03/24 20:53 Pulse Oximetry 93 11/03/24 20:53 Oxygen Delivery Room Air 11/03/24 20:53 Temperature 98.2 F 11/05/24 16:00 Pulse Rate 77 11/05/24 16:00 Respiratory Rate 20 11/05/24 16:00 Blood Pressure 153/71 H 11/05/24 16:00 Pulse Oximetry 95 11/05/24 16:00 Oxygen Delivery Room Air 11/05/24 08:55 Oxygen Flow Rate 2 11/04/24 08:45 Fraction of Inspired Oxygen 11/05/24 04:11 <Mamie Ty MD - Last Filed: 11/04/24 04:57> MDM - Fever MDM Narrative Medical decision making narrative: Patient presents with fever, she is tachycardic, febrile, looks unwell. She does have a UTI which is treated with ceftriaxone and fluids, her lytes are quite deranged with potassium less than 2, calcium 4.6, magnesium 0.9, these are all repleted. White count 15.6 CT does show large bladder stone, however this was present on her prior CT also. Case discussed with urologist, who will be consulting on the patient, at this point recommends fluids and antibiotics and no acute intervention at this time. EKG shows sinus tachycardia rate 111, CO 199, QRS 93, QTC 390, left axis deviation, flattened T-waves, but no ST elevations or depressions or signs of acute ischemia or arrhythmia Discussed with hospitalist for admission. Patient agreeable to plan. She is feeling better, and repeat vital signs are much improved. <Mamie Ty MD - Last Filed: 11/04/24 04:57> Differential Diagnosis Differential diagnosis: Likely fever of unknown origin, community acquired pneumonia, viral infection, sepsis, influenza and other (UTI) <Claudia Oliver PA-C - Last Filed: 11/05/24 17:13> Lab Data Attestation: I reviewed the patient's lab results. <Claudia Oliver PA-C - Last Filed: 11/05/24 17:13> Result diagrams: 11/05/24 03:53 11/04/24 10:28 <Claudia Oliver PA-C - Last Filed: 11/05/24 17:13> Labs: Lab Results 11/03/24 11/03/24 11/03/24 Range/Units 21:28 21:50 21:59 WBC 15.6 H (4.5-10.0) K/mm3 RBC 2.93 L (4.2-5.4) M/mm3 Hgb 9.1 L (12.0-15.0) g/dL Hct 28.5 L (37.0-47.0) % MCV 97.3 (80-100) fl MCH 31.1 (26-34) pg MCHC 31.9 L (32-36) g/dl RDW 13.2 (11.5-14.5) % Plt Count 185 (150-375) k/mm3 MPV 9.2 (7.4-10.4) fl Immature Gran % (Auto) 0.4 (0-0.5) % Neut % (Auto) 94.1 H (45.5-73.1) % Lymph % (Auto) 3.7 L (18.3-44.2) % Gem % (Auto) 1.3 L (2.6-8.5) % Eos % (Auto) 0.3 (0-4.4) % Baso % (Auto) 0.2 (0.2-1.2) % Lymph # (Auto) 0.58 L (0.9-3.2) K/mm3 Gem # (Auto) 0.2 (0.1-0.6) K/mm3 Eos # (Auto) 0.1 (0-0.3) K/mm3 Baso # (Auto) 0.0 (0.0-0.1) K/mm3 Abs Immat Gran (auto) 0.07 H (0.00-0.031) K/mm3 Absolute Neuts (auto) 14.7 H (1.3-6.7) K/mm3 Absolute Nucleated RBC 0.000 (0.0-0.012) K/mm3 Nucleated RBC % 0.0 (0.0-0.2) % PT 17.8 H (11.1-14.7) Seconds INR 1.5 APTT 38.8 H (22.3-36.8) Seconds Sodium 136 L (137-145) mmol/L Potassium < 2.0 L* (3.4-5.0) mmol/L Chloride 116 H (98-107) mmol/L Carbon Dioxide 15 L (22-30) mmol/L Anion Gap 5 (4-12) mmol/L BUN 7 (7-17) mg/dL Creatinine 0.28 L (0.7-1.0) mg/dL Estim Creat Clear Calc 213 ml/min Estimated GFR > 60 (59 - ) Glucose 63 L (65-110) mg/dL Lactic Acid 0.9 (0.7-2.0) mmol/L Calcium 4.6 L* (8.4-10.2) mg/dL Magnesium 0.9 L (1.6-2.3) mg/dL Total Bilirubin 0.4 (0.2-1.3) mg/dL AST 15 (14-36) U/L ALT 30 (6-35) U/L Alkaline Phosphatase 72 (38-126) U/L C-Reactive Protein 2.3 H (<1.0) mg/dL Total Protein 4.1 L (6.3-8.2) g/dL Albumin 1.7 L (3.5-5.1) g/dL Lipase 11 L (23-300) U/L Urine Color Yellow (Yellow) Urine Appearance Turbid H (Clear) Urine pH >=9.0 H (5.0-9.0) Ur Specific [place] 1.011 (1.001-1.035) Urine Protein 3+ H (Negative) mg/dL Urine Glucose (UA) Negative (Negative) mg/dL Urine Ketones Negative (Negative) mg/dL Ur Blood (Man) 2+ H (Negative) Urine Nitrate Negative (Negative) Urine Bilirubin Negative (Negative) Urine Urobilinogen 1.0 (<2.0) mg/dL Leukocyte Esterase Rfl 3+ H (Negative) GIL/UL Urine RBC 11-20 H (0-2) /hpf Urine WBC >100 H (0-3) /hpf Ur Squamous Epith Cells Many H (Few) /hpf Triple Phos Crystals Present H (None) /hpf Amorphous Sediment Moderate H (None) Urine Bacteria 4+ /hpf Urine Casts >20 Urine Mucus Present /lpf Influenza A (RT-PCR) Negative (Negative) Influenza B (RT-PCR) Negative (Negative) RSV (RT-PCR) Negative (Negative) SARS-CoV-2 RNA (RT-PCR) Negative (Negative) <Claudia Oliver PA-C - Last Filed: 11/05/24 17:13> Lab Results 11/03/24 11/03/24 11/03/24 Range/Units 21:28 21:50 21:59 WBC 15.6 H (4.5-10.0) K/mm3 RBC 2.93 L (4.2-5.4) M/mm3 Hgb 9.1 L (12.0-15.0) g/dL Hct 28.5 L (37.0-47.0) % MCV 97.3 (80-100) fl MCH 31.1 (26-34) pg MCHC 31.9 L (32-36) g/dl RDW 13.2 (11.5-14.5) % Plt Count 185 (150-375) k/mm3 MPV 9.2 (7.4-10.4) fl Immature Gran % (Auto) 0.4 (0-0.5) % Neut % (Auto) 94.1 H (45.5-73.1) % Lymph % (Auto) 3.7 L (18.3-44.2) % Gem % (Auto) 1.3 L (2.6-8.5) % Eos % (Auto) 0.3 (0-4.4) % Baso % (Auto) 0.2 (0.2-1.2) % Lymph # (Auto) 0.58 L (0.9-3.2) K/mm3 Gem # (Auto) 0.2 (0.1-0.6) K/mm3 Eos # (Auto) 0.1 (0-0.3) K/mm3 Baso # (Auto) 0.0 (0.0-0.1) K/mm3 Abs Immat Gran (auto) 0.07 H (0.00-0.031) K/mm3 Absolute Neuts (auto) 14.7 H (1.3-6.7) K/mm3 Absolute Nucleated RBC 0.000 (0.0-0.012) K/mm3 Nucleated RBC % 0.0 (0.0-0.2) % PT 17.8 H (11.1-14.7) Seconds INR 1.5 APTT 38.8 H (22.3-36.8) Seconds Sodium 136 L (137-145) mmol/L Potassium < 2.0 L* (3.4-5.0) mmol/L Chloride 116 H (98-107) mmol/L Carbon Dioxide 15 L (22-30) mmol/L Anion Gap 5 (4-12) mmol/L BUN 7 (7-17) mg/dL Creatinine 0.28 L (0.7-1.0) mg/dL Estim Creat Clear Calc 213 ml/min Estimated GFR > 60 (59 - ) Glucose 63 L (65-110) mg/dL Lactic Acid 0.9 (0.7-2.0) mmol/L Calcium 4.6 L* (8.4-10.2) mg/dL Magnesium 0.9 L (1.6-2.3) mg/dL Total Bilirubin 0.4 (0.2-1.3) mg/dL AST 15 (14-36) U/L ALT 30 (6-35) U/L Alkaline Phosphatase 72 (38-126) U/L C-Reactive Protein 2.3 H (<1.0) mg/dL Total Protein 4.1 L (6.3-8.2) g/dL Albumin 1.7 L (3.5-5.1) g/dL Lipase 11 L (23-300) U/L Urine Color Yellow (Yellow) Urine Appearance Turbid H (Clear) Urine pH >=9.0 H (5.0-9.0) Ur Specific [place] 1.011 (1.001-1.035) Urine Protein 3+ H (Negative) mg/dL Urine Glucose (UA) Negative (Negative) mg/dL Urine Ketones Negative (Negative) mg/dL Ur Blood (Man) 2+ H (Negative) Urine Nitrate Negative (Negative) Urine Bilirubin Negative (Negative) Urine Urobilinogen 1.0 (<2.0) mg/dL Leukocyte Esterase Rfl 3+ H (Negative) GIL/UL Urine RBC 11-20 H (0-2) /hpf Urine WBC >100 H (0-3) /hpf Ur Squamous Epith Cells Many H (Few) /hpf Triple Phos Crystals Present H (None) /hpf Amorphous Sediment Moderate H (None) Urine Bacteria 4+ /hpf Urine Casts >20 Urine Mucus Present /lpf Influenza A (RT-PCR) Negative (Negative) Influenza B (RT-PCR) Negative (Negative) RSV (RT-PCR) Negative (Negative) SARS-CoV-2 RNA (RT-PCR) Negative (Negative) <Mamie Ty MD - Last Filed: 11/04/24 04:57> Imaging Data Radiologist's impression: Chest x-ray: No acute cardiopulmonary abnormality CT abdomen/pelvis: IMPRESSION: 1. Mild left hydronephrosis and hydroureter. 2. Bladder stones. Nonobstructing left kidney stones. 3. Lap band of the proximal stomach with discontinuous tubing. <Claudia Oliver PA-C - Last Filed: 11/05/24 17:13> ECG Data EKG #1: ECG completion date: 11/03/24 <Claudia Oliver PA-C - Last Filed: 11/05/24 17:13> EKG Interpretation: tachycardia, sinus rhythm, no ST changes and normal QT <Claudia Oliver PA-C - Last Filed: 11/05/24 17:13> Critical Care Time Critical Care Time Critical Care Time: Yes <Mamie Ty MD - Last Filed: 11/04/24 04:57> Total Critical Care Time: 41 <Mamie Ty MD - Last Filed: 11/04/24 04:57> Discharge Plan Discharge Clinical Impression: Hypomagnesemia, Hypokalemia, Hypocalcemia, Acute UTI <Claudia Oliver PA-C - Last Filed: 11/05/24 17:13> Patient Disposition: Still a Patient <Claudia Oliver PA-C - Last Filed: 11/05/24 17:13> Condition: Serious <Claudia Oliver PA-C - Last Filed: 11/05/24 17:13>
[2024-11-03 22:08] LABS: Add Urine Microscopic? YES; Appearance Urine Turbid (Clear); Glucose Urine UA Negative (Negative); Leukocyte Esterase Ur 3+ LEU/UL (Negative); Nitrate Urine Negative (Negative); Non Pathogenic Casts >20; Specific Grav Ur 1.011 (1.001-1.035)
[2024-11-03 22:27] LABS: Alanine Aminotransferase 30 U/L (6-35); Albumin Level 1.7 g/dL (3.5-5.1); Alkaline Phosphatase 72 U/L (38-126); Anion Gap 5 mmol/L (4-12); Aspartate Amino Transferase 15 U/L (14-36); Bilirubin,Total 0.4 mg/dL (0.2-1.3); Blood Urea Nitrogen 7 mg/dL (7-17); CRP 2.3 mg/dL (<1.0); Calcium 4.6 mg/dL (8.4-10.2); Carbon Dioxide 15 mmol/L (22-30); Chloride 116 mmol/L (98-107); Estimated CRCL calculation 213 ml/min; Estimated Glomerular Filt Rate > 60; Glucose 63 mg/dL (65-110); Lipase 11 U/L (23-300); Potassium < 2.0 mmol/L (3.4-5.0); Sodium 136 mmol/L (137-145); Total Protein 4.1 g/dL (6.3-8.2)
[2024-11-03 22:32] LABS: Influenza A QL RT-PCR Negative (Negative); Influenza B QL RT-PCR Negative (Negative); RSV RNA, RT-PCR Negative (Negative); SARS-CoV-2 RNA PCR Negative (Negative)
[2024-11-03 22:56] LABS: Magnesium 0.9 mg/dL (1.6-2.3)
[2024-11-03] MEDS: cefTRIAXone 1 GM in SODIUM CHLORIDE 0.9% IV 50 ML 100 ML IVPB (23:18)
[2024-11-03] MEDS: ACETAMINOPHEN 500 MG TABLET 1000 MG PO (23:19)
[2024-11-03] MEDS: ONDANSETRON INJ 4 MG/2 ML VIAL IV PUSH (23:21)
[2024-11-03] MEDS: POTASSIUM CHLORIDE INJ 40 MEQ in SODIUM CHLORIDE 0.9% IV 500 ML 130 MEQ IVPB (23:24)
[2024-11-03] MEDS: MAGNESIUM SULF 2 GM/WATER 50ML 2 GM/50 ML BAG IVPB (23:38)
[2024-11-04] VITALS (32 sets, daily range): BP systolic 104–140; BP diastolic 65–87; PULSE 68–96; RESP 12–20; TEMP 36.5–36.6; O2SAT 90–100; BMI 40.5
[2024-11-04] MEDS: CALCIUM GLUCONATE 1,000 MG/10 ML VIAL 2000 MG IV PUSH (02:21)
[2024-11-04] MEDS: POTASSIUM CHLORIDE 20 MEQ PACKET (FOR LIQUID) 40 MEQ PO (03:49)
[2024-11-04] MEDS: LACTATED RINGERS 1,000 ML 999 ML IV CONT (03:49)
[2024-11-04] MEDS: POTASSIUM CHLORIDE INJ 40 MEQ in SODIUM CHLORIDE 0.9% IV 500 ML 130 MEQ IVPB (04:05)
[2024-11-04] MEDS: LACTATED RINGERS 1,000 ML 125 ML IV CONT (04:07)
--- NOTE | 2024-11-04 06:12 | ADMGEN ---
This patient, Day Sawyer, was admitted to IMU Room 202-01 on 11/04/24 at 0531. Patient/family oriented to hospital policies and general routines including ID bracelet, bed and alarms, visiting hours, pain management, procedures, bathroom and other care routines, personal items, smoking policy, room service/diet, and visiting hours. Information on how to activate the Rapid Response Team has been discussed. Patient/Family are encouraged to report perceived risks to care and to ask questions if they do not understand what they are told or what they should do.
--- NOTE | 2024-11-04 07:55 | PM.IMHP ---
H&P: HPI History of Present Illness Date/Time: 11/04/24 07:55 Chief Complaint: Fever Narrative: This is a 64-year-old female patient who has a history of MS. She has a chronic indwelling suprapubic catheter. She does have a history of having a bladder stone. The patient stated that her suprapubic catheter was changed couple weeks ago and that it is always cloudy with a lot of sediment. Her white count was noted to be 15.6. Her H&H is 9.1 and 28.5. With her previous H and H of 10.8 and 33.4 respectively. Her sodium is 136, potassium less than 2, chloride 116, carbon dioxide 15, calcium 4.6, and magnesium 0.9. Urine has 3+ leukocytes, 11-20 rbc's, wbc's greater than 100, many squamous epithelium, urine bacteria 4+, And amorphous sediment moderate. Viral serology negative. Urology has been consulted. The patient was given normal saline, ceftriaxone, Tylenol, Zofran, potassium, magnesium, and calcium. The patient is being admitted to inpatient status on the date of service of 11/04/2024. Review of Systems Constitutional: Constitutional: Reports as per HPI and Reports no additional constitutional complaints Eyes: Eyes: Reports as per HPI and Reports no additional eye complaints ENT: Reports no additional ear, nose, mouth, and throat complaints and Reports Normal hearing present Cardiovascular: Cardiovascular: Reports no additional cardiovascular complaints Respiratory: Respiratory: Reports as per HPI and Reports no additional respiratory complaints Gastrointestinal: Gastrointestinal: Reports as per HPI and Reports no additional gastrointestinal complaints Genitourinary: Genitourinary: Reports no additional female genitourinary complaints Musculoskeletal: Musculoskeletal: Reports no additional musculoskeletal complaints Integumentary/Breasts: Skin/Breast: Reports system reviewed and no additional complaints, except as docu Neurologic: Reports no additional neurologic complaints and Reports Normal hearing present Psychiatric: Psychiatric: Reports no additional psychiatric complaints and Reports as per HPI Hematologic/Lymphatic: Hematologic/Lymphatic: Reports no additional hematologic/lymphatic complaints Allergic/Immunologic: Allergic/Immunologic: Reports no additional allergic/immunologic complaints [facility] Past Medical History Medical History (Updated 11/06/24 @ 16:47 by Cedric Harris MD) Suprapubic catheter Depression Hypothyroidism Hypertension Footdrop Bladder stone Hyperlipidemia Multiple sclerosis Surgical History Surgical History (Updated 11/04/24 @ 08:02 by Shruti Scott APRN) H/O section X2 Family History Family History Father Parkinson's disease Mother Cerebrovascular accident Alcoholism Other Leukemia maternal aunt Grandparent Acute myocardial infarction paternal grandfather Sibling Heart valve replaced 2 valves Social History Social History (Updated 11/04/24 @ 08:03 by Shruti Scott APRN) Social History: The patient is disabled and resides with her daughter and son-in-law. She has 2 children. She is . Code status: Full code Smoking packs per day: 0.5 Smoking cigarettes per day: 10.0 Years smoked: 1 Smoking pack-years: 0.50 Smoking status: Former smoker Tobacco type: cigarettes Second hand tobacco smoke exposure: No Alcohol intake: never Drinks per week: 0 Substance use: never Substance use type: marijuana Other substance usage details: former edible use for pain Last use: 10/21/24 Do You Feel Safe in your Home?: Yes Lack of Transportation: No Lack of Food: Never True Current Housing: I Have Housing Concerned About Future Housing: No Difficulty Paying Gas/Electric Bills: No Difficulty Paying for Meds: No Currently Unemployed: No Education: High School Diploma/GED Difficulty w/ Childcare or Family Care: No Spiritual care concerns: No Meds Home Medications and Allergies Home Medications ?Medication ?Instructions ?Recorded ?Confirmed ?Type ascorbic acid (vitamin C) 500 mg 1,000 mg PO TID 04/01/24 11/04/24 History tablet (Vitamin C) atorvastatin 20 mg tablet 20 mg PO DAILY 04/01/24 11/04/24 History baclofen 10 mg tablet See Rx Instructions .Route .COMPLEX 04/01/24 11/04/24 History bupropion HCl 150 mg 24 hr tablet, 150 mg PO DAILY 04/01/24 11/04/24 History extended release cetirizine 10 mg tablet (Zyrtec) 5 mg PO DAILY 04/01/24 11/04/24 History cholecalciferol (vitamin D3) 25 25 mcg PO BID 04/01/24 11/04/24 History mcg (1,000 unit) capsule (Vitamin D3) cranberry extract 500 [id number] 2 tablet PO DAILY 04/01/24 11/04/24 History 50 mg chewable tablet (Actifruit Cranberry) dalfampridine 10 mg 10 mg PO Q12H 04/01/24 11/04/24 History tablet,extended release,12 hr gabapentin 100 mg capsule See Rx Instructions .Route .COMPLEX 04/01/24 11/04/24 History levothyroxine 150 mcg tablet 150 mcg PO DAILY 04/01/24 11/04/24 History modafinil 200 mg tablet 200 mg PO DAILY 04/01/24 11/04/24 History levofloxacin 750 mg tablet 750 mg PO DAILY #2 tabs 11/12/24 Rx solifenacin 5 mg tablet (Vesicare) 5 mg PO QAM #30 tabs 11/12/24 Rx Allergies Allergy/AdvReac Type Severity Reaction Status Date / Time No Known Allergies Allergy Verified 11/05/24 15:44 Vital Signs Vital Signs - 24 hr 11/03/24 20:53 11/03/24 21:05 11/03/24 21:08 Temperature 100.9 F H Pulse Rate 119 H 119 H 118 H Respiratory Rate 17 19 24 H Blood Pressure 127/65 127/65 Pulse Oximetry 93 92 92 Oxygen Delivery Room Air Oxygen Flow Rate 11/03/24 21:15 11/04/24 01:46 11/04/24 01:52 Temperature Pulse Rate 119 H 81 Respiratory Rate 20 12 13 Blood Pressure 104/70 104/70 Pulse Oximetry 93 96 95 Oxygen Delivery Oxygen Flow Rate 11/04/24 01:57 11/04/24 02:10 11/04/24 02:15 Temperature Pulse Rate Respiratory Rate 15 14 Blood Pressure Pulse Oximetry 91 96 98 Oxygen Delivery Nasal Cannula Oxygen Flow Rate 4 11/04/24 02:35 11/04/24 02:45 11/04/24 02:47 Temperature Pulse Rate 82 85 84 Respiratory Rate 14 15 12 Blood Pressure 119/65 Pulse Oximetry 96 98 100 Oxygen Delivery Oxygen Flow Rate 11/04/24 03:00 11/04/24 03:19 11/04/24 03:30 Temperature Pulse Rate 81 79 80 Respiratory Rate 13 14 15 Blood Pressure Pulse Oximetry 93 96 95 Oxygen Delivery Oxygen Flow Rate 11/04/24 03:32 11/04/24 03:46 11/04/24 04:02 Temperature 97.9 F Pulse Rate 77 76 77 Respiratory Rate 12 15 15 Blood Pressure 114/72 Pulse Oximetry 98 95 95 Oxygen Delivery Oxygen Flow Rate 11/04/24 04:15 Temperature 97.9 F Pulse Rate Respiratory Rate Blood Pressure Pulse Oximetry Oxygen Delivery Oxygen Flow Rate Exam Const: General: cooperative, no acute distress, well developed, awake, Physically active and well nourished Nutritional Appearance: obese Orientation/consciousness: oriented to person, oriented to place, oriented to time and patient oriented x3 Limitations: no limitations HENMT: Head: normal to inspection Ears: hearing grossly normal bilaterally Eyes: General: appearance normal, both eyes and all related structures Alignment and Position: alignment normal Periorbital: periorbital findings normal Eyelids: eyelids normal Conjunctivae: conjunctivae normal Sclera: sclerae normal Cornea: corneas normal Pupils: Equal, round and reactive pupils present and Pupil accommodation reflex normal EOM: EOMs intact bilaterally Neck: Neck: normal visual inspection Chest: Chest palpation & inspection: normal inspection of the chest Resp: Effort & Inspection: normal respiratory effort Auscultation: clear to auscultation bilaterally Cardio: Palpation: normal PMI Rate: regular rate Rhythm: regular rhythm Heart sounds: S1 normal heart sound present and S2 normal heart sound present Peripheral pulses: Peripheral pulses 2+ throughout Other: SINUS TACHYCARDIA LEFT AXIS DEVIATION [QRS AXIS < -30] LOW QRS VOLTAGE IN PRECORDIAL LEADS [QRS DEFLECTION < 1.0 mV IN CHEST LEADS] INCOMPLETE RIGHT BUNDLE BRANCH BLOCK [90+ ms QRS DURATION, TERMINAL R IN V1/V2, 40+ ms S IN I/aVL/V4/V5/V6] NONSPECIFIC T-WAVE ABNORMALITY Compared to ECG 04/01/2024 21:09:57 Left-axis deviation now present Low QRS voltage now present Incomplete right bundle-branch block now present T-wave abnormality now present Sinus rhythm no longer present GI: Inspection: normal to inspection Percussion: Yes normal to percussion : Other: Suprapubic catheter intact Urinary Catheter: Urinary Catheter: patent and draining, urine cloudy, urine dark and other Back/Spine/Pelvis: Back: no CVA tenderness Skin: General skin exam: normal color Lesions: no lesions Rashes: no rashes Trauma: no lacerations or abrasions Wounds: no wounds Hair: normal Nails: normal Neuro: General: oriented to person, oriented to place, oriented to time and patient oriented x3 Cranial nerves: Yes Equal, round and reactive pupils present and Yes Normal hearing present Extrem: General: normal to inspection Right upper extremity: normal to inspection and shoulder/upper arm Left upper extremity: normal to inspection and shoulder/upper arm Right lower extremity: normal to inspection Left lower extremity: normal to inspection Other: -purple discoloration to 2nd and 3rd toe. Pedal pulses are palpable. Bilateral lower extremities are warm to touch. Capillary refill within normal limits. Psych: Appearance: grossly normal Mental Status: mental status grossly normal Speech and movement: Slowed speech present (Psych) Affect: normal affect Attitude: cooperative Thought process: Normal thought process present H&P: Results Labs Labs: Short CBC 11/03/24 Range/Units 21:28 WBC 15.6 H (4.5-10.0) K/mm3 Hgb 9.1 L (12.0-15.0) g/dL Hct 28.5 L (37.0-47.0) % Plt Count 185 (150-375) k/mm3 BMP 11/03/24 21:59 Sodium 136 L Potassium < 2.0 L* Chloride 116 H Carbon Dioxide 15 L BUN 7 Creatinine 0.28 L Glucose 63 L Calcium 4.6 L* Liver Function 11/03/24 Range/Units 21:59 Total Bilirubin 0.4 (0.2-1.3) mg/dL AST 15 (14-36) U/L ALT 30 (6-35) U/L Alkaline Phosphatase 72 (38-126) U/L Albumin 1.7 L (3.5-5.1) g/dL Urine 11/03/24 Range/Units 21:50 Urine Color Yellow (Yellow) Urine Appearance Turbid H (Clear) Urine pH >=9.0 H (5.0-9.0) Ur Specific [place] 1.011 (1.001-1.035) Urine Protein 3+ H (Negative) mg/dL Urine Glucose (UA) Negative (Negative) mg/dL Assessment and Plan Assessment and plan (1) UTI (urinary tract infection): Code(s): N39.0 - Urinary tract infection, site not specified Status: Acute Assessment and Plan: -patient has leukocytosis with WBCs 15.6. -blood and urine cultures are pending. -urology has been consulted. -initially it was thought that the patient had an infected stone. However the er physician reviewed the CT scan and stated that she believes this was a bladder stone which is a chronic stone and was on her previous imaging. -she is afebrile at this time. Previously upon arrival to the emergency room her temperature was 100.9?. -patient's urine appears to be infective however she has a suprapubic catheter and she could have some colonization. -the patient was started on Rocephin. -daily CBCs. (2) Bladder stone: Code(s): N21.0 - Calculus in bladder Status: Acute Assessment and Plan: -urology has been consulted. -please review final report of CT. (3) Hypocalcemia: Code(s): E83.51 - Hypocalcemia Status: Acute Assessment and Plan: -calcium 4.6. -repeat calcium in 4 hours. And daily. (4) Hypokalemia: Code(s): E87.6 - Hypokalemia Status: Acute Assessment and Plan: -the patient was given p.o. potassium as well as IV potassium. -repeat her potassium levels and repeat as necessary. -daily BMPs (5) Hypomagnesemia: Code(s): E83.42 - Hypomagnesemia Status: Acute Assessment and Plan: -patient's magnesium was 0.9. -repeat magnesium level and replace as necessary. -the patient had 2 g of magnesium sulfate, added another 2 g to be given this morning. (6) Hyperlipidemia: Code(s): E78.5 - Hyperlipidemia, unspecified Status: Acute Assessment and Plan: -continue with home medications. (7) Hypertension: Code(s): I10 - Essential (primary) hypertension Status: Acute Assessment and Plan: -continue with home medications if feasible. (8) Depression: Code(s): F32.A - Depression, unspecified Status: Acute Assessment and Plan: -continue with home medication if feasible. Please review medication reconciliation records (9) Multiple sclerosis: Code(s): G35 - Multiple sclerosis Status: Acute Assessment and Plan: -continue baclofen -patient stated that she is wheelchair bound/bed-bound. -wound care for friction zhang. Quality VTE Prophylaxis VTE prophylaxis: mechanical ordered
[2024-11-04] MEDS: MAGNESIUM SULF 2 GM/WATER 50ML 2 GM/50 ML BAG IVPB (10:23)
[2024-11-04 10:43] LABS: Anion Gap 6 mmol/L (4-12); Blood Urea Nitrogen 7 mg/dL (7-17); Calcium 8.7 mg/dL (8.4-10.2); Carbon Dioxide 27 mmol/L (22-30); Chloride 104 mmol/L (98-107); Estimated CRCL calculation 142 ml/min; Estimated Glomerular Filt Rate > 60; Glucose 101 mg/dL (65-110); Potassium 4.3 mmol/L (3.4-5.0); Sodium 137 mmol/L (137-145)
--- NOTE | 2024-11-04 11:07 | WPDURCON ---
Assessment and Plan Assessment and plan (1) UTI (urinary tract infection): Code(s): N39.0 - Urinary tract infection, site not specified Status: Acute Assessment and Plan: Cultures pending at the present time. Continue with empiric antibiotics pending cultures. (2) Bladder stone: Code(s): N21.0 - Calculus in bladder Status: Acute Assessment and Plan: Given the amount of stone burden present she would require either open procedure or attempt at laser. Will need to get over her acute infection. Patient's care will be taken over by . (3) Nephrolithiasis: Code(s): N20.0 - Calculus of kidney Status: Acute Assessment and Plan: Asymptomatic and nonobstructing at this time. Will need further evaluation as outpatient Urology Consult Note HPI Date Seen: 11/04/24 Time Seen: 11:08 Requesting Physician: Blair Rosenberg MD Primary Care Provider: Feliberto Carmichael Consult Narrative Reason for consult: UTI/bladder stones Narrative: Day Sawyer is a 64 year old female who was admitted here back in March of this year. She has complicated history but in general has multiple sclerosis and has a chronic suprapubic tube that was just recently changed. She has known significant bladder stone burden as well as some left renal calculi. She normally is taking care of a [facility] but is having transportation issues and wants to transfer her care to this location. She now presented again with symptoms of a urinary tract infection along with chills. Patient is in mobile and uses a lift to transfer to were electric wheelchair. Her white count was 186[address]. Creatinine is normal at 0.28. Lactic acid was also normal at 0.9. She had her urine was leukocyte esterase positive with greater than [address] scan revealed some mild left hydroureter and a collection of large stones in her bladder. There are least 5 stones with the largest measuring 3.3 cm. She is currently asymptomatic at the time of my evaluation. Denies any pain. Review of Systems Review of Systems: All systems reviewed & are unremarkable except as noted in HPI and below PMFSH Past Medical History Medical History (Updated 11/04/24 @ 08:21 by Shruti cSott APRN) Suprapubic catheter Depression Hypothyroidism Hypertension Footdrop Bladder stone Hyperlipidemia Multiple sclerosis Surgical History Surgical History (Updated 11/04/24 @ 08:02 by Shruti Scott APRN) H/O section X2 Family History Family History Father Parkinson's disease Mother Cerebrovascular accident Alcoholism Other Leukemia maternal aunt Grandparent Acute myocardial infarction paternal grandfather Sibling Heart valve replaced 2 valves Social History Social History (Updated 11/04/24 @ 08:03 by Shruti Scott APRN) Social History: The patient is disabled and resides with her daughter and son-in-law. She has 2 children. She is . Code status: Full code Smoking packs per day: 0.5 Smoking cigarettes per day: 10.0 Years smoked: 1 Smoking pack-years: 0.50 Smoking status: Former smoker Tobacco type: cigarettes Second hand tobacco smoke exposure: No Alcohol intake: never Drinks per week: 0 Substance use: never Substance use type: marijuana Other substance usage details: former edible use for pain Last use: 10/21/24 Do You Feel Safe in your Home?: Yes Lack of Transportation: No Lack of Food: Never True Current Housing: I Have Housing Concerned About Future Housing: No Difficulty Paying Gas/Electric Bills: No Difficulty Paying for Meds: No Currently Unemployed: No Education: High School Diploma/GED Difficulty w/ Childcare or Family Care: No Spiritual care concerns: No Meds Home Medications and Allergies Home Medications ?Medication ?Instructions ?Recorded ?Confirmed ?Type ascorbic acid (vitamin C) 500 mg 1,000 mg PO TID 04/01/24 11/04/24 History tablet (Vitamin C) atorvastatin 20 mg tablet 20 mg PO DAILY 04/01/24 11/04/24 History baclofen 10 mg tablet See Rx Instructions .Route .COMPLEX 04/01/24 11/04/24 History bupropion HCl 150 mg 24 hr tablet, 150 mg PO DAILY 04/01/24 11/04/24 History extended release cetirizine 10 mg tablet (Zyrtec) 5 mg PO DAILY 04/01/24 11/04/24 History cholecalciferol (vitamin D3) 25 25 mcg PO BID 04/01/24 11/04/24 History mcg (1,000 unit) capsule (Vitamin D3) cranberry extract 500 [id number] 2 tablet PO DAILY 04/01/24 11/04/24 History 50 mg chewable tablet (Actifruit Cranberry) dalfampridine 10 mg 10 mg PO Q12H 04/01/24 11/04/24 History tablet,extended release,12 hr gabapentin 100 mg capsule See Rx Instructions .Route .COMPLEX 04/01/24 11/04/24 History levothyroxine 150 mcg tablet 150 mcg PO DAILY 04/01/24 11/04/24 History modafinil 200 mg tablet 200 mg PO DAILY 04/01/24 11/04/24 History Allergies Allergy/AdvReac Type Severity Reaction Status Date / Time Milk Containing Products AdvReac Unknown Abdominal Verified 11/04/24 06:47 (Dairy) Pain Vital Signs Vital Signs - 24 hr 11/03/24 20:53 11/03/24 21:05 11/03/24 21:08 Temperature 38.3 C H Pulse Rate 119 H 119 H 118 H Respiratory Rate 17 19 24 H Blood Pressure 127/65 127/65 Pulse Oximetry 93 92 92 Oxygen Delivery Room Air Oxygen Flow Rate 11/03/24 21:15 11/04/24 01:46 11/04/24 01:52 Temperature Pulse Rate 119 H 81 Respiratory Rate 20 12 13 Blood Pressure 104/70 104/70 Pulse Oximetry 93 96 95 Oxygen Delivery Oxygen Flow Rate 11/04/24 01:57 11/04/24 02:10 11/04/24 02:15 Temperature Pulse Rate Respiratory Rate 15 14 Blood Pressure Pulse Oximetry 91 96 98 Oxygen Delivery Nasal Cannula Oxygen Flow Rate 4 11/04/24 02:35 11/04/24 02:45 11/04/24 02:47 Temperature Pulse Rate 82 85 84 Respiratory Rate 14 15 12 Blood Pressure 119/65 Pulse Oximetry 96 98 100 Oxygen Delivery Oxygen Flow Rate 11/04/24 03:00 11/04/24 03:19 11/04/24 03:30 Temperature Pulse Rate 81 79 80 Respiratory Rate 13 14 15 Blood Pressure Pulse Oximetry 93 96 95 Oxygen Delivery Oxygen Flow Rate 11/04/24 03:32 11/04/24 03:46 11/04/24 04:02 Temperature 36.6 C Pulse Rate 77 76 77 Respiratory Rate 12 15 15 Blood Pressure 114/72 Pulse Oximetry 98 95 95 Oxygen Delivery Oxygen Flow Rate 11/04/24 04:15 11/04/24 05:40 11/04/24 05:44 Temperature 36.6 C Pulse Rate 78 79 Respiratory Rate 16 Blood Pressure Pulse Oximetry 98 Oxygen Delivery Nasal Cannula Oxygen Flow Rate 4 11/04/24 08:00 11/04/24 08:35 11/04/24 08:45 Temperature 36.5 C Pulse Rate 78 72 81 Respiratory Rate 18 20 20 Blood Pressure 129/65 Pulse Oximetry 100 96 92 Oxygen Delivery Nasal Cannula Nasal Cannula Oxygen Flow Rate 4 2 Exam Const: General: cooperative, comfortable and no acute distress Resp: Effort & Inspection: normal respiratory effort Cardio: Rate: regular rate Rhythm: regular rhythm Results Labs 11/03/24 21:28 11/04/24 10:28 Labs: Short CBC 11/03/24 Range/Units 21:28 WBC 15.6 H (4.5-10.0) K/mm3 Hgb 9.1 L (12.0-15.0) g/dL Hct 28.5 L (37.0-47.0) % Plt Count 185 (150-375) k/mm3 [facility] 11/03/24 11/04/24 21:59 10:28 Sodium 136 L 137 Potassium < 2.0 L* 4.3 Chloride 116 H 104 Carbon Dioxide 15 L 27 BUN 7 7 Creatinine 0.28 L 0.46 L Glucose 63 L 101 Calcium 4.6 L* 8.7 Liver Function 11/03/24 Range/Units 21:59 Total Bilirubin 0.4 (0.2-1.3) mg/dL AST 15 (14-36) U/L ALT 30 (6-35) U/L Alkaline Phosphatase 72 (38-126) U/L Albumin 1.7 L (3.5-5.1) g/dL Urine 11/03/24 Range/Units 21:50 Urine Color Yellow (Yellow) Urine Appearance Turbid H (Clear) Urine pH >=9.0 H (5.0-9.0) Ur Specific [place] 1.011 (1.001-1.035) Urine Protein 3+ H (Negative) mg/dL Urine Glucose (UA) Negative (Negative) mg/dL
[2024-11-04 11:18] LABS: Thyroid Stimulating Hormone Reflex 1.780 uIU/mL (0.465-4.68)
[2024-11-04] MEDS: LACTATED RINGERS 1,000 ML 100 ML IV CONT ×2 (12:17→20:48)
--- NOTE | 2024-11-04 15:33 | PM.IMPN ---
Progress Note: A&P Assessment and Plan (1) UTI (urinary tract infection): Code(s): N39.0 - Urinary tract infection, site not specified Status: Acute Assessment and Plan: -patient has leukocytosis with WBCs 15.6. -blood and urine cultures are pending. Comfortable at bedside, vital signs wnl Urine cloudy in urine back, patient on suprapubic catheter -continue on Rocephin. -daily CBCs. (2) Bladder stone: Code(s): N21.0 - Calculus in bladder Status: Acute Assessment and Plan: CT AP reviewed showed mild hydronephrosis and hydroureter Urology consulted (3) Hypocalcemia: Code(s): E83.51 - Hypocalcemia Status: Acute Assessment and Plan: -calcium 4.6. -repeat calcium in 4 hours. And daily. (4) Hypokalemia: Code(s): E87.6 - Hypokalemia Status: Acute Assessment and Plan: resolved K 4.3 today (5) Hypomagnesemia: Code(s): E83.42 - Hypomagnesemia Status: Acute Assessment and Plan: -patient's magnesium was 0.9. replaced, monitor and replace accordingly (6) Hyperlipidemia: Code(s): E78.5 - Hyperlipidemia, unspecified Status: Acute Assessment and Plan: -continue with home medications. (7) Hypertension: Code(s): I10 - Essential (primary) hypertension Status: Acute Assessment and Plan: -continue with home medications if feasible. (8) Depression: Code(s): F32.A - Depression, unspecified Status: Acute Assessment and Plan: -continue with home medication if feasible. Please review medication reconciliation records (9) Multiple sclerosis: Code(s): G35 - Multiple sclerosis Status: Acute Assessment and Plan: -continue baclofen -patient stated that she is wheelchair bound/bed-bound. -wound care for friction zhang. Plan DVT prophylaxis on Sq Lovenox Subjective Date/time seen: 11/04/24 15:33 Interval history: Patient comfortable at bedside Review of Systems Constitutional: Constitutional: Reports as per HPI and Reports no additional constitutional complaints Eyes: Eyes: Reports as per HPI and Reports no additional eye complaints ENT: Reports system reviewed and no additional complaints, except as documented and Reports Normal hearing present Cardiovascular: Cardiovascular: Reports no additional cardiovascular complaints Respiratory: Respiratory: Reports as per HPI and Reports no additional respiratory complaints Gastrointestinal: Gastrointestinal: Reports as per HPI and Reports no additional gastrointestinal complaints Genitourinary: Genitourinary: Reports no additional female genitourinary complaints Musculoskeletal: Musculoskeletal: Reports no additional musculoskeletal complaints Integumentary/Breasts: Skin/Breast: Reports system reviewed and no additional complaints, except as docu Neurologic: Reports system reviewed and no additional complaints, except as documented and Reports Normal hearing present Psychiatric: Psychiatric: Reports no additional psychiatric complaints and Reports as per HPI Hematologic/Lymphatic: Hematologic/Lymphatic: Reports no additional hematologic/lymphatic complaints Allergic/Immunologic: Allergic/Immunologic: Reports no additional allergic/immunologic complaints Exam Const: General: cooperative, no acute distress, well developed, awake, Physically active, well nourished and obese Nutritional Appearance: well nourished and obese Orientation/consciousness: oriented to person, oriented to place, oriented to time and patient oriented x3 Limitations: no limitations HENMT: Head: normal to inspection Ears: hearing grossly normal bilaterally Eyes: General: appearance normal, both eyes and all related structures Alignment and Position: alignment normal Periorbital: periorbital findings normal Eyelids: eyelids normal Conjunctivae: conjunctivae normal Sclera: sclerae normal Cornea: corneas normal Pupils: Equal, round and reactive pupils present and Pupil accommodation reflex normal EOM: EOMs intact bilaterally Neck: Neck: normal visual inspection Chest: Chest palpation & inspection: normal inspection of the chest Resp: Effort & Inspection: normal respiratory effort Auscultation: clear to auscultation bilaterally Cardio: Palpation: normal PMI Rate: regular rate Rhythm: regular rhythm Heart sounds: S1 normal heart sound present and S2 normal heart sound present Peripheral pulses: Peripheral pulses 2+ throughout Other: SINUS TACHYCARDIA LEFT AXIS DEVIATION [QRS AXIS < -30] LOW QRS VOLTAGE IN PRECORDIAL LEADS [QRS DEFLECTION < 1.0 mV IN CHEST LEADS] INCOMPLETE RIGHT BUNDLE BRANCH BLOCK [90+ ms QRS DURATION, TERMINAL R IN V1/V2, 40+ ms S IN I/aVL/V4/V5/V6] NONSPECIFIC T-WAVE ABNORMALITY Compared to ECG 04/01/2024 21:09:57 Left-axis deviation now present Low QRS voltage now present Incomplete right bundle-branch block now present T-wave abnormality now present Sinus rhythm no longer present GI: Inspection: normal to inspection : General: Yes no CVA tenderness Other: Suprapubic catheter intact Urinary Catheter: Urinary Catheter: patent and draining, urine cloudy, urine dark and other Back/Spine/Pelvis: Back: no CVA tenderness Skin: General skin exam: normal color Lesions: no lesions Rashes: no rashes Trauma: no lacerations or abrasions Wounds: no wounds Hair: normal Nails: normal Neuro: General: oriented to person, oriented to place, oriented to time and patient oriented x3 Cranial nerves: Yes Equal, round and reactive pupils present and Yes Normal hearing present Extrem: General: normal to inspection Right upper extremity: normal to inspection and shoulder/upper arm Left upper extremity: normal to inspection and shoulder/upper arm Right lower extremity: normal to inspection Left lower extremity: normal to inspection Other: -purple discoloration to 2nd and 3rd toe. Pedal pulses are palpable. Bilateral lower extremities are warm to touch. Capillary refill within normal limits. Psych: Appearance: grossly normal Mental Status: mental status grossly normal Speech and movement: Normal speech and movement present and Slowed speech present (Psych) Affect: normal affect Attitude: cooperative Thought process: Normal thought process present Objective Data Vital Signs Vital Signs: Vital Signs - 24 hr 11/03/24 20:53 11/03/24 21:05 11/03/24 21:08 Temperature 100.9 F H Pulse Rate 119 H 119 H 118 H Respiratory Rate 17 19 24 H Blood Pressure 127/65 127/65 Pulse Oximetry 93 92 92 Oxygen Delivery Room Air Oxygen Flow Rate 11/03/24 21:15 11/04/24 01:46 11/04/24 01:52 Temperature Pulse Rate 119 H 81 Respiratory Rate 20 12 13 Blood Pressure 104/70 104/70 Pulse Oximetry 93 96 95 Oxygen Delivery Oxygen Flow Rate 11/04/24 01:57 11/04/24 02:10 11/04/24 02:15 Temperature Pulse Rate Respiratory Rate 15 14 Blood Pressure Pulse Oximetry 91 96 98 Oxygen Delivery Nasal Cannula Oxygen Flow Rate 4 11/04/24 02:35 11/04/24 02:45 11/04/24 02:47 Temperature Pulse Rate 82 85 84 Respiratory Rate 14 15 12 Blood Pressure 119/65 Pulse Oximetry 96 98 100 Oxygen Delivery Oxygen Flow Rate 11/04/24 03:00 11/04/24 03:19 11/04/24 03:30 Temperature Pulse Rate 81 79 80 Respiratory Rate 13 14 15 Blood Pressure Pulse Oximetry 93 96 95 Oxygen Delivery Oxygen Flow Rate 11/04/24 03:32 11/04/24 03:46 11/04/24 04:02 Temperature 97.9 F Pulse Rate 77 76 77 Respiratory Rate 12 15 15 Blood Pressure 114/72 Pulse Oximetry 98 95 95 Oxygen Delivery Oxygen Flow Rate 11/04/24 04:15 11/04/24 05:40 11/04/24 05:44 Temperature 97.9 F Pulse Rate 78 79 Respiratory Rate 16 Blood Pressure Pulse Oximetry 98 Oxygen Delivery Nasal Cannula Oxygen Flow Rate 4 11/04/24 08:00 11/04/24 08:00 11/04/24 08:35 Temperature 97.7 F Pulse Rate 78 72 Respiratory Rate 18 20 Blood Pressure 129/65 Pulse Oximetry 100 96 Oxygen Delivery Room Air Nasal Cannula Oxygen Flow Rate 4 11/04/24 08:45 11/04/24 12:00 11/04/24 12:00 Temperature 97.8 F Pulse Rate 81 68 Respiratory Rate 20 20 Blood Pressure 140/73 Pulse Oximetry 92 92 Oxygen Delivery Nasal Cannula Room Air Oxygen Flow Rate 2 Intake/Output Intake/Output: Intake & Output 11/01/24 11/02/24 11/03/24 11/04/24 23:59 23:59 23:59 23:59 Intake Total 1050 2810 Output Total 3150 Balance 1050 -340 Meds/Results Medications: Active Medications Generic Name Dose Route Start Last Admin Trade Name Freq PRN Reason Stop Dose Admin Lactated Ringer's 1,000 mls @ 100 mls/hr 11/04/24 03:35 11/04/24 12:17 Lr - Lactated Ringers Iv IV CONT 125 mls/hr .Q10H SILAS Administration Ceftriaxone Sodium 1 gm/ 50 mls @ 100 mls/hr 11/04/24 21:00 Sodium Chloride IVPB Q24H [facility] Radiology Results: ITS Impressions Abdomen/Pelvis CT 11/04/24 09:09 IMPRESSION: 1. Mild left hydronephrosis and hydroureter. 2. Bladder stones. Nonobstructing left kidney stones. 3. Lap band of the proximal stomach with discontinuous tubing. Chest X-Ray 11/04/24 11:57 IMPRESSION: 1. No acute cardiopulmonary findings or change from prior exam given portable technique. Labs Labs: Laboratory Results - last 24 hr 11/03/24 11/03/2425 21:28 21:50 21:59 WBC 15.6 H RBC 2.93 L Hgb 9.1 L Hct 28.5 L MCV 97.3 MCH 31.1 MCHC 31.9 L RDW 13.2 Plt Count 185 MPV 9.2 Immature Gran % (Auto) 0.4 Neut % (Auto) 94.1 H Lymph % (Auto) 3.7 L [place] % (Auto) 1.3 L Eos % (Auto) 0.3 Baso % (Auto) 0.2 Lymph # (Auto) 0.58 L [place] # (Auto) 0.2 Eos # (Auto) 0.1 Baso # (Auto) 0.0 Abs Immat Gran (auto) 0.07 H Absolute Neuts (auto) 14.7 H Absolute Nucleated RBC 0.000 Nucleated RBC % 0.0 PT 17.8 H INR 1.5 APTT 38.8 H Sodium 136 L Potassium < 2.0 L* Chloride 116 H Carbon Dioxide 15 L Anion Gap 5 BUN 7 Creatinine 0.28 L Estim Creat Clear Calc 213 Estimated GFR > 60 Glucose 63 L POC Capillary Glucose Lactic Acid 0.9 Calcium 4.6 L* Magnesium 0.9 L Total Bilirubin 0.4 AST 15 ALT 30 Alkaline Phosphatase 72 C-Reactive Protein 2.3 H Total Protein 4.1 L Albumin 1.7 L Lipase 11 L TSH (Reflex) Urine Color Yellow Urine Appearance Turbid H Urine pH >=9.0 H Ur Specific [place] 1.011 Urine Protein 3+ H Urine Glucose (UA) Negative Urine Ketones Negative Ur Blood (Man) 2+ H Urine Nitrate Negative Urine Bilirubin Negative Urine Urobilinogen 1.0 Leukocyte Esterase Rfl 3+ H Urine RBC 11-20 H Urine WBC >100 H Ur Squamous Epith Cells Many H Triple Phos Crystals Present H Amorphous Sediment Moderate H Urine Bacteria 4+ Urine Casts >20 Urine Mucus Present Influenza A (RT-PCR) Negative Influenza B (RT-PCR) Negative RSV (RT-PCR) Negative SARS-CoV-2 RNA (RT-PCR) Negative 11/04/24 11/04/24 05:23 10:28 WBC RBC Hgb Hct MCV MCH MCHC RDW Plt Count MPV Immature Gran % (Auto) Neut % (Auto) Lymph % (Auto) [place] % (Auto) Eos % (Auto) Baso % (Auto) Lymph # (Auto) [place] # (Auto) Eos # (Auto) Baso # (Auto) Abs Immat Gran (auto) Absolute Neuts (auto) Absolute Nucleated RBC Nucleated RBC % PT INR APTT Sodium 137 Potassium 4.3 Chloride 104 Carbon Dioxide 27 Anion Gap 6 BUN 7 Creatinine 0.46 L Estim Creat Clear Calc 142 Estimated GFR > 60 Glucose 101 POC Capillary Glucose 96 Lactic Acid Calcium 8.7 Magnesium Total Bilirubin AST ALT Alkaline Phosphatase C-Reactive Protein Total Protein Albumin Lipase TSH (Reflex) 1.780 Urine Color Urine Appearance Urine pH Ur Specific [place] Urine Protein Urine Glucose (UA) Urine Ketones Ur Blood (Man) Urine Nitrate Urine Bilirubin Urine Urobilinogen Leukocyte Esterase Rfl Urine RBC Urine WBC Ur Squamous Epith Cells Triple Phos Crystals Amorphous Sediment Urine Bacteria Urine Casts Urine Mucus Influenza A (RT-PCR) Influenza B (RT-PCR) RSV (RT-PCR) SARS-CoV-2 RNA (RT-PCR) Quality VTE Prophylaxis VTE prophylaxis: mechanical ordered
--- NOTE | 2024-11-04 16:10 | PHAR ---
Dalfampridine 10mg xr tablets identified in pharmacy and returned to IMU nursing unit
[2024-11-04] MEDS: CHOLECALCIFEROL (VITAMIN D3) 25 MCG (1,000 UNITS) TABLET PO (16:26)
[2024-11-04] MEDS: ASCORBIC ACID 500 MG TABLET 1000 MG PO (16:26)
[2024-11-04] MEDS: BACLOFEN 10 MG TABLET 30 MG BY MOUTH (16:26)
[2024-11-04 16:39] LABS: Magnesium 2.2 mg/dL (1.6-2.3)
[2024-11-04] MEDS: cefTRIAXone 1 GM in SODIUM CHLORIDE 0.9% IV 50 ML 100 ML IVPB (20:39)
[2024-11-04] MEDS: DALFAMPRIDINE 10 MG 10 EACH PO (20:44)
[2024-11-04] MEDS: BACLOFEN 10 MG TABLET 40 MG BY MOUTH (23:51)
[2024-11-05] VITALS (15 sets, daily range): BP systolic 113–156; BP diastolic 58–85; PULSE 69–87; RESP 17–20; TEMP 36.4–36.8; O2SAT 92–97
[2024-11-05] MEDS: ACETAMINOPHEN 325 MG TABLET 650 MG PO ×2 (02:31→22:32)
[2024-11-05 03:59] LABS: Hematocrit 36.0 % (37.0-47.0); Hemoglobin 11.5 g/dL (12.0-15.0); Immature Granulocyte Percent A 0.3 % (0-0.5); Lymphocytes Absolute Auto 1.31 K/mm3 (0.9-3.2); Mean Corpuscular HGB Conc 31.9 g/dl (32-36); Mean Corpuscular Hemoglobin 31.3 pg (26-34); Mean Corpuscular Volume 97.8 fl (80-100); Nucleated Red Blood Cells Absolute Auto 0.000 K/mm3 (0.0-0.012); Nucleated Red Blood Cells Perc 0.0 % (0.0-0.2); Platelet Count Result 235 k/mm3 (150-375); Red Blood Count 3.68 M/mm3 (4.2-5.4); White Blood Count 9.0 K/mm3 (4.5-10.0)
[2024-11-05 04:10] LABS: Magnesium 2.0 mg/dL (1.6-2.3)
[2024-11-05] MEDS: LEVOTHYROXINE SODIUM 150 MCG TABLET PO (07:03)
[2024-11-05] MEDS: BACLOFEN 10 MG TABLET 30 MG BY MOUTH ×2 (07:03→15:42)
[2024-11-05] MEDS: LACTATED RINGERS 1,000 ML 100 ML IV CONT ×2 (07:15→17:50)
[2024-11-05] MEDS: ASCORBIC ACID 500 MG TABLET 1000 MG PO ×3 (09:43→16:47)
[2024-11-05] MEDS: LORATADINE 5 MG TABLET PO (09:44)
[2024-11-05] MEDS: ATORVASTATIN 20 MG TABLET PO (09:44)
[2024-11-05] MEDS: CHOLECALCIFEROL (VITAMIN D3) 25 MCG (1,000 UNITS) TABLET PO ×2 (09:45→15:42)
[2024-11-05] MEDS: DALFAMPRIDINE 10 MG 10 EACH PO (09:45)
[2024-11-05] MEDS: ENOXAPARIN 40 MG/0.4 ML SYRINGE SUB-Q (09:45)
[2024-11-05] MEDS: modafiniL (*CRX) 200 MG TABLET PO (09:45)
[2024-11-05] MEDS: buPROPion HCL XL (24 HR) 150 MG TABCR PO (09:45)
--- NOTE | 2024-11-05 14:19 | P.PNIM_ITS ---
Progress Note: A&P Assessment and Plan (1) UTI (urinary tract infection): Code(s): N39.0 - Urinary tract infection, site not specified Status: Acute Assessment and Plan: Leukocytosis resolved -blood and urine cultures are pending. Comfortable at bedside, vital signs wnl Urine cloudy in urine back, patient on suprapubic catheter -continue on Rocephin and follow up with urine and blood culture (2) Bladder stone: Code(s): N21.0 - Calculus in bladder Status: Acute Assessment and Plan: CT AP reviewed showed mild hydronephrosis and hydroureter Urology consulted (3) Hypocalcemia: Code(s): E83.51 - Hypocalcemia Status: Acute Assessment and Plan: resolved Ca 8.7 (4) Hypokalemia: Code(s): E87.6 - Hypokalemia Status: Acute Assessment and Plan: resolved K 4.3 today (5) Hypomagnesemia: Code(s): E83.42 - Hypomagnesemia Status: Acute Assessment and Plan: resolved, Mg 2.0 monitor and replace accordingly (6) Hyperlipidemia: Code(s): E78.5 - Hyperlipidemia, unspecified Status: Acute Assessment and Plan: -continue with home medications. (7) Hypertension: Code(s): I10 - Essential (primary) hypertension Status: Acute Assessment and Plan: -continue with home medications if feasible. (8) Depression: Code(s): F32.A - Depression, unspecified Status: Acute Assessment and Plan: -continue with home medication if feasible. Please review medication reconciliation records (9) Multiple sclerosis: Code(s): G35 - Multiple sclerosis Status: Acute Assessment and Plan: -continue baclofen -patient stated that she is wheelchair bound/bed-bound. -wound care for friction zhang. Plan DVT prophylaxis on Sq Lovenox Subjective Date/time seen: 11/05/24 14:19 Interval history: Patient comfortable at bedside Review of Systems Constitutional: Constitutional: Reports as per HPI and Reports no additional constitutional complaints Eyes: Eyes: Reports as per HPI and Reports no additional eye complaints ENT: Reports system reviewed and no additional complaints, except as documented and Reports Normal hearing present Cardiovascular: Cardiovascular: Reports no additional cardiovascular complaints Respiratory: Respiratory: Reports as per HPI and Reports no additional respiratory complaints Gastrointestinal: Gastrointestinal: Reports as per HPI and Reports no additional gastrointestinal complaints Genitourinary: Genitourinary: Reports no additional female genitourinary complaints Musculoskeletal: Musculoskeletal: Reports no additional musculoskeletal complaints Integumentary/Breasts: Skin/Breast: Reports system reviewed and no additional complaints, except as docu Neurologic: Reports system reviewed and no additional complaints, except as documented and Reports Normal hearing present Psychiatric: Psychiatric: Reports no additional psychiatric complaints and Reports as per HPI Hematologic/Lymphatic: Hematologic/Lymphatic: Reports no additional hematologic/lymphatic complaints Allergic/Immunologic: Allergic/Immunologic: Reports no additional allergic/immunologic complaints Exam Const: General: cooperative, no acute distress, well developed, awake, Physically active, well nourished and obese Nutritional Appearance: well nourished and obese Orientation/consciousness: oriented to person, oriented to place, oriented to time and patient oriented x3 Limitations: no limitations HENMT: Head: normal to inspection Ears: hearing grossly normal bilaterally Eyes: General: appearance normal, both eyes and all related structures Alignment and Position: alignment normal Periorbital: periorbital findings normal Eyelids: eyelids normal Conjunctivae: conjunctivae normal Sclera: sclerae normal Cornea: corneas normal Pupils: Equal, round and reactive pupils present and Pupil accommodation reflex normal EOM: EOMs intact bilaterally Neck: Neck: normal visual inspection Chest: Chest palpation & inspection: normal inspection of the chest Resp: Effort & Inspection: normal respiratory effort Auscultation: clear to auscultation bilaterally Cardio: Palpation: normal PMI Rate: regular rate Rhythm: regular rhythm Heart sounds: S1 normal heart sound present and S2 normal heart sound present Peripheral pulses: Peripheral pulses 2+ throughout Other: SINUS TACHYCARDIA LEFT AXIS DEVIATION [QRS AXIS < -30] LOW QRS VOLTAGE IN PRECORDIAL LEADS [QRS DEFLECTION < 1.0 mV IN CHEST LEADS] INCOMPLETE RIGHT BUNDLE BRANCH BLOCK [90+ ms QRS DURATION, TERMINAL R IN V1/V2, 40+ ms S IN I/aVL/V4/V5/V6] NONSPECIFIC T-WAVE ABNORMALITY Compared to ECG 04/01/2024 21:09:57 Left-axis deviation now present Low QRS voltage now present Incomplete right bundle-branch block now present T-wave abnormality now present Sinus rhythm no longer present GI: Inspection: normal to inspection : General: Yes no CVA tenderness Other: Suprapubic catheter intact Urinary Catheter: Urinary Catheter: patent and draining, urine cloudy, urine dark and other Back/Spine/Pelvis: Back: no CVA tenderness Skin: General skin exam: normal color Lesions: no lesions Rashes: no rashes Trauma: no lacerations or abrasions Wounds: no wounds Hair: normal Nails: normal Neuro: General: oriented to person, oriented to place, oriented to time and patient oriented x3 Cranial nerves: Yes Equal, round and reactive pupils present and Yes Normal hearing present Extrem: General: normal to inspection Right upper extremity: normal to inspection and shoulder/upper arm Left upper extremity: normal to inspection and shoulder/upper arm Right lower extremity: normal to inspection Left lower extremity: normal to inspection Other: -purple discoloration to 2nd and 3rd toe . Pedal pulses are palpable. Bilateral lower extremities are warm to touch. Capillary refill within normal limits. Psych: Appearance: grossly normal Mental Status: mental status grossly normal Speech and movement: Normal speech and movement present and Slowed speech present (Psych) Affect: normal affect Attitude: cooperative Thought process: Normal thought process present Objective Data Vital Signs Vital Signs: Vital Signs - 24 hr 11/04/24 15:56 11/04/24 16:00 11/04/24 16:00 Temperature 97.8 F Pulse Rate 86 84 Respiratory Rate 16 Blood Pressure 136/87 Pulse Oximetry 93 Oxygen Delivery Room Air Fraction of Inspired Oxygen 11/04/24 18:00 11/04/24 20:00 11/04/24 20:00 Temperature 97.9 F Pulse Rate 95 82 86 Respiratory Rate 19 Blood Pressure 132/67 Pulse Oximetry 92 Oxygen Delivery Fraction of Inspired Oxygen 11/04/24 20:40 11/04/24 20:42 11/04/24 22:00 Temperature Pulse Rate 82 83 82 Respiratory Rate 19 20 Blood Pressure Pulse Oximetry 92 92 Oxygen Delivery Room Air Room Air Fraction of Inspired Oxygen 11/04/24 22:11 11/04/24 23:47 11/05/24 00:00 Temperature 98.1 F Pulse Rate 83 86 86 Respiratory Rate 20 20 Blood Pressure 142/65 H Pulse Oximetry 90 95 95 Oxygen Delivery Autopap CPAP Fraction of Inspired Oxygen 11/05/24 00:00 11/05/24 01:29 11/05/24 02:00 Temperature Pulse Rate 87 81 87 Respiratory Rate Blood Pressure Pulse Oximetry 92 Oxygen Delivery Autopap Fraction of Inspired Oxygen 11/05/24 04:00 11/05/24 04:00 11/05/24 04:11 Temperature 97.6 F Pulse Rate 74 84 72 Respiratory Rate 17 17 Blood Pressure 113/58 L Pulse Oximetry 92 92 Oxygen Delivery CPAP Fraction of Inspired Oxygen 21 11/05/24 04:27 11/05/24 06:00 11/05/24 08:00 Temperature 97.9 F Pulse Rate 72 69 78 Respiratory Rate 20 Blood Pressure 152/82 H Pulse Oximetry 92 92 Oxygen Delivery Autopap Fraction of Inspired Oxygen 11/05/24 08:55 11/05/24 12:00 Temperature 97.9 F Pulse Rate 74 Respiratory Rate 18 Blood Pressure 143/85 H Pulse Oximetry 93 97 Oxygen Delivery Room Air Fraction of Inspired Oxygen Intake/Output Intake/Output: Intake & Output 11/02/24 11/03/24 11/04/24 11/05/24 23:59 23:59 23:59 23:59 Intake Total 1050 4521.7 1540 Output Total 3800 1725 Balance 1050 721.7 -185 Meds/Results Medications: Active Medications Generic Name Dose Route Start Last Admin Trade Name Freq PRN Reason Stop Dose Admin Acetaminophen 650 mg 11/05/24 00:52 11/05/24 02:31 Acetaminophen 325 Mg Tablet PO 650 mg Q4H PRN Administration Mild Pain (1-3) or Fever Ascorbic Acid 1,000 mg 11/04/24 17:00 11/05/24 09:43 Ascorbic Acid 500 Mg Tablet PO 1,000 mg TID SILAS Administration Atorvastatin Calcium 20 mg 11/05/24 09:00 11/05/24 09:44 Atorvastatin 20 Mg Tablet PO 20 mg DAILY SILAS Administration Baclofen 30 mg 11/04/24 15:45 11/05/24 07:03 Baclofen 10 Mg Tablet BY MOUTH 30 mg 0700,1500 SILAS Administration Baclofen 40 mg 11/04/24 23:00 11/04/24 23:51 Baclofen 10 Mg Tablet BY MOUTH 40 mg 2300 SILAS Administration Bupropion HCl 150 mg 11/05/24 09:00 11/05/24 09:45 Bupropion Hcl Xl (24 Hr) 150 Mg Tabcr PO 150 mg DAILY SILAS Administration Enoxaparin Sodium 40 mg 11/05/24 09:00 11/05/24 09:45 Enoxaparin 40 Mg/0.4 Ml Syringe SUB-Q 40 mg DAILY SILAS Administration Lactated Ringer's 1,000 mls @ 100 mls/hr 11/04/24 03:35 11/05/24 07:15 Lr - Lactated Ringers Iv IV CONT 100 mls/hr .Q10H SILAS Administration Ceftriaxone Sodium 1 gm/ 50 mls @ 100 mls/hr 11/04/24 21:00 11/04/24 21:09 Sodium Chloride IVPB Infused Q24H SILAS Infusion Levothyroxine Sodium 150 mcg 11/05/24 06:30 11/05/24 07:03 Levothyroxine Sodium 150 Mcg Tablet PO 150 mcg DAILY@0630 SILAS Administration Loratadine 5 mg 11/05/24 09:00 11/05/24 09:44 Loratadine 5 Mg Tablet PO 5 mg QAM SILAS Administration Modafinil 200 mg 11/05/24 09:00 11/05/24 09:45 Modafinil (*Crx) 200 Mg Tablet PO 200 mg DAILY SILAS Administration Dalfampridine 10 Mg 10 mg 11/04/24 21:00 11/05/24 09:45 Tablet Extended PO 12/04/24 20:59 10 mg Release 12 Hr *Use Q12HR SILAS Administration Home Supply* Vitamin D 25 mcg 11/04/24 17:00 11/05/24 09:45 Cholecalciferol (Vitamin D3) 25 Mcg (1,000 Units) Tablet PO 25 mcg BID SILAS Administration Radiology Results: ITS Impressions Abdomen/Pelvis CT 11/04/24 09:09 IMPRESSION: 1. Mild left hydronephrosis and hydroureter. 2. Bladder stones. Nonobstructing left kidney stones. 3. Lap band of the proximal stomach with discontinuous tubing. Chest X-Ray 11/04/24 11:57 IMPRESSION: 1. No acute cardiopulmonary findings or change from prior exam given portable technique. Labs Labs: Laboratory Results - last 24 hr 11/04/24 11/05/24 16:25 03:53 WBC 9.0 RBC 3.68 L Hgb 11.5 L Hct 36.0 L MCV 97.8 MCH 31.3 MCHC 31.9 L RDW 13.2 Plt Count 235 MPV 9.3 Immature Gran % (Auto) 0.3 Neut % (Auto) 74.0 H Lymph % (Auto) 14.5 L [place] % (Auto) 8.4 Eos % (Auto) 2.2 Baso % (Auto) 0.6 Lymph # (Auto) 1.31 [place] # (Auto) 0.8 H Eos # (Auto) 0.2 Baso # (Auto) 0.1 Abs Immat Gran (auto) 0.03 Absolute Neuts (auto) 6.7 Absolute Nucleated RBC 0.000 Nucleated RBC % 0.0 Lactic Acid 0.6 L Magnesium 2.2 2.0 Quality VTE Prophylaxis VTE prophylaxis: mechanical ordered
--- NOTE | 2024-11-05 14:52 | WPDUROPN2 ---
Progress Note: A&P Assessment and Plan (1) Bladder stone: Code(s): N21.0 - Calculus in bladder Status: Chronic Assessment and Plan: - Large stone burden in bladder; per Dr. Barbosa pt will require either open procedure or attempt at laser vesicolitholapaxy. Pt to follow up for further planning on outpatient basis. - Message placed for scheduling; pt previously following with [facility] but desiring to transition care to [facility]. Will need designate MD to follow. (2) Neurogenic bladder: Code(s): N31.9 - Neuromuscular dysfunction of bladder, unspecified Status: Chronic Assessment and Plan: - Continue management with SPT (3) Suprapubic catheter: Code(s): Z93.59 - Other cystostomy status Status: Chronic Assessment and Plan: - Exchanged by home health, last exchanged 2 weeks ago (4) Acute UTI: Code(s): N39.0 - Urinary tract infection, site not specified Status: Acute Assessment and Plan: - Continue broad spectrum Abx - UCx pending, transition to susceptibility directed Abx when results available Subjective Subjective Date/Time Seen: 11/05/24 14:52 Interval history: NAEO. Reporting leakage around entry site, however, SPT continues to drain clear, yellow urine. Pt otherwise feeling well. Exam Const: General: comfortable and no acute distress Eyes: General: appearance normal, both eyes and all related structures Resp: Effort & Inspection: normal respiratory effort GI: Inspection: non-distended Urinary Catheter: Urinary Catheter: patent and draining and urine clear Skin: General skin exam: normal color Extrem: General: normal to inspection Psych: Affect: normal affect Objective Data Vital Signs Vital Signs: Vital Signs - 24 hr 11/04/24 15:56 11/04/24 16:00 11/04/24 16:00 Temperature 97.8 F Pulse Rate 86 84 Respiratory Rate 16 Blood Pressure 136/87 Pulse Oximetry 93 Oxygen Delivery Room Air Fraction of Inspired Oxygen 11/04/24 18:00 11/04/24 20:00 11/04/24 20:00 Temperature 97.9 F Pulse Rate 95 82 86 Respiratory Rate 19 Blood Pressure 132/67 Pulse Oximetry 92 Oxygen Delivery Fraction of Inspired Oxygen 11/04/24 20:40 11/04/24 20:42 11/04/24 22:00 Temperature Pulse Rate 82 83 82 Respiratory Rate 19 20 Blood Pressure Pulse Oximetry 92 92 Oxygen Delivery Room Air Room Air Fraction of Inspired Oxygen 11/04/24 22:11 11/04/24 23:47 11/05/24 00:00 Temperature 98.1 F Pulse Rate 83 86 86 Respiratory Rate 20 20 Blood Pressure 142/65 H Pulse Oximetry 90 95 95 Oxygen Delivery Autopap CPAP Fraction of Inspired Oxygen 11/05/24 00:00 11/05/24 01:29 11/05/24 02:00 Temperature Pulse Rate 87 81 87 Respiratory Rate Blood Pressure Pulse Oximetry 92 Oxygen Delivery Autopap Fraction of Inspired Oxygen 11/05/24 04:00 11/05/24 04:00 11/05/24 04:11 Temperature 97.6 F Pulse Rate 74 84 72 Respiratory Rate 17 17 Blood Pressure 113/58 L Pulse Oximetry 92 92 Oxygen Delivery CPAP Fraction of Inspired Oxygen 11/05/24 04:27 11/05/24 06:00 11/05/24 08:00 Temperature 97.9 F Pulse Rate 72 69 78 Respiratory Rate 20 Blood Pressure 152/82 H Pulse Oximetry 92 92 Oxygen Delivery Autopap Fraction of Inspired Oxygen 11/05/24 08:00 11/05/24 08:55 11/05/24 10:00 Temperature Pulse Rate 78 81 Respiratory Rate Blood Pressure Pulse Oximetry 93 Oxygen Delivery Room Air Fraction of Inspired Oxygen 11/05/24 12:00 11/05/24 12:00 11/05/24 14:00 Temperature 97.9 F Pulse Rate 74 80 79 Respiratory Rate 18 Blood Pressure 143/85 H Pulse Oximetry 97 Oxygen Delivery Fraction of Inspired Oxygen Intake/Output Intake/Output: Intake & Output 11/02/24 11/03/24 11/04/24 11/05/24 23:59 23:59 23:59 23:59 Intake Total 1050 4521.7 1540 Output Total 3800 1725 Balance 1050 721.7 -185 Meds/Results Medications: Active Medications Generic Name Dose Route Start Last Admin Trade Name Freq PRN Reason Stop Dose Admin Acetaminophen 650 mg 11/05/24 00:52 11/05/24 02:31 Acetaminophen 325 Mg Tablet PO 650 mg Q4H PRN Administration Mild Pain (1-3) or Fever Ascorbic Acid 1,000 mg 11/04/24 17:00 11/05/24 09:43 Ascorbic Acid 500 Mg Tablet PO 1,000 mg TID SILAS Administration Atorvastatin Calcium 20 mg 11/05/24 09:00 11/05/24 09:44 Atorvastatin 20 Mg Tablet PO 20 mg DAILY SILAS Administration Baclofen 30 mg 11/04/24 15:45 11/05/24 07:03 Baclofen 10 Mg Tablet BY MOUTH 30 mg 0700,1500 SILAS Administration Baclofen 40 mg 11/04/24 23:00 11/04/24 23:51 Baclofen 10 Mg Tablet BY MOUTH 40 mg 2300 SILAS Administration Bupropion HCl 150 mg 11/05/24 09:00 11/05/24 09:45 Bupropion Hcl Xl (24 Hr) 150 Mg Tabcr PO 150 mg DAILY SILAS Administration Enoxaparin Sodium 40 mg 11/05/24 09:00 11/05/24 09:45 Enoxaparin 40 Mg/0.4 Ml Syringe SUB-Q 40 mg DAILY SILAS Administration Lactated Ringer's 1,000 mls @ 100 mls/hr 11/04/24 03:35 11/05/24 07:15 Lr - Lactated Ringers Iv IV CONT 100 mls/hr .Q10H SILAS Administration Ceftriaxone Sodium 1 gm/ 50 mls @ 100 mls/hr 11/04/24 21:00 11/04/24 21:09 Sodium Chloride IVPB Infused Q24H SILAS Infusion Levothyroxine Sodium 150 mcg 11/05/24 06:30 11/05/24 07:03 Levothyroxine Sodium 150 Mcg Tablet PO 150 mcg DAILY@0630 SILAS Administration Loratadine 5 mg 11/05/24 09:00 11/05/24 09:44 Loratadine 5 Mg Tablet PO 5 mg QAM SILAS Administration Modafinil 200 mg 11/05/24 09:00 11/05/24 09:45 Modafinil (*Crx) 200 Mg Tablet PO 200 mg DAILY SILAS Administration Dalfampridine 10 Mg 10 mg 11/04/24 21:00 11/05/24 09:45 Tablet Extended PO 12/04/24 20:59 10 mg Release 12 Hr *Use Q12HR SILAS Administration Home Supply* Vitamin D 25 mcg 11/04/24 17:00 11/05/24 09:45 Cholecalciferol (Vitamin D3) 25 Mcg (1,000 Units) Tablet PO 25 mcg BID SILAS Administration Radiology Results: ITS Impressions Abdomen/Pelvis CT 11/04/24 09:09 IMPRESSION: 1. Mild left hydronephrosis and hydroureter. 2. Bladder stones. Nonobstructing left kidney stones. 3. Lap band of the proximal stomach with discontinuous tubing. Chest X-Ray 11/04/24 11:57 IMPRESSION: 1. No acute cardiopulmonary findings or change from prior exam given portable technique. Labs Labs: Laboratory Results - last 24 hr 11/04/24 11/05/24 16:25 03:53 WBC 9.0 RBC 3.68 L Hgb 11.5 L Hct 36.0 L MCV 97.8 MCH 31.3 MCHC 31.9 L RDW 13.2 Plt Count 235 MPV 9.3 Immature Gran % (Auto) 0.3 Neut % (Auto) 74.0 H Lymph % (Auto) 14.5 L [place] % (Auto) 8.4 Eos % (Auto) 2.2 Baso % (Auto) 0.6 Lymph # (Auto) 1.31 [place] # (Auto) 0.8 H Eos # (Auto) 0.2 Baso # (Auto) 0.1 Abs Immat Gran (auto) 0.03 Absolute Neuts (auto) 6.7 Absolute Nucleated RBC 0.000 Nucleated RBC % 0.0 Lactic Acid 0.6 L Magnesium 2.2 2.0
[2024-11-05] MEDS: cefTRIAXone 1 GM in SODIUM CHLORIDE 0.9% IV 50 ML 100 ML IVPB (21:08)
[2024-11-05] MEDS: BACLOFEN 10 MG TABLET 40 MG BY MOUTH (22:32)
[2024-11-06] VITALS (8 sets, daily range): BP systolic 133–146; BP diastolic 72–91; PULSE 70–80; RESP 14–20; TEMP 36.1–36.6; O2SAT 93–96
[2024-11-06] MEDS: LACTATED RINGERS 1,000 ML 100 ML IV CONT (04:00)
[2024-11-06 05:21] LABS: Hematocrit 37.1 % (37.0-47.0); Hemoglobin 11.9 g/dL (12.0-15.0); Immature Granulocyte Percent A 0.2 % (0-0.5); Lymphocytes Absolute Auto 1.36 K/mm3 (0.9-3.2); Mean Corpuscular HGB Conc 32.1 g/dl (32-36); Mean Corpuscular Hemoglobin 31.1 pg (26-34); Mean Corpuscular Volume 96.9 fl (80-100); Nucleated Red Blood Cells Absolute Auto 0.000 K/mm3 (0.0-0.012); Nucleated Red Blood Cells Perc 0.0 % (0.0-0.2); Platelet Count Result 282 k/mm3 (150-375); Red Blood Count 3.83 M/mm3 (4.2-5.4); White Blood Count 8.3 K/mm3 (4.5-10.0)
[2024-11-06 05:33] LABS: Alanine Aminotransferase 33 U/L (6-35); Albumin Level 3.5 g/dL (3.5-5.1); Alkaline Phosphatase 96 U/L (38-126); Anion Gap 5 mmol/L (4-12); Aspartate Amino Transferase 27 U/L (14-36); Bilirubin,Total 0.3 mg/dL (0.2-1.3); Blood Urea Nitrogen 5 mg/dL (7-17); Calcium 8.4 mg/dL (8.4-10.2); Carbon Dioxide 30 mmol/L (22-30); Chloride 100 mmol/L (98-107); Estimated CRCL calculation 166 ml/min; Estimated Glomerular Filt Rate > 60; Glucose 104 mg/dL (65-110); Magnesium 2.0 mg/dL (1.6-2.3); Potassium 3.1 mmol/L (3.4-5.0); Sodium 135 mmol/L (137-145); Total Protein 6.7 g/dL (6.3-8.2)
[2024-11-06] MEDS: BACLOFEN 10 MG TABLET 30 MG BY MOUTH ×2 (06:27→15:22)
[2024-11-06] MEDS: LEVOTHYROXINE SODIUM 150 MCG TABLET PO (06:27)
[2024-11-06] MEDS: ASCORBIC ACID 500 MG TABLET 1000 MG PO ×3 (08:02→16:36)
[2024-11-06] MEDS: ATORVASTATIN 20 MG TABLET PO (08:03)
[2024-11-06] MEDS: LORATADINE 5 MG TABLET PO (08:03)
[2024-11-06] MEDS: buPROPion HCL XL (24 HR) 150 MG TABCR PO (08:03)
[2024-11-06] MEDS: ENOXAPARIN 40 MG/0.4 ML SYRINGE SUB-Q (08:03)
[2024-11-06] MEDS: CHOLECALCIFEROL (VITAMIN D3) 25 MCG (1,000 UNITS) TABLET PO ×2 (08:03→16:36)
[2024-11-06] MEDS: modafiniL (*CRX) 200 MG TABLET PO (08:03)
--- NOTE | 2024-11-06 08:07 | P.PNIM_ITS ---
Progress Note: A&P Assessment and Plan (1) UTI (urinary tract infection): Code(s): N39.0 - Urinary tract infection, site not specified Status: Acute Assessment and Plan: Leukocytosis resolved -blood and urine cultures are pending. Comfortable at bedside, vital signs wnl Urine cloudy in urine back, patient on suprapubic catheter -continue on Rocephin and follow up with urine and blood culture (2) Bladder stone: Code(s): N21.0 - Calculus in bladder Status: Acute Assessment and Plan: CT AP reviewed showed mild hydronephrosis and hydroureter Urology consulted (3) Hypocalcemia: Code(s): E83.51 - Hypocalcemia Status: Acute Assessment and Plan: resolved Ca 8.7 (4) Hypokalemia: Code(s): E87.6 - Hypokalemia Status: Acute Assessment and Plan: resolved K 4.3 today (5) Hypomagnesemia: Code(s): E83.42 - Hypomagnesemia Status: Acute Assessment and Plan: resolved, Mg 2.0 monitor and replace accordingly (6) Hyperlipidemia: Code(s): E78.5 - Hyperlipidemia, unspecified Status: Acute Assessment and Plan: -continue with home medications. (7) Hypertension: Code(s): I10 - Essential (primary) hypertension Status: Acute Assessment and Plan: -continue with home medications if feasible. (8) Depression: Code(s): F32.A - Depression, unspecified Status: Acute Assessment and Plan: -continue with home medication if feasible. Please review medication reconciliation records (9) Multiple sclerosis: Code(s): G35 - Multiple sclerosis Status: Acute Assessment and Plan: -continue baclofen -patient stated that she is wheelchair bound/bed-bound. -wound care for friction zhang. (10) Bacteremia: Code(s): R78.81 - Bacteremia Status: Acute Assessment and Plan: Possible UTI Blood culture from 11/03/2024 shows Gram-negative bacilli Less suspicion for endocarditis Monitor leukocytosis Started ceftriaxone IV 2 g daily Monitor for fever Plan DVT prophylaxis on Sq Lovenox Subjective Date/time seen: 11/06/24 08:07 Interval history: Patient was well known to me from the previous admission. Patient has a history of multiple sclerosis. Patient suprapubic catheter was changed last week. Patient blood culture growing Gram-negative bacilli and her ceftriaxone is increased from 1 g to 2 g. Review of Systems Constitutional: Constitutional: Reports as per HPI and Reports no additional constitutional complaints Eyes: Eyes: Reports as per HPI and Reports no additional eye complaints ENT: Reports system reviewed and no additional complaints, except as documented and Reports Normal hearing present Cardiovascular: Cardiovascular: Reports no additional cardiovascular complaints Respiratory: Respiratory: Reports as per HPI and Reports no additional respiratory complaints Gastrointestinal: Gastrointestinal: Reports as per HPI and Reports no additional gastrointestinal complaints Genitourinary: Genitourinary: Reports no additional female genitourinary complaints Musculoskeletal: Musculoskeletal: Reports no additional musculoskeletal complaints Integumentary/Breasts: Skin/Breast: Reports system reviewed and no additional complaints, except as docu Neurologic: Reports system reviewed and no additional complaints, except as documented and Reports Normal hearing present Psychiatric: Psychiatric: Reports no additional psychiatric complaints and Reports as per HPI Hematologic/Lymphatic: Hematologic/Lymphatic: Reports no additional hematologic/lymphatic complaints Allergic/Immunologic: Allergic/Immunologic: Reports no additional allergic/immunologic complaints Exam Const: General: cooperative, no acute distress, well developed, awake, Physically active, well nourished and obese Nutritional Appearance: well nourished and obese Orientation/consciousness: oriented to person, oriented to place, oriented to time and patient oriented x3 Limitations: no limitations HENMT: Head: normal to inspection Ears: hearing grossly normal bilaterally Eyes: General: appearance normal, both eyes and all related structures Alignment and Position: alignment normal Periorbital: periorbital findings normal Eyelids: eyelids normal Conjunctivae: conjunctivae normal Sclera: sclerae normal Cornea: corneas normal Pupils: Equal, round and reactive pupils present and Pupil accommodation reflex normal EOM: EOMs intact bilaterally Neck: Neck: normal visual inspection Chest: Chest palpation & inspection: normal inspection of the chest Resp: Effort & Inspection: normal respiratory effort Auscultation: clear to auscultation bilaterally Cardio: Palpation: normal PMI Rate: regular rate Rhythm: regular rhythm Heart sounds: S1 normal heart sound present and S2 normal heart sound present Peripheral pulses: Peripheral pulses 2+ throughout Other: SINUS TACHYCARDIA LEFT AXIS DEVIATION [QRS AXIS < -30] LOW QRS VOLTAGE IN PRECORDIAL LEADS [QRS DEFLECTION < 1.0 mV IN CHEST LEADS] INCOMPLETE RIGHT BUNDLE BRANCH BLOCK [90+ ms QRS DURATION, TERMINAL R IN V1/V2, 40+ ms S IN I/aVL/V4/V5/V6] NONSPECIFIC T-WAVE ABNORMALITY Compared to ECG 04/01/2024 21:09:57 Left-axis deviation now present Low QRS voltage now present Incomplete right bundle-branch block now present T-wave abnormality now present Sinus rhythm no longer present GI: Inspection: normal to inspection : General: Yes no CVA tenderness Other: Suprapubic catheter intact Urinary Catheter: Urinary Catheter: patent and draining, urine cloudy, urine dark and other Back/Spine/Pelvis: Back: no CVA tenderness Skin: General skin exam: normal color Lesions: no lesions Rashes: no rashes Trauma: no lacerations or abrasions Wounds: no wounds Hair: normal Nails: normal Neuro: General: oriented to person, oriented to place, oriented to time and patient oriented x3 Cranial nerves: Yes Equal, round and reactive pupils pres ent and Yes Normal hearing present Extrem: General: normal to inspection Right upper extremity: normal to inspection and shoulder/upper arm Left upper extremity: normal to inspection and shoulder/upper arm Right lower extremity: normal to inspection Left lower extremity: normal to inspection Other: -purple discoloration to 2nd and 3rd toe . Pedal pulses are palpable. Bilateral lower extremities are warm to touch. Capillary refill within normal limits. Psych: Appearance: grossly normal Mental Status: mental status grossly normal Speech and movement: Normal speech and movement present and Slowed speech present (Psych) Affect: normal affect Attitude: cooperative Thought process: Normal thought process present Objective Data Vital Signs Vital Signs: Vital Signs - 24 hr 11/05/24 08:55 11/05/24 10:00 11/05/24 12:00 Temperature 97.9 F Pulse Rate 81 74 Respiratory Rate 18 Blood Pressure 143/85 H Pulse Oximetry 93 97 Oxygen Delivery Room Air Fraction of Inspired Oxygen 11/05/24 12:00 11/05/24 14:00 11/05/24 16:00 Temperature 98.2 F Pulse Rate 80 79 77 Respiratory Rate 20 Blood Pressure 153/71 H Pulse Oximetry 95 Oxygen Delivery Fraction of Inspired Oxygen 11/05/24 20:00 11/05/24 20:13 11/05/24 20:20 Temperature 97.8 F Pulse Rate 80 Respiratory Rate 18 Blood Pressure 156/79 H Pulse Oximetry 92 94 Oxygen Delivery Room Air Room Air Fraction of Inspired Oxygen 11/05/24 23:13 11/06/24 03:14 11/06/24 04:55 Temperature 97.5 F L Pulse Rate 70 Respiratory Rate 18 Blood Pressure 133/81 Pulse Oximetry 93 Oxygen Delivery Autopap Autopap Fraction of Inspired Oxygen 11/06/24 07:59 Temperature 96.9 F L Pulse Rate 75 Respiratory Rate 16 Blood Pressure 146/91 H Pulse Oximetry 94 Oxygen Delivery Fraction of Inspired Oxygen Intake/Output Intake/Output: Intake & Output 11/03/24 11/04/24 11/05/24 11/06/24 23:59 23:59 23:59 23:59 Intake Total 1050 4521.7 3550 1700 Output Total 3800 5275 2300 Balance 1050 721.7 -7197 -808 Meds/Results Medications: Active Medications Generic Name Dose Route Start Last Admin Trade Name Freq PRN Reason Stop Dose Admin Acetaminophen 650 mg 11/05/24 00:52 11/05/24 22:32 Acetaminophen 325 Mg Tablet PO 650 mg Q4H PRN Administration Mild Pain (1-3) or Fever Ascorbic Acid 1,000 mg 11/04/24 17:00 11/06/24 08:02 Ascorbic Acid 500 Mg Tablet PO 1,000 mg TID SILAS Administration Atorvastatin Calcium 20 mg 11/05/24 09:00 11/06/24 08:03 Atorvastatin 20 Mg Tablet PO 20 mg DAILY SILAS Administration Baclofen 30 mg 11/04/24 15:45 11/06/24 06:27 Baclofen 10 Mg Tablet BY MOUTH 30 mg 0700,1500 SILAS Administration Baclofen 40 mg 11/04/24 23:00 11/05/24 22:32 Baclofen 10 Mg Tablet BY MOUTH 40 mg 2300 SILAS Administration Bupropion HCl 150 mg 11/05/24 09:00 11/06/24 08:03 Bupropion Hcl Xl (24 Hr) 150 Mg Tabcr PO 150 mg DAILY SILAS Administration Enoxaparin Sodium 40 mg 11/05/24 09:00 11/06/24 08:03 Enoxaparin 40 Mg/0.4 Ml Syringe SUB-Q 40 mg DAILY SILAS Administration Lactated Ringer's 1,000 mls @ 100 mls/hr 11/04/24 03:35 11/06/24 04:00 Lr - Lactated Ringers Iv IV CONT 100 mls/hr .Q10H SILAS Administration Ceftriaxone Sodium 1 gm/ 50 mls @ 100 mls/hr 11/04/24 21:00 11/05/24 21:38 Sodium Chloride IVPB Infused Q24H [facility] Infusion Levothyroxine Sodium 150 mcg 11/05/24 06:30 11/06/24 06:27 Levothyroxine Sodium 150 Mcg Tablet PO 150 mcg DAILY@0630 SILAS Administration Loratadine 5 mg 11/05/24 09:00 11/06/24 08:03 Loratadine 5 Mg Tablet PO 5 mg QAM SILAS Administration Modafinil 200 mg 11/05/24 09:00 11/06/24 08:03 Modafinil (*Crx) 200 Mg Tablet PO 200 mg DAILY SILAS Administration Dalfampridine 10 Mg 10 mg 11/04/24 21:00 11/06/24 08:06 Tablet Extended PO 12/04/24 20:59 Not Given Release 12 Hr *Use Q12HR [facility] Home Supply* Vitamin D 25 mcg 11/04/24 17:00 11/06/24 08:03 Cholecalciferol (Vitamin D3) 25 Mcg (1,000 Units) Tablet PO 25 mcg BID SILAS Administration Radiology Results: ITS Impressions Abdomen/Pelvis CT 11/04/24 09:09 IMPRESSION: 1. Mild left hydronephrosis and hydroureter. 2. Bladder stones. Nonobstructing left kidney stones. 3. Lap band of the proximal stomach with discontinuous tubing. Chest X-Ray 11/04/24 11:57 IMPRESSION: 1. No acute cardiopulmonary findings or change from prior exam given portable technique. Labs Labs: Laboratory Results - last 24 hr 11/06/24 04:38 WBC 8.3 RBC 3.83 L Hgb 11.9 L Hct 37.1 MCV 96.9 MCH 31.1 MCHC 32.1 RDW 12.9 Plt Count 282 MPV 9.9 Immature Gran % (Auto) 0.2 Neut % (Auto) 73.1 Lymph % (Auto) 16.4 L [place] % (Auto) 7.9 Eos % (Auto) 2.0 Baso % (Auto) 0.4 Lymph # (Auto) 1.36 [place] # (Auto) 0.7 H Eos # (Auto) 0.2 Baso # (Auto) 0.0 Abs Immat Gran (auto) 0.02 Absolute Neuts (auto) 6.1 Absolute Nucleated RBC 0.000 Nucleated RBC % 0.0 Sodium 135 L Potassium 3.1 L Chloride 100 Carbon Dioxide 30 Anion Gap 5 BUN 5 L Creatinine 0.39 L Estim Creat Clear Calc 166 Estimated GFR > 60 Glucose 104 Calcium 8.4 Magnesium 2.0 Total Bilirubin 0.3 AST 27 ALT 33 Alkaline Phosphatase 96 Total Protein 6.7 Albumin 3.5 Quality VTE Prophylaxis VTE prophylaxis: mechanical ordered Hospitalist MIPS Advance Care Plan I have confirmed that the patient's Advanced Care Plan is present, code status is documented, or surrogate decision maker is listed in patient medical record.: Yes Medication Reconciliation I have utilized all available resources to obtain, update and review the patients current medications (includes all prescriptions, OTC, herbals, cannabis, and nutritional supplements).: Yes
--- NOTE | 2024-11-06 10:21 | P.CDI_ITS ---
CDI Query Clarification Request Clarification request - UTI has been documented, chronic hernandez catheter documented. Please clarify if UTI is: * due to/associated with chronic hernandez catheter * not due to/associated with chronic hernandez catheter * unable to determine Hospitalist documented: Assessment and Plan (1) UTI (urinary tract infection): Code(s): N39.0 - Urinary tract infection, site not specified Status: Acute Assessment and Plan: Leukocytosis resolved -blood and urine cultures are pending. Comfortable at bedside, vital signs wnl Urine cloudy in urine back, patient on suprapubic catheter -continue on Rocephin and follow up with urine and blood culture (2) Bladder stone: Code(s): N21.0 - Calculus in bladder Status: Chronic Assessment and Plan: CT AP reviewed showed mild hydronephrosis and hydroureter Urology consulted Urology documented: Assessment and Plan (1) Bladder stone: Code(s): N21.0 - Calculus in bladder Status: Chronic Assessment and Plan: - Large stone burden in bladder; per Dr. Barbosa pt will require either open procedure or attempt at laser vesicolitholapaxy. Pt to follow up for further planning on outpatient basis. - Message placed for scheduling; pt previously following with [facility] but desiring to transition care to [facility]. Will need designate MD to follow. (2) Neurogenic bladder: Code(s): N31.9 - Neuromuscular dysfunction of bladder, unspecified Status: Chronic Assessment and Plan: - Continue management with SPT (3) Suprapubic catheter: Code(s): Z93.59 - Other cystostomy status Status: Chronic Assessment and Plan: - Exchanged by home health, last exchanged 2 weeks ago (4) Acute UTI: Code(s): N39.0 - Urinary tract infection, site not specified Status: Acute Assessment and Plan: - Continue broad spectrum Abx - UCx pending, transition to susceptibility directed Abx when results available <Guillermina Lr RN - Last Filed: 11/06/24 10:23> Clarified Diagnosis Clarified Diagnosis: UTI due to/associated with chronic hernandez catheter <Cedric Harris MD - Last Filed: 11/06/24 17:01>
[2024-11-06] MEDS: POTASSIUM CHLORIDE 20 MEQ ER TABLET 40 MEQ PO (10:25)
--- NOTE | 2024-11-06 11:07 | PCPTNOTE ---
Pt is ganesh lift/wheelchair bound at baseline. PT orders discontinued at this time due to pt presenting at baseline.
--- NOTE | 2024-11-06 14:03 | WPDUROPN2 ---
Progress Note: A&P Assessment and Plan (1) Bladder stone: Code(s): N21.0 - Calculus in bladder Status: Acute Assessment and Plan: - Large stone burden in bladder and left kidney - Patient previously following with [facility] but desiring to transition care to [facility]. - Dr. Motley to follow. Initial plan was with Dr. Howell, however, after reviewing case wtih Dr. Vences, he recommends outpatient stone management with Dr. Motley after infection clears. Patient aware treating left renal stones and bladder stones may require a staged approach. (2) Acute UTI: Code(s): N39.0 - Urinary tract infection, site not specified Status: Acute Assessment and Plan: - Present on admission. Chronic SPT. - Leukocytosis resolved. Renal function stable. - Cultures pending. Continue culture-directed antibiotics. (3) Suprapubic catheter: Code(s): Z93.59 - Other cystostomy status Status: Chronic Assessment and Plan: - Exchanged by home health, last exchanged 2 weeks ago (4) Neurogenic bladder: Code(s): N31.9 - Neuromuscular dysfunction of bladder, unspecified Status: Chronic Assessment and Plan: - Progressive MS - Continue management with SPT Subjective Subjective Date/Time Seen: 11/06/24 14:03 Interval history: NAEO, afebrile Patient comfortable on exam Exam Const: General: comfortable and no acute distress HENMT: Face/Nose/Sinus: Normal nares present Eyes: General: appearance normal, both eyes and all related structures Resp: Effort & Inspection: normal respiratory effort Urinary Catheter: Urinary Catheter: other (SPT patent and draining, clear yellow urine) Skin: General skin exam: normal color Psych: Affect: normal affect Objective Data Vital Signs Vital Signs: Vital Signs - 24 hr 11/05/24 16:00 11/05/24 20:00 11/05/24 20:13 Temperature 98.2 F 97.8 F Pulse Rate 77 80 Respiratory Rate 20 18 Blood Pressure 153/71 H 156/79 H Pulse Oximetry 95 92 Oxygen Delivery Room Air Fraction of Inspired Oxygen 11/05/24 20:20 11/05/24 23:13 11/06/24 03:14 Temperature Pulse Rate Respiratory Rate Blood Pressure Pulse Oximetry 94 Oxygen Delivery Room Air Autopap Autopap Fraction of Inspired Oxygen 21 11/06/24 04:55 11/06/24 07:59 11/06/24 08:04 Temperature 97.5 F L 96.9 F L Pulse Rate 70 75 75 Respiratory Rate 18 16 16 Blood Pressure 133/81 146/91 H Pulse Oximetry 93 94 94 Oxygen Delivery Autopap Fraction of Inspired Oxygen 21 Intake/Output Intake/Output: Intake & Output 11/03/24 11/04/24 11/05/24 11/06/24 23:59 23:59 23:59 23:59 Intake Total 1050 4521.7 3550 2050 Output Total 3800 5275 3850 Balance 1050 721.7 -9364 -8333 Meds/Results Medications: Active Medications Generic Name Dose Route Start Last Admin Trade Name Freq PRN Reason Stop Dose Admin Acetaminophen 650 mg 11/05/24 00:52 11/05/24 22:32 Acetaminophen 325 Mg Tablet PO 650 mg Q4H PRN Administration Mild Pain (1-3) or Fever Ascorbic Acid 1,000 mg 11/04/24 17:00 11/06/24 12:52 Ascorbic Acid 500 Mg Tablet PO 1,000 mg TID SILAS Administration Atorvastatin Calcium 20 mg 11/05/24 09:00 11/06/24 08:03 Atorvastatin 20 Mg Tablet PO 20 mg DAILY SILAS Administration Baclofen 30 mg 11/04/24 15:45 11/06/24 06:27 Baclofen 10 Mg Tablet BY MOUTH 30 mg 0700,1500 SILAS Administration Baclofen 40 mg 11/04/24 23:00 11/05/24 22:32 Baclofen 10 Mg Tablet BY MOUTH 40 mg 2300 SILAS Administration Bupropion HCl 150 mg 11/05/24 09:00 11/06/24 08:03 Bupropion Hcl Xl (24 Hr) 150 Mg Tabcr PO 150 mg DAILY SILAS Administration Enoxaparin Sodium 40 mg 11/05/24 09:00 11/06/24 08:03 Enoxaparin 40 Mg/0.4 Ml Syringe SUB-Q 40 mg DAILY SILAS Administration Ceftriaxone Sodium 1 gm/ 50 mls @ 100 mls/hr 11/04/24 21:00 11/05/24 21:38 Sodium Chloride IVPB Infused Q24H SILAS Infusion Levothyroxine Sodium 150 mcg 11/05/24 06:30 11/06/24 06:27 Levothyroxine Sodium 150 Mcg Tablet PO 150 mcg DAILY@0630 SILAS Administration Loratadine 5 mg 11/05/24 09:00 11/06/24 08:03 Loratadine 5 Mg Tablet PO 5 mg QAM SILAS Administration Modafinil 200 mg 11/05/24 09:00 11/06/24 08:03 Modafinil (*Crx) 200 Mg Tablet PO 200 mg DAILY SILAS Administration Dalfampridine 10 Mg 10 mg 11/04/24 21:00 11/06/24 08:06 Tablet Extended PO 12/04/24 20:59 Not Given Release 12 Hr *Use Q12HR [facility] Home Supply* Vitamin D 25 mcg 11/04/24 17:00 11/06/24 08:03 Cholecalciferol (Vitamin D3) 25 Mcg (1,000 Units) Tablet PO 25 mcg BID SILAS Administration Radiology Results: ITS Impressions Abdomen/Pelvis CT 11/04/24 09:09 IMPRESSION: 1. Mild left hydronephrosis and hydroureter. 2. Bladder stones. Nonobstructing left kidney stones. 3. Lap band of the proximal stomach with discontinuous tubing. Chest X-Ray 11/04/24 11:57 IMPRESSION: 1. No acute cardiopulmonary findings or change from prior exam given portable technique. Labs Labs: Laboratory Results - last 24 hr 11/06/24 04:38 WBC 8.3 RBC 3.83 L Hgb 11.9 L Hct 37.1 MCV 96.9 MCH 31.1 MCHC 32.1 RDW 12.9 Plt Count 282 MPV 9.9 Immature Gran % (Auto) 0.2 Neut % (Auto) 73.1 Lymph % (Auto) 16.4 L Potter % (Auto) 7.9 Eos % (Auto) 2.0 Baso % (Auto) 0.4 Lymph # (Auto) 1.36 Potter # (Auto) 0.7 H Eos # (Auto) 0.2 Baso # (Auto) 0.0 Abs Immat Gran (auto) 0.02 Absolute Neuts (auto) 6.1 Absolute Nucleated RBC 0.000 Nucleated RBC % 0.0 Sodium 135 L Potassium 3.1 L Chloride 100 Carbon Dioxide 30 Anion Gap 5 BUN 5 L Creatinine 0.39 L Estim Creat Clear Calc 166 Estimated GFR > 60 Glucose 104 Calcium 8.4 Magnesium 2.0 Total Bilirubin 0.3 AST 27 ALT 33 Alkaline Phosphatase 96 Total Protein 6.7 Albumin 3.5
[2024-11-06] MEDS: cefTRIAXone 2 GM in SODIUM CHLORIDE 0.9% IV 100 ML 200 ML IVPB (21:43)
[2024-11-06] MEDS: DALFAMPRIDINE 10 MG 10 EACH PO (21:49)
[2024-11-06] MEDS: BACLOFEN 10 MG TABLET 40 MG BY MOUTH (21:53)
[2024-11-07] VITALS (7 sets, daily range): BP systolic 140–149; BP diastolic 73–81; PULSE 70–77; RESP 16–18; TEMP 36.3–36.6; O2SAT 93–95
[2024-11-07] MEDS: BACLOFEN 10 MG TABLET 30 MG BY MOUTH ×2 (06:10→14:02)
[2024-11-07] MEDS: LEVOTHYROXINE SODIUM 150 MCG TABLET PO (06:10)
[2024-11-07] MEDS: ASCORBIC ACID 500 MG TABLET 1000 MG PO ×3 (08:29→16:05)
[2024-11-07] MEDS: ATORVASTATIN 20 MG TABLET PO (08:29)
[2024-11-07] MEDS: buPROPion HCL XL (24 HR) 150 MG TABCR PO (08:29)
[2024-11-07] MEDS: CHOLECALCIFEROL (VITAMIN D3) 25 MCG (1,000 UNITS) TABLET PO ×2 (08:29→16:05)
[2024-11-07] MEDS: modafiniL (*CRX) 200 MG TABLET PO (08:30)
[2024-11-07] MEDS: LORATADINE 5 MG TABLET PO (08:30)
[2024-11-07] MEDS: DALFAMPRIDINE 10 MG 10 EACH PO ×2 (08:30→21:03)
[2024-11-07] MEDS: ENOXAPARIN 40 MG/0.4 ML SYRINGE SUB-Q (08:31)
--- NOTE | 2024-11-07 08:43 | P.PNIM_ITS ---
Progress Note: A&P Assessment and Plan (1) UTI (urinary tract infection): Code(s): N39.0 - Urinary tract infection, site not specified Status: Acute Assessment and Plan: Leukocytosis resolved -blood and urine cultures are pending. Comfortable at bedside, vital signs wnl Urine cloudy in urine back, patient on suprapubic catheter -continue on Rocephin and follow up with urine and blood culture (2) Bladder stone: Code(s): N21.0 - Calculus in bladder Status: Acute Assessment and Plan: CT AP reviewed showed mild hydronephrosis and hydroureter As per urology - Large stone burden in bladder and left kidney - Dr. Motley to follow for outpatient stone management after infection clears. Patient aware treating left renal stones and bladder stones may require a staged approach. Urology consulted (3) Hypocalcemia: Code(s): E83.51 - Hypocalcemia Status: Acute Assessment and Plan: resolved Ca 8.7 (4) Hypokalemia: Code(s): E87.6 - Hypokalemia Status: Acute Assessment and Plan: resolved K 4.3 today (5) Hypomagnesemia: Code(s): E83.42 - Hypomagnesemia Status: Acute Assessment and Plan: resolved, Mg 2.0 monitor and replace accordingly (6) Hyperlipidemia: Code(s): E78.5 - Hyperlipidemia, unspecified Status: Acute Assessment and Plan: -continue with home medications. (7) Hypertension: Code(s): I10 - Essential (primary) hypertension Status: Acute Assessment and Plan: -continue with home medications if feasible. (8) Depression: Code(s): F32.A - Depression, unspecified Status: Acute Assessment and Plan: -continue with home medication if feasible. Please review medication reconciliation records (9) Multiple sclerosis: Code(s): G35 - Multiple sclerosis Status: Acute Assessment and Plan: -continue baclofen -patient stated that she is wheelchair bound/bed-bound. -wound care for friction zhang. (10) Bacteremia: Code(s): R78.81 - Bacteremia Status: Acute Assessment and Plan: Possible UTI Blood culture from 11/03/2024 shows Gram-negative bacilli Less suspicion for endocarditis Monitor leukocytosis Started ceftriaxone IV 2 g daily Monitor for fever Plan DVT prophylaxis on Sq Lovenox Subjective Date/time seen: 11/07/24 08:43 Interval history: No acute events reported. Patient repeat blood culture today. Patient is currently on ceftriaxone 2 g IV q.day Review of Systems Constitutional: Constitutional: Reports as per HPI and Reports no additional constitutional complaints Eyes: Eyes: Reports as per HPI and Reports no additional eye complaints ENT: Reports system reviewed and no additional complaints, except as documented and Reports Normal hearing present Cardiovascular: Cardiovascular: Reports no additional cardiovascular complaints Respiratory: Respiratory: Reports as per HPI and Reports no additional respiratory complaints Gastrointestinal: Gastrointestinal: Reports as per HPI and Reports no additional gastrointestinal complaints Genitourinary: Genitourinary: Reports no additional female genitourinary complaints Musculoskeletal: Musculoskeletal: Reports no additional musculoskeletal complaints Integumentary/Breasts: Skin/Breast: Reports system reviewed and no additional complaints, except as docu Neurologic: Reports system reviewed and no additional complaints, except as documented and Reports Normal hearing present Psychiatric: Psychiatric: Reports no additional psychiatric complaints and Reports as per HPI Hematologic/Lymphatic: Hematologic/Lymphatic: Reports no additional hematologic/lymphatic complaints Allergic/Immunologic: Allergic/Immunologic: Reports no additional allergic/immunologic complaints Exam Const: General: cooperative, no acute distress, well developed, awake, Physically active, well nourished and obese Nutritional Appearance: well nourished and obese Orientation/consciousness: oriented to person, oriented to place, oriented to time and patient oriented x3 Limitations: no limitations HENMT: Head: normal to inspection Ears: hearing grossly normal bilaterally Eyes: General: appearance normal, both eyes and all related structures Alignment and Position: alignment normal Periorbital: periorbital findings normal Eyelids: eyelids normal Conjunctivae: conjunctivae normal Sclera: sclerae normal Cornea: corneas normal Pupils: Equal, round and reactive pupils present and Pupil accommodation reflex normal EOM: EOMs intact bilaterally Neck: Neck: normal visual inspection Chest: Chest palpation & inspection: normal inspection of the chest Resp: Effort & Inspection: normal respiratory effort Auscultation: clear to auscultation bilaterally Cardio: Palpation: normal PMI Rate: regular rate Rhythm: regular rhythm Heart sounds: S1 normal heart sound present and S2 normal heart sound present Peripheral pulses: Peripheral pulses 2+ throughout Other: SINUS TACHYCARDIA LEFT AXIS DEVIATION [QRS AXIS < -30] LOW QRS VOLTAGE IN PRECORDIAL LEADS [QRS DEFLECTION < 1.0 mV IN CHEST LEADS] INCOMPLETE RIGHT BUNDLE BRANCH BLOCK [90+ ms QRS DURATION, TERMINAL R IN V1/V2, 40+ ms S IN I/aVL/V4/V5/V6] NONSPECIFIC T-WAVE ABNORMALITY Compared to ECG 04/01/2024 21:09:57 Left-axis deviation now present Low QRS voltage now present Incomplete right bundle-branch block now present T-wave abnormality now present Sinus rhythm no longer present GI: Inspection: normal to inspection : General: Yes no CVA tenderness Other: Suprapubic catheter intact Urinary Catheter: Urinary Catheter: patent and draining, urine cloudy, urine dark and other Back/Spine/Pelvis: Back: no CVA tenderness Skin: General skin exam: normal color Lesions: no lesions Rashes: no rashes Trauma: no lacerations or abrasions Wounds: no wounds Hair: normal Nails: normal Neuro: General: oriented to person, oriented to place, oriented to time and patient oriented x3 Cranial nerves: Yes Equal, round and reactive pupils present and Yes Normal hearing present Extrem: General: normal to inspection Right upper extremity: normal to inspection and shoulder/upper arm Left upper extremity: normal to inspection and shoulder/upper arm Right lower extremity: normal to inspection Left lower extremity: normal to inspection Other: -purple discoloration to 2nd and 3rd toe . Pedal pulses are palpable. Bilateral lower extremities are warm to touch. Capillary refill within normal limits. Psych: Appearance: grossly normal Mental Status: mental status grossly normal Speech and movement: Normal speech and movement present and Slowed speech present (Psych) Affect: normal affect Attitude: cooperative Thought process: Normal thought process present Objective Data Vital Signs Vital Signs: Vital Signs - 24 hr 11/06/24 14:52 11/06/24 20:00 11/06/24 21:14 Temperature 97.4 F L Pulse Rate 80 74 77 Respiratory Rate 14 16 20 Blood Pressure 136/75 Pulse Oximetry 96 94 95 Oxygen Delivery Room Air Room Air Fraction of Inspired Oxygen 21 21 11/06/24 22:12 11/06/24 23:15 11/07/24 04:50 Temperature 97.8 F Pulse Rate 75 74 70 Respiratory Rate 16 Blood Pressure 141/72 H Pulse Oximetry 94 94 94 Oxygen Delivery Autopap Autopap Fraction of Inspired Oxygen 11/07/24 05:53 11/07/24 08:29 Temperature 97.8 F Pulse Rate 76 76 Respiratory Rate 16 16 Blood Pressure 144/80 H Pulse Oximetry 94 94 Oxygen Delivery Autopap Fraction of Inspired Oxygen 21 Intake/Output Intake/Output: Intake & Output 11/04/24 11/05/24 11/06/24 11/07/24 23:59 23:59 23:59 23:59 Intake Total 4521.7 3550 3640 500 Output Total 3800 5275 5050 1950 Balance 441.4 -3878 -0583 -7099 Meds/Results Medications: Active Medications Generic Name Dose Route Start Last Admin Trade Name Freq PRN Reason Stop Dose Admin Acetaminophen 650 mg 11/05/24 00:52 11/05/24 22:32 Acetaminophen 325 Mg Tablet PO 650 mg Q4H PRN Administration Mild Pain (1-3) or Fever Ascorbic Acid 1,000 mg 11/04/24 17:00 11/07/24 08:29 Ascorbic Acid 500 Mg Tablet PO 1,000 mg TID SILAS Administration Atorvastatin Calcium 20 mg 11/05/24 09:00 11/07/24 08:29 Atorvastatin 20 Mg Tablet PO 20 mg DAILY SILAS Administration Baclofen 30 mg 11/04/24 15:45 11/07/24 06:10 Baclofen 10 Mg Tablet BY MOUTH 30 mg 0700,1500 SILAS Administration Baclofen 40 mg 11/04/24 23:00 11/06/24 21:53 Baclofen 10 Mg Tablet BY MOUTH 40 mg 2300 SILAS Administration Bupropion HCl 150 mg 11/05/24 09:00 11/07/24 08:29 Bupropion Hcl Xl (24 Hr) 150 Mg Tabcr PO 150 mg DAILY SILAS Administration Enoxaparin Sodium 40 mg 11/05/24 09:00 11/07/24 08:31 Enoxaparin 40 Mg/0.4 Ml Syringe SUB-Q 40 mg DAILY SILAS Administration Ceftriaxone Sodium 2 gm/ 100 mls @ 200 mls/hr 11/06/24 21:00 11/06/24 21:43 Sodium Chloride IVPB 200 mls/hr Q24H SILAS Administration Levothyroxine Sodium 150 mcg 11/05/24 06:30 11/07/24 06:10 Levothyroxine Sodium 150 Mcg Tablet PO 150 mcg DAILY@0630 SILAS Administration Loratadine 5 mg 11/05/24 09:00 11/07/24 08:30 Loratadine 5 Mg Tablet PO 5 mg QAM SILAS Administration Modafinil 200 mg 11/05/24 09:00 11/07/24 08:30 Modafinil (*Crx) 200 Mg Tablet PO 200 mg DAILY SILAS Administration Dalfampridine 10 Mg 10 mg 11/04/24 21:00 11/07/24 08:30 Tablet Extended PO 12/04/24 20:59 10 mg Release 12 Hr *Use Q12HR SILAS Administration Home Supply* Vitamin D 25 mcg 11/04/24 17:00 11/07/24 08:29 Cholecalciferol (Vitamin D3) 25 Mcg (1,000 Units) Tablet PO 25 mcg BID SILAS Administration Radiology Results: ITS Impressions Abdomen/Pelvis CT 11/04/24 09:09 IMPRESSION: 1. Mild left hydronephrosis and hydroureter. 2. Bladder stones. Nonobstructing left kidney stones. 3. Lap band of the proximal stomach with discontinuous tubing. Chest X-Ray 11/04/24 11:57 IMPRESSION: 1. No acute cardiopulmonary findings or change from prior exam given portable technique. Quality VTE Prophylaxis VTE prophylaxis: mechanical ordered Hospitalist [facility] Advance Care Plan I have confirmed that the patient's Advanced Care Plan is present, code status is documented, or surrogate decision maker is listed in patient medical record.: Yes Medication Reconciliation I have utilized all available resources to obtain, update and review the p atients current medications (includes all prescriptions, OTC, herbals, cannabis, and nutritional supplements).: Yes
--- NOTE | 2024-11-07 09:01 | WPDUROPN2 ---
Progress Note: A&P Assessment and Plan (1) Bladder stone: Code(s): N21.0 - Calculus in bladder Status: Acute Assessment and Plan: - Large stone burden in bladder and left kidney - Dr. Motley to follow for outpatient stone management after infection clears. Patient aware treating left renal stones and bladder stones may require a staged approach. (2) Acute UTI: Code(s): N39.0 - Urinary tract infection, site not specified Status: Acute Assessment and Plan: - Present on admission. Chronic SPT. - Leukocytosis resolved. Renal function stable. -Urine culture pending. Culture driven antibiotic therapy per primary service once resulted. (3) Suprapubic catheter: Code(s): Z93.59 - Other cystostomy status Status: Chronic Assessment and Plan: - Changed by home health, last exchanged 2 weeks ago (4) Neurogenic bladder: Code(s): N31.9 - Neuromuscular dysfunction of bladder, unspecified Status: Chronic Assessment and Plan: - Progressive MS - Continue management with SPT Subjective Subjective Date/Time Seen: 11/07/24 09:01 Interval history: no acute events overnight. patient is comfortable and doing well. she knows she will follow up with Dr. Motley for outpatient stone management. Review of Systems Review of Systems: All systems reviewed & are unremarkable except as noted in HPI and below Exam Const: General: cooperative, comfortable and no acute distress HENMT: Face/Nose/Sinus: Normal nares present Eyes: General: appearance normal, both eyes and all related structures Resp: Effort & Inspection: normal respiratory effort Cardio: Rate: regular rate Rhythm: regular rhythm GI: Inspection: non-distended Urinary Catheter: Urinary Catheter: other (SPT patent and draining, clear yellow urine) Skin: General skin exam: normal color Extrem: General: normal to inspection Psych: Affect: normal affect Objective Data Vital Signs Vital Signs: Vital Signs - 24 hr 11/06/24 14:52 11/06/24 20:00 11/06/24 21:14 Temperature 97.4 F L Pulse Rate 80 74 77 Respiratory Rate 14 16 20 Blood Pressure 136/75 Pulse Oximetry 96 94 95 Oxygen Delivery Room Air Room Air Fraction of Inspired Oxygen 21 21 11/06/24 22:12 11/06/24 23:15 11/07/24 04:50 Temperature 97.8 F Pulse Rate 75 74 70 Respiratory Rate 16 Blood Pressure 141/72 H Pulse Oximetry 94 94 94 Oxygen Delivery Autopap Autopap Fraction of Inspired Oxygen 11/07/24 05:53 11/07/24 08:29 Temperature 97.8 F Pulse Rate 76 76 Respiratory Rate 16 16 Blood Pressure 144/80 H Pulse Oximetry 94 94 Oxygen Delivery Autopap Fraction of Inspired Oxygen 21 Intake/Output Intake/Output: Intake & Output 11/04/24 11/05/24 11/06/24 11/07/24 23:59 23:59 23:59 23:59 Intake Total 4521.7 3550 3640 500 Output Total 3800 5275 5050 1950 Balance 721.7 -8571 -8921 -0340 Meds/Results Medications: Active Medications Generic Name Dose Route Start Last Admin Trade Name Freq PRN Reason Stop Dose Admin Acetaminophen 650 mg 11/05/24 00:52 11/05/24 22:32 Acetaminophen 325 Mg Tablet PO 650 mg Q4H PRN Administration Mild Pain (1-3) or Fever Ascorbic Acid 1,000 mg 11/04/24 17:00 11/07/24 08:29 Ascorbic Acid 500 Mg Tablet PO 1,000 mg TID SILAS Administration Atorvastatin Calcium 20 mg 11/05/24 09:00 11/07/24 08:29 Atorvastatin 20 Mg Tablet PO 20 mg DAILY SILAS Administration Baclofen 30 mg 11/04/24 15:45 11/07/24 06:10 Baclofen 10 Mg Tablet BY MOUTH 30 mg 0700,1500 SILAS Administration Baclofen 40 mg 11/04/24 23:00 11/06/24 21:53 Baclofen 10 Mg Tablet BY MOUTH 40 mg 2300 SILAS Administration Bupropion HCl 150 mg 11/05/24 09:00 11/07/24 08:29 Bupropion Hcl Xl (24 Hr) 150 Mg Tabcr PO 150 mg DAILY SILAS Administration Enoxaparin Sodium 40 mg 11/05/24 09:00 11/07/24 08:31 Enoxaparin 40 Mg/0.4 Ml Syringe SUB-Q 40 mg DAILY SILAS Administration Ceftriaxone Sodium 2 gm/ 100 mls @ 200 mls/hr 11/06/24 21:00 11/06/24 21:43 Sodium Chloride IVPB 200 mls/hr Q24H ISLAS Administration Levothyroxine Sodium 150 mcg 11/05/24 06:30 11/07/24 06:10 Levothyroxine Sodium 150 Mcg Tablet PO 150 mcg DAILY@0630 SILAS Administration Loratadine 5 mg 11/05/24 09:00 11/07/24 08:30 Loratadine 5 Mg Tablet PO 5 mg QAM SILAS Administration Modafinil 200 mg 11/05/24 09:00 11/07/24 08:30 Modafinil (*Crx) 200 Mg Tablet PO 200 mg DAILY SILAS Administration Dalfampridine 10 Mg 10 mg 11/04/24 21:00 11/07/24 08:30 Tablet Extended PO 12/04/24 20:59 10 mg Release 12 Hr *Use Q12HR SILAS Administration Home Supply* Vitamin D 25 mcg 11/04/24 17:00 11/07/24 08:29 Cholecalciferol (Vitamin D3) 25 Mcg (1,000 Units) Tablet PO 25 mcg BID SILAS Administration Radiology Results: ITS Impressions Abdomen/Pelvis CT 11/04/24 09:09 IMPRESSION: 1. Mild left hydronephrosis and hydroureter. 2. Bladder stones. Nonobstructing left kidney stones. 3. Lap band of the proximal stomach with discontinuous tubing. Chest X-Ray 11/04/24 11:57 IMPRESSION: 1. No acute cardiopulmonary findings or change from prior exam given portable technique.
[2024-11-07 12:35] LABS: Hematocrit 40.6 % (37.0-47.0); Hemoglobin 13.2 g/dL (12.0-15.0); Mean Corpuscular HGB Conc 32.5 g/dl (32-36); Mean Corpuscular Hemoglobin 31.1 pg (26-34); Mean Corpuscular Volume 95.8 fl (80-100); Platelet Count Result 318 k/mm3 (150-375); Red Blood Count 4.24 M/mm3 (4.2-5.4); White Blood Count 8.9 K/mm3 (4.5-10.0)
[2024-11-07 12:54] LABS: Alanine Aminotransferase 33 U/L (6-35); Albumin Level 4.2 g/dL (3.5-5.1); Alkaline Phosphatase 110 U/L (38-126); Anion Gap 9 mmol/L (4-12); Aspartate Amino Transferase 26 U/L (14-36); Bilirubin,Total 0.4 mg/dL (0.2-1.3); Blood Urea Nitrogen 3 mg/dL (7-17); Calcium 8.9 mg/dL (8.4-10.2); Carbon Dioxide 31 mmol/L (22-30); Chloride 97 mmol/L (98-107); Estimated CRCL calculation 145 ml/min; Estimated Glomerular Filt Rate > 60; Glucose 96 mg/dL (65-110); Potassium 3.3 mmol/L (3.4-5.0); Sodium 137 mmol/L (137-145); Total Protein 8.1 g/dL (6.3-8.2)
[2024-11-07] MEDS: ACETAMINOPHEN 325 MG TABLET 650 MG PO (18:39)
[2024-11-07] MEDS: cefTRIAXone 2 GM in SODIUM CHLORIDE 0.9% IV 100 ML 200 ML IVPB (21:02)
[2024-11-08 05:05] VITALS: BP 145/80; PULSE 72; RESP 18; TEMP 37; O2SAT 96
[2024-11-08] MEDS: LEVOTHYROXINE SODIUM 150 MCG TABLET PO (06:18)
[2024-11-08] MEDS: BACLOFEN 10 MG TABLET 30 MG BY MOUTH ×2 (06:18→16:43)
--- NOTE | 2024-11-08 07:47 | P.PNIM_ITS ---
Progress Note: A&P Assessment and Plan (1) UTI (urinary tract infection): Code(s): N39.0 - Urinary tract infection, site not specified Status: Acute Assessment and Plan: Leukocytosis resolved -blood and urine cultures are pending. Comfortable at bedside, vital signs wnl Urine cloudy in urine back, patient on suprapubic catheter S/P Rocephin Started on Levofloxacin (2) Bladder stone: Code(s): N21.0 - Calculus in bladder Status: Acute Assessment and Plan: CT AP reviewed showed mild hydronephrosis and hydroureter As per urology - Large stone burden in bladder and left kidney - Dr. Motley to follow for outpatient stone management after infection clears. Patient aware treating left renal stones and bladder stones may require a staged approach. Urology consulted (3) Hypocalcemia: Code(s): E83.51 - Hypocalcemia Status: Acute Assessment and Plan: resolved Ca 8.7 (4) Hypokalemia: Code(s): E87.6 - Hypokalemia Status: Acute Assessment and Plan: resolved K 4.3 today (5) Hypomagnesemia: Code(s): E83.42 - Hypomagnesemia Status: Acute Assessment and Plan: resolved, Mg 2.0 monitor and replace accordingly (6) Hyperlipidemia: Code(s): E78.5 - Hyperlipidemia, unspecified Status: Acute Assessment and Plan: -continue with home medications. (7) Hypertension: Code(s): I10 - Essential (primary) hypertension Status: Acute Assessment and Plan: -continue with home medications if feasible. (8) Depression: Code(s): F32.A - Depression, unspecified Status: Acute Assessment and Plan: -continue with home medication if feasible. Please review medication reconciliation records (9) Multiple sclerosis: Code(s): G35 - Multiple sclerosis Status: Acute Assessment and Plan: -continue baclofen -patient stated that she is wheelchair bound/bed-bound. -wound care for friction zhang. (10) Bacteremia: Code(s): R78.81 - Bacteremia Status: Acute Assessment and Plan: Possible UTI Blood culture from 11/03/2024 shows Gram-negative bacilli Less suspicion for endocarditis Monitor leukocytosis Started ceftriaxone IV 2 g daily Monitor for fever Plan DVT prophylaxis on Sq Lovenox Subjective Date/time seen: 11/08/24 07:47 Interval history: No acute events reported. As per urology,Large stone burden in bladder and left kidney and Dr. Motley to follow for outpatient stone management after infection clears. Sensitivity back and started on Levofloxacin. Review of Systems Constitutional: Constitutional: Reports as per HPI and Reports no additional constitutional complaints Eyes: Eyes: Reports as per HPI and Reports no additional eye complaints ENT: Reports system reviewed and no additional complaints, except as documented and Reports Normal hearing present Cardiovascular: Cardiovascular: Reports no additional cardiovascular complaints Respiratory: Respiratory: Reports as per HPI and Reports no additional respiratory complaints Gastrointestinal: Gastrointestinal: Reports as per HPI and Reports no additional gastrointestinal complaints Genitourinary: Genitourinary: Reports no additional female genitourinary complaints Musculoskeletal: Musculoskeletal: Reports no additional musculoskeletal complaints Integumentary/Breasts: Skin/Breast: Reports system reviewed and no additional complaints, except as docu Neurologic: Reports system reviewed and no additional complaints, except as documented and Reports Normal hearing present Psychiatric: Psychiatric: Reports no additional psychiatric complaints and Reports as per HPI Hematologic/Lymphatic: Hematologic/Lymphatic: Reports no additional hematologic/lymphatic complaints Allergic/Immunologic: Allergic/Immunologic: Reports no additional allergic/immunologic complaints Exam Const: General: cooperative, no acute distress, well developed, awake, Physically active, well nourished and obese Nutritional Appearance: well nourished and obese Orientation/consciousness: oriented to person, oriented to place, oriented to time and patient oriented x3 Limitations: no limitations HENMT: Head: normal to inspection Ears: hearing grossly normal bilaterally Eyes: General: appearance normal, both eyes and all related structures Alignment and Position: alignment normal Periorbital: periorbital findings normal Eyelids: eyelids normal Conjunctivae: conjunctivae normal Sclera: sclerae normal Cornea: corneas normal Pupils: Equal, round and reactive pupils present and Pupil accommodation reflex normal EOM: EOMs intact bilaterally Neck: Neck: normal visual inspection Chest: Chest palpation & inspection: normal inspection of the chest Resp: Effort & Inspection: normal respiratory effort Auscultation: clear to auscultation bilaterally Cardio: Palpation: normal PMI Rate: regular rate Rhythm: regular rhythm Heart sounds: S1 normal heart sound present and S2 normal heart sound present Peripheral pulses: Peripheral pulses 2+ throughout Other: SINUS TACHYCARDIA LEFT AXIS DEVIATION [QRS AXIS < -30] LOW QRS VOLTAGE IN PRECORDIAL LEADS [QRS DEFLECTION < 1.0 mV IN CHEST LEADS] INCOMPLETE RIGHT BUNDLE BRANCH BLOCK [90+ ms QRS DURATION, TERMINAL R IN V1/V2, 40+ ms S IN I/aVL/V4/V5/V6] NONSPECIFIC T-WAVE ABNORMALITY Compared to ECG 04/01/2024 21:09:57 Left-axis deviation now present Low QRS voltage now present Incomplete right bundle-branch block now present T-wave abnormality now present Sinus rhythm no longer present GI: Inspection: normal to inspection : General: Yes no CVA tenderness Other: Suprapubic catheter intact Urinary Catheter: Urinary Catheter: patent and draining, urine cloudy, urine dark and other Back/Spine/Pelvis: Back: no CVA tenderness Skin: General skin exam: normal color Lesions: no lesions Rashes: no rashes Trauma: no lacerations or abrasions Wounds: no wounds Hair: normal Nails: normal Neuro: General: oriented to person, oriented to place, oriented to time and patient oriented x3 Cranial nerves: Yes Equal, round and reactive pupils present and Yes Normal hearing present Extrem: General: normal to inspection Right upper extremity: normal to inspection and shoulder/upper arm Left upper extremity: normal to inspection and shoulder/upper arm Right lower extremity: normal to inspection Left lower extremity: normal to inspection Other: -purple discoloration to 2nd and 3rd toe . Pedal pulses are palpable. Bilateral lower extremities are warm to touch. Capillary refill within normal limits. Psych: Appearance: grossly normal Mental Status: mental status grossly normal Speech and movement: Normal speech and movement present and Slowed speech present (Psych) Affect: normal affect Attitude: cooperative Thought process: Normal thought process present Objective Data Vital Signs Vital Signs: Vital Signs - 24 hr 11/07/24 08:29 11/07/24 13:41 11/07/24 20:00 Temperature 97.6 F Pulse Rate 76 77 Respiratory Rate 16 16 Blood Pressure 149/73 H Pulse Oximetry 94 95 Oxygen Delivery Autopap Room Air Fraction of Inspired Oxygen 11/07/24 20:22 11/07/24 20:43 11/07/24 22:50 Temperature 97.4 F L Pulse Rate 77 77 76 Respiratory Rate 18 Blood Pressure 140/81 Pulse Oximetry 94 93 93 Oxygen Delivery Room Air Autopap Fraction of Inspired Oxygen 11/08/24 02:20 11/08/24 05:05 Temperature 98.6 F Pulse Rate 72 Respiratory Rate 18 Blood Pressure 145/80 H Pulse Oximetry 96 Oxygen Delivery Autopap Fraction of Inspired Oxygen Intake/Output Intake/Output: Intake & Output 11/05/24 11/06/24 11/07/24 11/08/24 23:59 23:59 23:59 23:59 Intake Total 3550 3740 2220 350 Output Total 5275 5050 5400 1999 [facility] -[phone] Meds/Results Medications: Active Medications Generic Name Dose Route Start Last Admin Trade Name Freq PRN Reason Stop Dose Admin Acetaminophen 650 mg 11/05/24 00:52 11/07/24 18:39 Acetaminophen 325 Mg Tablet PO 650 mg Q4H PRN Administration Mild Pain (1-3) or Fever Ascorbic Acid 1,000 mg 11/04/24 17:00 11/07/24 16:05 Ascorbic Acid 500 Mg Tablet PO 1,000 mg TID SILAS Administration Atorvastatin Calcium 20 mg 11/05/24 09:00 11/07/24 08:29 Atorvastatin 20 Mg Tablet PO 20 mg DAILY SILAS Administration Baclofen 30 mg 11/04/24 15:45 11/08/24 06:18 Baclofen 10 Mg Tablet BY MOUTH 30 mg 0700,1500 SILAS Administration Baclofen 40 mg 11/04/24 23:00 11/08/24 01:13 Baclofen 10 Mg Tablet BY MOUTH Not Given 2300 SILAS Bupropion HCl 150 mg 11/05/24 09:00 11/07/24 08:29 Bupropion Hcl Xl (24 Hr) 150 Mg Tabcr PO 150 mg DAILY SILAS Administration Enoxaparin Sodium 40 mg 11/05/24 09:00 11/07/24 08:31 Enoxaparin 40 Mg/0.4 Ml Syringe SUB-Q 40 mg DAILY SILAS Administration Ceftriaxone Sodium 2 gm/ 100 mls @ 200 mls/hr 11/06/24 21:00 11/07/24 21:32 Sodium Chloride IVPB Infused Q24H SILAS Infusion Levothyroxine Sodium 150 mcg 11/05/24 06:30 11/08/24 06:18 Levothyroxine Sodium 150 Mcg Tablet PO 150 mcg DAILY@0630 SILAS Administration Loratadine 5 mg 11/05/24 09:00 11/07/24 08:30 Loratadine 5 Mg Tablet PO 5 mg QAM SILAS Administration Modafinil 200 mg 11/05/24 09:00 11/07/24 08:30 Modafinil (*Crx) 200 Mg Tablet PO 200 mg DAILY SILAS Administration Dalfampridine 10 Mg 10 mg 11/04/24 21:00 11/07/24 21:03 Tablet Extended PO 12/04/24 20:59 10 mg Release 12 Hr *Use Q12HR SILAS Administration Home Supply* Vitamin D 25 mcg 11/04/24 17:00 11/07/24 16:05 Cholecalciferol (Vitamin D3) 25 Mcg (1,000 Units) Tablet PO 25 mcg BID SILAS Administration Radiology Results: ITS Impressions Abdomen/Pelvis CT 11/04/24 09:09 IMPRESSION: 1. Mild left hydronephrosis and hydroureter. 2. Bladder stones. Nonobstructing left kidney stones. 3. Lap band of the proximal stomach with discontinuous tubing. Chest X-Ray 11/04/24 11:57 IMPRESSION: 1. No acute cardiopulmonary findings or change from prior exam given portable technique. Labs Labs: Laboratory Results - last 24 hr 11/07/24 12:01 WBC 8.9 RBC 4.24 Hgb 13.2 Hct 40.6 MCV 95.8 MCH 31.1 MCHC 32.5 RDW 12.8 Plt Count 318 MPV 9.9 Sodium 137 Potassium 3.3 L Chloride 97 L Carbon Dioxide 31 H Anion Gap 9 BUN 3 L Creatinine 0.45 L Estim Creat Clear Calc 145 Estimated GFR > 60 Glucose 96 Calcium 8.9 Total Bilirubin 0.4 AST 26 ALT 33 Alkaline Phosphatase 110 Total Protein 8.1 Albumin 4.2 Quality VTE Prophylaxis VTE prophylaxis: mechanical ordered Hospitalist [facility] Advance Care Plan I have confirmed that the patient's Advanced Care Plan is present, code status is documented, or surrogate decision maker is listed in patient medical record.: Yes Medication Reconciliation I have utilized all available resources to obtain, update and review the patients current medications (includes all prescriptions, OTC, herbals, cannabis, and nutritional supplements).: Yes
[2024-11-08 08:48] LABS: Hematocrit 39.5 % (37.0-47.0); Hemoglobin 12.8 g/dL (12.0-15.0); Mean Corpuscular HGB Conc 32.4 g/dl (32-36); Mean Corpuscular Hemoglobin 30.8 pg (26-34); Mean Corpuscular Volume 95.2 fl (80-100); Platelet Count Result 318 k/mm3 (150-375); Red Blood Count 4.15 M/mm3 (4.2-5.4); White Blood Count 7.8 K/mm3 (4.5-10.0)
[2024-11-08] MEDS: modafiniL (*CRX) 200 MG TABLET PO (09:08)
[2024-11-08] MEDS: POTASSIUM CHLORIDE 20 MEQ PACKET (FOR LIQUID) PO (09:08)
[2024-11-08] MEDS: buPROPion HCL XL (24 HR) 150 MG TABCR PO (09:08)
[2024-11-08] MEDS: CHOLECALCIFEROL (VITAMIN D3) 25 MCG (1,000 UNITS) TABLET PO ×2 (09:08→16:44)
[2024-11-08] MEDS: LORATADINE 5 MG TABLET PO (09:08)
[2024-11-08] MEDS: ASCORBIC ACID 500 MG TABLET 1000 MG PO ×3 (09:08→16:44)
[2024-11-08] MEDS: POTASSIUM CHLORIDE 20 MEQ ER TABLET 40 MEQ PO (09:09)
[2024-11-08] MEDS: ATORVASTATIN 20 MG TABLET PO (09:09)
[2024-11-08] MEDS: DALFAMPRIDINE 10 MG 10 EACH PO ×2 (09:11→22:16)
[2024-11-08] MEDS: ENOXAPARIN 40 MG/0.4 ML SYRINGE SUB-Q (09:11)
[2024-11-08 09:12] LABS: Alanine Aminotransferase 28 U/L (6-35); Albumin Level 3.8 g/dL (3.5-5.1); Alkaline Phosphatase 109 U/L (38-126); Anion Gap 4 mmol/L (4-12); Aspartate Amino Transferase 25 U/L (14-36); Bilirubin,Total 0.3 mg/dL (0.2-1.3); Blood Urea Nitrogen 4 mg/dL (7-17); Calcium 8.8 mg/dL (8.4-10.2); Carbon Dioxide 34 mmol/L (22-30); Chloride 98 mmol/L (98-107); Estimated CRCL calculation 134 ml/min; Estimated Glomerular Filt Rate > 60; Glucose 101 mg/dL (65-110); Potassium 3.3 mmol/L (3.4-5.0); Sodium 136 mmol/L (137-145); Total Protein 7.3 g/dL (6.3-8.2)
[2024-11-08] MEDS: ACETAMINOPHEN 325 MG TABLET 650 MG PO (13:35)
[2024-11-08 14:00] VITALS: BP 146/80; PULSE 82; RESP 18; TEMP 36.4; O2SAT 94
[2024-11-08 20:10] VITALS: BP 146/79; PULSE 78; RESP 16; TEMP 36.7; O2SAT 96
[2024-11-08] MEDS: BACLOFEN 10 MG TABLET 40 MG BY MOUTH (22:16)
[2024-11-08 23:07] VITALS: PULSE 72; O2SAT 94
[2024-11-09 05:05] LABS: Hematocrit 38.6 % (37.0-47.0); Hemoglobin 12.2 g/dL (12.0-15.0); Mean Corpuscular HGB Conc 31.6 g/dl (32-36); Mean Corpuscular Hemoglobin 30.8 pg (26-34); Mean Corpuscular Volume 97.5 fl (80-100); Platelet Count Result 328 k/mm3 (150-375); Red Blood Count 3.96 M/mm3 (4.2-5.4); White Blood Count 10.3 K/mm3 (4.5-10.0)
[2024-11-09 05:08] VITALS: BP 145/75; PULSE 73; RESP 17; TEMP 36.7; O2SAT 95
[2024-11-09 05:30] LABS: Alanine Aminotransferase 26 U/L (6-35); Albumin Level 3.7 g/dL (3.5-5.1); Alkaline Phosphatase 103 U/L (38-126); Anion Gap 5 mmol/L (4-12); Aspartate Amino Transferase 25 U/L (14-36); Bilirubin,Total 0.2 mg/dL (0.2-1.3); Blood Urea Nitrogen 5 mg/dL (7-17); Calcium 8.7 mg/dL (8.4-10.2); Carbon Dioxide 34 mmol/L (22-30); Chloride 99 mmol/L (98-107); Estimated CRCL calculation 120 ml/min; Estimated Glomerular Filt Rate > 60; Glucose 100 mg/dL (65-110); Potassium 4.3 mmol/L (3.4-5.0); Sodium 138 mmol/L (137-145); Total Protein 7.0 g/dL (6.3-8.2)
[2024-11-09] MEDS: BACLOFEN 10 MG TABLET 30 MG BY MOUTH ×2 (06:06→16:57)
[2024-11-09] MEDS: LEVOTHYROXINE SODIUM 150 MCG TABLET PO (06:06)
--- NOTE | 2024-11-09 09:09 | P.PNIM_ITS ---
Progress Note: A&P Assessment and Plan (1) UTI (urinary tract infection): Code(s): N39.0 - Urinary tract infection, site not specified Status: Acute Assessment and Plan: Leukocytosis resolved -blood and urine cultures are pending. Comfortable at bedside, vital signs wnl Urine cloudy in urine back, patient on suprapubic catheter S/P Rocephin Started on Levofloxacin (2) Bladder stone: Code(s): N21.0 - Calculus in bladder Status: Acute Assessment and Plan: CT AP reviewed showed mild hydronephrosis and hydroureter As per urology - Large stone burden in bladder and left kidney - Dr. Motley to follow for outpatient stone management after infection clears. Patient aware treating left renal stones and bladder stones may require a staged approach. Urology consulted (3) Hypocalcemia: Code(s): E83.51 - Hypocalcemia Status: Acute Assessment and Plan: resolved (4) Hypokalemia: Code(s): E87.6 - Hypokalemia Status: Acute Assessment and Plan: resolved (5) Hypomagnesemia: Code(s): E83.42 - Hypomagnesemia Status: Acute Assessment and Plan: resolved, Mg 2.0 monitor and replace accordingly (6) Hyperlipidemia: Code(s): E78.5 - Hyperlipidemia, unspecified Status: Acute Assessment and Plan: -continue with home medications. (7) Hypertension: Code(s): I10 - Essential (primary) hypertension Status: Acute Assessment and Plan: -continue with home medications if feasible. (8) Depression: Code(s): F32.A - Depression, unspecified Status: Acute Assessment and Plan: -continue with home medication if feasible. Please review medication re conciliation records (9) Multiple sclerosis: Code(s): G35 - Multiple sclerosis Status: Acute Assessment and Plan: -continue baclofen -patient stated that she is wheelchair bound/bed-bound. -wound care for friction zhang. (10) Bacteremia: Code(s): R78.81 - Bacteremia Status: Acute Assessment and Plan: Possible UTI Blood culture from 11/03/2024 shows Proteus mirabilis resistant to tetracycline Bactrim ampicillin intermediate to cefazolin. Less suspicion for endocarditis Monitor leukocytosis Started ceftriaxone IV 2 g daily Monitor for fever Repeat blood culture pending Antibiotics switched to levofloxacin Plan DVT prophylaxis on Sq Lovenox Subjective Date/time seen: 11/09/24 09:09 Interval history: No overnight events. No new complaints. Denies any abdominal pain nausea vomiting. Review of Systems Review of Systems: All systems reviewed & are unremarkable except as noted in HPI and below Exam Narrative: GENERAL: Well appearing, well-nourished, and in no acute distress. HEAD: Normocephalic, atraumatic. EYES: EOMI. ENT: Nares clear, no rhinorrhea or epistaxis. Mucous membranes moist. CHEST: Clear to auscultation. No respiratory distress. No wheezes rales or rhonchi HEART: Regular rate and rhythm. No murmur heard. Normal peripheral pulses. ABDOMEN: Soft, nontender, nondistended, normal active bowel sounds. Suprapubic catheter in place EXTREMITIES: Normal range of motion. No edema. SKIN: Warm, dry, no rash. NEURO: No focal deficits. Alert and oriented x3. PSYCH: Normal mood and affect Objective Data Vital Signs Vital Signs: Vital Signs - 24 hr 11/08/24 09:10 11/08/24 14:00 11/08/24 20:00 Temperature 97.6 F Pulse Rate 82 Respiratory Rate 18 Blood Pressure 146/80 H Pulse Oximetry 94 Oxygen Delivery Room Air CPAP 11/08/24 20:10 11/08/24 23:07 11/09/24 02:16 Temperature 98.0 F Pulse Rate 78 72 Respiratory Rate 16 Blood Pressure 146/79 H Pulse Oximetry 96 94 Oxygen Delivery Autopap Autopap 11/09/24 05:08 Temperature 98.0 F Pulse Rate 73 Respiratory Rate 17 Blood Pressure 145/75 H Pulse Oximetry 95 Oxygen Delivery Intake/Output Intake/Output: Intake & Output 11/06/24 11/07/24 11/08/24 11/09/24 23:59 23:59 23:59 23:59 Intake Total 3740 2220 1800 490 Output Total 5050 5400 4800 1999 Balance -[phone] Meds/Results Medications: Active Medications Generic Name Dose Route Start Last Admin Trade Name Freq PRN Reason Stop Dose Admin Acetaminophen 650 mg 11/05/24 00:52 11/08/24 13:35 Acetaminophen 325 Mg Tablet PO 650 mg Q4H PRN Administration Mild Pain (1-3) or Fever Ascorbic Acid 1,000 mg 11/04/24 17:00 11/08/24 16:44 Ascorbic Acid 500 Mg Tablet PO 1,000 mg TID SILAS Administration Atorvastatin Calcium 20 mg 11/05/24 09:00 11/08/24 09:09 Atorvastatin 20 Mg Tablet PO 20 mg DAILY SILAS Administration Baclofen 30 mg 11/04/24 15:45 11/09/24 06:06 Baclofen 10 Mg Tablet BY MOUTH 30 mg 0700,1500 SILAS Administration Baclofen 40 mg 11/04/24 23:00 11/08/24 22:16 Baclofen 10 Mg Tablet BY MOUTH 40 mg 2300 SILAS Administration Bupropion HCl 150 mg 11/05/24 09:00 11/08/24 09:08 Bupropion Hcl Xl (24 Hr) 150 Mg Tabcr PO 150 mg DAILY SIALS Administration Enoxaparin Sodium 40 mg 11/05/24 09:00 11/08/24 09:11 Enoxaparin 40 Mg/0.4 Ml Syringe SUB-Q 40 mg DAILY SILAS Administration Levofloxacin 750 mg 11/08/24 21:00 11/08/24 22:13 Levofloxacin 750 Mg Tablet PO 11/12/24 21:01 750 mg QHS SILAS Administration Levothyroxine Sodium 150 mcg 11/05/24 06:30 11/09/24 06:06 Levothyroxine Sodium 150 Mcg Tablet PO 150 mcg DAILY@0630 SILAS Administration Loratadine 5 mg 11/05/24 09:00 11/08/24 09:08 Loratadine 5 Mg Tablet PO 5 mg QAM SILAS Administration Modafinil 200 mg 11/05/24 09:00 11/08/24 09:08 Modafinil (*Crx) 200 Mg Tablet PO 200 mg DAILY SILAS Administration Dalfampridine 10 Mg 10 mg 11/04/24 21:00 11/08/24 22:16 Tablet Extended PO 12/04/24 20:59 10 mg Release 12 Hr *Use Q12HR SILAS Administration Home Supply* Potassium Chloride 20 meq 11/08/24 09:00 11/08/24 09:08 Potassium Chloride 20 Meq Packet (For Liquid) PO 20 meq DAILY SILAS Administration Vitamin D 25 mcg 11/04/24 17:00 11/08/24 16:44 Cholecalciferol (Vitamin D3) 25 Mcg (1,000 Units) Tablet PO 25 mcg BID SILAS Administration Radiology Results: ITS Impressions Abdomen/Pelvis CT 11/04/24 09:09 IMPRESSION: 1. Mild left hydronephrosis and hydroureter. 2. Bladder stones. Nonobstructing left kidney stones. 3. Lap band of the proximal stomach with discontinuous tubing. Chest X-Ray 11/04/24 11:57 IMPRESSION: 1. No acute cardiopulmonary findings or change from prior exam given portable technique. Labs Labs: Laboratory Results - last 24 hr 11/08/24 11/09/24 08:40 04:32 WBC 10.3 H RBC 3.96 L Hgb 12.2 Hct 38.6 MCV 97.5 MCH 30.8 MCHC 31.6 L RDW 13.1 Plt Count 328 MPV 9.6 Sodium 136 L 138 Potassium 3.3 L 4.3 Chloride 98 99 Carbon Dioxide 34 H 34 H Anion Gap 4 5 BUN 4 L 5 L Creatinine 0.48 L 0.54 L Estim Creat Clear Calc 134 120 Estimated GFR > 60 > 60 Glucose 101 100 Calcium 8.8 8.7 Total Bilirubin 0.3 0.2 AST 25 25 ALT 28 26 Alkaline Phosphatase 109 103 Total Protein 7.3 7.0 Albumin 3.8 3.7
[2024-11-09 09:11] VITALS: BP 161/85; PULSE 78; RESP 14; O2SAT 95
[2024-11-09] MEDS: ASCORBIC ACID 500 MG TABLET 1000 MG PO ×3 (09:13→16:58)
[2024-11-09] MEDS: buPROPion HCL XL (24 HR) 150 MG TABCR PO (09:13)
[2024-11-09] MEDS: LORATADINE 5 MG TABLET PO (09:13)
[2024-11-09] MEDS: POTASSIUM CHLORIDE 20 MEQ PACKET (FOR LIQUID) PO (09:13)
[2024-11-09] MEDS: CHOLECALCIFEROL (VITAMIN D3) 25 MCG (1,000 UNITS) TABLET PO ×2 (09:13→16:57)
[2024-11-09] MEDS: modafiniL (*CRX) 200 MG TABLET PO (09:13)
[2024-11-09] MEDS: ATORVASTATIN 20 MG TABLET PO (09:13)
[2024-11-09] MEDS: ENOXAPARIN 40 MG/0.4 ML SYRINGE SUB-Q (09:14)
[2024-11-09] MEDS: DALFAMPRIDINE 10 MG 10 EACH PO ×2 (09:14→20:26)
--- NOTE | 2024-11-09 11:00 | PCNWS ---
Weekly nutritional screen. Patient is tolerating current Regular diet with adequate intake, 75-100% with some instances of 25%. No weight loss reported. No nutritional needs at this time.
[2024-11-09] MEDS: ACETAMINOPHEN 325 MG TABLET 650 MG PO ×2 (12:55→20:24)
[2024-11-09 13:42] VITALS: BP 150/72; PULSE 77; RESP 16; TEMP 36.6; O2SAT 97
[2024-11-09 21:29] VITALS: BP 137/75; PULSE 73; RESP 16; TEMP 36.8; O2SAT 94
[2024-11-09] MEDS: BACLOFEN 10 MG TABLET 40 MG BY MOUTH (22:31)
[2024-11-09 23:32] VITALS: PULSE 75; O2SAT 95
[2024-11-10 05:39] LABS: Hematocrit 40.3 % (37.0-47.0); Hemoglobin 12.9 g/dL (12.0-15.0); Immature Granulocyte Percent A 0.4 % (0-0.5); Lymphocytes Absolute Auto 1.61 K/mm3 (0.9-3.2); Mean Corpuscular HGB Conc 32.0 g/dl (32-36); Mean Corpuscular Hemoglobin 31.0 pg (26-34); Mean Corpuscular Volume 96.9 fl (80-100); Nucleated Red Blood Cells Absolute Auto 0.000 K/mm3 (0.0-0.012); Nucleated Red Blood Cells Perc 0.0 % (0.0-0.2); Platelet Count Result 338 k/mm3 (150-375); Red Blood Count 4.16 M/mm3 (4.2-5.4); White Blood Count 9.6 K/mm3 (4.5-10.0)
[2024-11-10 06:01] LABS: Alanine Aminotransferase 29 U/L (6-35); Albumin Level 3.8 g/dL (3.5-5.1); Alkaline Phosphatase 96 U/L (38-126); Anion Gap 6 mmol/L (4-12); Aspartate Amino Transferase 26 U/L (14-36); Bilirubin,Total 0.3 mg/dL (0.2-1.3); Blood Urea Nitrogen 6 mg/dL (7-17); Calcium 8.9 mg/dL (8.4-10.2); Carbon Dioxide 31 mmol/L (22-30); Chloride 99 mmol/L (98-107); Estimated CRCL calculation 124 ml/min; Estimated Glomerular Filt Rate > 60; Glucose 94 mg/dL (65-110); Magnesium 2.2 mg/dL (1.6-2.3); Potassium 3.5 mmol/L (3.4-5.0); Sodium 136 mmol/L (137-145); Total Protein 7.1 g/dL (6.3-8.2)
[2024-11-10] MEDS: BACLOFEN 10 MG TABLET 30 MG BY MOUTH ×2 (06:30→14:08)
[2024-11-10 06:31] VITALS: BP 147/89; PULSE 69; RESP 16; TEMP 36.7; O2SAT 97
[2024-11-10] MEDS: LEVOTHYROXINE SODIUM 150 MCG TABLET PO (06:31)
[2024-11-10] MEDS: CHOLECALCIFEROL (VITAMIN D3) 25 MCG (1,000 UNITS) TABLET PO ×2 (09:35→17:25)
[2024-11-10] MEDS: ATORVASTATIN 20 MG TABLET PO (09:35)
[2024-11-10] MEDS: LORATADINE 5 MG TABLET PO (09:35)
[2024-11-10] MEDS: modafiniL (*CRX) 200 MG TABLET PO (09:35)
[2024-11-10] MEDS: ASCORBIC ACID 500 MG TABLET 1000 MG PO ×3 (09:35→17:25)
[2024-11-10] MEDS: ENOXAPARIN 40 MG/0.4 ML SYRINGE SUB-Q (09:36)
[2024-11-10] MEDS: buPROPion HCL XL (24 HR) 150 MG TABCR PO (09:36)
[2024-11-10] MEDS: DALFAMPRIDINE 10 MG 10 EACH PO ×2 (09:36→22:19)
[2024-11-10] MEDS: ACETAMINOPHEN 325 MG TABLET 650 MG PO ×2 (09:36→14:06)
[2024-11-10] MEDS: POTASSIUM CHLORIDE 20 MEQ PACKET (FOR LIQUID) PO (09:37)
[2024-11-10 14:00] VITALS: BP 146/79; PULSE 74; RESP 18; TEMP 36.5; O2SAT 94
--- NOTE | 2024-11-10 15:00 | P.PNIM_ITS ---
Progress Note: A&P Assessment and Plan (1) UTI (urinary tract infection): Code(s): N39.0 - Urinary tract infection, site not specified Status: Acute Assessment and Plan: Leukocytosis resolved Urine culture from 11/08/2024 growing Gram-negative bacilli, pending sensitivities. (2) Bacteremia: Code(s): R78.81 - Bacteremia Status: Acute Assessment and Plan: Possibly from complicated UTI Blood culture from 11/03/2024, 1 bottle growing Proteus mirabilis, MDR, ceftriaxone switched to levofloxacin. Repeat blood culture on 11/07/2024, no growth at 48 hours, continue to monitor this. (3) Bladder stone: Code(s): N21.0 - Calculus in bladder Status: Acute Assessment and Plan: CT AP reviewed showed mild hydronephrosis and hydroureter As per urology - Large stone burden in bladder and left kidney - Dr. Motley to follow for outpatient stone management after infection clears. Patient aware treating left renal stones and bladder stones may require a staged approach. - patient complaining of bladder spasms, start solifenacin 5 mg p.o. q.a.m. on 11/10/2024, risks versus benefits of medication discussed. 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 -wound care for friction zhagn. Plan Saline lock IV, bed-bound status, prior to admission she lives at home with family, Lovenox 40 mg subQ q.day Patient wishes to be full code Monitoring blood cultures on levofloxacin Time Spent With Patient Time with patient: Greater than 35 minutes Subjective Date/time seen: 11/10/24 15:00 Interval history: No major acute overnight events. Patient has no complaints to report today. Iron suh feels at her baseline. Review of Systems Review of Systems: All systems reviewed & are unremarkable except as noted in HPI and below (Subjective) Exam Const: General: comfortable and no acute distress Other: A&O x3 HENMT: Mouth: Yes moist mucous membranes Eyes: Pupils: Equal, round and reactive pupils present Neck: Neck: supple Resp: Effort & Inspection: normal respiratory effort Auscultation: clear to auscultation bilaterally Cardio: Rate: regular rate GI: Inspection: non-distended GI Palp: Yes Soft to palpation and No Tenderness to palpation present (GI) Objective Data Vital Signs Vital Signs: Vital Signs - 24 hr 11/09/24 20:00 11/09/24 21:29 11/09/24 23:32 Temperature 98.2 F Pulse Rate 73 75 Respiratory Rate 16 Blood Pressure 137/75 Pulse Oximetry 94 95 Oxygen Delivery Room Air Autopap 11/10/24 02:35 11/10/24 06:31 11/10/24 09:25 Temperature 98.0 F Pulse Rate 69 Respiratory Rate 16 Blood Pressure 147/89 H Pulse Oximetry 97 Oxygen Delivery Autopap Room Air 11/10/24 14:00 Temperature 97.7 F Pulse Rate 74 Respiratory Rate 18 Blood Pressure 146/79 H Pulse Oximetry 94 Oxygen Delivery Intake/Output Intake/Output: Intake & Output 11/07/24 11/08/24 11/09/24 11/10/24 23:59 23:59 23:59 23:59 Intake Total 2220 1800 2970 1720 Output Total 5400 4800 2909 4526 Balance -7053 -0836 -980 -1110 Meds/Results Medications: Active Medications Generic Name Dose Route Start Last Admin Trade Name Freq PRN Reason Stop Dose Admin Acetaminophen 650 mg 11/05/24 00:52 11/10/24 14:06 Acetaminophen 325 Mg Tablet PO 650 mg Q4H PRN Administration Mild Pain (1-3) or Fever Ascorbic Acid 1,000 mg 11/04/24 17:00 11/10/24 14:06 Ascorbic Acid 500 Mg Tablet PO 1,000 mg TID SILAS Administration Atorvastatin Calcium 20 mg 11/05/24 09:00 11/10/24 09:35 Atorvastatin 20 Mg Tablet PO 20 mg DAILY SILAS Administration Baclofen 30 mg 11/04/24 15:45 11/10/24 14:08 Baclofen 10 Mg Tablet BY MOUTH 30 mg 0700,1500 SILAS Administration Baclofen 40 mg 11/04/24 23:00 11/09/24 22:31 Baclofen 10 Mg Tablet BY MOUTH 40 mg 2300 SILAS Administration Bupropion HCl 150 mg 11/05/24 09:00 11/10/24 09:36 Bupropion Hcl Xl (24 Hr) 150 Mg Tabcr PO 150 mg DAILY SILAS Administration Enoxaparin Sodium 40 mg 11/05/24 09:00 11/10/24 09:36 Enoxaparin 40 Mg/0.4 Ml Syringe SUB-Q 40 mg DAILY SILAS Administration Levofloxacin 750 mg 11/08/24 21:00 11/09/24 20:23 Levofloxacin 750 Mg Tablet PO 11/12/24 21:01 750 mg QHS SILAS Administration Levothyroxine Sodium 150 mcg 11/05/24 06:30 11/10/24 06:31 Levothyroxine Sodium 150 Mcg Tablet PO 150 mcg DAILY@0630 SILAS Administration Loratadine 5 mg 11/05/24 09:00 11/10/24 09:35 Loratadine 5 Mg Tablet PO 5 mg QAM SILAS Administration Modafinil 200 mg 11/05/24 09:00 11/10/24 09:35 Modafinil (*Crx) 200 Mg Tablet PO 200 mg DAILY SILAS Administration Dalfampridine 10 Mg 10 mg 11/04/24 21:00 11/10/24 09:36 Tablet Extended PO 12/04/24 20:59 10 mg Release 12 Hr *Use Q12HR SILAS Administration Home Supply* Potassium Chloride 20 meq 11/08/24 09:00 11/10/24 09:37 Potassium Chloride 20 Meq Packet (For Liquid) PO 20 meq DAILY SILAS Administration Vitamin D 25 mcg 11/04/24 17:00 11/10/24 09:35 Cholecalciferol (Vitamin D3) 25 Mcg (1,000 Units) Tablet PO 25 mcg BID SILAS Administration Radiology Results: ITS Impressions Abdomen/Pelvis CT 11/04/24 09:09 IMPRESSION: 1. Mild left hydronephrosis and hydroureter. 2. Bladder stones. Nonobstructing left kidney stones. 3. Lap band of the proximal stomach with discontinuous tubing. Chest X-Ray 11/04/24 11:57 IMPRESSION: 1. No acute cardiopulmonary findings or change from prior exam given portable technique. Labs Labs: Laboratory Results - last 24 hr 11/10/24 05:19 WBC 9.6 RBC 4.16 L Hgb 12.9 Hct 40.3 MCV 96.9 MCH 31.0 MCHC 32.0 RDW 13.2 Plt Count 338 MPV 9.5 Immature Gran % (Auto) 0.4 Neut % (Auto) 72.6 Lymph % (Auto) 16.8 L [place] % (Auto) 7.1 Eos % (Auto) 2.5 Baso % (Auto) 0.6 Lymph # (Auto) 1.61 [place] # (Auto) 0.7 H Eos # (Auto) 0.2 Baso # (Auto) 0.1 Abs Immat Gran (auto) 0.04 H Absolute Neuts (auto) 7.0 H Absolute Nucleated RBC 0.000 Nucleated RBC % 0.0 Sodium 136 L Potassium 3.5 Chloride 99 Carbon Dioxide 31 H Anion Gap 6 BUN 6 L Creatinine 0.52 L Estim Creat Clear Calc 124 Estimated GFR > 60 Glucose 94 Calcium 8.9 Magnesium 2.2 Total Bilirubin 0.3 AST 26 ALT 29 Alkaline Phosphatase 96 Total Protein 7.1 Albumin 3.8
[2024-11-10] MEDS: SOLIFENACIN 5 MG TABLET PO (17:25)
[2024-11-10 20:00] VITALS: PULSE 71; RESP 20; O2SAT 97
[2024-11-10 22:00] VITALS: BP 137/71; PULSE 74; RESP 20; TEMP 36.1; O2SAT 94
[2024-11-10] MEDS: BACLOFEN 10 MG TABLET 40 MG BY MOUTH (22:19)
[2024-11-11 04:34] VITALS: BP 151/79; PULSE 71; RESP 20; TEMP 36.1; O2SAT 97
[2024-11-11 05:45] LABS: Hematocrit 39.3 % (37.0-47.0); Hemoglobin 12.7 g/dL (12.0-15.0); Immature Granulocyte Percent A 0.5 % (0-0.5); Lymphocytes Absolute Auto 1.46 K/mm3 (0.9-3.2); Mean Corpuscular HGB Conc 32.3 g/dl (32-36); Mean Corpuscular Hemoglobin 31.4 pg (26-34); Mean Corpuscular Volume 97.0 fl (80-100); Nucleated Red Blood Cells Absolute Auto 0.000 K/mm3 (0.0-0.012); Nucleated Red Blood Cells Perc 0.0 % (0.0-0.2); Platelet Count Result 327 k/mm3 (150-375); Red Blood Count 4.05 M/mm3 (4.2-5.4); White Blood Count 9.9 K/mm3 (4.5-10.0)
[2024-11-11 06:07] LABS: Anion Gap 4 mmol/L (4-12); Blood Urea Nitrogen 7 mg/dL (7-17); Calcium 8.6 mg/dL (8.4-10.2); Carbon Dioxide 33 mmol/L (22-30); Chloride 99 mmol/L (98-107); Estimated CRCL calculation 116 ml/min; Estimated Glomerular Filt Rate > 60; Glucose 98 mg/dL (65-110); Magnesium 2.3 mg/dL (1.6-2.3); Potassium 3.8 mmol/L (3.4-5.0); Sodium 136 mmol/L (137-145)
[2024-11-11] MEDS: LEVOTHYROXINE SODIUM 150 MCG TABLET PO (06:26)
[2024-11-11] MEDS: BACLOFEN 10 MG TABLET 30 MG BY MOUTH ×2 (06:32→17:08)
[2024-11-11] MEDS: CHOLECALCIFEROL (VITAMIN D3) 25 MCG (1,000 UNITS) TABLET PO ×2 (08:31→17:08)
[2024-11-11] MEDS: ASCORBIC ACID 500 MG TABLET 1000 MG PO ×3 (08:31→17:08)
[2024-11-11] MEDS: buPROPion HCL XL (24 HR) 150 MG TABCR PO (08:31)
[2024-11-11] MEDS: modafiniL (*CRX) 200 MG TABLET PO (08:31)
[2024-11-11] MEDS: LORATADINE 5 MG TABLET PO (08:31)
[2024-11-11] MEDS: ATORVASTATIN 20 MG TABLET PO (08:31)
[2024-11-11] MEDS: SOLIFENACIN 5 MG TABLET PO (08:31)
[2024-11-11] MEDS: DALFAMPRIDINE 10 MG 10 EACH PO ×2 (08:32→20:16)
[2024-11-11] MEDS: POTASSIUM CHLORIDE 20 MEQ PACKET (FOR LIQUID) PO (08:32)
[2024-11-11] MEDS: ENOXAPARIN 40 MG/0.4 ML SYRINGE SUB-Q (08:38)
--- NOTE | 2024-11-11 10:43 | P.PNIM_ITS ---
Progress Note: A&P Assessment and Plan (1) UTI (urinary tract infection): Code(s): N39.0 - Urinary tract infection, site not specified Status: Acute Assessment and Plan: Leukocytosis resolved Urine culture from 11/08/2024 growing Gram-negative bacilli, pending sensitivities. (2) Bacteremia: Code(s): R78.81 - Bacteremia Status: Acute Assessment and Plan: Possibly from complicated UTI Blood culture from 11/03/2024, 1 bottle growing Proteus mirabilis, MDR, ceftriaxone switched to levofloxacin. Repeat blood culture on 11/07/2024, no growth at 48 hours, continue to monitor this. (3) Bladder stone: Code(s): N21.0 - Calculus in bladder Status: Acute Assessment and Plan: CT AP reviewed showed mild hydronephrosis and hydroureter As per urology - Large stone burden in bladder and left kidney - Dr. Motley to follow for outpatient stone management after infection clears. Patient aware treating left renal stones and bladder stones may require a staged approach. - patient complaining of bladder spasms, start solifenacin 5 mg p.o. q.a.m. on 11/10/2024, risks versus benefits of medication discussed. Improved. 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 q.day (8) Hypertension: Code(s): I10 - Essential (primary) hypertension Status: Acute Assessment and Plan: Continue to monitor (9) Depression: Code(s): F32.A - Depression, unspecified Status: Acute Assessment and Plan: Continue [employer]S ORDER AND STOCK CLERK bupropion (10) Multiple sclerosis: Code(s): G35 - Multiple sclerosis Status: Acute Assessment and Plan: -continue [employer]S [employer] AND STOCK CLERK modafinil and dalfampridine -patient stated that she is wheelchair bound/bed-bound. -wound care per protocol. Plan Saline lock IV, bed-bound status, prior to admission she lives at home with family, Lovenox 40 mg subQ q.day Patient wishes to be full code Monitoring blood cultures on levofloxacin, hopefully home tomorrow blood cultures continue to demonstrate clearance. Time Spent With Patient Time with patient: Greater than 35 minutes Subjective Date/time seen: 11/11/24 10:43 Interval history: No acute overnight events. Patient has no new complaints to report. Bladder spasms improved. Review of Systems Review of Systems: All systems reviewed & are unremarkable except as noted in HPI and below (Subjective) Exam Const: General: comfortable and no acute distress HENMT: Mouth: Yes moist mucous membranes Eyes: Pupils: Equal, round and reactive pupils present Neck: Neck: supple Resp: Effort & Inspection: normal respiratory effort Auscultation: clear to auscultation bilaterally Cardio: Rate: regular rate Rhythm: regular rhythm GI: Inspection: non-distended GI Palp: Yes Soft to palpation Neuro: Other: Baseline: Bilateral lower extremity weakness Extrem: General: edema Objective Data Vital Signs Vital Signs: Vital Signs - 24 hr 11/10/24 14:00 11/10/24 20:00 11/10/24 22:00 Temperature 97.7 F 96.9 F L Pulse Rate 74 71 74 Respiratory Rate 18 20 20 Blood Pressure 146/79 H 137/71 Pulse Oximetry 94 97 94 Oxygen Delivery CPAP Fraction of Inspired Oxygen 11/11/24 04:34 Temperature 97 F L Pulse Rate 71 Respiratory Rate 20 Blood Pressure 151/79 H Pulse Oximetry 97 Oxygen Delivery Fraction of Inspired Oxygen Intake/Output Intake/Output: Intake & Output 11/08/24 11/09/24 11/10/24 11/11/24 23:59 23:59 23:59 23:59 Intake Total 1800 2970 3030 680 Output Total 4800 3950 3450 9877 Balance -3680 -671 -420 -6921 Meds/Results Medications: Active Medications Generic Name Dose Route Start Last Admin Trade Name Freq PRN Reason Stop Dose Admin Acetaminophen 650 mg 11/05/24 00:52 11/10/24 14:06 Acetaminophen 325 Mg Tablet PO 650 mg Q4H PRN Administration Mild Pain (1-3) or Fever Ascorbic Acid 1,000 mg 11/04/24 17:00 11/11/24 08:31 Ascorbic Acid 500 Mg Tablet PO 1,000 mg TID SILAS Administration Atorvastatin Calcium 20 mg 11/05/24 09:00 11/11/24 08:31 Atorvastatin 20 Mg Tablet PO 20 mg DAILY SILAS Administration Baclofen 30 mg 11/04/24 15:45 11/11/24 06:32 Baclofen 10 Mg Tablet BY MOUTH 30 mg 0700,1500 SILAS Administration Baclofen 40 mg 11/04/24 23:00 11/10/24 22:19 Baclofen 10 Mg Tablet BY MOUTH 40 mg 2300 SILAS Administration Bupropion HCl 150 mg 11/05/24 09:00 11/11/24 08:31 Bupropion Hcl Xl (24 Hr) 150 Mg Tabcr PO 150 mg DAILY SILAS Administration Enoxaparin Sodium 40 mg 11/05/24 09:00 11/11/24 08:38 Enoxaparin 40 Mg/0.4 Ml Syringe SUB-Q 40 mg DAILY SILAS Administration Levofloxacin 750 mg 11/08/24 21:00 11/10/24 22:19 Levofloxacin 750 Mg Tablet PO 11/12/24 21:01 750 mg QHS SILAS Administration Levothyroxine Sodium 150 mcg 11/05/24 06:30 11/11/24 06:26 Levothyroxine Sodium 150 Mcg Tablet PO 150 mcg DAILY@0630 SILAS Administration Loratadine 5 mg 11/05/24 09:00 11/11/24 08:31 Loratadine 5 Mg Tablet PO 5 mg QAM SILAS Administration Modafinil 200 mg 11/05/24 09:00 11/11/24 08:31 Modafinil (*Crx) 200 Mg Tablet PO 200 mg DAILY SILAS Administration Dalfampridine 10 Mg 10 mg 11/04/24 21:00 11/11/24 08:32 Tablet Extended PO 12/04/24 20:59 10 mg Release 12 Hr *Use Q12HR SILAS Administration Home Supply* Potassium Chloride 20 meq 11/08/24 09:00 11/11/24 08:32 Potassium Chloride 20 Meq Packet (For Liquid) PO 20 meq DAILY SILAS Administration Solifenacin 5 mg 11/10/24 15:05 11/11/24 08:31 Solifenacin 5 Mg Tablet PO 5 mg QAM SILAS Administration Vitamin D 25 mcg 11/04/24 17:00 11/11/24 08:31 Cholecalciferol (Vitamin D3) 25 Mcg (1,000 Units) Tablet PO 25 mcg BID SILAS Administration Radiology Results: ITS Impressions Abdomen/Pelvis CT 11/04/24 09:09 IMPRESSION: 1. Mild left hydronephrosis and hydroureter. 2. Bladder stones. Nonobstructing left kidney stones. 3. Lap band of the proximal stomach with discontinuous tubing. Chest X-Ray 11/04/24 11:57 IMPRESSION: 1. No acute cardiopulmonary findings or change from prior exam given portable technique. Labs Labs: Laboratory Results - last 24 hr 11/11/24 05:27 WBC 9.9 RBC 4.05 L Hgb 12.7 Hct 39.3 MCV 97.0 MCH 31.4 MCHC 32.3 RDW 13.4 Plt Count 327 MPV 9.6 Immature Gran % (Auto) 0.5 Neut % (Auto) 75.5 H Lymph % (Auto) 14.8 L [place] % (Auto) 6.7 Eos % (Auto) 2.0 Baso % (Auto) 0.5 Lymph # (Auto) 1.46 [place] # (Auto) 0.7 H Eos # (Auto) 0.2 Baso # (Auto) 0.1 Abs Immat Gran (auto) 0.05 H Absolute Neuts (auto) 7.5 H Absolute Nucleated RBC 0.000 Nucleated RBC % 0.0 Sodium 136 L Potassium 3.8 Chloride 99 Carbon Dioxide 33 H Anion Gap 4 BUN 7 Creatinine 0.56 L Estim Creat Clear Calc 116 Estimated GFR > 60 Glucose 98 Calcium 8.6 Magnesium 2.3
[2024-11-11 14:35] VITALS: BP 125/69; PULSE 83; RESP 20; TEMP 36.3; O2SAT 93
[2024-11-11] MEDS: ACETAMINOPHEN 325 MG TABLET 650 MG PO (20:16)
[2024-11-11 22:00] VITALS: BP 109/61; PULSE 78; RESP 20; TEMP 36.4; O2SAT 93
[2024-11-11] MEDS: BACLOFEN 10 MG TABLET 40 MG BY MOUTH (23:20)
[2024-11-12 04:53] VITALS: BP 96/50; PULSE 73; RESP 20; TEMP 37.2; O2SAT 94
[2024-11-12 05:18] LABS: Hematocrit 40.3 % (37.0-47.0); Hemoglobin 12.7 g/dL (12.0-15.0); Immature Granulocyte Percent A 0.5 % (0-0.5); Lymphocytes Absolute Auto 1.47 K/mm3 (0.9-3.2); Mean Corpuscular HGB Conc 31.5 g/dl (32-36); Mean Corpuscular Hemoglobin 30.6 pg (26-34); Mean Corpuscular Volume 97.1 fl (80-100); Nucleated Red Blood Cells Absolute Auto 0.000 K/mm3 (0.0-0.012); Nucleated Red Blood Cells Perc 0.0 % (0.0-0.2); Platelet Count Result 326 k/mm3 (150-375); Red Blood Count 4.15 M/mm3 (4.2-5.4); White Blood Count 9.7 K/mm3 (4.5-10.0)
[2024-11-12] MEDS: BACLOFEN 10 MG TABLET 30 MG BY MOUTH ×2 (05:51→16:17)
[2024-11-12] MEDS: LEVOTHYROXINE SODIUM 150 MCG TABLET PO (05:52)
[2024-11-12 06:03] LABS: Anion Gap 6 mmol/L (4-12); Blood Urea Nitrogen 8 mg/dL (7-17); Calcium 8.6 mg/dL (8.4-10.2); Carbon Dioxide 30 mmol/L (22-30); Chloride 100 mmol/L (98-107); Estimated CRCL calculation 110 ml/min; Estimated Glomerular Filt Rate > 60; Glucose 104 mg/dL (65-110); Magnesium 2.2 mg/dL (1.6-2.3); Potassium 3.7 mmol/L (3.4-5.0); Sodium 136 mmol/L (137-145)
[2024-11-12 08:29] VITALS: BP 143/65; PULSE 71; RESP 18; TEMP 36.3; O2SAT 97
[2024-11-12] MEDS: SOLIFENACIN 5 MG TABLET PO (08:50)
[2024-11-12] MEDS: ATORVASTATIN 20 MG TABLET PO (08:50)
[2024-11-12] MEDS: LORATADINE 5 MG TABLET PO (08:50)
[2024-11-12] MEDS: ENOXAPARIN 40 MG/0.4 ML SYRINGE SUB-Q (08:51)
[2024-11-12] MEDS: CHOLECALCIFEROL (VITAMIN D3) 25 MCG (1,000 UNITS) TABLET PO ×2 (08:51→16:18)
[2024-11-12] MEDS: ASCORBIC ACID 500 MG TABLET 1000 MG PO ×3 (08:51→16:17)
[2024-11-12] MEDS: DALFAMPRIDINE 10 MG 10 EACH PO (08:51)
[2024-11-12] MEDS: POTASSIUM CHLORIDE 20 MEQ ER TABLET PO (08:51)
[2024-11-12] MEDS: buPROPion HCL XL (24 HR) 150 MG TABCR PO (08:51)
[2024-11-12] MEDS: modafiniL (*CRX) 200 MG TABLET PO (08:51)
--- NOTE | 2024-11-12 12:46 | PM.DS ---
DS: Admitting Diagnosis Discharge Date 11/12/2024 Admitting Diagnosis Bladder pain DS: Discharge Diagnosis Discharge Diagnosis (1) UTI (urinary tract infection): Code(s): N39.0 - Urinary tract infection, site not specified Status: Acute (2) Bacteremia: Code(s): R78.81 - Bacteremia Status: Acute (3) Bladder stone: Code(s): N21.0 - Calculus in bladder Status: Acute DS: Summary Hospital Course Hospital Course: A pleasant 64-year-old female with a [facility] multiple sclerosis, bed-bound, suprapubic catheter, history of bladder stone, presents to [facility] on 11/03/2024 complaining of bladder pain and chills. Patient treated for UTI. Urine culture growing Gram-negative bacilli. Blood culture on 11/03/2024 growing Proteus mirabilis in 1 bottle resistant to ampicillin, intermediate resistant to cefazolin, resistant to tetracycline and Bactrim. She was placed on levofloxacin. Repeat blood cultures on 11/07/2024 no growth to date. Will follow. Patient is eager to return home, she will be discharged on another 2 days of levofloxacin to complete a 7 day course. She will be discharged to home to resume home health. CT abdomen pelvis showed mild hydronephrosis and hydroureter, she has large stone burden in the bladder and left kidney. Seen by Urology, advised to follow-up in the outpatient setting for staged approach. Solifenacin prescribed on discharge, advised to review this medication with urologist, discussed risks versus benefits. Bladder spasms have improved. She will resume her usual multiple sclerosis medications modafinil and dalfampridine. Hypokalemia and hypo magnesemia resolved status post replacement. All of her questions and concerns were answered to satisfaction. The patient was full code. Status at Discharge Functional status at discharge: wheelchair bound Time Spent with Patient Time attestation: Total time spent providing and/or coordinating discharge services: Exam Const: General: comfortable and no acute distress HENMT: Mouth: Yes moist mucous membranes Eyes: Pupils: Equal, round and reactive pupils present Neck: Neck: supple Resp: Effort & Inspection: normal respiratory effort Auscultation: clear to auscultation bilaterally Cardio: Rate: regular rate Rhythm: regular rhythm GI: Inspection: non-distended GI Palp: Yes Soft to palpation Neuro: Other: Baseline: Bilateral lower extremity weakness Extrem: General: edema DS: Data Data Completed and Pending Labs on day of discharge: Labs from last 24 hours 11/12/24 04:45 WBC 9.7 RBC 4.15 L Hgb 12.7 Hct 40.3 MCV 97.1 MCH 30.6 MCHC 31.5 L RDW 13.5 Plt Count 326 MPV 9.5 Immature Gran % (Auto) 0.5 Neut % (Auto) 75.0 H Lymph % (Auto) 15.1 L [place] % (Auto) 6.6 Eos % (Auto) 2.2 Baso % (Auto) 0.6 Lymph # (Auto) 1.47 [place] # (Auto) 0.6 Eos # (Auto) 0.2 Baso # (Auto) 0.1 Abs Immat Gran (auto) 0.05 H Absolute Neuts (auto) 7.3 H Absolute Nucleated RBC 0.000 Nucleated RBC % 0.0 Sodium 136 L Potassium 3.7 Chloride 100 Carbon Dioxide 30 Anion Gap 6 BUN 8 Creatinine 0.60 L Estim Creat Clear Calc 110 Estimated GFR > 60 Glucose 104 Calcium 8.6 Magnesium 2.2 Preliminary micro results at discharge 11/07/24 12:00 Blood Culture - Preliminary Blood 11/07/24 12:01 Blood Culture - Preliminary Blood 11/08/24 13:42 Urine Culture - Preliminary Urine Suprapubic Gram negative bacilli isolated Discharge Plan Discharge Attending physician on discharge: Dagmar Flores Consulting providers: Tab Barbosa Discharging Clinician: Dagmar Flores Patient Disposition: Home with Home Health Service Activity: june shower Diet: as tolerated Discharge Instructions: Per Care Coordination: Patient to resume services [facility] Home Health services at discharge. [facility] Home Health will resume RN and PT/OT eval and treat. [facility] Home Health can be contacted at . Nursing please fax discharge paperwork to [phone]. Patient Instructions: Antibiotic Form Patient Language: Luxembourger Stand Alone Forms: General Discharge Information Follow-up/Referrals: Galen Motley MD [Physician, Urology] - Call for Appointment Problems: Nephrolithiasis; Bladder stone Discharge Medications: New solifenacin [Vesicare] 5 mg Tablet 5 mg PO QAM Qty: 30 0RF Rx Instructions: revisit utilization of this medication when you see your urologist levofloxacin 750 mg tablet 750 mg PO DAILY Qty: 2 0RF Continued atorvastatin 20 mg tablet 20 mg PO DAILY baclofen 10 mg tablet See Rx Instructions .ROUTE .COMPLEX Rx Instructions: PO, 30 mg 0700, 30mg 1500, 40mg 2300; bupropion HCl 150 mg tablet extended release 24 hr 150 mg PO DAILY dalfampridine 10 mg tablet extended release 12 hr 10 mg PO Q12H ascorbic acid (vitamin C) [Vitamin C] 500 mg tablet 1,000 mg PO TID gabapentin 100 mg capsule See Rx Instructions .ROUTE .COMPLEX Rx Instructions: 200mg po @0700, 200mg @1500, 300mg @2300; levothyroxine 150 mcg tablet 150 mcg PO DAILY modafinil 200 mg tablet 200 mg PO DAILY cetirizine [Zyrtec] 10 mg tablet 5 mg PO DAILY cholecalciferol (vitamin D3) [Vitamin D3] 25 mcg (1,000 unit) capsule 25 mcg PO BID Actifruit Cranberry 500-50 mg tablet,chewable 2 tablet PO DAILY Date of admission: 11/04/24 03:33 Primary Care Provider: RichelleFeliberto Admitting Provider: Blair Rosenberg Attending physician on admission: Blair Rosenberg Condition: Stable Hospitalist MIPS Heart Failure (Exclusion) Patient has history of Heart Transplant or Left Ventricular Assistive Device?: No IF YES, STOP HERE Heart Failure (Qualifier) Patient has current or prior documentation of LVEF less than or equal to 40%, or mod/servere depressed LVSF?: No IF NO, STOP HERE
[2024-11-12 13:33] VITALS: BP 126/68; PULSE 78; RESP 18; TEMP 36.3; O2SAT 97
== END 2024-11-12 20:03 | disposition home health service (06) | DRG 699 ==
LOC: ANHED 11-04 04:57 → ANHIMU 11-04 04:58 → ANH2MED 11-05 16:34
PROVIDERS: General Practice; Internal Medicine; Nurse Practitioner; Physician Assistant; Admitting Provider Internal Medicine; Emergency Provider Emergency Medicine; Visit Provider General Practice
DX: T83.510A Infection and inflammatory reaction due to cystostomy catheter, initial encounter (principal); N39.0 Urinary tract infection, site not specified; N13.30 Unspecified hydronephrosis; R78.81 Bacteremia; B96.4 Proteus (mirabilis) (morganii) as the cause of diseases classified elsewhere; E83.42 Hypomagnesemia; E87.6 Hypokalemia; E83.51 Hypocalcemia; N21.0 Calculus in bladder; N20.0 Calculus of kidney; N31.9 Neuromuscular dysfunction of bladder, unspecified; G35 Multiple sclerosis; E03.9 Hypothyroidism, unspecified; I10 Essential (primary) hypertension; E78.5 Hyperlipidemia, unspecified; F32.A Depression, unspecified; M21.379 Foot drop, unspecified foot; Z87.891 Personal history of nicotine dependence; Z99.3 Dependence on wheelchair; Z74.01 Bed confinement status; Z93.59 Other cystostomy status
CPT/HCPCS: 36415; 71045; 74177; 80048; 80053; 81001; 82948; 83605; 83690; 83735; 84443; 85025; 85027; 85610; 85730; 86140; 87040; 87086; 87186; 87637; 93005; 94002; 96361; 96365; 96366; 96375; 99285; A9270; J0612; J0696; J1650; J2405; J3475; J3480; J7030; J7040; J7120; Q9967